=== PATIENT | male | born 1935 | race Caucasian/White ===

== ENCOUNTER 2020-03-05 11:52 | Inpatient (IN) | payer MEDICARE ==
[2020-03-05] MEDS ORDERED: IPRATROPIUM 0.5 MG/2.5 ML NEBU INHALATION STA (12:24)
[2020-03-05] MEDS ORDERED: ALBUTEROL NEBULIZED 2.5 MG/3 ML INHALATION STA (12:24)
[2020-03-05 12:34] LABS: Anisocytosis Slight; Basophils % (A) 0 %; Eosinophils # (A) 0.1 k/uL (0-0.7); Eosinophils % (A) 1 %; HCT 42.7 % (39.0-53.0); HGB 12.8 gm/dL (13.0-17.5); Hypochromasia Marked; Lymphocytes # (A) 0.7 k/uL (1.0-4.8); Lymphocytes % (A) 7 %; MCH 27.3 pg (25.0-35.0); MCV 91.1 fL (80.0-100.0); Mean Platelet Volume 7.3; Monocytes # (A) 0.5 k/uL (0-1.0); Monocytes % (A) 5 %; Neutrophils # (A) 8.3 k/uL (1.3-7.7); Neutrophils % (A) 85 %; Platelet Count 288 k/uL (150-450); RBC 4.68 m/uL (4.30-5.90); RDW 16.3 % (11.5-15.5); WBC 9.8 k/uL (3.8-10.6)
--- NOTE | 2020-03-05 12:37 | ED ---
General Adult HPI - General Chief complaint: Shortness of Breath Stated complaint: SOB, weakness Time Seen by Provider: 03/05/20 12:07 Source: patient, family, RN notes reviewed, old records reviewed Mode of arrival: wheelchair Limitations: no limitations - History of Present Illness Initial comments: 84-year-old male with history of COPD and congestive heart failure presenting with worsening dyspnea. Patient reports a mild cough. No fever. No URI symptoms. He is currently on 2 L of home oxygen and on CPAP machine at night. He typically sleeps in a chair. He's had worsening dyspnea over the past 1 week however over the past 24 hours this has significantly worsened. He denies central chest pain. He does report some lower extremity edema. He has been taking diuretics as prescribed. - Related Data Home Medications Medication Instructions Recorded Confirmed Atorvastatin [Lipitor] 80 mg PO HS 07/13/16 07/13/16 Budesonide [Pulmicort Flexhaler] 1 puff INHALATION RT-BID 07/13/16 07/13/16 Carvedilol [Coreg] 3.125 mg PO BID 07/13/16 07/13/16 Cholecalciferol [Vitamin D3 (25 1,000 unit PO QAM 07/13/16 07/13/16 Mcg = 1000 Iu)] Famotidine [Pepcid] 20 mg PO BID 07/13/16 07/13/16 Fish Oil/Dha/Epa [Fish Oil 1,200 2 cap PO QAM 07/13/16 07/13/16 mg Fish Oil] Gabapentin 600 mg PO HS 07/13/16 07/13/16 INSULIN ASPART (NovoLOG) [NovoLOG See Protocol SQ AC-TID 07/13/16 07/13/16 (formulary)] Levothyroxine Sodium [Synthroid] 50 mcg PO QAM 07/13/16 07/13/16 Montelukast [Singulair] 10 mg PO HS 07/13/16 07/13/16 Multivitamins, Thera [Multivitamin 1 tab PO QAM 07/13/16 07/13/16 (formulary)] Vit C/E/Zn/Coppr/Lutein/Zeaxan 1 cap PO BID 07/13/16 07/13/16 [Preservision Areds 2 Softgel] Previous Rx's Medication Instructions Recorded Albuterol Inhaler (Mhu) [Ventolin 2 puff INHALATION Q6HR #1 inhaler 07/18/16 Hfa Inhaler (Mhu)] Ciprofloxacin HCl [Cipro] 500 mg PO BID #42 tab 07/18/16 Insulin Glargine,Hum.rec.anlog 15 unit SQ HS #30 ml 07/18/16 [Lantus Solostar] SILVER sulfADIAZINE CREAM 1 applic TOPICAL DAILY applic 07/18/16 [Silvadene Cream] predniSONE 10 mg PO DIRECTED #30 tab 07/18/16 Allergies Allergy/AdvReac Type Severity Reaction Status Date / Time No Known Allergies Allergy Verified 07/13/16 16:17 Review of Systems ROS Statement: Those systems with pertinent positive or pertinent negative responses have been documented in the HPI. ROS Other: All systems not noted in ROS Statement are negative. Past Medical History Past Medical History: Coronary Artery Disease (CAD), Diabetes Mellitus, Hyperlipidemia, Hypertension, Sleep Apnea/CPAP/BIPAP Additional Past Medical History / Comment(s): O2 HS for SA History of Any Multi-Drug Resistant Organisms: None Reported Past Surgical History: Cholecystectomy, Coronary Bypass/CABG Additional Past Surgical History / Comment(s): Rectal cancer status post colostomy, bilateral cataract extraction and intraocular lens implants, bilateral eyelid surgery Past Anesthesia/Blood Transfusion Reactions: No Reported Reaction Past Psychological History: No Psychological Hx Reported Smoking Status: Former smoker Past Alcohol Use History: Occasional Past Drug Use History: None Reported - Past Family History Brother(s) Family Medical History: Cancer Son(s) Family Medical History: No Reported History General Exam Limitations: no limitations General appearance: alert, in no apparent distress Head exam: Present: atraumatic, normocephalic Eye exam: Present: normal appearance, PERRL ENT exam: Present: normal exam Neck exam: Present: normal inspection. Absent: tenderness, meningismus Respiratory exam: Present: respiratory distress, wheezes, rales, decreased breath sounds Cardiovascular Exam: Present: regular rate, irregular rhythm GI/Abdominal exam: Present: soft, distended. Absent: tenderness, guarding, rebound Extremities exam: Present: pedal edema Neurological exam: Present: alert, oriented X3, CN II-XII intact. Absent: motor sensory deficit Psychiatric exam: Present: normal affect, normal mood Skin exam: Present: warm, dry, intact, cyanosis, diaphoretic Course Vital Signs 03/05/20 03/05/20 03/05/20 12:03 12:07 12:09 Temperature 99.0 F Pulse Rate 92 89 Respiratory 22 22 16 Rate Blood Pressure 136/72 136/72 O2 Sat by Pulse 92 L 96 Oximetry 03/05/20 03/05/20 03/05/20 12:30 12:45 12:59 Temperature Pulse Rate 80 81 79 Respiratory 17 Rate Blood Pressure O2 Sat by Pulse 97 Oximetry 03/05/20 13:00 Temperature Pulse Rate 79 Respiratory 41 H Rate Blood Pressure 136/72 O2 Sat by Pulse 99 Oximetry EKG Findings - EKG Comments: EKG Findings:: EKG: Atrial flutter with a variable AV block low voltage, ventricular rate of 87, QRS duration 86, QTC 442, no ST segment elevation. Medical Decision Making - Medical Decision Making 84-year-old male presenting with worsening dyspnea. Patient does have a cough. No fever. Chest x-ray showing infiltrate worse on the right. COPD. Patient has left shift, stable hemoglobin. His kidney function is at baseline. He has a BNP of 2000 which is improved from prior. He remains dyspneic which is likely secondary to COPD, pneumonia, and a degree of congestive heart failure. He will be admitted with pulmonology on consult. Case is discussed with Dr. Ramirez who will admit. - Lab Data Result diagrams: 03/05/20 12:10 03/05/20 12:10 Lab Results 03/05/20 03/05/20 03/05/20 Range/Units 12:10 12:10 12:10 WBC 9.8 (3.8-10.6) k/uL RBC 4.68 (4.30-5.90) m/uL Hgb 12.8 L (13.0-17.5) gm/dL Hct 42.7 (39.0-53.0) % MCV 91.1 (80.0-100.0) fL MCH 27.3 (25.0-35.0) pg MCHC 30.0 L (31.0-37.0) g/dL RDW 16.3 H (11.5-15.5) % Plt Count 288 (150-450) k/uL Neutrophils % 85 % Lymphocytes % 7 % Monocytes % 5 % Eosinophils % 1 % Basophils % 0 % Neutrophils # 8.3 H (1.3-7.7) k/uL Lymphocytes # 0.7 L (1.0-4.8) k/uL Monocytes # 0.5 (0-1.0) k/uL Eosinophils # 0.1 (0-0.7) k/uL Basophils # 0.0 (0-0.2) k/uL Hypochromasia Marked Anisocytosis Slight PT 10.1 (9.0-12.0) sec INR 1.0 (<1.2) APTT 24.3 (22.0-30.0) sec Sodium 139 (137-145) mmol/L Potassium 5.0 (3.5-5.1) mmol/L Chloride 98 (98-107) mmol/L Carbon Dioxide 34 H (22-30) mmol/L Anion Gap 7 mmol/L BUN 29 H (9-20) mg/dL Creatinine 1.51 H (0.66-1.25) mg/dL Est GFR (CKD-EPI)AfAm 48 (>60 ml/min/1.73 sqM) Est GFR (CKD-EPI)NonAf 42 (>60 ml/min/1.73 sqM) Glucose 117 H (74-99) mg/dL Plasma Lactic Acid Alberto (0.7-2.0) mmol/L Calcium 9.0 (8.4-10.2) mg/dL Magnesium 2.1 (1.6-2.3) mg/dL Total Bilirubin 0.8 (0.2-1.3) mg/dL AST 27 (17-59) U/L ALT 23 (4-49) U/L Alkaline Phosphatase 161 H (38-126) U/L Troponin I (0.000-0.034) ng/mL NT-Pro-B Natriuret Pep pg/mL Total Protein 7.2 (6.3-8.2) g/dL Albumin 3.7 (3.5-5.0) g/dL 03/05/20 03/05/20 03/05/20 Range/Units 12:10 12:10 12:10 WBC (3.8-10.6) k/uL RBC (4.30-5.90) m/uL Hgb (13.0-17.5) gm/dL Hct (39.0-53.0) % MCV (80.0-100.0) fL MCH (25.0-35.0) pg MCHC (31.0-37.0) g/dL RDW (11.5-15.5) % Plt Count (150-450) k/uL Neutrophils % % Lymphocytes % % Monocytes % % Eosinophils % % Basophils % % Neutrophils # (1.3-7.7) k/uL Lymphocytes # (1.0-4.8) k/uL Monocytes # (0-1.0) k/uL Eosinophils # (0-0.7) k/uL Basophils # (0-0.2) k/uL Hypochromasia Anisocytosis PT (9.0-12.0) sec INR (<1.2) APTT (22.0-30.0) sec Sodium (137-145) mmol/L Potassium (3.5-5.1) mmol/L Chloride (98-107) mmol/L Carbon Dioxide (22-30) mmol/L Anion Gap mmol/L BUN (9-20) mg/dL Creatinine (0.66-1.25) mg/dL Est GFR (CKD-EPI)AfAm (>60 ml/min/1.73 sqM) Est GFR (CKD-EPI)NonAf (>60 ml/min/1.73 sqM) Glucose (74-99) mg/dL Plasma Lactic Acid Alberto 0.9 (0.7-2.0) mmol/L Calcium (8.4-10.2) mg/dL Magnesium (1.6-2.3) mg/dL Total Bilirubin (0.2-1.3) mg/dL AST (17-59) U/L ALT (4-49) U/L Alkaline Phosphatase (38-126) U/L Troponin I 0.031 (0.000-0.034) ng/mL NT-Pro-B Natriuret Pep 2040 pg/mL Total Protein (6.3-8.2) g/dL Albumin (3.5-5.0) g/dL Disposition Clinical Impression: Community acquired pneumonia, Acute exacerbation of chronic obstructive pulmonary disease Disposition: ADMITTED IP TO THIS HOSP Condition: Stable Is patient prescribed a controlled substance at d/c from ED?: No Referrals: Graeme Alonso DO [Primary Care Provider] - 1-2 days Decision to Admit Reason: Admit from EC Decision Date: 03/05/20 Decision Time: 14:02
[2020-03-05 12:42] LABS: Partial Thromboplastin Time 24.3 sec (22.0-30.0); Prothrombin Time 10.1 sec (9.0-12.0)
--- NOTE | 2020-03-05 12:42 | XR ---
EXAMINATION TYPE: XR chest 2V DATE OF EXAM: 03/05/2020 COMPARISON: 08/24/2016 INDICATION: Difficulty breathing, fever TECHNIQUE: Frontal and lateral views of the chest are obtained. FINDINGS: The heart size is normal. The pulmonary vasculature is normal. Mild bibasilar infiltrates are present, greater at the left base. There is blunting left costophrenic angle. Posterior infiltrates are present on the lateral projection. Hyperinflation flattening the di aphragms is present. IMPRESSION: 1. Right basilar infiltrates with left greater than right. Correlate for atelectasis and pneumonia. C onsider atypical pneumonia within the joint. 2. COPD.
[2020-03-05 12:47] LABS: Albumin 3.7 g/dL (3.5-5.0); Magnesium 2.1 mg/dL (1.6-2.3); Total Bilirubin 0.8 mg/dL (0.2-1.3); Total Protein 7.2 g/dL (6.3-8.2)
[2020-03-05] MEDS ORDERED: ASPIRIN 325 MG TAB PO STA (13:58)
[2020-03-05] MEDS ORDERED: IPRATROPIUM-ALBUTEROL 3 ML NEB INHALATION PRN (13:58)
[2020-03-05] MEDS ORDERED: cefTRIAXone IN SWFI 1,000 MG/10 ML SYRINGE IVP STA (13:58)
[2020-03-05] MEDS ORDERED: FUROSEMIDE 10 MG/ML 4 ML VIAL IV STA (13:58)
[2020-03-05] MEDS ORDERED: AZITHROMYCIN 500 MG in SODIUM CHLORIDE 0.9% 250 ML IVPB STA (13:58)
[2020-03-05] MEDS ORDERED: methylPREDNISolone SOD SUCCI 125 MG/2 ML VIAL IV STA (13:58)
[2020-03-05] MEDS: IPRATROPIUM-ALBUTEROL 3 ML NEB INHALATION SCH ×2 (15:39→19:30)
--- NOTE | 2020-03-05 16:37 | P.HPIM ---
History of Present Illness 84-year-old pleasant male with known history of COPD came in with comments of shortness of breath has been going on for last few days unable to see because of shortness of breath for last 3 days patient is supposed to stress of onset at home does have history of sleep apnea, complaining of cough unable to bring up anything, denied any orthopnea or paroxysmal nocturnal dyspnea. Patient denied any fever chills. Patient doesn't have any leukocytosis chest x-ray showed bilateral lower lobe infiltrates possibility of atelectasis patient has significant rhonchi bilaterally very minimal wheeze on exam. Doesn't have any JVD. Patient had normal ejection fraction the past BNP is 2000 clinically doesn't appear to be in CHF exacerbation and patient does use CPAP machine at home morbidly obese. Review of Systems Patient is drowsy unable to get much of the review of systems. 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 History of Any Multi-Drug Resistant Organisms: None Reported Past Surgical History: Bowel Resection, Cholecystectomy, Coronary Bypass/CABG, Heart Catheterization Additional Past Surgical History / Comment(s): Colon resection/colostomy, colonoscopy with benign polyps, 2008 aortic valve replacement and one vessel CABG, bilateral cataract removals/lens implants, bilateral blepharoplasty. Past Anesthesia/Blood Transfusion Reactions: Postoperative Nausea & Vomiting (PONV) Additional Past Anesthesia/Blood Transfusion Reaction / Comment(s): Pt has received blood in past without reaction. Smoking Status: Former smoker - Past Family History Brother(s) Family Medical History: Cancer Additional Family Medical History / Comment(s): Some type of GI cancer Son(s) Family Medical History: No Reported History Father Family Medical History: Cancer Additional Family Medical History / Comment(s): Some type of GI cancer Mother Family Medical History: No Reported History Medications and Allergies Home Medications Medication Instructions Recorded Confirmed Type Atorvastatin [Lipitor] 80 mg PO HS 07/13/16 03/05/20 History Budesonide [Pulmicort Flexhaler] 1 puff INHALATION RT-BID 07/13/16 03/05/20 History Carvedilol [Coreg] 3.125 mg PO BID 07/13/16 03/05/20 History Cholecalciferol [Vitamin D3 (25 1,000 unit PO QAM 07/13/16 03/05/20 History Mcg = 1000 Iu)] Famotidine [Pepcid] 20 mg PO BID 07/13/16 03/05/20 History INSULIN ASPART (NovoLOG) [NovoLOG See Protocol SQ AC-TID 07/13/16 03/05/20 History (formulary)] Levothyroxine Sodium [Synthroid] 50 mcg PO QAM 07/13/16 03/05/20 History Montelukast [Singulair] 10 mg PO HS 07/13/16 03/05/20 History Albuterol Inhaler (Mhu) [Ventolin 2 puff INHALATION RT-Q4H PRN 03/05/20 03/05/20 History Hfa Inhaler (Mhu)] Gabapentin [Neurontin] 900 mg PO HS 03/05/20 03/05/20 History Insulin Glargine,Hum.rec.anlog 52 unit SQ HS 03/05/20 03/05/20 History [Lantus Solostar] Allergies Allergy/AdvReac Type Severity Reaction Status Date / Time lisinopril Allergy Unknown Verified 03/05/20 14:10 Physical Exam Vitals: Vital Signs Temp Pulse Resp BP Pulse Ox 03/05/20 15:51 68 18 03/05/20 15:39 73 18 03/05/20 15:30 69 20 106/50 99 03/05/20 14:38 79 20 116/61 98 03/05/20 14:30 78 20 108/57 98 03/05/20 14:18 77 16 108/57 99 03/05/20 13:30 76 20 114/54 98 03/05/20 13:00 79 41 H 136/72 99 03/05/20 12:59 79 03/05/20 12:45 81 03/05/20 12:30 80 17 97 03/05/20 12:09 89 16 136/72 96 03/05/20 12:07 22 03/05/20 12:03 99.0 F 92 22 136/72 92 L Intake and Output 03/05/20 03/05/20 03/05/20 06:59 14:59 22:59 Other: Weight 127.006 kg 127.006 kg PHYSICAL EXAMINATION: GENERAL: The patient is drowsy sleepy and oriented x3, not in any acute distress. Well developed, well nourished. Obese HEENT: Pupils are round and equally reacting to light. EOMI. No scleral icterus. No conjunctival pallor. Normocephalic, atraumatic. No pharyngeal erythema. No thyromegaly. CARDIOVASCULAR: S1 and S2 present. No murmurs, rubs, or gallops. PULMONARY: Decreased air entry and bilateral rhonchi with minimal expiratory w heezing ABDOMEN: Soft, nontender, nondistended, normoactive bowel sounds. No palpable organomegaly. MUSCULOSKELETAL: No joint swelling or deformity. EXTREMITIES: No cyanosis, clubbing, or pedal edema. NEUROLOGICAL: Gross neurological examination did not reveal any focal deficits. SKIN: No rashes. Results CBC & Chem 7: 03/05/20 12:10 03/05/20 12:10 Labs: Abnormal Lab Results - Last 24 Hours (Table) 03/05/20 03/05/20 Range/Units 12:10 12:10 Hgb 12.8 L (13.0-17.5) gm/dL MCHC 30.0 L (31.0-37.0) g/dL RDW 16.3 H (11.5-15.5) % Neutrophils # 8.3 H (1.3-7.7) k/uL Lymphocytes # 0.7 L (1.0-4.8) k/uL Carbon Dioxide 34 H (22-30) mmol/L BUN 29 H (9-20) mg/dL Creatinine 1.51 H (0.66-1.25) mg/dL Glucose 117 H (74-99) mg/dL Alkaline Phosphatase 161 H (38-126) U/L Thrombosis Risk Factor Assmnt - Choose All That Apply Any of the Below Risk Factors Present?: Yes Each Factor Represents 1 point: Abnormal pulmonary function (COPD), Obesity (BMI >25), Serious lung disease incl. pneumonia (< 1month), Swollen legs (current) Other Risk Factors: Yes Each Risk Factor Represents 2 Points: Malignancy Each Risk Factor Represents 3 Points: Age 75 years or older Other congenital or acquired thrombophilia - If yes, enter type in comment: No Thrombosis Risk Factor Assessment Total Risk Factor Score: 9 Thrombosis Risk Factor Assessment Level: High Risk Assessment and Plan Plan: -Shortest breath: Probably secondary to either tracheal bronchitis and pneumonia which I cannot completely rule out along with the sleep apnea and restrictive lung disease there may be a competent of COPD patient will be started on low- dose of steroids and he with inhalational treatments. Pulmonology was consulted. -Obesity, sleep apnea: Patient will resume his BiPAP machine at nighttime. -COPD with possible mild acute exacerbation -Coronary artery disease -Type 2 diabetes mellitus patient resumed on his home regimen and sliding scale for systemic steroids, patient blood sugars are expected to go because of systemic steroids -Hypothyroidism Hypertension -Chronic kidney disease stage III from possible diabetic nephropathy -DVT prophylaxis with subcutaneous of pharyngeal prophylaxis with Pepcid
[2020-03-05] MEDS: INSULIN ASPART (NovoLOG) 100 UNIT/ML VIAL SQ SCH (17:17)
[2020-03-05] MEDS: CARVEDILOL 3.125 MG TAB PO SCH (17:17)
[2020-03-05 17:24] LABS: Glucose,Whole Blood 169 mg/dL (75-99)
[2020-03-05] MEDS ORDERED: methylPREDNISolone SOD SUCCI 125 MG/2 ML VIAL IV SCH (18:00)
[2020-03-05] MEDS: FLUTICASONE 110 MCG INHALER INHALATION SCH (19:29)
[2020-03-05] MEDS: ATORVASTATIN 80 MG TAB PO SCH (20:35)
[2020-03-05] MEDS: FAMOTIDINE 20 MG TAB PO SCH (20:35)
[2020-03-05] MEDS: GABAPENTIN 300 MG CAP PO SCH (20:35)
[2020-03-05] MEDS: methylPREDNISolone SOD SUCCI 40 MG/ML 1 ML VIAL IV SCH (20:35)
[2020-03-05 21:23] LABS: Glucose,Whole Blood 263 mg/dL (75-99)
[2020-03-05] MEDS: INSULIN DETEMIR (LEVEMIR) 100 UNIT/ML SYR SQ SCH (21:23)
[2020-03-05] MEDS: HEPARIN SODIUM,PORCINE 5,000 UNIT/ML 1 ML VIAL SQ SCH (23:54)
[2020-03-06 06:45] LABS: Glucose,Whole Blood 254 mg/dL (75-99)
[2020-03-06] MEDS: INSULIN ASPART (NovoLOG) 100 UNIT/ML VIAL SQ SCH ×6 (06:51→19:46)
[2020-03-06] MEDS: LEVOTHYROXINE 50 MCG TAB PO SCH (06:51)
[2020-03-06] MEDS: CARVEDILOL 3.125 MG TAB PO SCH ×2 (06:51→17:09)
[2020-03-06 07:02] LABS: Anisocytosis Slight; HCT 37.9 % (39.0-53.0); HGB 11.6 gm/dL (13.0-17.5); Hypochromasia Marked; MCH 28.2 pg (25.0-35.0); MCHC 30.7 g/dL (31.0-37.0); MCV 91.8 fL (80.0-100.0); Mean Platelet Volume 7.4; Platelet Count 219 k/uL (150-450); RBC 4.13 m/uL (4.30-5.90); RDW 16.2 % (11.5-15.5); WBC 7.4 k/uL (3.8-10.6)
[2020-03-06 07:20] LABS: Calcium 8.8 mg/dL (8.4-10.2)
[2020-03-06] MEDS: HEPARIN SODIUM,PORCINE 5,000 UNIT/ML 1 ML VIAL SQ SCH (09:17)
[2020-03-06] MEDS: FAMOTIDINE 20 MG TAB PO SCH (09:17)
[2020-03-06] MEDS: AZITHROMYCIN 500 MG TAB PO SCH (09:17)
[2020-03-06] MEDS: methylPREDNISolone SOD SUCCI 40 MG/ML 1 ML VIAL IV SCH ×2 (09:18→19:37)
[2020-03-06] MEDS: IPRATROPIUM-ALBUTEROL 3 ML NEB INHALATION SCH ×4 (09:36→20:26)
[2020-03-06] MEDS: FLUTICASONE 110 MCG INHALER INHALATION SCH ×2 (09:36→20:26)
--- NOTE | 2020-03-06 11:27 | CT ---
EXAMINATION TYPE: CT chest wo con DATE OF EXAM: 03/06/2020 COMPARISON: Hypoxia HISTORY: Hypoxemia CT DLP: 1130 mGycm. Automated Exposure Control for Dose Reduction was Utilized. TECHNIQUE: CT scan of the thorax is performed without IV contrast. FINDINGS: Exam limited by motion artifact. LUNGS: There is peribronchial thickening with basilar consolidation and small effusions. Motion artif act limits the exam. No sizable pneumothorax. Findings suspicious for bronchiectasis involving the le ft upper lobe. No diagnostic evidence of interlobular septal thickening.. MEDIASTINUM: Lack of IV contrast is noted to limit evaluation for mediastinal and especially hilar ad enopathy. There are no definitive greater than 1 cm hilar or mediastinal lymph nodes. Heart is enlarg ed. Sternotomy wires are noted and there is calcification of the aortic valve and coronary arteries. Assessment for adenopathy limited.. OTHER: Hypertrophic and degenerative changes of the spine. Sternotomy wires noted. Indeterminate left adrenal nodule stable from prior exam of 2010 therefore likely related to a benign adrenal adenoma. Measures 1.4 cm. IMPRESSION: 1. Interstitial prominence with bilateral small effusions and basilar consolidation. Exam limited by motion artifact correlate for venous congestion or interstitial pneumonitis. No diagnostic evidence o f pulmonary fibrosis.
[2020-03-06 12:11] LABS: Glucose,Whole Blood 293 mg/dL (75-99)
--- NOTE | 2020-03-06 12:39 | P.CNPUL ---
History of Present Illness Consult date: 03/06/20 Requesting physician: Zaheer Ashton Reason for consult: dyspnea, COPD Chief complaint: Shortness of breath History of present illness: This is a very pleasant 84-year-old gentleman who follows with Dr. Alonso as his primary care provider. He has a history of hypertension, hyperlipidemia, coronary artery disease with previous coronary artery bypass grafting, cardiomyopathy and LV dysfunction, endocarditis, rectal cancer status post colostomy, former smoker. He does have chronic obstructive pulmonary disease and obstructive sleep apnea utilizing CPAP in the outpatient setting he is also on home oxygen at 2 L/m per nasal cannula and follows with Dr. Morales in our office for the same. His FEV1 value is 42% of predicted. He was last seen on 02/28/2024 profound exertional dyspnea secondary to both the COPD and cardiomyopathy. He was given Aldactone 25 mg daily continued on his oral Lasix. He presented here to the emergency room yesterday with worsening shortness of breath, cough and congestion. Chest x-ray shows basilar infiltrates with left greater than right. Possible atypical pneumonia. Evidence of COPD. EKG shows evidence of atrial flutter with a controlled ventricular rate. White count 7.4. Hemoglobin 11.6. Sodium 137. Potassium 5.0. Bicarb 31. Creatinine 1.79. Herrera virus not detected. He is seen today in consultation on the selective care unit. He is currently resting in bed. Awake and alert in no acute distress. Currently maintaining O2 saturations in the 90s on 3 L/m per nasal cannula. She's afebrile. Home CPAP at the bedside. He's been initiated on DuoNeb inhalations, Flovent, IV Solu-Medrol and antibiotics in the form of ceftriaxone and azithromycin. He was given a dose of IV diuretics yesterday. On heparin subcu for DVT prophylaxis. Review of Systems REVIEW OF SYSTEMS: CONSTITUTIONAL: Denies any recent significant weight loss or weight gain. EYES: Denies change in vision. EARS, NOSE, MOUTH, THROAT: Denies headaches, denies sore throat. CARDIOVASCULAR: Denies chest pain, palpitations or syncopal episodes. RESPIRATORY: Positive for shortness of breath, cough, congestion no hemoptysis. GASTROINTESTINAL: Denies change in appetite, denies abdominal pain GENITOURINARY: Denies hematuria, denies infections. MUSKULOSKELETAL: Denies pain, denies swelling. INTEGUMENTARY: Denies rash, denies eczema. NEUROLOGICAL: Denies recent memory loss, no recent seizure activity. PSYCHIATRIC: Denies anxiety, denies depression. HEMATOLOGIC/LYMPHATIC: Denies anemia, denies enlarged lymph nodes. 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 History of Any Multi-Drug Resistant Organisms: None Reported Past Surgical History: Bowel Resection, Cholecystectomy, Coronary Bypass/CABG, Heart Catheterization Additional Past Surgical History / Comment(s): Colon resection/colostomy, colonoscopy with benign polyps, 2007 aortic valve replacement and one vessel CABG, bilateral cataract removals/lens implants, bilateral blepharoplasty. Past Anesthesia/Blood Transfusion Reactions: Postoperative Nausea & Vomiting (PONV) Additional Past Anesthesia/Blood Transfusion Reaction / Comment(s): Pt has rec eived blood in past without reaction. Smoking Status: Former smoker - Past Family History Brother(s) Family Medical History: Cancer Additional Family Medical History / Comment(s): Some type of GI cancer Son(s) Family Medical History: No Reported History Father Family Medical History: Cancer Additional Family Medical History / Comment(s): Some type of GI cancer Mother Family Medical History: No Reported History Medications and Allergies Home Medications Medication Instructions Recorded Confirmed Type Atorvastatin [Lipitor] 80 mg PO HS 07/13/16 03/05/20 History Budesonide [Pulmicort Flexhaler] 1 puff INHALATION RT-BID 07/13/16 03/05/20 History Carvedilol [Coreg] 3.125 mg PO BID 07/13/16 03/05/20 History Cholecalciferol [Vitamin D3 (25 1,000 unit PO QAM 07/13/16 03/05/20 History Mcg = 1000 Iu)] Famotidine [Pepcid] 20 mg PO BID 07/13/16 03/05/20 History INSULIN ASPART (NovoLOG) [NovoLOG See Protocol SQ AC-TID 07/13/16 03/05/20 History (formulary)] Levothyroxine Sodium [Synthroid] 50 mcg PO QAM 07/13/16 03/05/20 History Montelukast [Singulair] 10 mg PO HS 07/13/16 03/05/20 History Albuterol Inhaler (Mhu) [Ventolin 2 puff INHALATION RT-Q4H PRN 03/05/20 03/05/20 History Hfa Inhaler (Mhu)] Gabapentin [Neurontin] 900 mg PO HS 03/05/20 03/05/20 History Insulin Glargine,Hum.rec.anlog 52 unit SQ HS 03/05/20 03/05/20 History [Lantus Solostar] Allergies Allergy/AdvReac Type Severity Reaction Status Date / Time lisinopril Allergy Unknown Verified 03/05/20 14:10 Physical Exam Vitals: Vital Signs Temp Pulse Pulse Resp BP BP Pulse Ox 03/06/20 11:39 98.2 F 72 20 116/61 96 03/06/20 09:51 61 03/06/20 09:37 56 L 93 L 03/06/20 08:00 98.1 F 70 28 H 125/60 92 L 03/06/20 04:00 97.8 F 67 18 118/57 90 L 03/06/20 00:00 97.6 F 64 20 114/58 90 L 03/05/20 20:00 98.6 F 74 22 121/70 92 L 03/05/20 19:44 72 03/05/20 19:30 76 93 L 03/05/20 17:00 24 03/05/20 16:50 98.5 F 74 24 109/62 97 03/05/20 15:51 68 18 03/05/20 15:39 73 18 03/05/20 15:30 69 20 106/50 99 03/05/20 14:38 79 20 116/61 98 03/05/20 14:30 78 20 108/57 98 03/05/20 14:18 77 16 108/57 99 03/05/20 13:30 76 20 114/54 98 03/05/20 13:00 79 41 H 136/72 99 03/05/20 12:59 79 03/05/20 12:45 81 03/05/20 12:30 80 17 97 Intake and Output 03/05/20 03/06/20 03/06/20 22:59 06:59 14:59 Intake Total 240 450 240 Output Total 275 600 300 Balance -35 -150 -60 Intake: Oral 240 450 240 Output: Urine 275 600 300 Other: Voiding Method Urinal Urinal Urinal Weight 127.006 kg 126.5 kg GENERAL EXAM: Alert, pleasant 84-year-old gentleman, on 2 L nasal cannula, com fortable in no apparent distress. HEAD: Normocephalic. EYES: Normal reaction of pupils, equal size. NOSE: Clear with pink turbinates. THROAT: No erythema or exudates. NECK: No masses, no JVD. CHEST: No chest wall deformity. LUNGS: Equal air entry with crackles in the bilateral posterior bases, dimin ished. CVS: S1 and S2 normal with no audible murmur, regular rhythm. ABDOMEN: No hepatosplenomegaly, normal bowel sounds, no guarding or rigidity. SPINE: No scoliosis or deformity SKIN: No rashes CENTRAL NERVOUS SYSTEM: No focal deficits, tone is normal in all 4 extremities. EXTREMITIES: There is no peripheral edema. No clubbing, no cyanosis. Peripheral pulses are intact. Results - Laboratory Findings CBC and BMP: 03/06/20 05:44 03/06/20 05:44 PT/INR, D-dimer PT 10.1 sec (9.0-12.0) 03/05/20 12:10 INR 1.0 (<1.2) 03/05/20 12:10 Abnormal lab findings: Abnormal Labs 03/05/20 03/05/20 03/05/20 12:10 12:10 17:04 RBC Hgb 12.8 L Hct MCHC 30.0 L RDW 16.3 H Neutrophils # 8.3 H Lymphocytes # 0.7 L Chloride Carbon Dioxide 34 H BUN 29 H Creatinine 1.51 H Glucose 117 H POC Glucose (mg/dL) 169 H Alkaline Phosphatase 161 H 03/05/20 03/06/20 03/06/20 21:20 05:44 05:44 RBC 4.13 L Hgb 11.6 L Hct 37.9 L MCHC 30.7 L RDW 16.2 H Neutrophils # Lymphocytes # Chloride 97 L Carbon Dioxide 31 H BUN 46 H Creatinine 1.79 H Glucose 269 H POC Glucose (mg/dL) 263 H Alkaline Phosphatase 03/06/20 03/06/20 06:43 11:44 RBC Hgb Hct MCHC RDW Neutrophils # Lymphocytes # Chloride Carbon Dioxide BUN Creatinine Glucose POC Glucose (mg/dL) 254 H 293 H Alkaline Phosphatase - Diagnostic Findings Chest x-ray: image reviewed Assessment and Plan Assessment: 1 Acute on chronic hypoxic respiratory failure secondary to an acute exacerbation of chronic obstructive pulmonary disease, FEV1 value of 42% of predicted. 2 Acute on chronic exacerbation of congestive heart failure, diastolic versus systolic. 3 Atrial flutter, possible new onset 4 Obesity 5 Obstructive sleep apnea utilizing home CPAP 6 Coronary artery disease with previous coronary artery bypass grafting 7 History of endocarditis 8 History of rectal cancer with previous colostomy 9 Diabetes mellitus 10 Hypertension 11 Hyperlipidemia Plan: The patient was seen and evaluated by Dr. Morales Chest x-ray and labs reviewed We'll obtain a high-resolution computed tomography scan to rule out any inters titial lung disease Continue bronchodilators, IV Solu-Medrol Continue antibiotics Consult cardiology We will continue to follow and make further recommendations based on his clinical status I, the cosigning physician, performed a history & physical examination of the patient. Lungs sounds with crackles in the bilateral posterior bases. Maintaining good O2 saturations in the 90s on 3 L/m per nasal cannula. I discussed the assessment and plan of care with my nurse practitioner, Marjan Martin. I attest to the above consultation as dictated by her. Time with Patient: Greater than 30
--- NOTE | 2020-03-06 13:40 | P.CRDCN ---
History of Present Illness Consult date: 03/06/20 Requesting physician: Toby Morales Reason for Consult (text): CHF, atrial flutter Chief complaint: progressively worsening shortness of breath History of present illness: This is a pleasant 84-year-old gentleman who previously followed in the office with Dr. VC Kelley. He has a history of hypertension, hyperlipidemia, CAD with previous CABG the patient believes was only 1 vessel with aortic valve replacement with porcine AV prosthesis, cardiomyopathy and LV dysfunction with most recent echocardiogram in January 2018 showing normal LV systolic function, endocarditis, COPD, rectal cancer status post colostomy and former smoker quit 30 years ago. Presented to the emergency department with complaints of progressively worsening shortness of breath. He was seen on 02/28/2020 by his printing pressman for profound exertional dyspnea secondary to COPD and cardiomyopathy at which time he was initiated on Aldactone. Shortness of breath continued to worsen he also had complaints of cough and congestion. Chest x-ray shows basilar infiltrates with left greater than right, possible atypical pneumo silvino and evidence of COPD. We are asked to see the patient in consultation as EKG shows evidence of atrial flutter with controlled ventricular response with no documented history of atrial flutter. EKG reviewed shows coarse atrial fibrillation of unknown duration. He did undergo a computed tomography scan of the chest which showed interstitial prominence with bilateral small effusions and basilar consolidation, exam limited by motion artifact correlate for venous congestion or in her social pneumonitis, no diagnostic evidence of pulmonary fibrosis. He does have a known FEV1 value of 42% of predicted. Laboratory values on admission showed a BNP of 2040 which has been as high as 5290 in 2016. Other labs show BUN of 29, creatinine 1.51 with a repeat this morning a 46 and 1.79. He is currently on carvedilol 3.125 mg by mouth twice a day, Zithromax, Lipitor 80 mg by mouth daily at bedtime, DuoNeb, ceftriaxone IV, Pepcid, Flovent, Neurontin, heparin 5000 units subcu every 8 hours, NovoLog, Levemir, Synthroid 50 g daily and methylprednisolone 40 mg IV twice a day. Overall he is feeling somewhat better since admission. He continues to be wheezy with shortness of breath and mild cough. Vital signs are stable, heart rate is well controlled. 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 History of Any Multi-Drug Resistant Organisms: None Reported Past Surgical History: Bowel Resection, Cholecystectomy, Coronary Bypass/CABG, Heart Catheterization Additional Past Surgical History / Comment(s): Colon resection/colostomy, colonoscopy with benign polyps, 2008 aortic valve replacement and one vessel CABG, bilateral cataract removals/lens implants, bilateral blepharoplasty. Past Anesthesia/Blood Transfusion Reactions: Postoperative Nausea & Vomiting (PONV) Additional Past Anesthesia/Blood Transfusion Reaction / Comment(s): Pt has received blood in past without reaction. Smoking Status: Former smoker - Past Family History Brother(s) Family Medical History: Cancer Additional Family Medical History / Comment(s): Some type of GI cancer Son(s) Family Medical History: No Reported History Father Family Medical History: Cancer Additional Family Medical History / Comment(s): Some type of GI cancer Mother Family Medical History: No Reported History Medications and Allergies Home Medications Medication Instructions Recorded Confirmed Type Atorvastatin [Lipitor] 80 mg PO HS 07/13/16 03/05/20 History Budesonide [Pulmicort Flexhaler] 1 puff INHALATION RT-BID 07/13/16 03/05/20 H istory Carvedilol [Coreg] 3.125 mg PO BID 07/13/16 03/05/20 History Cholecalciferol [Vitamin D3 (25 1,000 unit PO QAM 07/13/16 03/05/20 History Mcg = 1000 Iu)] Famotidine [Pepcid] 20 mg PO BID 07/13/16 03/05/20 History INSULIN ASPART (NovoLOG) [NovoLOG See Protocol SQ AC-TID 07/13/16 03/05/20 History (formulary)] Levothyroxine Sodium [Synthroid] 50 mcg PO QAM 07/13/16 03/05/20 History Montelukast [Singulair] 10 mg PO HS 07/13/16 03/05/20 History Albuterol Inhaler (Mhu) [Ventolin 2 puff INHALATION RT-Q4H PRN 03/05/20 03/05/20 History Hfa Inhaler (Mhu)] Gabapentin [Neurontin] 900 mg PO HS 03/05/20 03/05/20 History Insulin Glargine,Hum.rec.anlog 52 unit SQ HS 03/05/20 03/05/20 History [Lantus Solostar] Allergies Allergy/AdvReac Type Severity Reaction Status Date / Time lisinopril Allergy Unknown Verified 03/05/20 14:10 Physical Exam Vitals: Vital Signs Temp Pulse Pulse Resp BP BP Pulse Ox 03/06/20 12:56 64 03/06/20 12:48 64 03/06/20 11:39 98.2 F 72 20 116/61 96 03/06/20 09:51 61 03/06/20 09:37 56 L 93 L 03/06/20 08:00 98.1 F 70 28 H 125/60 92 L 03/06/20 04:00 97.8 F 67 18 118/57 90 L 03/06/20 00:00 97.6 F 64 20 114/58 90 L 03/05/20 20:00 98.6 F 74 22 121/70 92 L 03/05/20 19:44 72 03/05/20 19:30 76 93 L 03/05/20 17:00 24 03/05/20 16:50 98.5 F 74 24 109/62 97 03/05/20 15:51 68 18 03/05/20 15:39 73 18 03/05/20 15:30 69 20 106/50 99 03/05/20 14:38 79 20 116/61 98 03/05/20 14:30 78 20 108/57 98 03/05/20 14:18 77 16 108/57 99 03/05/20 13:30 76 20 114/54 98 Intake and Output 03/05/20 03/06/20 03/06/20 22:59 06:59 14:59 Intake Total 240 450 240 Output Total 275 600 300 Balance -35 -150 -60 Intake: Oral 240 450 240 Output: Urine 275 600 300 Other: Voiding Method Urinal Urinal Urinal Weight 127.006 kg 126.5 kg PHYSICAL EXAMINATION: HEENT: Head is atraumatic, normocephalic. Pupils equal, round. Neck is supple. There is no elevated jugular venous pressure. HEART EXAMINATION: Heart sounds irregular irregular, S1 and S2 with a systolic murmur. CHEST EXAMINATION: Lungs reveal diminished air entry with expiratory wheezing throughout. No chest wall tenderness is noted on palpation or with deep breathing. ABDOMEN: Soft, obese, nontender. Bowel sounds are heard. No organomegaly noted. EXTREMITIES: 2+ peripheral pulses with evidence of trace peripheral edema and no calf tenderness noted. NEUROLOGIC patient is awake, alert and oriented x3. . Results 03/06/20 05:44 03/06/20 05:44 CBC 03/06/20 Range/Units 05:44 WBC 7.4 (3.8-10.6) k/uL RBC 4.13 L (4.30-5.90) m/uL Hgb 11.6 L (13.0-17.5) gm/dL Hct 37.9 L (39.0-53.0) % Plt Count 219 (150-450) k/uL Comprehensive Metabolic Panel 03/06/20 Range/Units 05:44 Sodium 137 (137-145) mmol/L Potassium 5.0 (3.5-5.1) mmol/L Chloride 97 L (98-107) mmol/L Carbon Dioxide 31 H (22-30) mmol/L BUN 46 H (9-20) mg/dL Creatinine 1.79 H (0.66-1.25) mg/dL Glucose 269 H (74-99) mg/dL Calcium 8.8 (8.4-10.2) mg/dL Current Medications Generic Name Dose Route Start Last Admin Trade Name Freq PRN Reason Stop Dose Admin Albuterol/Ipratropium 3 ml 03/05/20 13:58 Duoneb 0.5 Mg-3 Mg/3 Ml Soln INHALATION RT-Q4H PRN Shortness Of Breath Or Wheezing Albuterol/Ipratropium 3 ml 03/05/20 16:00 03/06/20 12:47 Duoneb 0.5 Mg-3 Mg/3 Ml Soln INHALATION 3 ml RT-QID RAMESH Administration Atorvastatin Calcium 80 mg 03/05/20 21:00 03/05/20 20:35 Lipitor PO 80 mg HS RAMESH Administration Azithromycin 500 mg 03/06/20 09:00 03/06/20 09:17 Zithromax PO 500 mg DAILY RAMESH Administration Carvedilol 3.125 mg 03/05/20 17:30 03/06/20 06:51 Coreg PO 3.125 mg AC-BID RAMESH Administration Famotidine 20 mg 03/07/20 09:00 Pepcid PO DAILY RAMESH Fluticasone Propionate 1 puff 03/05/20 20:00 03/06/20 09:36 Flovent 110 Mcg Inhaler INHALATION 1 puff RT-BID RAMESH Administration Gabapentin 900 mg 03/05/20 21:00 03/05/20 20:35 Neurontin PO 900 mg HS RAMESH Administration Heparin Sodium (Porcine) 5,000 unit 03/06/20 00:00 03/06/20 09:17 Heparin SQ 5,000 unit Q8HR RAMESH Administration Ceftriaxone Sodium 2 gm/ 50 mls @ 100 mls/hr 03/06/20 14:00 Sodium Chloride IVPB Q24H [facility] Insulin Aspart 0 unit 03/05/20 17:30 03/06/20 12:28 Novolog SQ 8 unit AC-TID RAMESH Administration Protocol Insulin Aspart 4 unit 03/06/20 12:30 03/06/20 12:28 Novolog SQ 4 unit AC-TID RAMESH Administration Insulin Detemir 60 unit 03/05/20 21:00 03/05/20 21:23 Levemir SQ 60 unit HS RAMESH Administration Levothyroxine Sodium 50 mcg 03/06/20 06:30 03/06/20 06:51 Synthroid PO 50 mcg DAILY@0630 RAMESH Administration Methylprednisolone Sodium Succinate 40 mg 03/05/20 21:00 03/06/20 09:18 Solu-Medrol IV 40 mg BID RAMESH Administration Intake and Output 03/05/20 03/06/20 03/06/20 22:59 06:59 14:59 Intake Total 240 450 240 Output Total 275 600 300 Balance -35 -150 -60 Intake: Oral 240 450 240 Output: Urine 275 600 300 Other: Voiding Method Urinal Urinal Urinal Weight 127.006 kg 126.5 kg 03/06/20 05:44 03/06/20 05:44 EKG Interpretations (text) Course atrial fibrillation with controlled ventricular response Assessment and Plan Assessment: #1 acute on chronic hypoxic respiratory failure secondary to acute exacerbation of COPD #2 evidence of mild acute on chronic CHF, likely diastolic is some most recent echocardiogram showed an ejection fraction of 70% with grade 2 diastolic dysfunction however could be exacerbated by AF #3 atrial fibrillation, of unknown duration #4 obstructive sleep apnea using CPAP #5 status post aortic valve replacement #6 CAD with prior CABG #7 history of endocarditis #8 history of rectal cancer with previous colostomy #9 diabetes #10 hypertension #11 hyperlipidemia Plan: From cardiology perspective we will obtain a 2-D echo with Doppler. Symptoms of progressively worsening shortness of breath likely secondary mostly to acute exacerbation of COPD with possibility of mild acute on chronic CHF. We will start the patient on anticoagulation with Eliquis 2.5 mg by mouth twice a day. We will continue to follow the patient provide further recommendations accordingly. ANGIOGRAPHER note has been reviewed, I agree with a documented findings and plan of care. Patient was seen and examined.
[2020-03-06] MEDS: APIXABAN 2.5 MG TABLET PO SCH ×2 (15:39→19:38)
[2020-03-06 16:29] LABS: Glucose,Whole Blood 252 mg/dL (75-99)
[2020-03-06] MEDS: INSULIN DETEMIR (LEVEMIR) 100 UNIT/ML SYR SQ SCH (19:37)
[2020-03-06] MEDS: ATORVASTATIN 80 MG TAB PO SCH (19:37)
[2020-03-06] MEDS: GABAPENTIN 300 MG CAP PO SCH (19:37)
[2020-03-06 19:47] LABS: Glucose,Whole Blood 303 mg/dL (75-99)
[2020-03-07] MEDS: INSULIN ASPART (NovoLOG) 100 UNIT/ML VIAL SQ SCH ×7 (06:27→19:41)
[2020-03-07] MEDS: LEVOTHYROXINE 50 MCG TAB PO SCH (06:28)
[2020-03-07] MEDS: CARVEDILOL 3.125 MG TAB PO SCH ×2 (06:28→16:58)
[2020-03-07 06:29] LABS: Glucose,Whole Blood 238 mg/dL (75-99)
[2020-03-07] MEDS: FAMOTIDINE 20 MG TAB PO SCH (08:07)
[2020-03-07] MEDS: methylPREDNISolone SOD SUCCI 40 MG/ML 1 ML VIAL IV SCH ×2 (08:07→19:41)
[2020-03-07] MEDS: AZITHROMYCIN 500 MG TAB PO SCH (08:08)
[2020-03-07] MEDS: APIXABAN 2.5 MG TABLET PO SCH ×2 (08:08→19:42)
[2020-03-07] MEDS: IPRATROPIUM-ALBUTEROL 3 ML NEB INHALATION SCH ×4 (08:18→21:08)
[2020-03-07] MEDS: FLUTICASONE 110 MCG INHALER INHALATION SCH ×2 (08:19→21:08)
[2020-03-07 11:23] LABS: Glucose,Whole Blood 214 mg/dL (75-99)
--- NOTE | 2020-03-07 11:29 | P.PN ---
Subjective Progress Note Date: 03/07/20 Principal diagnosis: Acute on chronic hypoxic respiratory failure secondary to acute COPD exacerbation This is a very pleasant 84-year-old gentleman who follows with Dr. Alonso as his primary care provider. He has a history of hypertension, hyperlipidemia, coronary artery disease with previous coronary artery bypass grafting, cardiomyopathy and LV dysfunction, endocarditis, rectal cancer status post colostomy, former smoker. He does have chronic obstructive pulmonary disease and obstructive sleep apnea utilizing CPAP in the outpatient setting he is also on home oxygen at 2 L/m per nasal cannula and follows with Dr. Morales in our office for the same. His FEV1 value is 42% of predicted. He was last seen on 02/28/2024 profound exertional dyspnea secondary to both the COPD and cardiomyopathy. He was given Aldactone 25 mg daily continued on his oral Lasix. He presented here to the emergency room yesterday with worsening shortness of breath, cough and congestion. Chest x-ray shows basilar infiltrates with left greater than right. Possible atypical pneumonia. Evidence of COPD. EKG shows evidence of atrial flutter with a controlled ventricular rate. White count 7.4. Hemoglobin 11.6. Sodium 137. Potassium 5.0. Bicarb 31. Creatinine 1.79. Herrera virus not detected. He is seen today in consultation on the selective care unit. He is currently resting in bed. Awake and alert in no acute distress. Currently maintaining O2 saturations in the 90s on 3 L/m per nasal cannula. She's afebrile. Home CPAP at the bedside. He's been initiated on DuoNeb inhalations, Flovent, IV Solu-Medrol and antibiotics in the form of ceftriaxone and azithromycin. He was given a dose of IV diuretics yesterday. On heparin subcu for DVT prophylaxis. Patient was reevaluated today on 03/07/20, continues to have shortness of breath with any activity. Intermittent cough, no wheezing. No fever no chills no hemoptysis. Remains on 4 L nasal cannula, and at night he is on BiPAP. D-dimer is low hence no need to consider CT angiogram of the chest and no need to consider any workup for thromboembolic disease. His basic metabolic profile is basically unremarkable, his creatinine is up to 1.79. And that is about his baseline. Objective - Vital Signs Vital signs: Vital Signs Temp 98.1 F 03/07/20 08:00 Pulse 96 03/07/20 08:30 Resp 22 03/07/20 08:00 BP 145/65 03/07/20 08:00 Pulse Ox 95 03/07/20 08:00 Intake & Output 03/06/20 03/07/20 03/07/20 18:59 06:59 18:59 Intake Total 480 120 Output Total 400 Balance 80 120 Weight 100 kg Intake: Oral 480 120 Output: Urine 400 Other: Voiding Method Urinal Urinal Urinal # Voids 1 - Exam Physical exam revealed 84-year-old white male on 4 L nasal cannula, in no distress. Head: Atraumatic, normocephalic. EENT: PERRLA, EOMI, no icterus, neck masses, no JVD, no stridor. CHEST: No chest wall deformity. LUNGS: Equal air entry with crackles in the bilateral posterior bases, diminished. CVS: S1 and S2 normal with no audible murmur, regular rhythm. ABDOMEN: No hepatosplenomegaly, normal bowel sounds, no guarding or rigidity. SPINE: No scoliosis or deformity SKIN: No rashes CENTRAL NERVOUS SYSTEM: No focal deficits, tone is normal in all 4 extremities. EXTREMITIES: There is no peripheral edema. No clubbing, no cyanosis. Peripheral pulses are intact. - Labs CBC & Chem 7: 03/06/20 05:44 03/06/20 05:44 Labs: Abnormal Lab Results - Last 24 Hours (Table) 03/06/20 03/06/20 03/06/20 Range/Units 11:44 16:20 19:36 POC Glucose (mg/dL) 293 H 252 H 303 H (75-99) mg/dL 03/07/20 Range/Units 06:27 POC Glucose (mg/dL) 238 H (75-99) mg/dL Microbiology - Last 24 Hours (Table) 03/05/20 14:10 Blood Culture - Preliminary Blood No Growth after 24 hours Assessment and Plan Assessment: Impression: Acute on chronic hypoxic respiratory failure secondary to acute exacerbation of COPD, baseline FEV1 is 42%. Suspect some component of diastolic congestive heart failure. 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 Chronic atrial fibrillation, patient had atrial flutter on presentation. And this is a new onset. Negative d-dimer hence no need for thromboembolic disease workup. And the patient is on Eliquis. Obesity. Obstructive sleep apnea syndrome on CPAP at home. History of coronary artery disease and previous CABG. History of endocarditis. History of rectal cancer and previous colostomy. Benign essential hypertension. Diabetes type 2. Dyslipidemia. Recommendation: Continue present treatment plan including bronchodilators. Continue diuretics. Continue steroids. Continue oxygen and titrate accordingly. Continue CPAP at night and as needed. High-resolution CT of the chest was reviewed, the findings are very nonspecific. We'll continue to follow. Possible discharge planning early next week. Time with Patient: Less than 30
--- NOTE | 2020-03-07 11:46 | PN ---
PROGRESS NOTE Mr. Hammonds is an 84-year-old male with known history of chronic obstructive lung disease, history of aortic valve replacement, coronary artery bypass grafting who presented with symptoms of progressive dyspnea. He was noted to be in atrial fibrillation. He is doing well this morning. He continues to be dyspneic and wheezy but he has no chest pain. He denies any dizziness or palpitation. He denies any nausea. He was started on anticoagulation yesterday and continues to be on Eliquis 2.5 mg twice a day, Lipitor 80 mg daily, Coreg 3.125 mg twice a day and was started on methyl prednisolone. PHYSICAL EXAMINATION: Blood pressure running in the 110s to 130s with a heart rate in 90s. LUNGS: With scattered wheezes. No rales. HEART: Irregular, regular, S1, S2. No S3. No rub with a systolic murmur. No diastolic murmur. ABDOMEN: Soft, obese, nontender. EXTREMITIES: No significant edema. LAB DATA: BUN creatinine 47 and 1.79, potassium 5.0 dealt with yesterday. His D-dimer is 0.52. IMPRESSION: 1. Symptoms of worsening dyspnea with exacerbation of chronic obstructive pulmonary disease. 2. Atrial fibrillation, new, anticoagulated, rate controlled. 3. Status post aortic valve replacement. 4. History of coronary artery bypass grafting. 5. Obstructive sleep apnea. 6. History of diabetes. 7. Hypertension. 8. Hyperlipidemia. RECOMMENDATION: From the cardiac standpoint, will continue present therapy. I will review the results of his echocardiogram. I will follow his renal function, increase his activity and depending on his progress, further recommendations will be made. MMODL / IJN: [id number] /
[2020-03-07 16:53] LABS: Glucose,Whole Blood 328 mg/dL (75-99)
--- NOTE | 2020-03-07 18:19 | ECHOF ---
Referral Reason:CHF, AF MEASUREMENTS -------- HEIGHT: 175.3 cm WEIGHT: 99.8 kg BP: 102/55 RVIDd: 5.1 cm (< 3.3) IVSd: 1.6 cm (0.6 - 1.1) LVIDd: 3.5 cm (3.9 - 5.3) LVPWd: 2.1 cm (0.6 - 1.1) IVSs: 1.9 cm LVIDs: 2.7 cm LVPWs: 1.5 cm LAESV Index (A-L): 30.29 ml/m Ao Diam: 3.1 cm (2.0 - 3.7) MV EXCURSION: 20.824 mm (> 18.000) MV EF SLOPE: 110 mm/s (70 - 150) EPSS: 0.8 cm RAP: 5.00 mmHg RVSP: 41.55 mmHg FINDINGS -------- This was a technically difficult study with suboptimal views. Pt. Very Sob Morbid Obesity The left ventricular size is normal. There is severe concentric left ventricular hypertrophy. Ove rall left ventricular systolic function is mildly impaired with, an EF between 45 - 50 %. Mitral Do ppler inflow pattern suggests diastolic filling abnormality {E/E'}. Septal wall motion is delayed a nd consistent with prior cardiac surgery. The right ventricle is moderately enlarged. LA is midly dilated 29-33ml/m2. The right atrium is mildly enlarged. 5.0mg of Lumason was utilized for enhancement of images Normally functioning bioprosthetic valve. Mild mitral annular calcification present. Mild mitral regurgitation is present. Etiu-by-fjrafyht tricuspid regurgitation present. There is mild to moderate pulmonary hypertension. The right ventricular systolic pressure, as measured by Doppler, is 41.55mmHg. The pulmonic valve was not well visualized. There is no pulmonic regurgitation present. The aortic root size is normal. IVC Not well visulized. There is no pericardial effusion. CONCLUSIONS -------- 1. This was a technically difficult study with suboptimal views. 2. There is severe concentric left ventricular hypertrophy. 3. Overall left ventricular systolic function is mildly impaired with, an EF between 45 - 50 %. 4. Mitral Doppler inflow pattern suggest diastolic filling abnormality {E/E'}. 5. Septal wall motion is delayed and consistent with prior cardiac surgery. 6. The right ventricle is moderately enlarged. 7. LA is midly dilated 29-33ml/m2. 8. The right atrium is mildly enlarged. 9. 5.0mg of Lumason was utilized for enhancement of images 10. Normally functioning bioprosthetic valve. 11. Mild mitral regurgitation is present. 12. [id number] tricuspid regurgitation present. 13. There is mild to moderate pulmonary hypertension. 14. There is no pericardial effusion. KITCHEN MANAGER: Adeola Erickson RDCS
[2020-03-07] MEDS ORDERED: INSULIN REGULAR BOLUS (FROM DRIP BAG) IV ONE (18:57)
[2020-03-07] MEDS ORDERED: INSULIN REGULAR 100 UNIT in SODIUM CHLORIDE 0.9% 100 ML IV SCH (19:00)
[2020-03-07 19:21] LABS: Glucose,Whole Blood 340 mg/dL (75-99)
[2020-03-07] MEDS: GABAPENTIN 300 MG CAP PO SCH (19:41)
[2020-03-07] MEDS: ATORVASTATIN 80 MG TAB PO SCH (19:42)
[2020-03-07] MEDS: INSULIN DETEMIR (LEVEMIR) 100 UNIT/ML SYR SQ SCH (20:02)
[2020-03-07 23:38] LABS: Glucose,Whole Blood 288 mg/dL (75-99)
[2020-03-08 05:59] LABS: Glucose,Whole Blood 217 mg/dL (75-99)
[2020-03-08] MEDS: LEVOTHYROXINE 50 MCG TAB PO SCH (06:02)
[2020-03-08] MEDS: CARVEDILOL 3.125 MG TAB PO SCH ×2 (06:03→17:11)
[2020-03-08] MEDS: INSULIN ASPART (NovoLOG) 100 UNIT/ML VIAL SQ SCH ×7 (06:03→19:56)
[2020-03-08 07:28] LABS: Potassium 5.2 mmol/L (3.5-5.1)
[2020-03-08] MEDS ORDERED: INSULIN ASPART (NovoLOG) 100 UNIT/ML VIAL SQ SCH (07:30)
[2020-03-08] MEDS: FAMOTIDINE 20 MG TAB PO SCH (08:18)
[2020-03-08] MEDS: AZITHROMYCIN 500 MG TAB PO SCH (08:18)
[2020-03-08] MEDS: methylPREDNISolone SOD SUCCI 40 MG/ML 1 ML VIAL IV SCH ×2 (08:18→19:55)
[2020-03-08] MEDS: APIXABAN 2.5 MG TABLET PO SCH ×2 (08:18→19:56)
[2020-03-08] MEDS: IPRATROPIUM-ALBUTEROL 3 ML NEB INHALATION SCH ×4 (09:26→20:30)
[2020-03-08] MEDS: FLUTICASONE 110 MCG INHALER INHALATION SCH ×2 (09:27→20:30)
--- NOTE | 2020-03-08 10:36 | P.PN ---
Subjective Progress Note Date: 03/06/20 84-year-old pleasant male with known history of COPD came in with comments of s hortness of breath has been going on for last few days unable to see because of shortness of breath for last 3 days patient is supposed to stress of onset at home does have history of sleep apnea, complaining of cough unable to bring up anything, denied any orthopnea or paroxysmal nocturnal dyspnea. Patient denied any fever chills. Patient doesn't have any leukocytosis chest x-ray showed bilateral lower lobe infiltrates possibility of atelectasis patient has significant rhonchi bilaterally very minimal wheeze on exam. Doesn't have any JVD. Patient had normal ejection fraction the past BNP is 2000 clinically doesn't appear to be in CHF exacerbation and patient does use CPAP machine at home morbidly obese. 03/06/2020 patient is currently living in the bed. Still having shortness of breath and coarse breath sounds on examination.icurrently being continued on antibiotics in the form of ceftriaxone and azithromycin.continue on breathing treatments and IV steroids. Pulmonary and cardiology is on board. CT of the chest was ordered which showedinterstitial prominence with bilateral small effusions and bibasilar consolidation. Correlate for venous congestion or interstitial pneumonia. No diagnostic evidence of pulmonary fibrosis. Denied any complaints of chest pain. No nausea vomiting or abdominal pain. Current medications reviewed Objective - Vital Signs Vital signs: Vital Signs Temp 96.7 F L 03/06/20 20:00 Pulse 81 03/06/20 23:24 Resp 24 03/06/20 23:24 BP 99/52 03/06/20 23:24 Pulse Ox 88 L 03/06/20 23:24 Intake & Output 03/06/20 03/06/20 03/07/20 06:59 18:59 06:59 Intake Total 450 480 Output Total 875 400 Balance -425 80 Weight 126.5 kg Intake: Oral 450 480 Output: Urine 875 400 Other: Voiding Method Urinal Urinal Urinal - Exam GENERAL: The patient is drowsy sleepy and oriented x3, not in any acute distress. Well developed, well nourished. Obese HEENT: Pupils are round and equally reacting to light. EOMI. No scleral icterus. No conjunctival pallor. Normocephalic, atraumatic. No pharyngeal erythema. No thyromegaly. CARDIOVASCULAR: S1 and S2 present. No murmurs, rubs, or gallops. PULMONARY: Decreased air entry and bilateral rhonchi with minimal expiratory wheezing ABDOMEN: Soft, nontender, nondistended, normoactive bowel sounds. No palpable organomegaly. MUSCULOSKELETAL: No joint swelling or deformity. EXTREMITIES: No cyanosis, clubbing, or pedal edema. NEUROLOGICAL: Gross neurological examination did not reveal any focal deficits. SKIN: No rashes. - Labs CBC & Chem 7: 03/06/20 05:44 03/08/20 05:47 Labs: Abnormal Lab Results - Last 24 Hours (Table) 03/06/20 03/06/20 03/06/20 Range/Units 05:44 05:44 06:43 RBC 4.13 L (4.30-5.90) m/uL Hgb 11.6 L (13.0-17.5) gm/dL Hct 37.9 L (39.0-53.0) % MCHC 30.7 L (31.0-37.0) g/dL RDW 16.2 H (11.5-15.5) % Chloride 97 L (98-107) mmol/L Carbon Dioxide 31 H (22-30) mmol/L BUN 46 H (9-20) mg/dL Creatinine 1.79 H (0.66-1.25) mg/dL Glucose 269 H (74-99) mg/dL POC Glucose (mg/dL) 254 H (75-99) mg/dL 03/06/20 03/06/20 03/06/20 Range/Units 11:44 16:20 19:36 RBC (4.30-5.90) m/uL Hgb (13.0-17.5) gm/dL Hct (39.0-53.0) % MCHC (31.0-37.0) g/dL RDW (11.5-15.5) % Chloride (98-107) mmol/L Carbon Dioxide (22-30) mmol/L BUN (9-20) mg/dL Creatinine (0.66-1.25) mg/dL Glucose (74-99) mg/dL POC Glucose (mg/dL) 293 H 252 H 303 H (75-99) mg/dL Microbiology - Last 24 Hours (Table) 03/05/20 14:10 Blood Culture - Preliminary Blood No Growth after 24 hours Assessment and Plan Assessment: -Shortest breath: Probably secondary to tracheal bronchitis and pneumonia -mild acute on chronic CHF with diastolic dysfunction. Ejection fraction 70% in the previous echocardiogram. -Obesity, sleep apnea: Patient will resume his BiPAP machine at nighttime. -COPD with possible mild acute exacerbation -Coronary artery disease -Type 2 diabetes mellitus patient resumed on his home regimen and sliding scale for systemic steroids, patient blood sugars are expected to go because of systemic steroids -Hypothyroidism -Hypertension -Chronic kidney disease stage III from possible diabetic nephropathy- - Morbid obesity BMI 41.3 -DVT prophylaxis with subcutaneous of pharyngeal prophylaxis with Pepcid plan: Patient will be continued on antibiotics the form of ceftriaxone and azithromycin. Continue with breathing treatments and IV steroids 40 mg every 12. Continue with Lasix. Monitor renal function and follow closely. Pulmonary and cardiology is on board. Follow-up 2-D echocardiogram report. Further recommendations based on the clinical course. Time with Patient: Greater than 30
--- NOTE | 2020-03-08 10:43 | P.PN ---
Subjective Progress Note Date: 03/07/20 Principal diagnosis: acute on chronic hypoxic respiratory failure secondary to COPD exacerbation 84-year-old pleasant male with known history of COPD came in with comments of shortness of breath has been going on for last few days unable to see because of shortness of breath for last 3 days patient is supposed to stress of onset at home does have history of sleep apnea, complaining of cough unable to bring up anything, denied any orthopnea or paroxysmal nocturnal dyspnea. Patient denied any fever chills. Patient doesn't have any leukocytosis chest x-ray showed bilateral lower lobe infiltrates possibility of atelectasis patient has significant rhonchi bilaterally very minimal wheeze on exam. Doesn't have any JVD. Patient had normal ejection fraction the past BNP is 2000 clinically doesn't appear to be in CHF exacerbation and patient does use CPAP machine at home morbidly obese. 03/06/2020 patient is currently living in the bed. Still having shortness of breath and coarse breath sounds on examination.icurrently being continued on antibiotics in the form of ceftriaxone and azithromycin.continue on breathing treatments and IV steroids. Pulmonary and cardiology is on board. CT of the chest was ordered which showedinterstitial prominence with bilateral small effusions and bibasilar consolidation. Correlate for venous congestion or interstitial pneumonia. No diagnostic evidence of pulmonary fibrosis. Denied any complaints of chest pain. No nausea vomiting or abdominal pain. 03/07/2020 Patient is able to sit in the chair today. Breathing status is current as compared to yesterday. Shortness of breath with minimal activity otherwise. Patient has been afebrile. Intermittent cough with out sputum production. Currently on oxygen at 4 L via nasal cannula.laboratory data showed creatinine 1.7 and BUN 46. patient is being continued on antibiotics in the form of ceftriaxone and azithromycin. 2-D echocardiogram showed a 6 infection 45-50%.severe concentric left ventricular hypertrophy. Mild to moderate tricuspid regurgitation. Mild to moderate pulmonary hypertension. No pericardial effusion. Cardiology and pulmonary is on board. Current medications reviewed Objective - Vital Signs Vital signs: Vital Signs Temp 98 F 03/07/20 19:43 Pulse 98 03/07/20 21:31 Resp 26 H 03/07/20 19:43 BP 118/56 03/07/20 19:43 Pulse Ox 94 L 03/07/20 19:43 Intake & Output 03/07/20 03/07/20 03/08/20 06:59 18:59 06:59 Intake Total 356 Output Total 550 Balance -194 Weight 100 kg Intake: Oral 356 Output: Urine 550 Other: Voiding Method Urinal Urinal # Voids 1 1 - Exam GENERAL: The patient is drowsy but awake alert oriented x3, not in any acute distress. Well developed, well nourished. Obese HEENT: Pupils are round and equally reacting to light. EOMI. No scleral icterus. No conjunctival pallor. Normocephalic, atraumatic. No pharyngeal erythema. No thyromegaly. CARDIOVASCULAR: S1 and S2 present. No murmurs, rubs, or gallops. PULMONARY: Decreased air entry and bilateral rhonchi with no expiratory wheezing ABDOMEN: Soft, nontender, nondistended, normoactive bowel sounds. No palpable organomegaly. MUSCULOSKELETAL: No joint swelling or deformity. EXTREMITIES: No cyanosis, clubbing, or pedal edema. NEUROLOGICAL: Gross neurological examination did not reveal any focal deficits. SKIN: No rashes. - Labs CBC & Chem 7: 03/06/20 05:44 03/08/20 05:47 Labs: Abnormal Lab Results - Last 24 Hours (Table) 03/07/20 03/07/20 03/07/20 Range/Units 06:27 11:21 16:52 POC Glucose (mg/dL) 238 H 214 H 328 H (75-99) mg/dL 03/07/20 Range/Units 19:20 POC Glucose (mg/dL) 340 H (75-99) mg/dL Microbiology - Last 24 Hours (Table) 03/05/20 14:10 Blood Culture - Preliminary Blood No Growth after 48 hours Assessment and Plan Assessment: -Shortest breath: secondary to tracheal bronchitis and possible pneumonia along with COPD. - acute on chronic hypoxic respiratory failure secondary to COPD exacerbation -mild acute on chronic CHF with diastolic dysfunction. Ejection fraction 70% in the previous echocardiogram. -Obesity, sleep apnea: Patient will resume his BiPAP machine at nighttime. - atrial fibrillation. Duration unknown. Patient was started on Eliquis. -COPD with possible mild acute exacerbation -Coronary artery disease -Type 2 diabetes mellitus patient resumed on his home regimen and sliding scale for systemic steroids, patient blood sugars are expected to go because of systemic steroids -Hypothyroidism -Hypertension -Chronic kidney disease stage III from possible diabetic nephropathy- - Morbid obesity BMI 41.3 - coronary artery disease with history of CABG -DVT prophylaxis with subcutaneous of pharyngeal prophylaxis with Pepcid plan: Patient will be continued on antibiotics the form of ceftriaxone and azithromycin. Continue with breathing treatments and IV steroids 40 mg every 12. Continue with Lasix. Monitor renal function and follow closely. Pulmonary and cardiology is on board. Follow-up 2-D echocardiogram report.continue with Eliquis. Further recommendations based on the clinical course. Time with Patient: Greater than 30
[2020-03-08 11:43] LABS: Glucose,Whole Blood 229 mg/dL (75-99)
--- NOTE | 2020-03-08 11:59 | P.PN ---
Subjective Progress Note Date: 03/08/20 This is a pleasant 84-year-old gentleman who previously followed in the office with Dr. VC Kelley. He has a history of hypertension, hyperlipidemia, CAD with previous CABG the patient believes was only 1 vessel with aortic valve replacement with porcine AV prosthesis, cardiomyopathy and LV dysfunction with most recent echocardiogram in January 2018 showing normal LV systolic function, endocarditis, COPD, rectal cancer status post colostomy and former smoker quit 30 years ago. Presented to the emergency department with complaints of progressively worsening shortness of breath. He was seen on 02/28/2020 by his manager social work for profound exertional dyspnea secondary to COPD and cardiomyopathy at which time he was initiated on Aldactone. Shortness of breath continued to worsen he also had complaints of cough and congestion. Chest x-ray shows basilar infiltrates with left greater than right, possible atypical pneumonia and evidence of COPD. We are asked to see the patient in consultation as EKG shows evidence of atrial flutter with controlled ventricular response with no documented history of atrial flutter. EKG reviewed shows coarse atrial fibrillation of unknown duration. He did undergo a computed tomography scan of the chest which showed interstitial prominence with bilateral small effusions and basilar consolidation, exam limited by motion artifact correlate for venous congestion or in her social pneumonitis, no diagnostic evidence of pulmonary fibrosis. He does have a known FEV1 value of 42% of predicted. Laboratory values on admission showed a BNP of 2040 which has been as high as 5290 in 2016. Other labs show BUN of 29, creatinine 1.51 with a repeat this morning a 46 and 1.79. He is currently on carvedilol 3.125 mg by mouth twice a day, Zithromax, Lipitor 80 mg by mouth daily at bedtime, DuoNeb, ceftriaxone IV, Pepcid, Flovent, Neurontin, heparin 5000 units subcu every 8 hours, NovoLog, Levemir, Synthroid 50 g daily and methylprednisolone 40 mg IV twice a day. Overall he is feeling somewhat better since admission. He continues to be wheezy with shortness of breath and mild cough. Vital signs are stable, heart rate is well controlled. 03/08/2020 The patient was seen and examined this morning sitting up in bed. Continues to be short of breath with complaints of orthopnea. He's been anticoagulated. Patient was apparently on Lasix at home which was not restarted and has been resumed this morning. Echocardiogram with Doppler studies showed severe LVH, mildly impaired LV systolic function with ejection fraction between 45-50%, diastolic dysfunction, moderately enlarged RV, normal functioning bioprosthetic valve, mild MR, mild to moderate TR and mild to moderate pulmonary hypertension. Objective - Vital Signs Vital signs: Vital Signs Temp 98 F 03/08/20 11:42 Pulse 84 03/08/20 11:42 Resp 28 H 03/08/20 11:42 BP 136/66 03/08/20 11:42 Pulse Ox 93 L 03/08/20 11:42 Intake & Output 03/07/20 03/08/20 03/08/20 18:59 06:59 18:59 Intake Total 356 Output Total 550 400 350 Balance -194 -400 -350 Weight 127.006 kg Intake: Oral 356 Output: Urine 550 400 350 Other: Voiding Method Urinal Urinal # Voids 1 # Bowel Movements 1 - Exam PHYSICAL EXAMINATION: HEENT: Head is atraumatic, normocephalic. Pupils equal, round. Neck is supple. There is no elevated jugular venous pressure. HEART EXAMINATION: Heart sounds irregular irregular, S1 and S2 with a systolic murmur. CHEST EXAMINATION: Lungs reveal diminished air entry with expiratory wheezing throughout. No chest wall tenderness is noted on palpation or with deep breathing. Tachypnea noted. ABDOMEN: Soft, obese, nontender. Bowel sounds are heard. No organomegaly noted. EXTREMITIES: 2+ peripheral pulses with evidence of trace peripheral edema and no calf tenderness noted. NEUROLOGIC patient is awake, alert and oriented x3. - Labs CBC & Chem 7: 03/06/20 05:44 03/08/20 05:47 Labs: Abnormal Lab Results - Last 24 Hours (Table) 03/07/20 03/07/20 03/07/20 Range/Units 16:52 19:20 23:36 Potassium (3.5-5.1) mmol/L Carbon Dioxide (22-30) mmol/L BUN (9-20) mg/dL Creatinine (0.66-1.25) mg/dL Glucose (74-99) mg/dL POC Glucose (mg/dL) 328 H 340 H 288 H (75-99) mg/dL 03/08/20 03/08/20 03/08/20 Range/Units 05:47 05:57 11:40 Potassium 5.2 H (3.5-5.1) mmol/L Carbon Dioxide 34 H (22-30) mmol/L BUN 70 H (9-20) mg/dL Creatinine 1.63 H (0.66-1.25) mg/dL Glucose 194 H (74-99) mg/dL POC Glucose (mg/dL) 217 H 229 H (75-99) mg/dL Microbiology - Last 24 Hours (Table) 03/05/20 14:10 Blood Culture - Preliminary Blood No Growth after 48 hours Assessment and Plan Assessment: #1 acute on chronic hypoxic respiratory failure secondary to acute exacerbation of COPD #2 evidence of mild acute on chronic CHF, combined diastolic dysfunction with mild impairment of systolic function and evidence of right ventricular enlargement and pulmonary hypertension #3 atrial fibrillation, of unknown duration, anticoagulated #4 obstructive sleep apnea using CPAP #5 status post aortic valve replacement #6 CAD with prior CABG #7 history of endocarditis #8 history of rectal cancer with previous colostomy #9 diabetes #10 hypertension #11 hyperlipidemia Plan: From cardiology perspective we agree with resuming home lasix dose. Continue to monitor renal function, electrolytes, daily weights and I&Os. We will continue to follow the patient provide further recommendations accordingly. 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 Patient was seen and examined.
--- NOTE | 2020-03-08 13:00 | P.PN ---
Subjective Progress Note Date: 03/08/20 Principal diagnosis: Acute on chronic hypoxic respiratory failure secondary to an acute exacerbation of chronic obstructive pulmonary disease This is a very pleasant 84-year-old gentleman who follows with Dr. Alonso as his primary care provider. He has a history of hypertension, hyperlipidemia, coronary artery disease with previous coronary artery bypass grafting, cardiomy opathy and LV dysfunction, endocarditis, rectal cancer status post colostomy, former smoker. He does have chronic obstructive pulmonary disease and obstructive sleep apnea utilizing CPAP in the outpatient setting he is also on home oxygen at 2 L/m per nasal cannula and follows with Dr. Morales in our office for the same. His FEV1 value is 42% of predicted. He was last seen on 02/28/2024 profound exertional dyspnea secondary to both the COPD and cardiomyopathy. He was given Aldactone 25 mg daily continued on his oral Lasix. He presented here to the emergency room yesterday with worsening shortness of breath, cough and congestion. Chest x-ray shows basilar infiltrates with left greater than right. Possible atypical pneumonia. Evidence of COPD. EKG shows evidence of atrial flutter with a controlled ventricular rate. White count 7.4. Hemoglobin 11.6. Sodium 137. Potassium 5.0. Bicarb 31. Creatinine 1.79. Herrera virus not detected. He is seen today in consultation on the selective care unit. He is currently resting in bed. Awake and alert in no acute distress. Currently maintaining O2 saturations in the 90s on 3 L/m per nasal cannula. She's afebrile. Home CPAP at the bedside. He's been initiated on DuoNeb inhalations, Flovent, IV Solu-Medrol and antibiotics in the form of ceftriaxone and azithromycin. He was given a dose of IV diuretics yesterday. On heparin subcu for DVT prophylaxis. Patient was reevaluated today on 03/07/20, continues to have shortness of breath with any activity. Intermittent cough, no wheezing. No fever no chills no hemoptysis. Remains on 4 L nasal cannula, and at night he is on BiPAP. D-dimer is low hence no need to consider CT angiogram of the chest and no need to consider any workup for thromboembolic disease. His basic metabolic profile is basically unremarkable, his creatinine is up to 1.79. And that is about his bas callie. The patient is seen today 03/08/2020 in follow-up on the selective care unit. He is awake and alert in no acute distress. Currently resting fairly comfortably in bed. He is still quite dyspneic with minimal exertion. He is maintaining O2 saturation in low 90s on 3 L/m per nasal cannula. He's been afebrile. Blood culture reveals no growth to date. Sodium 139. Potassium 5.2. Chloride 101. Bicarb 34. Creatinine 1.63. He remains on DuoNeb inhalations, Flovent, IV Solu-Medrol. Antibiotics in the form of ceftriaxone and azithromycin. Oral diuretics. Eliquis for anticoagulation. Echocardiogram reveals mildly impaired left ventricular systolic function with ejection fraction 45-50%. Mild to moderate pulmonary hypertension. Objective - Vital Signs Vital signs: Vital Signs Temp 98 F 03/08/20 11:42 Pulse 96 03/08/20 12:08 Resp 28 H 03/08/20 11:42 BP 136/66 03/08/20 11:42 Pulse Ox 93 L 03/08/20 11:42 Intake & Output 03/07/20 03/08/20 03/08/20 18:59 06:59 18:59 Intake Total 356 Output Total 550 400 350 Balance -194 -400 -350 Weight 127.006 kg Intake: Oral 356 Output: Urine 550 400 350 Other: Voiding Method Urinal Urinal # Voids 1 # Bowel Movements 1 - Exam Physical exam revealed a morbidly obese 84-year-old male patient on 3 L nasal cannula, in no distress. Head: Atraumatic, normocephalic. EENT: PERRLA, EOMI, no icterus, neck masses, no JVD, no stridor. CHEST: No chest wall deformity. LUNGS: Equal air entry with crackles in the bilateral posterior bases, diminished. CVS: S1 and S2 normal with no audible murmur, regular rhythm. ABDOMEN: No hepatosplenomegaly, normal bowel sounds, no guarding or rigidity. SPINE: No scoliosis or deformity SKIN: No rashes CENTRAL NERVOUS SYSTEM: No focal deficits, tone is normal in all 4 extremities. EXTREMITIES: There is 1+ peripheral edema. No clubbing, no cyanosis. Peripheral pulses are intact. - Labs CBC & Chem 7: 03/06/20 05:44 03/08/20 05:47 Labs: Abnormal Lab Results - Last 24 Hours (Table) 03/07/20 03/07/20 03/07/20 Range/Units 16:52 19:20 23:36 Potassium (3.5-5.1) mmol/L Carbon Dioxide (22-30) mmol/L BUN (9-20) mg/dL Creatinine (0.66-1.25) mg/dL Glucose (74-99) mg/dL POC Glucose (mg/dL) 328 H 340 H 288 H (75-99) mg/dL 03/08/20 03/08/20 03/08/20 Range/Units 05:47 05:57 11:40 Potassium 5.2 H (3.5-5.1) mmol/L Carbon Dioxide 34 H (22-30) mmol/L BUN 70 H (9-20) mg/dL Creatinine 1.63 H (0.66-1.25) mg/dL Glucose 194 H (74-99) mg/dL POC Glucose (mg/dL) 217 H 229 H (75-99) mg/dL Microbiology - Last 24 Hours (Table) 03/05/20 14:10 Blood Culture - Preliminary Blood No Growth after 48 hours Assessment and Plan Assessment: 1 Acute on chronic hypoxic respiratory failure secondary to an acute exacerbation of chronic obstructive pulmonary disease, FEV1 value of 42% of predicted. 2 Acute on chronic exacerbation of congestive heart failure, systolic with mildly impaired left ventricular systolic function ejection fraction 45-50% along with mild to moderate pulmonary hypertension. 3 Atrial flutter, possible new onset 4 Obesity 5 Obstructive sleep apnea utilizing home CPAP 6 Coronary artery disease with previous coronary artery bypass grafting 7 History of endocarditis 8 History of rectal cancer with previous colostomy 9 Diabetes mellitus 10 Hypertension 11 Hyperlipidemia Plan: The patient was seen and evaluated by Dr. Morales Continue bronchodilators, IV Solu-Medrol Continue antibiotics Repeat chest x-ray in a.m. We will continue to follow and make further recommendations based on his clinical status I, the cosigning physician, performed a history & physical examination of the patient. Lungs sounds with crackles in the bilateral posterior bases. Maintaining good O2 saturations in the 90s on 3 L/m per nasal cannula. I discussed the assessment and plan of care with my nurse practitioner, Marjan Martin. I attest to the above consultation as dictated by her.
[2020-03-08 16:12] LABS: Glucose,Whole Blood 259 mg/dL (75-99)
[2020-03-08] MEDS: FUROSEMIDE 40 MG TAB PO SCH (17:10)
[2020-03-08 19:51] LABS: Glucose,Whole Blood 270 mg/dL (75-99)
[2020-03-08] MEDS: GABAPENTIN 300 MG CAP PO SCH (19:55)
[2020-03-08] MEDS: ATORVASTATIN 80 MG TAB PO SCH (19:56)
[2020-03-08] MEDS: INSULIN DETEMIR (LEVEMIR) 100 UNIT/ML SYR SQ SCH (20:28)
[2020-03-08 22:23] LABS: Glucose,Whole Blood 228 mg/dL (75-99)
--- NOTE | 2020-03-08 23:59 | P.PN ---
Subjective Progress Note Date: 03/08/20 Principal diagnosis: acute on chronic hypoxic respiratory failure secondary to COPD exacerbation 84-year-old pleasant male with known history of COPD came in with comments of shortness of breath has been going on for last few days unable to see because of shortness of breath for last 3 days patient is supposed to stress of onset at home does have history of sleep apnea, complaining of cough unable to bring up anything, denied any orthopnea or paroxysmal nocturnal dyspnea. Patient denied any fever chills. Patient doesn't have any leukocytosis chest x-ray showed bilateral lower lobe infiltrates possibility of atelectasis patient has significant rhonchi bilaterally very minimal wheeze on exam. Doesn't have any JVD. Patient had normal ejection fraction the past BNP is 2000 clinically doesn't appear to be in CHF exacerbation and patient does use CPAP machine at home morbidly obese. 03/06/2020 patient is currently living in the bed. Still having shortness of breath and coarse breath sounds on examination.icurrently being continued on antibiotics in the form of ceftriaxone and azithromycin.continue on breathing treatments and IV steroids. Pulmonary and cardiology is on board. CT of the chest was ordered which showedinterstitial prominence with bilateral small effusions and bibasilar consolidation. Correlate for venous congestion or interstitial pneumonia. No diagnostic evidence of pulmonary fibrosis. Denied any complaints of chest pain. No nausea vomiting or abdominal pain. 03/07/2020 Patient is able to sit in the chair today. Breathing status is current as compared to yesterday. Shortness of breath with minimal activity otherwise. Patient has been afebrile. Intermittent cough with out sputum production. Currently on oxygen at 4 L via nasal cannula.laboratory data showed creatinine 1.7 and BUN 46. patient is being continued on antibiotics in the form of ceftriaxone and azithromycin. 2-D echocardiogram showed EF 45-50%.severe concentric left ventricular hypertrophy. Mild to moderate tricuspid regurgitation. Mild to moderate pulmonary hypertension. No pericardial effusion. Cardiology and pulmonary is on board. 03/08/2020 Patient is currently lying in the bed comfortably. Patient is still having exertional dyspnea with minimal exercise. Currently on oxygen via nasal cannula. Patient was started back on Lasix 40 mg twice daily. Cardiology and pulmonary is on board. Patient is being continued on antibiotics in the form of ceftriaxone and azithromycin. Was also started on anticoagulation with Eliquis. Patient has been afebrile.. Current medications reviewed Objective - Vital Signs Vital signs: Vital Signs Temp 97.8 F 03/08/20 19:37 Pulse 64 03/08/20 20:36 Resp 38 H 03/08/20 19:37 BP 160/63 03/08/20 19:37 Pulse Ox 91 L 03/08/20 19:37 Intake & Output 03/08/20 03/08/20 03/09/20 06:59 18:59 06:59 Intake Total 236 Output Total 400 1025 300 Balance -400 -789 -300 Weight 127.006 kg Intake: Oral 236 Output: Urine 400 1025 300 Other: Voiding Method Urinal # Bowel Movements 1 - Exam GENERAL: The patient is drowsy but awake alert oriented x3, not in any acute distress. Well developed, well nourished. Obese HEENT: Pupils are round and equally reacting to light. EOMI. No scleral icterus. No conjunctival pallor. Normocephalic, atraumatic. No pharyngeal erythema. No thyromegaly. CARDIOVASCULAR: S1 and S2 present. No murmurs, rubs, or gallops. PULMONARY: Decreased air entry and bilateral rhonchi with no expiratory wheezing ABDOMEN: Soft, nontender, nondistended, normoactive bowel sounds. No palpable organomegaly. MUSCULOSKELETAL: No joint swelling or deformity. EXTREMITIES: No cyanosis, clubbing, or pedal edema. NEUROLOGICAL: Gross neurological examination did not reveal any focal deficits. SKIN: No rashes. - Labs CBC & Chem 7: 03/06/20 05:44 03/08/20 05:47 Labs: Abnormal Lab Results - Last 24 Hours (Table) 03/07/20 03/08/20 03/08/20 Range/Units 23:36 05:47 05:57 Potassium 5.2 H (3.5-5.1) mmol/L Carbon Dioxide 34 H (22-30) mmol/L BUN 70 H (9-20) mg/dL Creatinine 1.63 H (0.66-1.25) mg/dL Glucose 194 H (74-99) mg/dL POC Glucose (mg/dL) 288 H 217 H (75-99) mg/dL 03/08/20 03/08/20 03/08/20 Range/Units 11:40 16:10 19:50 Potassium (3.5-5.1) mmol/L Carbon Dioxide (22-30) mmol/L BUN (9-20) mg/dL Creatinine (0.66-1.25) mg/dL Glucose (74-99) mg/dL POC Glucose (mg/dL) 229 H 259 H 270 H (75-99) mg/dL Microbiology - Last 24 Hours (Table) 03/05/20 14:10 Blood Culture - Preliminary Blood No Growth after 72 hours Assessment and Plan Assessment: -Shortest breath: secondary to tracheal bronchitis and possible pneumonia along with COPD. - acute on chronic hypoxic respiratory failure secondary to COPD exacerbation -mild acute on chronic CHF with diastolic dysfunction. Ejection fraction. 45 to 50%. - Moderate pulmonary hypertension -Obesity, sleep apnea: Patient will resume his BiPAP machine at nighttime. - atrial fibrillation. Duration unknown. Patient was started on Eliquis. -COPD with possible mild acute exacerbation -Coronary artery disease -Type 2 diabetes mellitus patient resumed on his home regimen and sliding scale for systemic steroids, patient blood sugars are expected to go because of systemic steroids -Hypothyroidism -Hypertension -Chronic kidney disease stage III from possible diabetic nephropathy- - Morbid obesity BMI 41.3 - coronary artery disease with history of CABG -DVT prophylaxis with subcutaneous of pharyngeal prophylaxis with Pepcid plan: Patient will be continued on antibiotics the form of ceftriaxone and azithromycin. restrated lasix 40mg bid as per home dose. Continue with breathing treatments and IV steroids 40 mg every 12. Continue with Lasix. Monitor renal function and follow closely. Pulmonary and cardiology is on board. Follow-up 2-D echocardiogram report.continue with Eliquis. Further recommendations based on the clinical course. Time with Patient: Greater than 30
[2020-03-09 05:48] LABS: Glucose,Whole Blood 206 mg/dL (75-99)
[2020-03-09] MEDS: INSULIN ASPART (NovoLOG) 100 UNIT/ML VIAL SQ SCH ×8 (05:51→22:24)
[2020-03-09] MEDS: LEVOTHYROXINE 50 MCG TAB PO SCH (05:53)
[2020-03-09] MEDS: CARVEDILOL 3.125 MG TAB PO SCH ×2 (05:53→16:10)
[2020-03-09 06:36] LABS: Anisocytosis Slight; Basophils % (A) 0 %; Eosinophils % (A) 0 %; HCT 38.8 % (39.0-53.0); Hypochromasia Marked; Lymphocytes # (A) 0.3 k/uL (1.0-4.8); Lymphocytes % (A) 3 %; MCH 28.7 pg (25.0-35.0); MCHC 30.9 g/dL (31.0-37.0); MCV 92.8 fL (80.0-100.0); Mean Platelet Volume 7.4; Monocytes # (A) 0.5 k/uL (0-1.0); Monocytes % (A) 4 %; Neutrophils # (A) 9.6 k/uL (1.3-7.7); Neutrophils % (A) 91 %; Platelet Count 241 k/uL (150-450); RBC 4.18 m/uL (4.30-5.90); RDW 16.1 % (11.5-15.5); WBC 10.6 k/uL (3.8-10.6)
[2020-03-09 06:47] LABS: Calcium 9.1 mg/dL (8.4-10.2)
[2020-03-09] MEDS: IPRATROPIUM-ALBUTEROL 3 ML NEB INHALATION SCH ×4 (07:31→20:29)
[2020-03-09] MEDS: FLUTICASONE 110 MCG INHALER INHALATION SCH ×2 (07:31→20:29)
--- NOTE | 2020-03-09 08:12 | XR ---
EXAMINATION TYPE: XR chest 1V portable DATE OF EXAM: 03/09/2020 Comparison: 03/05/2020 Clinical History: 84-year-old male CHF/pneumonia Findings: Median sternotomy wires are present. Heart mildly enlarged. Diffuse interstitial density is similar. No sizable effusion on the frontal view. Patchy left basilar opacity improved in the interval. Impression: Mild cardiomegaly and interstitial density. Correlate for continued CHF with pulmonary vascular conge stion. Aeration at the left base has improved.
--- NOTE | 2020-03-09 09:08 | P.PN ---
Subjective Progress Note Date: 03/09/20 This is a pleasant 84-year-old gentleman who previously followed in the office with Dr. VC Kelley. He has a history of hypertension, hyperlipidemia, CAD with previous CABG the patient believes was only 1 vessel with aortic valve replacement with porcine AV prosthesis, cardiomyopathy and LV dysfunction with most recent echocardiogram in January 2018 showing normal LV systolic function, endocarditis, COPD, rectal cancer status post colostomy and former smoker quit 30 years ago. Presented to the emergency department with complaints of progressively worsening shortness of breath. He was seen on 02/28/2020 by his senior clinical consultant for profound exertional dyspnea secondary to COPD and cardiomyopathy at which time he was initiated on Aldactone. Shortness of breath continued to worsen he also had complaints of cough and congestion. Chest x-ray shows basilar infiltrates with left greater than right, possible atypical pneumonia and evidence of COPD. We are asked to see the patient in consultation as EKG shows evidence of atrial flutter with controlled ventricular response with no documented history of atrial flutter. EKG reviewed shows coarse atrial fibrillation of unknown duration. He did undergo a computed tomography scan of the chest which showed interstitial prominence with bilateral small effusions and basilar consolidation, exam limited by motion artifact correlate for venous congestion or in her social pneumonitis, no diagnostic evidence of pulmonary fibrosis. He does have a known FEV1 value of 42% of predicted. Laboratory values on admission showed a BNP of 2040 which has been as high as 5290 in 2016. Other labs show BUN of 29, creatinine 1.51 with a repeat this morning a 46 and 1.79. He is currently on carvedilol 3.125 mg by mouth twice a day, Zithromax, Lipitor 80 mg by mouth daily at bedtime, DuoNeb, ceftriaxone IV, Pepcid, Flovent, Neurontin, heparin 5000 units subcu every 8 hours, NovoLog, Levemir, Synthroid 50 g daily and methylprednisolone 40 mg IV twice a day. Overall he is feeling somewhat better since admission. He continues to be wheezy with shortness of breath and mild cough. Vital signs are stable, heart rate is well controlled. 03/08/2020 The patient was seen and examined this morning sitting up in bed. Continues to be short of breath with complaints of orthopnea. He's been anticoagulated. Patient was apparently on Lasix at home which was not restarted and has been resumed this morning. Echocardiogram with Doppler studies showed severe LVH, mildly impaired LV systolic function with ejection fraction between 45-50%, diastolic dysfunction, moderately enlarged RV, normal functioning bioprosthetic valve, mild MR, mild to moderate TR and mild to moderate pulmonary hypertension. 03/09/2020 The patient was seen and examined this morning sitting up at the edge of the bed. Overall he feels his breathing is better at times. Continues to be dyspneic on exertion. Maintaining atrial fibrillation with a controlled ventricular response, anticoagulated. Vital signs are stable. Using BiPAP at night. Laboratory values showed a hemoglobin 12.0, potassium 6.0, BUN 17 creatinine 1.48. His weight has been stable. Objective - Vital Signs Vital signs: Vital Signs Temp 97.6 F 03/09/20 08:00 Pulse 66 03/09/20 08:00 Resp 32 H 03/09/20 08:00 BP 128/65 03/09/20 08:00 Pulse Ox 97 03/09/20 08:00 Intake & Output 03/08/20 03/09/20 03/09/20 18:59 06:59 18:59 Intake Total 236 120 Output Total 1025 1610 Balance -789 -1610 120 Weight 126.7 kg Intake: Oral 236 120 Output: Urine 1025 1610 Other: Voiding Method Urinal # Voids 1 - Exam PHYSICAL EXAMINATION: HEENT: Head is atraumatic, normocephalic. Pupils equal, round. Neck is supple. There is no elevated jugular venous pressure. HEART EXAMINATION: Heart sounds irregular irregular, S1 and S2 with a systolic murmur. CHEST EXAMINATION: Lungs reveal diminished air entry. No chest wall tenderness is noted on palpation or with deep breathing. Tachypnea noted. ABDOMEN: Soft, obese, nontender. Bowel sounds are heard. No organomegaly noted. EXTREMITIES: 2+ peripheral pulses with evidence of trace peripheral edema and no calf tenderness noted. NEUROLOGIC patient is awake, alert and oriented x3. - Labs CBC & Chem 7: 03/09/20 05:42 03/09/20 05:42 Labs: Abnormal Lab Results - Last 24 Hours (Table) 03/08/20 03/08/20 03/08/20 Range/Units 11:40 16:10 19:50 RBC (4.30-5.90) m/uL Hgb (13.0-17.5) gm/dL Hct (39.0-53.0) % MCHC (31.0-37.0) g/dL RDW (11.5-15.5) % Neutrophils # (1.3-7.7) k/uL Lymphocytes # (1.0-4.8) k/uL Potassium (3.5-5.1) mmol/L Carbon Dioxide (22-30) mmol/L BUN (9-20) mg/dL Creatinine (0.66-1.25) mg/dL Glucose (74-99) mg/dL POC Glucose (mg/dL) 229 H 259 H 270 H (75-99) mg/dL 03/08/20 03/09/20 03/09/20 Range/Units 22:20 05:42 05:42 RBC 4.18 L (4.30-5.90) m/uL Hgb 12.0 L (13.0-17.5) gm/dL Hct 38.8 L (39.0-53.0) % MCHC 30.9 L (31.0-37.0) g/dL RDW 16.1 H (11.5-15.5) % Neutrophils # 9.6 H (1.3-7.7) k/uL Lymphocytes # 0.3 L (1.0-4.8) k/uL Potassium 6.0 H (3.5-5.1) mmol/L Carbon Dioxide 34 H (22-30) mmol/L BUN 70 H (9-20) mg/dL Creatinine 1.48 H (0.66-1.25) mg/dL Glucose 223 H (74-99) mg/dL POC Glucose (mg/dL) 228 H (75-99) mg/dL 03/09/20 Range/Units 05:46 RBC (4.30-5.90) m/uL Hgb (13.0-17.5) gm/dL Hct (39.0-53.0) % MCHC (31.0-37.0) g/dL RDW (11.5-15.5) % Neutrophils # (1.3-7.7) k/uL Lymphocytes # (1.0-4.8) k/uL Potassium (3.5-5.1) mmol/L Carbon Dioxide (22-30) mmol/L BUN (9-20) mg/dL Creatinine (0.66-1.25) mg/dL Glucose (74-99) mg/dL POC Glucose (mg/dL) 206 H (75-99) mg/dL Microbiology - Last 24 Hours (Table) 03/05/20 14:10 Blood Culture - Preliminary Blood No Growth after 72 hours Assessment and Plan Assessment: #1 acute on chronic hypoxic respiratory failure predominantly due to acute exacerbation of COPD with evidence of mild underlying CHF, combined diastolic dysfunction with mild impairment of systolic function and evidence of right ventricular enlargement and pulmonary hypertension #2 atrial fibrillation, of unknown duration, anticoagulated #3 obstructive sleep apnea, currently using BiPAP at night #4 status post aortic valve replacement #5 CAD with prior CABG #6 history of endocarditis #7 history of rectal cancer with previous colostomy #8 diabetes #9 hypertension #10 hyperlipidemia Plan: From cardiology perspective patient's symptoms appear to be predominantly related to underlying lung disease. Follow closely with pulmonary. Continue to monitor renal function, electrolytes, daily weights and I&Os. We will continue to follow the patient provide further recommendations accordingly. [employer] note has been reviewed, I agree with a documented findings and plan of care. Patient was seen and examined.
[2020-03-09] MEDS: methylPREDNISolone SOD SUCCI 40 MG/ML 1 ML VIAL IV SCH ×2 (09:21→22:24)
[2020-03-09] MEDS: APIXABAN 2.5 MG TABLET PO SCH ×2 (09:21→22:24)
[2020-03-09] MEDS: AZITHROMYCIN 500 MG TAB PO SCH (09:21)
[2020-03-09] MEDS: FUROSEMIDE 40 MG TAB PO SCH ×2 (09:21→16:10)
[2020-03-09] MEDS: FAMOTIDINE 20 MG TAB PO SCH (09:21)
[2020-03-09] MEDS ORDERED: INSULIN REGULAR 100 UNIT/ML VIAL IV ONE (10:28)
[2020-03-09] MEDS ORDERED: DEXTROSE 50% SYRINGE 50 ML IVP STA (10:28)
[2020-03-09] MEDS ORDERED: SODIUM POLYSTYRENE SULFONATE 15 GM/60 ML BOTTLE PO STA (10:29)
--- NOTE | 2020-03-09 10:36 | P.PN ---
Subjective Progress Note Date: 03/09/20 Principal diagnosis: Acute on chronic hypoxic respiratory failure related to acute exacerbation of COPD This is a very pleasant 84-year-old gentleman who follows with Dr. Alonso as his primary care provider. He has a history of hypertension, hyperlipidemia, coronary artery disease with previous coronary artery bypass grafting, cardiomyopathy and LV dysfunction, endocarditis, rectal cancer status post colostomy, former smoker. He does have chronic obstructive pulmonary disease and obstructive sleep apnea utilizing CPAP in the outpatient setting he is also on home oxygen at 2 L/m per nasal cannula and follows with Dr. Morales in our office for the same. His FEV1 value is 42% of predicted. He was last seen on 02/28/2024 profound exertional dyspnea secondary to both the COPD and cardiomyopathy. He was given Aldactone 25 mg daily continued on his oral Lasix. He presented here to the emergency room yesterday with worsening shortness of breath, cough and congestion. Chest x-ray shows basilar infiltrates with left greater than right. Possible atypical pneumonia. Evidence of COPD. EKG shows evidence of atrial flutter with a controlled ventricular rate. White count 7.4. Hemoglobin 11.6. Sodium 137. Potassium 5.0. Bicarb 31. Creatinine 1.79. Herrera virus not detected. He is seen today in consultation on the selective care unit. He is currently resting in bed. Awake and alert in no acute distress. Currently maintaining O2 saturations in the 90s on 3 L/m per nasal cannula. She's afebrile. Home CPAP at the bedside. He's been initiated on Duo Neb inhalations, Flovent, IV Solu-Medrol and antibiotics in the form of ceftriaxone and azithromycin. He was given a dose of IV diuretics yesterday. On heparin subcu for DVT prophylaxis. Patient was reevaluated today on 03/07/20, continues to have shortness of breath with any activity. Intermittent cough, no wheezing. No fever no chills no hemoptysis. Remains on 4 L nasal cannula, and at night he is on BiPAP. D-dimer is low hence no need to consider CT angiogram of the chest and no need to consider any workup for thromboembolic disease. His basic metabolic profile is basically unremarkable, his creatinine is up to 1.79. And that is about his baseline. The patient is seen today 03/08/2020 in follow-up on the selective care unit. He is awake and alert in no acute distress. Currently resting fairly comfortably in bed. He is still quite dyspneic with minimal exertion. He is maintaining O2 saturation in low 90s on 3 L/m per nasal cannula. He's been afebrile. Blood culture reveals no growth to date. Sodium 139. Potassium 5.2. Chloride 101. Bicarb 34. Creatinine 1.63. He remains on DuoNeb inhalations, Flovent, IV Solu-Medrol. Antibiotics in the form of ceftriaxone and azithromycin. Oral diuretics. Eliquis for anticoagulation. Echocardiogram reveals mildly impaired left ventricular systolic function with ejection fraction 45-50%. Mild to moderate pulmonary hypertension. On 03/09/2020 patient seen in follow-up on selective care unit. He is awake and alert, resting comfortably in bed, currently on 3 L of oxygen with a pulse ox of 97%, patient did use BiPAP support last night, with pressures of 15/5, and FiO2 of 40%, remains in A. fib, with a controlled rate. Lung sounds reveal some scattered rhonchi on the right, clear on the left. Today's chest x-ray shows mild cardiomegaly and interstitial density, continue CHF with pulmonary vascular congestion. There is some improvement in aeration at the left base. Patient is on oral Lasix 40 mg twice daily, he is on Eliquis for anticoagulation and Zithromax and Rocephin and IV steroids. Patient is in -2.3 L over the last 24 hours, it is labs have been reviewed, showing white blood cell count of 10.6, hemoglobin of 12.0, sodium is 138, potassium is 6.0, which will be treated Objective - Vital Signs Vital signs: Vital Signs Temp 97.6 F 03/09/20 08:00 Pulse 66 03/09/20 08:00 Resp 32 H 03/09/20 08:00 BP 128/65 03/09/20 08:00 Pulse Ox 97 03/09/20 08:00 Intake & Output 03/08/20 03/09/20 03/09/20 18:59 06:59 18:59 Intake Total 236 120 Output Total 1025 1610 Balance -789 -1610 120 Weight 126.7 kg Intake: Oral 236 120 Output: Urine 1025 1610 Other: Voiding Method Urinal # Voids 1 - Exam GENERAL EXAM: Alert, very pleasant, 84-year-old on 3 L of oxygen, with a pulse ox of 97% comfortable in no apparent distress. HEAD: Normocephalic/atraumatic. EYES: Normal reaction of pupils, equal size. Conjunctiva pink, sclera white. NOSE: Clear with pink turbinates. THROAT: No erythema or exudates. NECK: No masses, no JVD, no thyroid enlargement, no adenopathy. CHEST: No chest wall deformity. Symmetrical expansion. LUNGS: Equal air entry with scattered rhonchi on the right side CVS: Irregular rate and rhythm, normal S1 and S2, no gallops, no murmurs, no rubs ABDOMEN: Soft, nontender. No hepatosplenomegaly, normal bowel sounds, no guarding or rigidity. EXTREMITIES: No clubbing, no edema, no cyanosis, 2+ pulses and upper and lower extremities. MUSCULOSKELETAL: Muscle strength and tone normal. SPINE: No scoliosis or deformity SKIN: No rashes CENTRAL NERVOUS SYSTEM: Alert and oriented -3. No focal deficits, tone is normal in all 4 extremities. PSYCHIATRIC: Alert and oriented -3. Appropriate affect. Intact judgment and insight. - Labs CBC & Chem 7: 03/09/20 05:42 03/09/20 05:42 Labs: Abnormal Lab Results - Last 24 Hours (Table) 03/08/20 03/08/20 03/08/20 Range/Units 11:40 16:10 19:50 RBC (4.30-5.90) m/uL Hgb (13.0-17.5) gm/dL Hct (39.0-53.0) % MCHC (31.0-37.0) g/dL RDW (11.5-15.5) % Neutrophils # (1.3-7.7) k/uL Lymphocytes # (1.0-4.8) k/uL Potassium (3.5-5.1) mmol/L Carbon Dioxide (22-30) mmol/L BUN (9-20) mg/dL Creatinine (0.66-1.25) mg/dL Glucose (74-99) mg/dL POC Glucose (mg/dL) 229 H 259 H 270 H (75-99) mg/dL 03/08/20 03/09/20 03/09/20 Range/Units 22:20 05:42 05:42 RBC 4.18 L (4.30-5.90) m/uL Hgb 12.0 L (13.0-17.5) gm/dL Hct 38.8 L (39.0-53.0) % MCHC 30.9 L (31.0-37.0) g/dL RDW 16.1 H (11.5-15.5) % Neutrophils # 9.6 H (1.3-7.7) k/uL Lymphocytes # 0.3 L (1.0-4.8) k/uL Potassium 6.0 H (3.5-5.1) mmol/L Carbon Dioxide 34 H (22-30) mmol/L BUN 70 H (9-20) mg/dL Creatinine 1.48 H (0.66-1.25) mg/dL Glucose 223 H (74-99) mg/dL POC Glucose (mg/dL) 228 H (75-99) mg/dL 03/09/20 Range/Units 05:46 RBC (4.30-5.90) m/uL Hgb (13.0-17.5) gm/dL Hct (39.0-53.0) % MCHC (31.0-37.0) g/dL RDW (11.5-15.5) % Neutrophils # (1.3-7.7) k/uL Lymphocytes # (1.0-4.8) k/uL Potassium (3.5-5.1) mmol/L Carbon Dioxide (22-30) mmol/L BUN (9-20) mg/dL Creatinine (0.66-1.25) mg/dL Glucose (74-99) mg/dL POC Glucose (mg/dL) 206 H (75-99) mg/dL Microbiology - Last 24 Hours (Table) 03/05/20 14:10 Blood Culture - Preliminary Blood No Growth after 72 hours Assessment and Plan Plan: Assessment: 1 Acute on chronic hypoxic respiratory failure secondary to an acute exacerbation of chronic obstructive pulmonary disease, FEV1 value of 42% of predicted. 2 Acute on chronic exacerbation of congestive heart failure, systolic with mildly impaired left ventricular systolic function ejection fraction 45-50% along with mild to moderate pulmonary hypertension. 3 Atrial flutter, possible new onset 4 Obesity 5 Obstructive sleep apnea utilizing home CPAP 6 Coronary artery disease with previous coronary artery bypass grafting 7 History of endocarditis 8 History of rectal cancer with previous colostomy 9 Diabetes mellitus 10 Hypertension 11 Hyperlipidemia 12 hyperkalemia Plan: Continue IV steroids, continue bronchodilators, and antibiotics, chest x-ray today shows cardiomegaly and interstitial density. Continue oral diuretics, patient is maintaining negative fluid balance. Continue BiPAP support at bedtime and as needed during the day. Will treat patient's potassium 6.0, with D50 regular insulin, and dose of Kayexalate repeat BMP at 1300, we'll continue to follow I performed a history & physical examination of the patient and discussed their management with my nurse practitioner, Odalis Reyes. I reviewed the nurse practitioner's note and agree with the documented findings and plan of care. Lung sounds are positive for diffuse rhonchi on the right. The findings and the impression was discussed with the patient. I attest to the documentation by the nurse practitioner. Time with Patient: Less than 30
[2020-03-09 11:48] LABS: Glucose,Whole Blood 375 mg/dL (75-99)
[2020-03-09 13:24] LABS: Calcium 9.3 mg/dL (8.4-10.2); Potassium 5.2 mmol/L (3.5-5.1)
[2020-03-09 14:24] LABS: Glucose,Whole Blood 335 mg/dL (75-99)
[2020-03-09 16:58] LABS: Glucose,Whole Blood 330 mg/dL (75-99)
[2020-03-09 20:48] LABS: Glucose,Whole Blood 359 mg/dL (75-99)
[2020-03-09] MEDS ORDERED: INSULIN DETEMIR (LEVEMIR) 100 UNIT/ML SYR SQ STA (21:47)
[2020-03-09] MEDS: ATORVASTATIN 80 MG TAB PO SCH (22:24)
[2020-03-09] MEDS: GABAPENTIN 300 MG CAP PO SCH (22:24)
[2020-03-09] MEDS: INSULIN DETEMIR (LEVEMIR) 100 UNIT/ML SYR SQ SCH ×2 (23:18→23:19)
--- NOTE | 2020-03-10 00:46 | P.PN ---
Subjective Progress Note Date: 03/09/20 Principal diagnosis: acute on chronic hypoxic respiratory failure secondary to COPD exacerbation 84-year-old pleasant male with known history of COPD came in with comments of shortness of breath has been going on for last few days unable to see because of shortness of breath for last 3 days patient is supposed to stress of onset at home does have history of sleep apnea, complaining of cough unable to bring up anything, denied any orthopnea or paroxysmal nocturnal dyspnea. Patient denied any fever chills. Patient doesn't have any leukocytosis chest x-ray showed bilateral lower lobe infiltrates possibility of atelectasis patient has significant rhonchi bilaterally very minimal wheeze on exam. Doesn't have any JVD. Patient had normal ejection fraction the past BNP is 2000 clinically doesn't appear to be in CHF exacerbation and patient does use CPAP machine at home morbidly obese. 03/06/2020 patient is currently living in the bed. Still having shortness of breath and coarse breath sounds on examination.icurrently being continued on antibiotics in the form of ceftriaxone and azithromycin.continue on breathing treatments and IV steroids. Pulmonary and cardiology is on board. CT of the chest was ordered which showedinterstitial prominence with bilateral small effusions and bibasilar consolidation. Correlate for venous congestion or interstitial pneumonia. No diagnostic evidence of pulmonary fibrosis. Denied any complaints of chest pain. No nausea vomiting or abdominal pain. 03/07/2020 Patient is able to sit in the chair today. Breathing status is current as compared to yesterday. Shortness of breath with minimal activity otherwise. Patient has been afebrile. Intermittent cough with out sputum production. Currently on oxygen at 4 L via nasal cannula.laboratory data showed creatinine 1.7 and BUN 46. patient is being continued on antibiotics in the form of ceftriaxone and azithromycin. 2-D echocardiogram showed EF 45-50%.severe concentric left ventricular hypertrophy. Mild to moderate tricuspid regurgitation. Mild to moderate pulmonary hypertension. No pericardial effusion. Cardiology and pulmonary is on board. 03/08/2020 Patient is currently lying in the bed comfortably. Patient is still having exertional dyspnea with minimal exercise. Currently on oxygen via nasal cannula. Patient was started back on Lasix 40 mg twice daily. Cardiology and pulmonary is on board. Patient is being continued on antibiotics in the form of ceftriaxone and azithromycin. Was also started on anticoagulation with Eliquis. Patient has been afebrile.. 03/09/2020 Patient is currently sitting in the chair. Breathing status is improving compared to yesterday. Still having exertional dyspnea. Currently on oxygen at 3 L via nasal cannula. Patient did use BiPAP last night which he uses at home also. Chest x-ray showed mild cardiomegaly and interstitial density. Correlate for continued CHF with pulmonary vascular congestion. Aeration at the left base has improved. Patient is being continued Lasix 40 mg twice daily. Otherwise patient remained in atrial fibrillation. Rate is controlled. Continue on anticoagulation with Eliquis as well. Otherwise patient is IV steroids, antibiotics. Pulmonary and cardiology is on board. Potassium level is 6.0 today. Insulin and dextrose 50 was ordered. Patient is also hyperglycemic. Follow-up repeat labs tomorrow. Current medications reviewed Objective - Vital Signs Vital signs: Vital Signs Temp 98.3 F 03/09/20 16:00 Pulse 88 03/09/20 20:42 Resp 24 03/09/20 16:00 BP 112/54 03/09/20 16:00 Pulse Ox 93 L 03/09/20 16:00 Intake & Output 03/09/20 03/09/20 03/10/20 06:59 18:59 06:59 Intake Total 642 Output Total 1610 1450 Balance -1610 -808 Weight 126.7 kg Intake: IV 50 cefTRIAXone 2 gm In 50 Sodium Chloride 0.9% 50 ml @ 100 mls/hr IVPB Q24H [facility] Rx#:[id number] Oral 592 Output: Urine 1610 1450 Other: Voiding Method Urinal # Voids 1 1 # Bowel Movements 1 - Exam GENERAL: The patient is drowsy but awake alert oriented x3, not in any acute distress. Well developed, well nourished. Obese HEENT: Pupils are round and equally reacting to light. EOMI. No scleral icterus. No conjunctival pallor. Normocephalic, atraumatic. No pharyngeal erythema. No thyromegaly. CARDIOVASCULAR: S1 and S2 present. No murmurs, rubs, or gallops. PULMONARY: Decreased air entry and bilateral rhonchi with no expiratory wheezing ABDOMEN: Soft, nontender, nondistended, normoactive bowel sounds. No palpable organomegaly. MUSCULOSKELETAL: No joint swelling or deformity. EXTREMITIES: No cyanosis, clubbing, or pedal edema. NEUROLOGICAL: Gross neurological examination did not reveal any focal deficits. SKIN: No rashes. - Labs CBC & Chem 7: 03/09/20 05:42 03/09/20 12:58 Labs: Abnormal Lab Results - Last 24 Hours (Table) 03/08/20 03/09/20 03/09/20 Range/Units 22:20 05:42 05:42 RBC 4.18 L (4.30-5.90) m/uL Hgb 12.0 L (13.0-17.5) gm/dL Hct 38.8 L (39.0-53.0) % MCHC 30.9 L (31.0-37.0) g/dL RDW 16.1 H (11.5-15.5) % Neutrophils # 9.6 H (1.3-7.7) k/uL Lymphocytes # 0.3 L (1.0-4.8) k/uL Potassium 6.0 H (3.5-5.1) mmol/L Carbon Dioxide 34 H (22-30) mmol/L BUN 70 H (9-20) mg/dL Creatinine 1.48 H (0.66-1.25) mg/dL Glucose 223 H (74-99) mg/dL POC Glucose (mg/dL) 228 H (75-99) mg/dL 03/09/20 03/09/20 03/09/20 Range/Units 05:46 11:46 12:58 RBC (4.30-5.90) m/uL Hgb (13.0-17.5) gm/dL Hct (39.0-53.0) % MCHC (31.0-37.0) g/dL RDW (11.5-15.5) % Neutrophils # (1.3-7.7) k/uL Lymphocytes # (1.0-4.8) k/uL Potassium 5.2 H (3.5-5.1) mmol/L Carbon Dioxide 37 H (22-30) mmol/L BUN 64 H (9-20) mg/dL Creatinine 1.52 H (0.66-1.25) mg/dL Glucose 288 H (74-99) mg/dL POC Glucose (mg/dL) 206 H 375 H (75-99) mg/dL 03/09/20 03/09/20 03/09/20 Range/Units 14:22 16:56 20:47 RBC (4.30-5.90) m/uL Hgb (13.0-17.5) gm/dL Hct (39.0-53.0) % MCHC (31.0-37.0) g/dL RDW (11.5-15.5) % Neutrophils # (1.3-7.7) k/uL Lymphocytes # (1.0-4.8) k/uL Potassium (3.5-5.1) mmol/L Carbon Dioxide (22-30) mmol/L BUN (9-20) mg/dL Creatinine (0.66-1.25) mg/dL Glucose (74-99) mg/dL POC Glucose (mg/dL) 335 H 330 H 359 H (75-99) mg/dL Microbiology - Last 24 Hours (Table) 03/05/20 14:10 Blood Culture - Preliminary Blood No Growth after 96 hours Assessment and Plan Assessment: -Shortest breath: secondary to tracheal bronchitis and possible pneumonia along with COPD. - acute on chronic hypoxic respiratory failure secondary to COPD exacerbation -acute on chronic CHF with diastolic dysfunction. Ejection fraction. 45 to 50%. - Moderate pulmonary hypertension -Obesity, sleep apnea: Patient will resume his BiPAP machine at nighttime. - atrial fibrillation. Duration unknown. Patient was started on Eliquis. -COPD with possible mild acute exacerbation -Coronary artery disease -Type 2 diabetes mellitus patient resumed on his home regimen and sliding scale for systemic steroids, patient blood sugars are expected to go because of systemic steroids -Hypothyroidism -Hypertension -Chronic kidney disease stage III from possible diabetic nephropathy- - Morbid obesity BMI 41.3 - coronary artery disease with history of CABG -DVT prophylaxis with subcutaneous of pharyngeal prophylaxis with Pepcid plan: Patient will be continued on antibiotics the form of ceftriaxone and a zithromycin. restrated lasix 40mg bid as per home dose. Continue with breathing treatments and IV steroids 40 mg every 12. Continue with Lasix. Monitor renal function and follow closely. Pulmonary and cardiology is on board. 2-D echocardiogramwas done. continue with Eliquis. Further recommend ations based on the clinical course. Time with Patient: Greater than 30
[2020-03-10 06:04] LABS: Glucose,Whole Blood 227 mg/dL (75-99)
[2020-03-10] MEDS: LEVOTHYROXINE 50 MCG TAB PO SCH (06:33)
[2020-03-10] MEDS: CARVEDILOL 3.125 MG TAB PO SCH ×2 (06:33→17:23)
[2020-03-10] MEDS: INSULIN ASPART (NovoLOG) 100 UNIT/ML VIAL SQ SCH ×7 (06:37→21:10)
[2020-03-10 06:50] LABS: Anisocytosis Slight; Basophils % (A) 0 %; Eosinophils % (A) 0 %; HCT 43.6 % (39.0-53.0); HGB 13.2 gm/dL (13.0-17.5); Hypochromasia Marked; Lymphocytes # (A) 0.4 k/uL (1.0-4.8); Lymphocytes % (A) 4 %; MCH 27.7 pg (25.0-35.0); MCHC 30.2 g/dL (31.0-37.0); MCV 91.7 fL (80.0-100.0); Mean Platelet Volume 7.7; Monocytes # (A) 0.5 k/uL (0-1.0); Monocytes % (A) 4 %; Neutrophils # (A) 10.3 k/uL (1.3-7.7); Neutrophils % (A) 91 %; Platelet Count 277 k/uL (150-450); RBC 4.76 m/uL (4.30-5.90); RDW 16.5 % (11.5-15.5); WBC 11.3 k/uL (3.8-10.6)
[2020-03-10 07:05] LABS: Calcium 9.5 mg/dL (8.4-10.2); Potassium 5.4 mmol/L (3.5-5.1)
[2020-03-10] MEDS: FLUTICASONE 110 MCG INHALER INHALATION SCH ×2 (07:28→19:50)
[2020-03-10] MEDS: IPRATROPIUM-ALBUTEROL 3 ML NEB INHALATION SCH ×4 (07:28→19:50)
[2020-03-10] MEDS: FAMOTIDINE 20 MG TAB PO SCH (08:49)
[2020-03-10] MEDS: AZITHROMYCIN 500 MG TAB PO SCH (08:49)
[2020-03-10] MEDS: APIXABAN 2.5 MG TABLET PO SCH ×2 (08:49→21:10)
[2020-03-10] MEDS: FUROSEMIDE 40 MG TAB PO SCH ×2 (08:49→16:04)
[2020-03-10] MEDS: methylPREDNISolone SOD SUCCI 40 MG/ML 1 ML VIAL IV SCH ×2 (08:49→21:10)
--- NOTE | 2020-03-10 11:27 | P.PN ---
Subjective Progress Note Date: 03/10/20 Principal diagnosis: Acute on chronic hypoxic respiratory failure related to acute exacerbation of COPD This is a very pleasant 84-year-old gentleman who follows with Dr. Alonso as his primary care provider. He has a history of hypertension, hyperlipidemia, coronary artery disease with previous coronary artery bypass grafting, cardiomyopathy and LV dysfunction, endocarditis, rectal cancer status post colostomy, former smoker. He does have chronic obstructive pulmonary disease and obstructive sleep apnea utilizing CPAP in the outpatient setting he is also on home oxygen at 2 L/m per nasal cannula and follows with Dr. Morales in our office for the same. His FEV1 value is 42% of predicted. He was last seen on 02/28/2024 profound exertional dyspnea secondary to both the COPD and cardiomyopathy. He was given Aldactone 25 mg daily continued on his oral Lasix. He presented here to the emergency room yesterday with worsening shortness of breath, cough and congestion. Chest x-ray shows basilar infiltrates with left greater than right. Possible atypical pneumonia. Evidence of COPD. EKG shows evidence of atrial flutter with a controlled ventricular rate. White count 7.4. Hemoglobin 11.6. Sodium 137. Potassium 5.0. Bicarb 31. Creatinine 1.79. Herrera virus not detected. He is seen today in consultation on the selective care unit. He is currently resting in bed. Awake and alert in no acute distress. Currently maintaining O2 saturations in the 90s on 3 L/m per nasal cannula. She's afebrile. Home CPAP at the bedside. He's been initiated on Duo Neb inhalations, Flovent, IV Solu-Medrol and antibiotics in the form of ceftriaxone and azithromycin. He was given a dose of IV diuretics yesterday. On heparin subcu for DVT prophylaxis. Patient was reevaluated today on 03/07/20, continues to have shortness of breath with any activity. Intermittent cough, no wheezing. No fever no chills no hemoptysis. Remains on 4 L nasal cannula, and at night he is on BiPAP. D-dimer is low hence no need to consider CT angiogram of the chest and no need to consider any workup for thromboembolic disease. His basic metabolic profile is basically unremarkable, his creatinine is up to 1.79. And that is about his baseline. The patient is seen today 03/08/2020 in follow-up on the selective care unit. He is awake and alert in no acute distress. Currently resting fairly comfortably in bed. He is still quite dyspneic with minimal exertion. He is maintaining O2 saturation in low 90s on 3 L/m per nasal cannula. He's been afebrile. Blood culture reveals no growth to date. Sodium 139. Potassium 5.2. Chloride 101. Bicarb 34. Creatinine 1.63. He remains on DuoNeb inhalations, Flovent, IV Solu-Medrol. Antibiotics in the form of ceftriaxone and azithromycin. Oral diuretics. Eliquis for anticoagulation. Echocardiogram reveals mildly impaired left ventricular systolic function with ejection fraction 45-50%. Mild to moderate pulmonary hypertension. On 03/09/2020 patient seen in follow-up on selective care unit. He is awake and alert, resting comfortably in bed, currently on 3 L of oxygen with a pulse ox of 97%, patient did use BiPAP support last night, with pressures of 15/5, and FiO2 of 40%, remains in A. fib, with a controlled rate. Lung sounds reveal some scattered rhonchi on the right, clear on the left. Today's chest x-ray shows mild cardiomegaly and interstitial density, continue CHF with pulmonary vascular congestion. There is some improvement in aeration at the left base. Patient is on oral Lasix 40 mg twice daily, he is on Eliquis for anticoagulation and Zithromax and Rocephin and IV steroids. Patient is in -2.3 L over the last 24 hours, it is labs have been reviewed, showing white blood cell count of 10.6, hemoglobin of 12.0, sodium is 138, potassium is 6.0, which will be treated On 03/10/2020 patient is seen in follow-up on selective care unit, he is awake and alert, currently on 3 L of oxygen the pulse ox of 96%, patient still continues to have significant dyspnea with any exertion, but was able to ambulate to the bathroom with assistance, she did wear BiPAP support last night. Remains on oral diuretics at 40 mg twice daily and he is in -1.7 liters over the last 24 hours, weight is down by 5.2 kg. Today's labs have been reviewed showing white blood cell count of 11.3, hemoglobin of 13.2, sodium is 140, potassium is 5.4, chloride is 95, CO2 is 39, B UN is 64 creatinine is 1.52. Patient remains on empiric antibiotics, he has been afebrile, blood cultures have been negative, patient is on breathing treatments, and IV steroids Objective - Vital Signs Vital signs: Vital Signs Temp 98.6 F 03/10/20 08:00 Pulse 84 03/10/20 11:14 Resp 32 H 03/10/20 08:00 BP 125/59 03/10/20 08:00 Pulse Ox 96 03/10/20 08:00 Intake & Output 03/09/20 03/10/20 03/10/20 18:59 06:59 18:59 Intake Total 642 Output Total 1450 975 Balance -808 -975 Weight 121.5 kg Intake: IV 50 cefTRIAXone 2 gm In 50 Sodium Chloride 0.9% 50 ml @ 100 mls/hr IVPB Q24H [facility] Rx#:[id number] Oral 592 Output: Urine 1450 975 Other: Voiding Method Urinal Urinal Urinal # Voids 1 1 # Bowel Movements 1 - Exam GENERAL EXAM: Alert, very pleasant, 84-year-old on 3 L of oxygen, with a pulse ox of 97% comfortable in no apparent distress. HEAD: Normocephalic/atraumatic. EYES: Normal reaction of pupils, equal size. Conjunctiva pink, sclera white. NOSE: Clear with pink turbinates. THROAT: No erythema or exudates. NECK: No masses, no JVD, no thyroid enlargement, no adenopathy. CHEST: No chest wall deformity. Symmetrical expansion. LUNGS: Equal air entry with scattered rhonchi on the right side CVS: Irregular rate and rhythm, normal S1 and S2, no gallops, no murmurs, no rubs ABDOMEN: Soft, nontender. No hepatosplenomegaly, normal bowel sounds, no guarding or rigidity. EXTREMITIES: No clubbing, no edema, no cyanosis, 2+ pulses and upper and lower extremities. MUSCULOSKELETAL: Muscle strength and tone normal. SPINE: No scoliosis or deformity SKIN: No rashes CENTRAL NERVOUS SYSTEM: Alert and oriented -3. No focal deficits, tone is normal in all 4 extremities. PSYCHIATRIC: Alert and oriented -3. Appropriate affect. Intact judgment and insight. - Labs CBC & Chem 7: 03/10/20 05:38 03/10/20 05:38 Labs: Abnormal Lab Results - Last 24 Hours (Table) 03/09/20 03/09/20 03/09/20 Range/Units 11:46 12:58 14:22 WBC (3.8-10.6) k/uL MCHC (31.0-37.0) g/dL RDW (11.5-15.5) % Neutrophils # (1.3-7.7) k/uL Lymphocytes # (1.0-4.8) k/uL Potassium 5.2 H (3.5-5.1) mmol/L Chloride (98-107) mmol/L Carbon Dioxide 37 H (22-30) mmol/L BUN 64 H (9-20) mg/dL Creatinine 1.52 H (0.66-1.25) mg/dL Glucose 288 H (74-99) mg/dL POC Glucose (mg/dL) 375 H 335 H (75-99) mg/dL 03/09/20 03/09/20 03/10/20 Range/Units 16:56 20:47 05:38 WBC 11.3 H (3.8-10.6) k/uL MCHC 30.2 L (31.0-37.0) g/dL RDW 16.5 H (11.5-15.5) % Neutrophils # 10.3 H (1.3-7.7) k/uL Lymphocytes # 0.4 L (1.0-4.8) k/uL Potassium (3.5-5.1) mmol/L Chloride (98-107) mmol/L Carbon Dioxide (22-30) mmol/L BUN (9-20) mg/dL Creatinine (0.66-1.25) mg/dL Glucose (74-99) mg/dL POC Glucose (mg/dL) 330 H 359 H (75-99) mg/dL 03/10/20 03/10/20 Range/Units 05:38 06:03 WBC (3.8-10.6) k/uL MCHC (31.0-37.0) g/dL RDW (11.5-15.5) % Neutrophils # (1.3-7.7) k/uL Lymphocytes # (1.0-4.8) k/uL Potassium 5.4 H (3.5-5.1) mmol/L Chloride 95 L (98-107) mmol/L Carbon Dioxide 39 H (22-30) mmol/L BUN 64 H (9-20) mg/dL Creatinine 1.52 H (0.66-1.25) mg/dL Glucose 249 H (74-99) mg/dL POC Glucose (mg/dL) 227 H (75-99) mg/dL Microbiology - Last 24 Hours (Table) 03/05/20 14:10 Blood Culture - Preliminary Blood No Growth after 96 hours Assessment and Plan Plan: Assessment: 1 Acute on chronic hypoxic respiratory failure secondary to an acute exacerbation of chronic obstructive pulmonary disease, FEV1 value of 42% of predicted. 2 Acute on chronic exacerbation of congestive heart failure, systolic with mildly impaired left ventricular systolic function ejection fraction 45-50% along with mild to moderate pulmonary hypertension. 3 Atrial flutter, possible new onset 4 Obesity 5 Obstructive sleep apnea utilizing home CPAP 6 Coronary artery disease with previous coronary artery bypass grafting 7 History of endocarditis 8 History of rectal cancer with previous colostomy 9 Diabetes mellitus 10 Hypertension 11 Hyperlipidemia 12 hyperkalemia Plan: Continue current medical treatment, continue oral diuretics, patient is maintaining negative fluid balance, BiPAP support at bedtime and as needed during the day. Continue IV steroids and breathing treatments. Increase activity as tolerated, will continue to follow I performed a history & physical examination of the patient and discussed their management with my nurse practitioner, Odalis Reyes. I reviewed the nurse practitioner's note and agree with the documented findings and plan of care. Lung sounds are positive for diffuse rhonchi on the right. The findings and the impression was discussed with the patient. I attest to the documentation by the nurse practitioner. Time with Patient: Less than 30
[2020-03-10 11:53] LABS: Glucose,Whole Blood 267 mg/dL (75-99)
--- NOTE | 2020-03-10 12:03 | PN ---
PROGRESS NOTE Mr. Hammonds is an 84-year-old male with known history of severe chronic obstructive lung disease, history of coronary bypass grafting and aortic valve replacement who presented with symptoms of progressive dyspnea. He continues to be dyspneic although slightly better. He has cough. He has some wheezing. He has no dizziness, palpitation. He has no chest discomfort. He has been evaluated by Dr. Gomez and patient has an exacerbation of his COPD. He is on oral anticoagulation and has been anticoagulated. He continues to be at this time on Eliquis 2.5 mg twice a day, Lipitor 80 mg daily, Coreg 3.125 mg twice a day, Lasix 40 mg orally twice a day, insulin, , levothyroxine, methyl prednisolone. PHYSICAL EXAMINATION: Blood pressure 125/60 with a heart in the 60s. LUNGS: Decreased air exchange bilaterally with few scattered wheezes. HEART: Irregular, regular, S1, S2. No S3 with systolic murmur at the base, no diastolic murmur. ABDOMEN: Soft, nontender. EXTREMITIES: No significant edema. IMPRESSION: 1. Exacerbation of chronic obstructive lung disease with symptoms of dyspnea. 2. Symptoms of congestive heart failure with overall preserved systolic function. 3. Atrial fibrillation-flutter, anticoagulated. 4. Status post coronary artery bypass grafting. 5. Status post aortic valve replacement. RECOMMENDATION: Will continue present therapy on the present dose of diuretic, increase his activity and depending on his progress, further recommendation will be made. MMODL / IJN: [id number] /
[2020-03-10 17:09] LABS: Glucose,Whole Blood 347 mg/dL (75-99)
[2020-03-10 20:53] LABS: Glucose,Whole Blood 309 mg/dL (75-99)
[2020-03-10] MEDS ORDERED: INSULIN DETEMIR (LEVEMIR) 100 UNIT/ML SYR SQ SCH ×2 (21:00)
[2020-03-10] MEDS: GABAPENTIN 300 MG CAP PO SCH (21:10)
[2020-03-10] MEDS: ATORVASTATIN 80 MG TAB PO SCH (21:10)
[2020-03-10] MEDS: INSULIN DETEMIR (LEVEMIR) 100 UNIT/ML SYR SQ SCH (21:11)
[2020-03-11 06:14] LABS: Glucose,Whole Blood 235 mg/dL (75-99)
[2020-03-11] MEDS: CARVEDILOL 3.125 MG TAB PO SCH ×2 (07:06→17:24)
[2020-03-11] MEDS: LEVOTHYROXINE 50 MCG TAB PO SCH (07:06)
[2020-03-11] MEDS: INSULIN ASPART (NovoLOG) 100 UNIT/ML VIAL SQ SCH ×7 (07:07→20:51)
[2020-03-11] MEDS: FLUTICASONE 110 MCG INHALER INHALATION SCH ×2 (07:58→19:37)
[2020-03-11] MEDS: IPRATROPIUM-ALBUTEROL 3 ML NEB INHALATION SCH ×4 (07:58→19:37)
[2020-03-11] MEDS: AZITHROMYCIN 500 MG TAB PO SCH (08:57)
[2020-03-11] MEDS: FAMOTIDINE 20 MG TAB PO SCH (08:57)
[2020-03-11] MEDS: methylPREDNISolone SOD SUCCI 40 MG/ML 1 ML VIAL IV SCH (08:57)
[2020-03-11] MEDS: APIXABAN 2.5 MG TABLET PO SCH ×2 (08:57→20:51)
[2020-03-11] MEDS: FUROSEMIDE 40 MG TAB PO SCH ×2 (08:57→17:24)
--- NOTE | 2020-03-11 10:13 | P.PN ---
Subjective Progress Note Date: 03/11/20 Principal diagnosis: Acute on chronic hypoxic respiratory failure secondary to an acute exacerbation of chronic obstructive pulmonary disease This is a very pleasant 84-year-old gentleman who follows with Dr. Alonso as his primary care provider. He has a history of hypertension, hyperlipidemia, coronary artery disease with previous coronary artery bypass grafting, cardiomy opathy and LV dysfunction, endocarditis, rectal cancer status post colostomy, former smoker. He does have chronic obstructive pulmonary disease and obstructive sleep apnea utilizing CPAP in the outpatient setting he is also on home oxygen at 2 L/m per nasal cannula and follows with Dr. Morales in our office for the same. His FEV1 value is 42% of predicted. He was last seen on 02/28/2024 profound exertional dyspnea secondary to both the COPD and cardiomyopathy. He was given Aldactone 25 mg daily continued on his oral Lasix. He presented here to the emergency room yesterday with worsening shortness of breath, cough and congestion. Chest x-ray shows basilar infiltrates with left greater than right. Possible atypical pneumonia. Evidence of COPD. EKG shows evidence of atrial flutter with a controlled ventricular rate. White count 7.4. Hemoglobin 11.6. Sodium 137. Potassium 5.0. Bicarb 31. Creatinine 1.79. Herrera virus not detected. He is seen today in consultation on the selective care unit. He is currently resting in bed. Awake and alert in no acute distress. Currently maintaining O2 saturations in the 90s on 3 L/m per nasal cannula. She's afebrile. Home CPAP at the bedside. He's been initiated on DuoNeb inhalations, Flovent, IV Solu-Medrol and antibiotics in the form of ceftriaxone and azithromycin. He was given a dose of IV diuretics yesterday. On heparin subcu for DVT prophylaxis. Patient was reevaluated today on 03/07/20, continues to have shortness of breath with any activity. Intermittent cough, no wheezing. No fever no chills no hemoptysis. Remains on 4 L nasal cannula, and at night he is on BiPAP. D-dimer is low hence no need to consider CT angiogram of the chest and no need to consider any workup for thromboembolic disease. His basic metabolic profile is basically unremarkable, his creatinine is up to 1.79. And that is about his bas callie. The patient is seen today 03/08/2020 in follow-up on the selective care unit. He is awake and alert in no acute distress. Currently resting fairly comfortably in bed. He is still quite dyspneic with minimal exertion. He is maintaining O2 saturation in low 90s on 3 L/m per nasal cannula. He's been afebrile. Blood culture reveals no growth to date. Sodium 139. Potassium 5.2. Chloride 101. Bicarb 34. Creatinine 1.63. He remains on DuoNeb inhalations, Flovent, IV Solu-Medrol. Antibiotics in the form of ceftriaxone and azithromycin. Oral diuretics. Eliquis for anticoagulation. Echocardiogram reveals mildly impaired left ventricular systolic function with ejection fraction 45-50%. Mild to moderate pulmonary hypertension. The patient is seen today 03/11/2020 in follow-up on the selective care unit. He is awake and alert in no acute distress. He is breathing easier and nearly back to his baseline. He is laying flat in bed. He is utilizing his CPAP at night and currently on 3 L nasal cannula. He is afebrile. Blood culture revealed no growth. Blood sugar 235. He remains on bronchodilators, IV Solu- Medrol, antibiotics in the form of ceftriaxone and azithromycin, oral Lasix. He is anticoagulated with Eliquis Objective - Vital Signs Vital signs: Vital Signs Temp 98.2 F 03/11/20 04:00 Pulse 72 03/11/20 08:11 Resp 26 H 03/11/20 04:00 BP 145/96 03/11/20 04:00 Pulse Ox 97 03/11/20 04:00 Intake & Output 03/10/20 03/11/20 03/11/20 18:59 06:59 18:59 Intake Total 770 240 Output Total 1300 1100 300 Balance -530 -1100 -60 Weight 125 kg Intake: IV 50 cefTRIAXone 2 gm In 50 Sodium Chloride 0.9% 50 ml @ 100 mls/hr IVPB Q24H [facility] Rx#:[id number] Oral 720 240 Output: Urine 1300 1100 300 Other: Voiding Method Urinal Urinal # Voids 0 1 # Bowel Movements 0 - Exam Physical exam revealed a morbidly obese 84-year-old male patient on 3 L nasal cannula, in no distress. Head: Atraumatic, normocephalic. EENT: PERRLA, EOMI, no icterus, neck masses, no JVD, no stridor. CHEST: No chest wall deformity. LUNGS: Equal air entry with faint crackles in the bilateral posterior bases, diminished. CVS: S1 and S2 normal with no audible murmur, regular rhythm. ABDOMEN: No hepatosplenomegaly, normal bowel sounds, no guarding or rigidity. SPINE: No scoliosis or deformity SKIN: No rashes CENTRAL NERVOUS SYSTEM: No focal deficits, tone is normal in all 4 extremities. EXTREMITIES: There is 1+ peripheral edema. No clubbing, no cyanosis. Peripheral pulses are intact. - Labs CBC & Chem 7: 03/10/20 05:38 03/10/20 05:38 Labs: Abnormal Lab Results - Last 24 Hours (Table) 03/10/20 03/10/20 03/10/20 Range/Units 11:47 17:08 20:51 POC Glucose (mg/dL) 267 H 347 H 309 H (75-99) mg/dL 03/11/20 Range/Units 06:13 POC Glucose (mg/dL) 235 H (75-99) mg/dL Microbiology - Last 24 Hours (Table) 03/05/20 14:10 Blood Culture - Preliminary Blood No Growth after 120 hours Assessment and Plan Assessment: 1 Acute on chronic hypoxic respiratory failure secondary to an acute exacerbation of chronic obstructive pulmonary disease, FEV1 value of 42% of predicted. 2 Acute on chronic exacerbation of congestive heart failure, systolic with mildly impaired left ventricular systolic function ejection fraction 45-50% along with mild to moderate pulmonary hypertension. 3 Atrial flutter, possible new onset 4 Obesity 5 Obstructive sleep apnea utilizing home CPAP 6 Coronary artery disease with previous coronary artery bypass grafting 7 History of endocarditis 8 History of rectal cancer with previous colostomy 9 Diabetes mellitus 10 Hypertension 11 Hyperlipidemia Plan: The patient was seen and evaluated by Dr. Jason Trejo from the pulmonary standpoint Continue bronchodilators, convert to oral prednisone Continue antibiotics Continue diuretics I, the cosigning physician, performed a history & physical examination of the patient. Lungs sounds with crackles in the bilateral posterior bases. Maintaining good O2 saturations in the 90s on 3 L/m per nasal cannula. I discussed the assessment and plan of care with my nurse practitioner, Marjan Martin. I attest to the above consultation as dictated by her.
[2020-03-11 11:52] LABS: Glucose,Whole Blood 239 mg/dL (75-99)
--- NOTE | 2020-03-11 13:19 | P.PN ---
Subjective Progress Note Date: 03/11/20 This is an 84-year-old gentleman with history of hypertension, hyperlipidemia, coronary artery disease with prior bypass surgery, endocarditis, rectal cancer status post colostomy, former smoker, COPD, sleep apnea, who presented to the hospital with symptoms of shortness of breath with associated cough and congestion. His initial chest x-ray showed basilar infiltrates. COPD exacerbation. Patient was seen and examined this morning, still quite short of breath walking up to the bathroom, he does state that his breathing is significantly better than on arrival here. Blood pressure 140/60 with a heart rate in the 70s, respirations 26, 96% on 3 L of oxygen. Objective - Vital Signs Vital signs: Vital Signs Temp 97.7 F 03/11/20 08:00 Pulse 72 03/11/20 11:49 Resp 26 H 03/11/20 08:00 BP 140/63 03/11/20 08:00 Pulse Ox 96 03/11/20 08:00 Intake & Output 03/10/20 03/11/20 03/11/20 18:59 06:59 18:59 Intake Total 770 240 Output Total 1300 1100 300 Balance -530 -1100 -60 Weight 125 kg Intake: IV 50 cefTRIAXone 2 gm In 50 Sodium Chloride 0.9% 50 ml @ 100 mls/hr IVPB Q24H [facility] Rx#:[id number] Oral 720 240 Output: Urine 1300 1100 300 Other: Voiding Method Urinal Urinal Urinal # Voids 0 1 # Bowel Movements 0 - Exam Physical exam revealed a morbidly obese 84-year-old male patient on 3 L nasal cannula, in no distress. Head: Atraumatic, normocephalic. EENT: PERRLA, EOMI, no icterus, neck masses, no JVD, no stridor. CHEST: No chest wall deformity. LUNGS: Equal air entry with faint crackles in the bilateral posterior bases, diminished. CVS: S1 and S2 normal with no audible murmur, regular rhythm. ABDOMEN: No hepatosplenomegaly, normal bowel sounds, no guarding or rigidity. SPINE: No scoliosis or deformity SKIN: No rashes CENTRAL NERVOUS SYSTEM: No focal deficits, tone is normal in all 4 extremities. EXTREMITIES: There is 1+ peripheral edema. No clubbing, no cyanosis. Peripheral pulses are intact. - Labs CBC & Chem 7: 03/10/20 05:38 03/10/20 05:38 Labs: Abnormal Lab Results - Last 24 Hours (Table) 03/10/20 03/10/20 03/11/20 Range/Units 17:08 20:51 06:13 POC Glucose (mg/dL) 347 H 309 H 235 H (75-99) mg/dL 03/11/20 Range/Units 11:50 POC Glucose (mg/dL) 239 H (75-99) mg/dL Microbiology - Last 24 Hours (Table) 03/05/20 14:10 Blood Culture - Preliminary Blood No Growth after 120 hours Assessment and Plan Plan: Assessment and plan: 1 Acute on chronic hypoxic respiratory failure secondary to an acute exacerbation of chronic obstructive pulmonary disease 2 Acute on chronic exacerbation of congestive heart failure, systolic with mildly impaired left ventricular systolic function ejection fraction 45-50% along with mild to moderate pulmonary hypertension. 3 Atrial flutter, rate under good control 4 Obesity 5 Obstructive sleep apnea utilizing home CPAP 6 Coronary artery disease with previous coronary artery bypass grafting 7 History of endocarditis 8 History of rectal cancer with previous colostomy 9 Diabetes mellitus 10 Hypertension 11 Hyperlipidemia Plan From cardiology's perspective, we'll continue current medications, we will f ollow this patient along with you now on an as-needed basis only, please don't hesitate to call with any questions. DNP note has been reviewed, I agree with a documented findings and plan of care. Patient was seen and examined.
[2020-03-11 14:35] VITALS: BMI 40.6
[2020-03-11 17:02] LABS: Glucose,Whole Blood 250 mg/dL (75-99)
[2020-03-11 20:11] LABS: Glucose,Whole Blood 337 mg/dL (75-99)
[2020-03-11] MEDS: GABAPENTIN 300 MG CAP PO SCH (20:50)
[2020-03-11] MEDS: INSULIN DETEMIR (LEVEMIR) 100 UNIT/ML SYR SQ SCH (20:51)
[2020-03-11] MEDS: ATORVASTATIN 80 MG TAB PO SCH (20:51)
--- NOTE | 2020-03-12 01:34 | P.PN ---
Subjective Progress Note Date: 03/10/20 Principal diagnosis: acute on chronic hypoxic respiratory failure secondary to COPD exacerbation 84-year-old pleasant male with known history of COPD came in with comments of shortness of breath has been going on for last few days unable to see because of shortness of breath for last 3 days patient is supposed to stress of onset at home does have history of sleep apnea, complaining of cough unable to bring up anything, denied any orthopnea or paroxysmal nocturnal dyspnea. Patient denied any fever chills. Patient doesn't have any leukocytosis chest x-ray showed bilateral lower lobe infiltrates possibility of atelectasis patient has significant rhonchi bilaterally very minimal wheeze on exam. Doesn't have any JVD. Patient had normal ejection fraction the past BNP is 2000 clinically doesn't appear to be in CHF exacerbation and patient does use CPAP machine at home morbidly obese. 03/06/2020 patient is currently living in the bed. Still having shortness of breath and coarse breath sounds on examination.icurrently being continued on antibiotics in the form of ceftriaxone and azithromycin.continue on breathing treatments and IV steroids. Pulmonary and cardiology is on board. CT of the chest was ordered which showedinterstitial prominence with bilateral small effusions and bibasilar consolidation. Correlate for venous congestion or interstitial pneumonia. No diagnostic evidence of pulmonary fibrosis. Denied any complaints of chest pain. No nausea vomiting or abdominal pain. 03/07/2020 Patient is able to sit in the chair today. Breathing status is current as compared to yesterday. Shortness of breath with minimal activity otherwise. Patient has been afebrile. Intermittent cough with out sputum production. Currently on oxygen at 4 L via nasal cannula.laboratory data showed creatinine 1.7 and BUN 46. patient is being continued on antibiotics in the form of ceftriaxone and azithromycin. 2-D echocardiogram showed EF 45-50%.severe concentric left ventricular hypertrophy. Mild to moderate tricuspid regurgitation. Mild to moderate pulmonary hypertension. No pericardial effusion. Cardiology and pulmonary is on board. 03/08/2020 Patient is currently lying in the bed comfortably. Patient is still having exertional dyspnea with minimal exercise. Currently on oxygen via nasal cannula. Patient was started back on Lasix 40 mg twice daily. Cardiology and pulmonary is on board. Patient is being continued on antibiotics in the form of ceftriaxone and azithromycin. Was also started on anticoagulation with Eliquis. Patient has been afebrile.. 03/09/2020 Patient is currently sitting in the chair. Breathing status is improving compared to yesterday. Still having exertional dyspnea. Currently on oxygen at 3 L via nasal cannula. Patient did use BiPAP last night which he uses at home also. Chest x-ray showed mild cardiomegaly and interstitial density. Correlate for continued CHF with pulmonary vascular congestion. Aeration at the left base has improved. Patient is being continued Lasix 40 mg twice daily. Otherwise patient remained in atrial fibrillation. Rate is controlled. Continue on anticoagulation with Eliquis as well. Otherwise patient is IV steroids, antibiotics. Pulmonary and cardiology is on board. Potassium level is 6.0 today. Insulin and dextrose 50 was ordered. Patient is also hyperglycemic. 03/10/2020 Patient is currently sitting in the chair comfortably. Currently 3 L oxygen via nasal cannula. Exertional dyspnea improved compared to yesterday. Patient was using BiPAP machine in the last night. Currently on Lasix 40 mg twice daily. Patient has negative balance. Otherwise no leukocytosis. Laboratory data reviewed. BUN 64 and creatinine 1.52. Currently on empiric antibiotics. Cultures have been negative so far. Continued on IV Steroids as well. pulmonary and cardiology on board. Current medications reviewed Objective - Vital Signs Vital signs: Vital Signs Temp 98.7 F 03/10/20 15:49 Pulse 80 03/10/20 20:01 Resp 28 H 03/10/20 16:00 BP 118/52 03/10/20 15:49 Pulse Ox 93 L 03/10/20 15:49 Intake & Output 03/10/20 03/10/20 03/11/20 06:59 18:59 06:59 Intake Total 770 Output Total 975 1300 Balance -975 -530 Weight 121.5 kg Intake: IV 50 cefTRIAXone 2 gm In 50 Sodium Chloride 0.9% 50 ml @ 100 mls/hr IVPB Q24H [facility] Rx#:[id number] Oral 720 Output: Urine 975 1300 Other: Voiding Method Urinal Urinal # Voids 1 0 # Bowel Movements 0 - Exam GENERAL: The patient is drowsy but awake alert oriented x3, not in any acute distress. Well developed, well nourished. Obese HEENT: Pupils are round and equally reacting to light. EOMI. No scleral icterus. No conjunctival pallor. Normocephalic, atraumatic. No pharyngeal erythema. No thyromegaly. CARDIOVASCULAR: S1 and S2 present. No murmurs, rubs, or gallops. PULMONARY: Decreased air entry and bilateral rhonchi with no expiratory wheezing ABDOMEN: Soft, nontender, nondistended, normoactive bowel sounds. No palpable organomegaly. MUSCULOSKELETAL: No joint swelling or deformity. EXTREMITIES: No cyanosis, clubbing, or pedal edema. NEUROLOGICAL: Gross neurological examination did not reveal any focal deficits. SKIN: No rashes. - Labs CBC & Chem 7: 03/10/20 05:38 03/10/20 05:38 Labs: Abnormal Lab Results - Last 24 Hours (Table) 03/10/20 03/10/20 03/10/20 Range/Units 05:38 05:38 06:03 WBC 11.3 H (3.8-10.6) k/uL MCHC 30.2 L (31.0-37.0) g/dL RDW 16.5 H (11.5-15.5) % Neutrophils # 10.3 H (1.3-7.7) k/uL Lymphocytes # 0.4 L (1.0-4.8) k/uL Potassium 5.4 H (3.5-5.1) mmol/L Chloride 95 L (98-107) mmol/L Carbon Dioxide 39 H (22-30) mmol/L BUN 64 H (9-20) mg/dL Creatinine 1.52 H (0.66-1.25) mg/dL Glucose 249 H (74-99) mg/dL POC Glucose (mg/dL) 227 H (75-99) mg/dL 03/10/20 03/10/20 03/10/20 Range/Units 11:47 17:08 20:51 WBC (3.8-10.6) k/uL MCHC (31.0-37.0) g/dL RDW (11.5-15.5) % Neutrophils # (1.3-7.7) k/uL Lymphocytes # (1.0-4.8) k/uL Potassium (3.5-5.1) mmol/L Chloride (98-107) mmol/L Carbon Dioxide (22-30) mmol/L BUN (9-20) mg/dL Creatinine (0.66-1.25) mg/dL Glucose (74-99) mg/dL POC Glucose (mg/dL) 267 H 347 H 309 H (75-99) mg/dL Microbiology - Last 24 Hours (Table) 03/05/20 14:10 Blood Culture - Preliminary Blood No Growth after 120 hours Assessment and Plan Assessment: -Shortest breath: secondary to tracheal bronchitis and possible pneumonia along with COPD. - acute on chronic hypoxic respiratory failure secondary to COPD exacerbation -acute on chronic CHF with diastolic dysfunction. Ejection fraction. 45 to 50%. - Moderate pulmonary hypertension -Obesity, sleep apnea: Patient will resume his BiPAP machine at nighttime. - atrial fibrillation. Duration unknown. Patient was started on Eliquis. -COPD with possible mild acute exacerbation -Coronary artery disease -Type 2 diabetes mellitus patient resumed on his home regimen and sliding scale for systemic steroids, patient blood sugars are expected to go because of systemic steroids -Hypothyroidism -Hypertension -Chronic kidney disease stage III from possible diabetic nephropathy- - Morbid obesity BMI 41.3 - coronary artery disease with history of CABG -DVT prophylaxis with subcutaneous of pharyngeal prophylaxis with Pepcid plan: Patient will be continued on antibiotics the form of ceftriaxone and azithromycin. restrated lasix 40mg bid as per home dose. Continue with breathing treatments and IV steroids 40 mg every 12. Continue with Lasix. Monitor renal function and follow closely. Pulmonary and cardiology is on board. 2-D echocardiogramwas done. continue with Eliquis. Further recommendations based on the clinical course. Time with Patient: Greater than 30
--- NOTE | 2020-03-12 01:40 | P.PN ---
Subjective Progress Note Date: 03/11/20 Principal diagnosis: acute on chronic hypoxic respiratory failure secondary to COPD exacerbation 84-year-old pleasant male with known history of COPD came in with comments of shortness of breath has been going on for last few days unable to see because of shortness of breath for last 3 days patient is supposed to stress of onset at home does have history of sleep apnea, complaining of cough unable to bring up anything, denied any orthopnea or paroxysmal nocturnal dyspnea. Patient denied any fever chills. Patient doesn't have any leukocytosis chest x-ray showed bilateral lower lobe infiltrates possibility of atelectasis patient has significant rhonchi bilaterally very minimal wheeze on exam. Doesn't have any JVD. Patient had normal ejection fraction the past BNP is 2000 clinically doesn't appear to be in CHF exacerbation and patient does use CPAP machine at home morbidly obese. 03/06/2020 patient is currently living in the bed. Still having shortness of breath and coarse breath sounds on examination.icurrently being continued on antibiotics in the form of ceftriaxone and azithromycin.continue on breathing treatments and IV steroids. Pulmonary and cardiology is on board. CT of the chest was ordered which showedinterstitial prominence with bilateral small effusions and bibasilar consolidation. Correlate for venous congestion or interstitial pneumonia. No diagnostic evidence of pulmonary fibrosis. Denied any complaints of chest pain. No nausea vomiting or abdominal pain. 03/07/2020 Patient is able to sit in the chair today. Breathing status is current as compared to yesterday. Shortness of breath with minimal activity otherwise. Patient has been afebrile. Intermittent cough with out sputum production. Currently on oxygen at 4 L via nasal cannula.laboratory data showed creatinine 1.7 and BUN 46. patient is being continued on antibiotics in the form of ceftriaxone and azithromycin. 2-D echocardiogram showed EF 45-50%.severe concentric left ventricular hypertrophy. Mild to moderate tricuspid regurgitation. Mild to moderate pulmonary hypertension. No pericardial effusion. Cardiology and pulmonary is on board. 03/08/2020 Patient is currently lying in the bed comfortably. Patient is still having exertional dyspnea with minimal exercise. Currently on oxygen via nasal cannula. Patient was started back on Lasix 40 mg twice daily. Cardiology and pulmonary is on board. Patient is being continued on antibiotics in the form of ceftriaxone and azithromycin. Was also started on anticoagulation with Eliquis. Patient has been afebrile.. 03/09/2020 Patient is currently sitting in the chair. Breathing status is improving compared to yesterday. Still having exertional dyspnea. Currently on oxygen at 3 L via nasal cannula. Patient did use BiPAP last night which he uses at home also. Chest x-ray showed mild cardiomegaly and interstitial density. Correlate for continued CHF with pulmonary vascular congestion. Aeration at the left base has improved. Patient is being continued Lasix 40 mg twice daily. Otherwise patient remained in atrial fibrillation. Rate is controlled. Continue on anticoagulation with Eliquis as well. Otherwise patient is IV steroids, antibiotics. Pulmonary and cardiology is on board. Potassium level is 6.0 today. Insulin and dextrose 50 was ordered. Patient is also hyperglycemic. 03/10/2020 Patient is currently sitting in the chair comfortably. Currently 3 L oxygen via nasal cannula. Exertional dyspnea improved compared to yesterday. Patient was using BiPAP machine in the last night. Currently on Lasix 40 mg twice daily. Patient has negative balance. Otherwise no leukocytosis. Laboratory data reviewed. BUN 64 and creatinine 1.52. Currently on empiric antibiotics. Cultures have been negative so far. Continued on IV Steroids as well. pulmonary and cardiology on board. 03/11/2020 Patient is currently sitting in the chair comfortable. Awake alert oriented x3. Breathing is much easier today. Currently on empiric antibiotics in the form of ceftriaxone and azithromycin. Lasix will be changed to by mouth. Pulmonary is following. IV steroids will be changed to By mouth as well. Patient has been afebrile. Anticipate discharge in next 1 to 4 hours. Current medications reviewed Objective - Vital Signs Vital signs: Vital Signs Temp 97.7 F 03/11/20 08:00 Pulse 72 03/11/20 19:49 Resp 18 03/11/20 19:49 BP 151/76 03/11/20 16:00 Pulse Ox 94 L 03/11/20 16:00 Intake & Output 03/11/20 03/11/20 03/12/20 06:59 18:59 06:59 Intake Total 660 Output Total 1100 300 400 Balance -1100 360 -400 Weight 125 kg 125 kg Intake: Oral 660 Output: Urine 1100 300 Stool 400 Other: Voiding Method Urinal Urinal # Voids 1 3 - Exam GENERAL: The patient is drowsy but awake alert oriented x3, not in any acute distress. Well developed, well nourished. Obese HEENT: Pupils are round and equally reacting to light. EOMI. No scleral icterus. No conjunctival pallor. Normocephalic, atraumatic. No pharyngeal erythema. No thyromegaly. CARDIOVASCULAR: S1 and S2 present. No murmurs, rubs, or gallops. PULMONARY: Decreased air entry and bilateral rhonchi with no expiratory wheezing ABDOMEN: Soft, nontender, nondistended, normoactive bowel sounds. No palpable organomegaly. MUSCULOSKELETAL: No joint swelling or deformity. EXTREMITIES: No cyanosis, clubbing, or pedal edema. NEUROLOGICAL: Gross neurological examination did not reveal any focal deficits. SKIN: No rashes. - Labs CBC & Chem 7: 03/10/20 05:38 03/10/20 05:38 Labs: Abnormal Lab Results - Last 24 Hours (Table) 03/11/20 03/11/20 03/11/20 Range/Units 06:13 11:50 17:00 POC Glucose (mg/dL) 235 H 239 H 250 H (75-99) mg/dL 03/11/20 Range/Units 20:09 POC Glucose (mg/dL) 337 H (75-99) mg/dL Microbiology - Last 24 Hours (Table) 03/05/20 14:10 Blood Culture - Final Blood No Growth after 144 hours Assessment and Plan Assessment: -Shortest breath: secondary to tracheal bronchitis and possible pneumonia along with COPD. - acute on chronic hypoxic respiratory failure secondary to COPD exacerbation -acute on chronic CHF with diastolic dysfunction. Ejection fraction. 45 to 50%. - Moderate pulmonary hypertension -Obesity, sleep apnea: Patient will resume his BiPAP machine at nighttime. - atrial fibrillation. Duration unknown. Patient was started on Eliquis. -COPD with possible mild acute exacerbation -Coronary artery disease -Type 2 diabetes mellitus patient resumed on his home regimen and sliding scale for systemic steroids, patient blood sugars are expected to go because of systemic steroids -Hypothyroidism -Hypertension -Chronic kidney disease stage III from possible diabetic nephropathy- - Morbid obesity BMI 41.3 - coronary artery disease with history of CABG -DVT prophylaxis with subcutaneous of pharyngeal prophylaxis with Pepcid plan: Patient will be continued on antibiotics the form of ceftriaxone and azithromycin. restrated lasix 40mg bid as per home dose. Continue with breathing treatments and IV steroids 40 mg every 12--PO. Continue with Lasix. Monitor renal function and follow closely. Pulmonary and cardiology is on board. 2-D echocardiogramwas done. continue with Eliquis. Further recommendations based on the clinical course. Time with Patient: Greater than 30
[2020-03-12 07:06] LABS: Glucose,Whole Blood 100 mg/dL (75-99)
[2020-03-12] MEDS: LEVOTHYROXINE 50 MCG TAB PO SCH (07:12)
[2020-03-12] MEDS: INSULIN ASPART (NovoLOG) 100 UNIT/ML VIAL SQ SCH ×4 (07:12→12:33)
[2020-03-12] MEDS: CARVEDILOL 3.125 MG TAB PO SCH (07:12)
[2020-03-12] MEDS: IPRATROPIUM-ALBUTEROL 3 ML NEB INHALATION SCH ×2 (07:53→11:37)
[2020-03-12] MEDS: FLUTICASONE 110 MCG INHALER INHALATION SCH (07:53)
[2020-03-12 08:29] VITALS: RESP 24; TEMP 98.3
[2020-03-12] MEDS: AZITHROMYCIN 500 MG TAB PO SCH (08:30)
[2020-03-12] MEDS: FUROSEMIDE 40 MG TAB PO SCH (08:30)
[2020-03-12] MEDS: APIXABAN 2.5 MG TABLET PO SCH (08:30)
[2020-03-12] MEDS: FAMOTIDINE 20 MG TAB PO SCH (08:30)
[2020-03-12] MEDS ORDERED: predniSONE 20 MG TAB PO SCH (09:00)
--- NOTE | 2020-03-12 10:48 | P.PN ---
Subjective Progress Note Date: 03/12/20 Principal diagnosis: Acute on chronic hypoxic respiratory failure secondary to an acute exacerbation of chronic obstructive pulmonary disease This is a very pleasant 84-year-old gentleman who follows with Dr. Alonso as his primary care provider. He has a history of hypertension, hyperlipidemia, coronary artery disease with previous coronary artery bypass grafting, cardiomy opathy and LV dysfunction, endocarditis, rectal cancer status post colostomy, former smoker. He does have chronic obstructive pulmonary disease and obstructive sleep apnea utilizing CPAP in the outpatient setting he is also on home oxygen at 2 L/m per nasal cannula and follows with Dr. Morales in our office for the same. His FEV1 value is 42% of predicted. He was last seen on 02/28/2024 profound exertional dyspnea secondary to both the COPD and cardiomyopathy. He was given Aldactone 25 mg daily continued on his oral Lasix. He presented here to the emergency room yesterday with worsening shortness of breath, cough and congestion. Chest x-ray shows basilar infiltrates with left greater than right. Possible atypical pneumonia. Evidence of COPD. EKG shows evidence of atrial flutter with a controlled ventricular rate. White count 7.4. Hemoglobin 11.6. Sodium 137. Potassium 5.0. Bicarb 31. Creatinine 1.79. Herrera virus not detected. He is seen today in consultation on the selective care unit. He is currently resting in bed. Awake and alert in no acute distress. Currently maintaining O2 saturations in the 90s on 3 L/m per nasal cannula. She's afebrile. Home CPAP at the bedside. He's been initiated on DuoNeb inhalations, Flovent, IV Solu-Medrol and antibiotics in the form of ceftriaxone and azithromycin. He was given a dose of IV diuretics yesterday. On heparin subcu for DVT prophylaxis. Patient was reevaluated today on 03/07/20, continues to have shortness of breath with any activity. Intermittent cough, no wheezing. No fever no chills no hemoptysis. Remains on 4 L nasal cannula, and at night he is on BiPAP. D-dimer is low hence no need to consider CT angiogram of the chest and no need to consider any workup for thromboembolic disease. His basic metabolic profile is basically unremarkable, his creatinine is up to 1.79. And that is about his bas callie. The patient is seen today 03/08/2020 in follow-up on the selective care unit. He is awake and alert in no acute distress. Currently resting fairly comfortably in bed. He is still quite dyspneic with minimal exertion. He is maintaining O2 saturation in low 90s on 3 L/m per nasal cannula. He's been afebrile. Blood culture reveals no growth to date. Sodium 139. Potassium 5.2. Chloride 101. Bicarb 34. Creatinine 1.63. He remains on DuoNeb inhalations, Flovent, IV Solu-Medrol. Antibiotics in the form of ceftriaxone and azithromycin. Oral diuretics. Eliquis for anticoagulation. Echocardiogram reveals mildly impaired left ventricular systolic function with ejection fraction 45-50%. Mild to moderate pulmonary hypertension. The patient is seen today 03/11/2020 in follow-up on the selective care unit. He is awake and alert in no acute distress. He is breathing easier and nearly back to his baseline. He is laying flat in bed. He is utilizing his CPAP at night and currently on 3 L nasal cannula. He is afebrile. Blood culture revealed no growth. Blood sugar 235. He remains on bronchodilators, IV Solu- Medrol, antibiotics in the form of ceftriaxone and azithromycin, oral Lasix. He is anticoagulated with Eliquis The patient is seen today 03/12/2020 in follow-up on the selective care unit. He is currently sitting up in a chair at the bedside. Awake and alert in no acute distress. Maintaining good O2 saturations in the 90s on 3 L/m per nasal cannula. Utilizing his CPAP at night. He denies any worsening shortness of breath, cough or congestion. Feeling back to his baseline. He remains in a negative balance. Continued on oral diuretics, bronchodilators, ceftriaxone and azithromycin. Anticoagulated with Eliquis. Objective - Vital Signs Vital signs: Vital Signs Temp 98.3 F 03/12/20 08:00 Pulse 79 03/12/20 08:10 Resp 24 03/12/20 08:00 BP 120/55 03/12/20 08:00 Pulse Ox 98 03/12/20 08:00 Intake & Output 03/11/20 03/12/20 03/12/20 18:59 06:59 18:59 Intake Total 660 240 Output Total 300 1700 Balance 360 -1700 240 Weight 125 kg 127 kg Intake: Oral 660 240 Output: Urine 300 1000 Stool 700 Other: Voiding Method Urinal Urinal # Voids 3 1 1 - Exam Physical exam revealed a morbidly obese 84-year-old male patient on 3 L nasal cannula, in no distress. Head: Atraumatic, normocephalic. EENT: PERRLA, EOMI, no icterus, neck masses, no JVD, no stridor. CHEST: No chest wall deformity. LUNGS: Equal air entry with faint crackles in the bilateral posterior bases, diminished. CVS: S1 and S2 normal with no audible murmur, regular rhythm. ABDOMEN: No hepatosplenomegaly, normal bowel sounds, no guarding or rigidity. SPINE: No scoliosis or deformity SKIN: No rashes CENTRAL NERVOUS SYSTEM: No focal deficits, tone is normal in all 4 extremities. EXTREMITIES: There is 1+ peripheral edema. No clubbing, no cyanosis. Peripheral pulses are intact. - Labs CBC & Chem 7: 03/10/20 05:38 03/10/20 05:38 Labs: Abnormal Lab Results - Last 24 Hours (Table) 03/11/20 03/11/20 03/11/20 Range/Units 11:50 17:00 20:09 POC Glucose (mg/dL) 239 H 250 H 337 H (75-99) mg/dL 03/12/20 Range/Units 07:04 POC Glucose (mg/dL) 100 H (75-99) mg/dL Microbiology - Last 24 Hours (Table) 03/05/20 14:10 Blood Culture - Final Blood No Growth after 144 hours Assessment and Plan Assessment: 1 Acute on chronic hypoxic respiratory failure secondary to an acute exacerbation of chronic obstructive pulmonary disease, FEV1 value of 42% of predicted. 2 Acute on chronic exacerbation of congestive heart failure, systolic with mildly impaired left ventricular systolic function ejection fraction 45-50% along with mild to moderate pulmonary hypertension. 3 Atrial flutter, possible new onset 4 Obesity 5 Obstructive sleep apnea utilizing home CPAP 6 Coronary artery disease with previous coronary artery bypass grafting 7 History of endocarditis 8 History of rectal cancer with previous colostomy 9 Diabetes mellitus 10 Hypertension 11 Hyperlipidemia Plan: The patient was seen and evaluated by Dr. Gomez Cleared for discharge from the pulmonary standpoint Complete a prednisone taper Complete a course of antibiotics Follow-up in the office in 1-2 weeks I, the cosigning physician, performed a history & physical examination of the patient. Lungs sounds with crackles in the bilateral posterior bases. Maintaining good O2 saturations in the 90s on 3 L/m per nasal cannula. I discussed the assessment and plan of care with my nurse practitioner, Marjan Martin. I attest to the above consultation as dictated by her.
[2020-03-12 11:40] VITALS: PULSE 70
[2020-03-12 12:16] LABS: Glucose,Whole Blood 135 mg/dL (75-99)
[2020-03-12 12:37] VITALS: BP 115/66
== END 2020-03-12 15:02 | disposition home health service (06) | DRG 193 ==
LOC: EC 11:52 → 3SCARD 13:58
PROVIDERS: ADMIT Hospitalist; ATTEND Hospitalist
PROC: 5A09357 Assistance with Respiratory Ventilation, Less than 24 Consecutive Hours, Continuous Positive Airway Pressure (ICD-10-PCS; principal; 2020-03-06)
DX: J18.9 Pneumonia, unspecified organism (principal); I50.43 Acute on chronic combined systolic (congestive) and diastolic (congestive) heart failure; J96.21 Acute and chronic respiratory failure with hypoxia; J44.1 Chronic obstructive pulmonary disease with (acute) exacerbation; Z68.41 Body mass index [BMI] 40.0-44.9, adult; I13.0 Hypertensive heart and chronic kidney disease with heart failure and stage 1 through stage 4 chronic kidney disease, or unspecified chronic kidney disease; I42.9 Cardiomyopathy, unspecified; I48.92 Unspecified atrial flutter; J44.0 Chronic obstructive pulmonary disease with (acute) lower respiratory infection; I27.20 Pulmonary hypertension, unspecified; N18.3 Chronic kidney disease, stage 3 (moderate); E11.42 Type 2 diabetes mellitus with diabetic polyneuropathy; E11.22 Type 2 diabetes mellitus with diabetic chronic kidney disease; E03.9 Hypothyroidism, unspecified; E11.65 Type 2 diabetes mellitus with hyperglycemia; E66.01 Morbid (severe) obesity due to excess calories; E78.5 Hyperlipidemia, unspecified; E87.5 Hyperkalemia; G47.33 Obstructive sleep apnea (adult) (pediatric); Z20.828 Contact with and (suspected) exposure to other viral communicable diseases; I48.91 Unspecified atrial fibrillation; I25.10 Atherosclerotic heart disease of native coronary artery without angina pectoris; K21.9 Gastro-esophageal reflux disease without esophagitis; G89.29 Other chronic pain; M54.5 Low back pain; I08.1 Rheumatic disorders of both mitral and tricuspid valves; Z79.4 Long term (current) use of insulin; Z79.890 Hormone replacement therapy; Z79.899 Other long term (current) drug therapy; Z79.52 Long term (current) use of systemic steroids; Z86.79 Personal history of other diseases of the circulatory system; Z87.891 Personal history of nicotine dependence; Z93.3 Colostomy status; Z95.1 Presence of aortocoronary bypass graft; Z95.2 Presence of prosthetic heart valve; Z96.1 Presence of intraocular lens; Z98.41 Cataract extraction status, right eye; Z98.42 Cataract extraction status, left eye; Z85.048 Personal history of other malignant neoplasm of rectum, rectosigmoid junction, and anus; Z90.49 Acquired absence of other specified parts of digestive tract; Z87.01 Personal history of pneumonia (recurrent); Z92.3 Personal history of irradiation; Z87.440 Personal history of urinary (tract) infections; Z92.21 Personal history of antineoplastic chemotherapy; Z80.0 Family history of malignant neoplasm of digestive organs
CPT/HCPCS: 36415; 71045; 71046; 71250; 80048; 80053; 83605; 83735; 83880; 84443; 84484; 85025; 85027; 85379; 85610; 85730; 87040; 93005; 93306; 94640; 94660; 94760; 96365; 96375; 99285

== ENCOUNTER → 2020-03-31 | Outpatient (CLI) | payer MEDICARE ==
--- NOTE | 2020-03-31 16:01 | XR ---
EXAMINATION TYPE: XR chest 2V DATE OF EXAM: 03/31/2020 COMPARISON: 03/09/2020 INDICATION: Cough short of breath TECHNIQUE: Frontal and lateral views of the chest are obtained. FINDINGS: The heart size is normal. The pulmonary vasculature is normal. The lungs are clear. There is hyperinflation flattening the diaphragms compatible COPD. Sternotomy w ires are present. IMPRESSION: 1. No acute pulmonary process. 2. COPD
== END | disposition home or self-care (01) ==
LOC: RADXRYALE 14:50
PROVIDERS: ATTEND Family Medicine
DX: J44.9 Chronic obstructive pulmonary disease, unspecified (principal); R06.02 Shortness of breath; I50.22 Chronic systolic (congestive) heart failure
CPT/HCPCS: 71046

== ENCOUNTER → 2020-05-08 | Outpatient (CLI) | payer MEDICARE ==
--- NOTE | 2020-05-09 06:05 | US ---
EXAMINATION TYPE: US kidneys/renal and bladder DATE OF EXAM: 05/08/2020 COMPARISON: NONE CLINICAL HISTORY: 85-year-old male N18.3 Chronic kidney disease, E11.22 diabetic. TECHNIQUE: Multiple sonographic images of the kidneys and bladder are obtained. FINDINGS: EXAM MEASUREMENTS: Right Kidney: 10.1 x 4.1 x 5.5 cm Left Kidney: 10.7 x 4.4 x 6.0 cm Pack Puller notes:Suboptimal visualization due to patient body habitus Right Kidney: Echogenic and thinned renal cortex. No hydronephrosis. Left Kidney: Cortical thinning. No hydronephrosis. Bladder: limited visualization due to underdistention Bilateral Jets not IMPRESSION: 1. No hydronephrosis. Cortical thinning compatible with chronic medical renal disease. 2. Nondistention of the bladder limits its evaluation.
== END | disposition home or self-care (01) ==
LOC: RADUSWWP 15:08
PROVIDERS: ATTEND Family Medicine
DX: N18.3 Chronic kidney disease, stage 3 (moderate) (principal); E11.22 Type 2 diabetes mellitus with diabetic chronic kidney disease
CPT/HCPCS: 76770

== ENCOUNTER 2020-06-01 10:05 | Inpatient (IN) | payer MEDICARE ==
[2020-06-01] MEDS ORDERED: IPRATROPIUM-ALBUTEROL 3 ML NEB INHALATION STA (10:13)
--- NOTE | 2020-06-01 10:26 | ED ---
General Adult HPI - General Chief complaint: Shortness of Breath Stated complaint: ALEJANDRA Time Seen by Provider: 06/01/20 10:09 Source: patient, EMS, RN notes reviewed Mode of arrival: EMS Limitations: no limitations - History of Present Illness Initial comments: Patient is a pleasant 85-year-old male presenting to the emergency department with difficulty breathing. Onset of symptoms was a couple of days ago. Patient is a poor historian. Patient does have history of similar symptoms previously associated with COPD. Patient does admit that he does have some leg swelling and is unclear if this is chronic or not. Patient reportedly states his CPAP was not working well as water got into it. Patient denies fevers. No chest pain. - Related Data Allergies Allergy/AdvReac Type Severity Reaction Status Date / Time No Known Allergies Allergy Verified 06/01/20 10:08 Review of Systems ROS Statement: Those systems with pertinent positive or pertinent negative responses have been documented in the HPI. ROS Other: All systems not noted in ROS Statement are negative. Constitutional: Denies: fever Eyes: Denies: eye pain ENT: Denies: ear pain Respiratory: Reports: dyspnea. Denies: cough Cardiovascular: Denies: chest pain Endocrine: Reports: fatigue Gastrointestinal: Denies: abdominal pain Genitourinary: Denies: dysuria Musculoskeletal: Denies: back pain Skin: Denies: rash Neurological: Denies: weakness Past Medical History Past Medical History: COPD, Diabetes Mellitus Additional Past Medical History / Comment(s): CHF History of Any Multi-Drug Resistant Organisms: None Reported Past Surgical History: Cholecystectomy, Coronary Bypass/CABG, Heart Catheterization With Stent Past Psychological History: No Psychological Hx Reported Smoking Status: Never smoker Past Alcohol Use History: None Reported Past Drug Use History: None Reported General Exam Limitations: no limitations General appearance: alert Head exam: Present: normocephalic Eye exam: Present: normal appearance ENT exam: Present: normal oropharynx Neck exam: Present: normal inspection Respiratory exam: Present: wheezes, decreased breath sounds Cardiovascular Exam: Present: irregular rhythm GI/Abdominal exam: Present: soft. Absent: tenderness Extremities exam: Present: pedal edema. Absent: calf tenderness Neurological exam: Present: alert Psychiatric exam: Present: normal affect, normal mood Skin exam: Present: normal color Course Vital Signs 06/01/20 06/01/20 06/01/20 10:08 10:22 10:35 Temperature 97.5 F L Pulse Rate 96 87 87 Respiratory 30 H Rate Blood Pressure 111/49 O2 Sat by Pulse 93 L Oximetry 06/01/20 06/01/20 06/01/20 12:18 12:36 12:40 Temperature 98.2 F Pulse Rate 87 78 84 Respiratory 20 Rate Blood Pressure 111/40 O2 Sat by Pulse 94 L Oximetry - Reevaluation(s) Reevaluation #1: 06/01/20 11:37 Unable to view previous charts at this time. Registration is trying to find old chart. 06/01/20 13:11 Case was discussed with Dr. Ashton, who will admit. EKG Findings - EKG Comments: EKG Findings:: A. fib with rate of 90. QRS 94. QT 364. QTC 445. Normal axis. Normal QRS. T wave inversion laterally. Medical Decision Making - Lab Data Result diagrams: 06/01/20 10:43 06/01/20 10:43 Lab Results 06/01/20 06/01/20 06/01/20 Range/Units 10:43 10:43 10:43 WBC 11.5 H (3.8-10.6) k/uL RBC 2.61 L (4.30-5.90) m/uL Hgb 6.3 L* (13.0-17.5) gm/dL Hct 23.9 L (39.0-53.0) % MCV 91.7 (80.0-100.0) fL MCH 24.3 L (25.0-35.0) pg MCHC 26.5 L (31.0-37.0) g/dL RDW 16.1 H (11.5-15.5) % Plt Count 405 (150-450) k/uL Neutrophils % (Manual) 94 % Band Neutrophils % 1 % Lymphocytes % (Manual) 2 % Monocytes % (Manual) 4 % Eosinophils % (Manual) 1 % Neutrophils # (Manual) 10.90 H (1.3-7.7) k/uL Lymphocytes # (Manual) 0.23 L (1.0-4.8) k/uL Monocytes # (Manual) 0.46 (0-1.0) k/uL Eosinophils # (Manual) 0.12 (0-0.7) k/uL Nucleated RBCs 2 H (0-0) /100 WBC Manual Slide Review Performed Polychromasia Present Hypochromasia Marked Poikilocytosis Slight Anisocytosis Slight PT 11.1 (9.0-12.0) sec INR 1.1 (<1.2) APTT 22.0 (22.0-30.0) sec Sodium 136 L (137-145) mmol/L Potassium 6.6 H* (3.5-5.1) mmol/L Chloride 94 L (98-107) mmol/L Carbon Dioxide 35 H (22-30) mmol/L Anion Gap 7 mmol/L BUN 87 H (9-20) mg/dL Creatinine 2.46 H (0.66-1.25) mg/dL Est GFR (CKD-EPI)AfAm 26 (>60 ml/min/1.73 sqM) Est GFR (CKD-EPI)NonAf 23 (>60 ml/min/1.73 sqM) Glucose 288 H (74-99) mg/dL Plasma Lactic Acid Alberto (0.7-2.0) mmol/L Calcium 8.4 (8.4-10.2) mg/dL Total Bilirubin 0.3 (0.2-1.3) mg/dL AST 32 (17-59) U/L ALT 40 (4-49) U/L Alkaline Phosphatase 110 (38-126) U/L Troponin I (0.000-0.034) ng/mL NT-Pro-B Natriuret Pep pg/mL Total Protein 5.4 L (6.3-8.2) g/dL Albumin 3.1 L (3.5-5.0) g/dL Stool Occult Blood (Negative) 06/01/20 06/01/20 06/01/20 Range/Units 10:43 10:43 10:43 WBC (3.8-10.6) k/uL RBC (4.30-5.90) m/uL Hgb (13.0-17.5) gm/dL Hct (39.0-53.0) % MCV (80.0-100.0) fL MCH (25.0-35.0) pg MCHC (31.0-37.0) g/dL RDW (11.5-15.5) % Plt Count (150-450) k/uL Neutrophils % (Manual) % Band Neutrophils % % Lymphocytes % (Manual) % Monocytes % (Manual) % Eosinophils % (Manual) % Neutrophils # (Manual) (1.3-7.7) k/uL Lymphocytes # (Manual) (1.0-4.8) k/uL Monocytes # (Manual) (0-1.0) k/uL Eosinophils # (Manual) (0-0.7) k/uL Nucleated RBCs (0-0) /100 WBC Manual Slide Review Polychromasia Hypochromasia Poikilocytosis Anisocytosis PT (9.0-12.0) sec INR (<1.2) APTT (22.0-30.0) sec Sodium (137-145) mmol/L Potassium (3.5-5.1) mmol/L Chloride (98-107) mmol/L Carbon Dioxide (22-30) mmol/L Anion Gap mmol/L BUN (9-20) mg/dL Creatinine (0.66-1.25) mg/dL Est GFR (CKD-EPI)AfAm (>60 ml/min/1.73 sqM) Est GFR (CKD-EPI)NonAf (>60 ml/min/1.73 sqM) Glucose (74-99) mg/dL Plasma Lactic Acid Alberto 1.7 (0.7-2.0) mmol/L Calcium (8.4-10.2) mg/dL Total Bilirubin (0.2-1.3) mg/dL AST (17-59) U/L ALT (4-49) U/L Alkaline Phosphatase (38-126) U/L Troponin I 0.031 (0.000-0.034) ng/mL NT-Pro-B Natriuret Pep 7780 pg/mL Total Protein (6.3-8.2) g/dL Albumin (3.5-5.0) g/dL Stool Occult Blood (Negative) 06/01/20 Range/Units 11:26 WBC (3.8-10.6) k/uL RBC (4.30-5.90) m/uL Hgb (13.0-17.5) gm/dL Hct (39.0-53.0) % MCV (80.0-100.0) fL MCH (25.0-35.0) pg MCHC (31.0-37.0) g/dL RDW (11.5-15.5) % Plt Count (150-450) k/uL Neutrophils % (Manual) % Band Neutrophils % % Lymphocytes % (Manual) % Monocytes % (Manual) % Eosinophils % (Manual) % Neutrophils # (Manual) (1.3-7.7) k/uL Lymphocytes # (Manual) (1.0-4.8) k/uL Monocytes # (Manual) (0-1.0) k/uL Eosinophils # (Manual) (0-0.7) k/uL Nucleated RBCs (0-0) /100 WBC Manual Slide Review Polychromasia Hypochromasia Poikilocytosis Anisocytosis PT (9.0-12.0) sec INR (<1.2) APTT (22.0-30.0) sec Sodium (137-145) mmol/L Potassium (3.5-5.1) mmol/L Chloride (98-107) mmol/L Carbon Dioxide (22-30) mmol/L Anion Gap mmol/L BUN (9-20) mg/dL Creatinine (0.66-1.25) mg/dL Est GFR (CKD-EPI)AfAm (>60 ml/min/1.73 sqM) Est GFR (CKD-EPI)NonAf (>60 ml/min/1.73 sqM) Glucose (74-99) mg/dL Plasma Lactic Acid Alberto (0.7-2.0) mmol/L Calcium (8.4-10.2) mg/dL Total Bilirubin (0.2-1.3) mg/dL AST (17-59) U/L ALT (4-49) U/L Alkaline Phosphatase (38-126) U/L Troponin I (0.000-0.034) ng/mL NT-Pro-B Natriuret Pep pg/mL Total Protein (6.3-8.2) g/dL Albumin (3.5-5.0) g/dL Stool Occult Blood Positive (Negative) - Radiology Data Radiology results: image reviewed (Two-view chest x-ray shows findings consistent with CHF, postoperative change. Small effusions and pulmonary vascular congestion.) Critical Care Time Critical Care Time: Yes Total Critical Care Time: 33 Disposition Clinical Impression: Hyperkalemia, Congestive heart failure, GI hemorrhage, Acute renal failure (ARF) Disposition: ADMITTED IP TO THIS [facility] Condition: Serious Is patient prescribed a controlled substance at d/c from ED?: No Decision Time: 11:37
[2020-06-01 10:55] LABS: Anisocytosis Slight; HCT 23.9 % (39.0-53.0); Hypochromasia Marked; MCH 24.3 pg (25.0-35.0); MCHC 26.5 g/dL (31.0-37.0); MCV 91.7 fL (80.0-100.0); Platelet Count 405 k/uL (150-450); Poikilocytosis Slight; RBC 2.61 m/uL (4.30-5.90); RDW 16.1 % (11.5-15.5)
--- NOTE | 2020-06-01 10:55 | XR ---
EXAMINATION TYPE: XR chest 2V DATE OF EXAM: 06/01/2020 COMPARISON: 03/31/2020 HISTORY: 85 year-old male shortness of breath, difficulty breathing TECHNIQUE: AP and lateral views FINDINGS: Heart mildly enlarged. Median sternotomy wires are post-CABG clips. Diffuse interstitial and vascular prominence. Small bilateral pleural effusions with bibasilar opacities. IMPRESSION: Correlation for CHF with pulmonary vascular congestion. Small pleural effusions with adjacent atelect asis and/or consolidation.
[2020-06-01 11:01] LABS: Albumin 3.1 g/dL (3.5-5.0); Calcium 8.4 mg/dL (8.4-10.2); HGB 6.3 gm/dL (13.0-17.5); Total Bilirubin 0.3 mg/dL (0.2-1.3); Total Protein 5.4 g/dL (6.3-8.2)
[2020-06-01 11:09] LABS: INR 1.1 (<1.2); Prothrombin Time 11.1 sec (9.0-12.0)
[2020-06-01 11:10] LABS: Potassium 6.6 mmol/L (3.5-5.1)
[2020-06-01] MEDS ORDERED: FUROSEMIDE 10 MG/ML 4 ML VIAL IV STA ×2 (11:20→23:11)
[2020-06-01] MEDS ORDERED: DEXTROSE 50% SYRINGE 50 ML IVP ONE (11:21)
[2020-06-01] MEDS ORDERED: INSULIN REGULAR 100 UNIT/ML VIAL IV ONE (11:21)
[2020-06-01] MEDS ORDERED: SODIUM BICARB 8.4% 50 ML SYR (1 MEQ/ML) IV ONE (11:21)
[2020-06-01] MEDS ORDERED: SODIUM POLYSTYRENE SULFONATE 15 GM/60 ML BOTTLE PO ONE (11:21)
[2020-06-01] MEDS ORDERED: ALBUTEROL NEB (CONC) 2.5 MG/0.5 ML INHALATION ONE (11:21)
[2020-06-01] MEDS ORDERED: CALCIUM GLUCONATE 1 GM in SODIUM CHLORIDE 0.9% 100 ML IVPB ONE (11:30)
[2020-06-01] MEDS ORDERED: NALOXONE 0.4 MG/ML 1 ML VIAL IV PRN (11:40)
[2020-06-01] MEDS: PANTOPRAZOLE 40 MG/10 ML VIAL IV SCH (11:54)
[2020-06-01] MEDS: SODIUM CHLORIDE 0.9% 1,000 ML IV SCH (12:04)
[2020-06-01 12:22] LABS: Band Neutrophils % 1 %; Eosinophils # (M) 0.12 k/uL (0-0.7); Lymphocytes # (M) 0.23 k/uL (1.0-4.8); Neutrophils % (M) 94 %; Nucleated Red Blood Cells 2 /100 WBC (0-0); Total Cells Counted 200
[2020-06-01 12:23] LABS: Monocytes # (M) 0.46 k/uL (0-1.0); WBC 11.5 k/uL (3.8-10.6)
[2020-06-01 12:24] LABS: Polychromasia Present
[2020-06-01] MEDS: FUROSEMIDE 10 MG/ML 4 ML VIAL IV SCH ×2 (13:31→20:17)
[2020-06-01] MEDS ORDERED: IPRATROPIUM-ALBUTEROL 3 ML NEB INHALATION PRN (14:51)
--- NOTE | 2020-06-01 14:53 | US ---
EXAMINATION TYPE: US renals and bladder DATE OF EXAM: 06/01/2020 COMPARISON: NONE CLINICAL HISTORY: 85-year-old male obstruction . TECHNIQUE: Multiple sonographic images of the kidneys and bladder are obtained. FINDINGS: Hydrological Technical Officer notes: Exam limited due to body habitus. Right Kidney: 10.6 x 5.4 x 4.3 cm without hydronephrosis. Left Kidney: Not well visualized due to body habitus and bowel gas. Unable to adequately assess. Bladder: Partial distention limits evaluation. Bilateral Jets seen: No IMPRESSION: 1. No hydronephrosis on the right. 2. Unable to adequately assess the left kidney due to body habitus and overlying bowel gas.
--- NOTE | 2020-06-01 15:02 | P.NPCON ---
History of Present Illness - Reason for Consult Consult date: 06/01/20 acute renal failure, hyperkalemia - Chief Complaint Shortness of breath - History of Present Illness 85-year-old gentleman brought into the hospital because of shortness of breath. Poor historian family at bedside. No previous labs to compare. On admission potassium 6.6 and a creatinine of 2.4 MG per DL. Denies any kidney problems in the past. He has colostomy secondary to rectal cancer. Denies urinary retention. No nausea vomiting diarrhea. No NSAID use or recent contrast studies. Home medications does include losartan. Blood pressures 110s. Review of Systems Constitutional: Reports as per HPI Past Medical History Past Medical History: COPD, Diabetes Mellitus Additional Past Medical History / Comment(s): CHF History of Any Multi-Drug Resistant Organisms: None Reported Past Surgical History: Cholecystectomy, Coronary Bypass/CABG, Heart Catheterization With Stent Additional Past Surgical History / Comment(s): rectal cancer surgery-removed 2004 or 2005. Ostomy. Cataract surgery Date of Last Stent Placement:: 1995? Past Psychological History: No Psychological Hx Reported Smoking Status: Never smoker Past Alcohol Use History: None Reported Past Drug Use History: None Reported - Past Family History Mother Family Medical History: Diabetes Mellitus Additional Family Medical History / Comment(s): in her 90s Father Additional Family Medical History / Comment(s): of stomach cancer in the 1970s Medications and Allergies Home Medications Medication Instructions Recorded Confirmed Type Apixaban [Eliquis] 2.5 mg PO BID 06/01/20 06/01/20 History Atorvastatin Calcium [Lipitor] 80 mg PO HS 06/01/20 06/01/20 History Budesonide [Pulmicort Flexhaler] 1 puff INHALATION RT-BID 06/01/20 06/01/20 His tory Carvedilol [Coreg] 3.125 mg PO BID 06/01/20 06/01/20 History Cholecalciferol [Vitamin D3 (25 1,000 unit PO DAILY 06/01/20 06/01/20 History Mcg = 1000 Iu)] Famotidine 20 mg PO BID 06/01/20 06/01/20 History Furosemide [Lasix] 40 mg PO DAILY 06/01/20 06/01/20 History Gabapentin [Neurontin] 300 mg PO TID 06/01/20 06/01/20 History Insulin Glargine,Hum.rec.anlog 62 - 65 unit SQ HS 06/01/20 06/01/20 History [Lantus Solostar] Insulin Lispro [humaLOG Kwikpen] 5 unit SQ [facility] 06/01/20 06/01/20 History Insulin Lispro [humaLOG Kwikpen] See Protocol SQ [facility] 06/01/20 06/01/20 History Levothyroxine Sodium [Synthroid] 50 mcg PO DAILY 06/01/20 06/01/20 History Losartan [Cozaar] 25 mg PO DAILY 06/01/20 06/01/20 History Montelukast Sodium [Singulair] 10 mg PO HS 06/01/20 06/01/20 History predniSONE See Taper PO DIRECTED 06/01/20 06/01/20 History Allergies Allergy/AdvReac Type Severity Reaction Status Date / Time No Known Allergies Allergy Verified 06/01/20 14:46 Physical Exam Vitals: Vital Signs Temp Pulse Pulse Resp BP BP Pulse Ox 06/01/20 12:40 98.2 F 84 20 111/40 94 L 06/01/20 12:36 78 06/01/20 12:18 87 06/01/20 12:05 97.4 F L 91 18 114/52 92 L 06/01/20 10:35 87 06/01/20 10:22 87 06/01/20 10:08 97.5 F L 96 30 H 111/49 93 L Intake and Output 05/31/20 06/01/20 06/01/20 22:59 06:59 14:59 Other: Weight 122.47 kg No acute distress S1-S2 heard Decreased breath sounds Colostomy Edema Results - Lab Results Most recent lab results Calcium 8.4 mg/dL (8.4-10.2) 06/01/20 10:43 06/01/20 10:43 06/01/20 10:43 Assessment and Plan Assessment: #1 acute kidney injury suspect cardiorenal. Baseline creatinine unknown #2 hyperkalemia secondary to acute kidney injury/losartan/GI bleed #3 urinary retention with 250 ML's on bladder scan #4 lower extremity edema #5 metabolic alkalosis #6 anemia suspect GI bleed. Plan: #1 place Winslow catheter, agree with holding losartan. #2 continue with Lasix 40 mg IV twice a day. #3 medical management for hyperkalemia. #4 repeat BMP around 5 PM #5 avoid nephrotoxic agents and hypotensive episodes. #6 low potassium diet.
[2020-06-01] MEDS ORDERED: FUROSEMIDE 10 MG/ML 10 ML VIAL IV STA (15:06)
[2020-06-01] MEDS: IPRATROPIUM-ALBUTEROL 3 ML NEB INHALATION SCH ×2 (15:31→20:26)
[2020-06-01] MEDS: methylPREDNISolone SOD SUCCI 125 MG/2 ML VIAL IV SCH ×3 (15:54→23:32)
[2020-06-01] MEDS: NITROGLYCERIN OINT 1 INCH/GM PACKET TOPICAL SCH ×3 (15:54→21:01)
--- NOTE | 2020-06-01 16:49 | HP ---
HISTORY AND PHYSICAL DATE OF SERVICE: 06/01/2020 CHIEF COMPLAINT: Weakness, shortness of breath. HISTORY OF PRESENT ILLNESS: This 85-year-old gentleman with a past medical history of multiple medical problems including history of COPD, history of diabetes, history of CHF, CAD, CABG with stent, being followed by Dr. Alonso in the outpatient setting, was not feeling well over the past several days. The patient was getting more and more shortness of breath. The patient had a telehealth visit last week when the oxygen concentration was increased from 2 to 3 L. The patient was given a course of steroids and antibiotics. However, the patient was getting progressively short of breath and the saturation was found to be 54% on room air and the patient was taken to [facility] and was admitted for further evaluation and treatment. Chest x-ray showed some CHF. The patient also had a hemoglobin of 6.3. Acute on chronic GI bleed was suspected even though no kassie bleeding was noted. Stool OB was positive. Potassium 6.6. Kayexalate has been given. Sodium is 130, creatinine is 2.46. The baseline creatinine is not available. There is no history of fevers or rigors. No history of headache or loss consciousness. Patient is mildly confused. PAST MEDICAL HISTORY: History of COPD, diabetes, CHF, history of cholecystectomy, CAD with CABG, stent. HOME MEDICATIONS: List is not available. ALLERGIES: None. FAMILY HISTORY: with diabetes mellitus, in 90s. SOCIAL HISTORY: History of alcohol. REVIEW OF SYSTEMS: ENT: No diminished vision or hearing. CARDIOVASCULAR: As mentioned earlier. GI: No nausea. : As mentioned earlier. NERVOUS SYSTEM: No numbness or weakness. ALLERGY/IMMUNOLOGY: None. MUSCULOSKELETAL: As mentioned. HEMATOLOGY: No history of anemia. ENDOCRINE: No history of diabetes or hypothyroidism. CONSTITUTIONAL: As mentioned earlier. PSYCHIATRY: As mentioned. PHYSICAL EXAMINATION: Alert, oriented x3. Pulse 84, blood pressure 111/48, respiration 20, temperature 98.2, pulse ox 94% on 3 L. HEENT: Conjunctivae normal. Oral mucosa dry. NECK: NO JVD. CARDIOVASCULAR SYSTEM: S1, S2 muffled. RESPIRATORY SYSTEM: Breath sounds diminished at the bases. A few scattered rhonchi and crackles. ABDOMEN: Obese, nontender. No mass palpable. LEGS: Bilateral leg edema. NERVOUS SYSTEM: Higher functions as mentioned earlier. Moves all extremities equally. No focal motor or sensory deficits. SKIN: No rash, ulcer or bleeding. JOINTS: No active deforming arthropathy. LABS: WBC 11.1, hemoglobin 6.3, sodium 130, potassium 6.6, creatinine is 2.46. ASSESSMENT: 1. CHF acute exacerbation with acute hypoxic respiratory failure. 2. Acute renal failure possible acute tubular necrosis. 3. Anemia; rule out acute on chronic GI bleed. 4. Possible chronic obstructive pulmonary disease acute exacerbation. 5. Diabetes mellitus type 2. 6. CAD, CABG stent history. 7. History of rectal cancer history. 8. History of ostomy. 9. History of obesity, body mass of 38.7. 10.Increased WBC. 11.Hyponatremia. 12.Hyperkalemia. 13.Hypoalbuminemia. 14.Full code. RECOMMENDATION: This 85-year-old gentleman who presented with multiple complex medical issues as listed above. At this time I recommend to continue current medications, symptomatic treatment. Otherwise, will cautiously give Lasix to relieve the congestion and bronchodilators. I would also recommend steroids. Cardiology and Pulmonology consultations. Nephrology evaluation for the elevated creatinine. Home medication list is not available. We will obtain the home medication list and make necessary adjustments. Otherwise ensure oxygenation. The overall prognosis extremely guarded because of multiple complex medical problems. Patient had insulin glucose regimen and Kayexalate. I would also repeat the lytes later today and then continue to monitor. The patient will be monitored on telemetry. The prognosis is extremely guarded because of multiple complex medical issues. Discussed with the patient and the patient's family and further recommendations to follow. MMMILANL / PATIENCEN: [id number] / MTDAllison
[2020-06-01 16:50] LABS: Glucose,Whole Blood 323 mg/dL (75-99)
[2020-06-01] MEDS ORDERED: INSULIN REGULAR BOLUS (FROM DRIP BAG) IV ONE (17:32)
[2020-06-01 18:27] LABS: Appearance,Urine Clear (Clear); Bilirubin,Urine Negative (Negative); Blood,Urine Negative (Negative); Color,Urine Yellow; Glucose,Urine (UA) Negative (Negative); Ketones,Urine Negative (Negative); Leukocyte Esterase,Urine Negative (Negative); Nitrite,Urine Negative (Negative); Protein,Urine Trace (Negative); Specific Gravity,Urine 1.012 (1.001-1.035); Urobilinogen,Urine <2.0 mg/dL (<2.0)
[2020-06-01 18:48] LABS: Creatinine,Urine Random 78.1 mg/dL
[2020-06-01 19:42] LABS: Glucose,Whole Blood 321 mg/dL (75-99)
[2020-06-01 20:05] LABS: Glucose,Whole Blood 346 mg/dL (75-99)
[2020-06-01] MEDS: INSULIN REGULAR 100 UNIT in SODIUM CHLORIDE 0.9% 100 ML IV SCH ×2 (20:26→20:34)
[2020-06-01] MEDS: FORMOTEROL FUMARATE 20 MCG/2 ML NEBU INHALATION SCH (20:26)
[2020-06-01] MEDS: BUDESONIDE 1 MG/2 ML NEBU INHALATION SCH (20:26)
[2020-06-01 20:34] LABS: Glucose,Whole Blood 336 mg/dL (75-99)
[2020-06-01] MEDS ORDERED: INSULIN DETEMIR (LEVEMIR) 100 UNIT/ML SYR SQ SCH (21:00)
[2020-06-01] MEDS: ATORVASTATIN 80 MG TAB PO SCH (21:01)
[2020-06-01 21:17] LABS: Glucose,Whole Blood 318 mg/dL (75-99)
[2020-06-01 21:30] LABS: Glucose,Whole Blood 289 mg/dL (75-99)
[2020-06-01 22:06] LABS: Glucose,Whole Blood 264 mg/dL (75-99)
[2020-06-01 22:39] LABS: Glucose,Whole Blood 225 mg/dL (75-99)
[2020-06-01] MEDS ORDERED: QUEtiapine 25 MG TAB PO STA (23:10)
[2020-06-02 00:37] LABS: Glucose,Whole Blood 163 mg/dL (75-99)
[2020-06-02 01:21] LABS: Calcium 8.5 mg/dL (8.4-10.2); Potassium 5.5 mmol/L (3.5-5.1)
[2020-06-02 02:04] LABS: ABG Base Excess 11.1 mmol/L; ABG HCO3 37 mmol/L (21-25); ABG Oxygen Saturation 89.9 % (94-97); ABG PH 7.31 (7.35-7.45); ABG TCO2 40 mmol/L (19-24); Allen Test Performed? Yes
[2020-06-02 02:14] LABS: Glucose,Whole Blood 135 mg/dL (75-99)
--- NOTE | 2020-06-02 02:19 | XR ---
EXAMINATION TYPE: XR chest 1V portable DATE OF EXAM: 06/02/2020 COMPARISON: Yesterday HISTORY: Respiratory distress TECHNIQUE: FINDINGS: There is bilateral lower lobe pulmonary airspace infiltrates and atelectasis. There is blun ting of the costophrenic angles. There is pulmonary vascular congestion. There are sternal wires. The re are chest leads. Heart is enlarged. IMPRESSION: Congestive heart failure with pleural fluid and lower lobe pulmonary infiltrates and atel ectasis. Chest is probably slightly worse than yesterday.
[2020-06-02 02:37] LABS: ABG Base Excess 11.3 mmol/L; ABG HCO3 38 mmol/L (21-25); ABG Oxygen Saturation 87.6 % (94-97); ABG PH 7.31 (7.35-7.45); ABG TCO2 40 mmol/L (19-24); Allen Test Performed? Yes
[2020-06-02 02:47] LABS: Calcium 8.5 mg/dL (8.4-10.2); Potassium 5.6 mmol/L (3.5-5.1)
[2020-06-02 02:55] LABS: Anisocytosis Slight; HCT 25.3 % (39.0-53.0); Hypochromasia Marked; MCHC 27.4 g/dL (31.0-37.0); MCV 91.2 fL (80.0-100.0); Mean Platelet Volume 7.8; Platelet Count 347 k/uL (150-450); Poikilocytosis Moderate; RBC 2.77 m/uL (4.30-5.90)
[2020-06-02 02:57] LABS: HGB 6.9 gm/dL (13.0-17.5)
[2020-06-02] MEDS: propofoL 100 ML IV ONE ×2 (03:00→03:27)
[2020-06-02 03:34] LABS: Band Neutrophils % 4 %; Large Platelets Present; Lymphocytes # (M) 0.24 k/uL (1.0-4.8); Metamyelocytes # (M) 0.12 k/uL (0); Metamyelocytes % 1 %; Monocytes # (M) 0.12 k/uL (0-1.0); Neutrophils % (M) 93 %; Nucleated Red Blood Cells 1 /100 WBC (0-0); Polychromasia Present; Total Cells Counted 200; WBC 11.9 k/uL (3.8-10.6)
--- NOTE | 2020-06-02 03:51 | XR ---
EXAMINATION TYPE: XR chest 1V portable DATE OF EXAM: 06/02/2020 COMPARISON: Today HISTORY: Check tube placement TECHNIQUE: Single view FINDINGS: Endotracheal tube is 2.2 cm from the linda. There is nasogastric tube in the stomach. Ther e is pulmonary edema. There is blunting of the costophrenic angles. There is bilateral infiltrate at the lung bases. Thoracic aorta is atheromatous. Heart is enlarged. IMPRESSION: Tubing in fairly good position. Congestive heart failure unchanged.
[2020-06-02 04:01] LABS: Glucose,Whole Blood 133 mg/dL (75-99)
[2020-06-02 04:03] LABS: ABG HCO3 37 mmol/L (21-25); ABG PCO2 52 mmHg (35-45); ABG PH 7.46 (7.35-7.45); ABG PO2 261 mmHg (83-108); ABG TCO2 38 mmol/L (19-24); Allen Test Performed? Yes
[2020-06-02 05:33] LABS: Glucose,Whole Blood 142 mg/dL (75-99)
[2020-06-02 06:05] LABS: Glucose,Whole Blood 141 mg/dL (75-99)
[2020-06-02] MEDS: LEVOTHYROXINE 50 MCG TAB PO SCH (07:06)
[2020-06-02] MEDS: methylPREDNISolone SOD SUCCI 125 MG/2 ML VIAL IV SCH ×3 (07:06→17:59)
[2020-06-02 07:12] LABS: Appearance,Urine Clear (Clear); Bacteria,Urine Rare /hpf; Bilirubin,Urine Negative (Negative); Blood,Urine Trace (Negative); Color,Urine Light Yellow; Glucose,Urine (UA) Negative (Negative); Ketones,Urine Negative (Negative); Leukocyte Esterase,Urine Small (Negative); Mucus,Urine Rare /hpf; Nitrite,Urine Negative (Negative); PH, Urine 6.5 (5.0-8.0); Protein,Urine Negative (Negative); RBC,Urine 3 /hpf (0-5); Specific Gravity,Urine 1.006 (1.001-1.035); Urobilinogen,Urine <2.0 mg/dL (<2.0); WBC,Urine 2 /hpf (0-5)
[2020-06-02 07:17] LABS: Glucose,Whole Blood 157 mg/dL (75-99)
[2020-06-02] MEDS ORDERED: INSULIN ASPART (NovoLOG) 100 UNIT/ML VIAL SQ SCH ×2 (07:30→16:15)
[2020-06-02 07:39] LABS: Albumin 2.8 g/dL (3.5-5.0); Calcium 8.5 mg/dL (8.4-10.2); Potassium 5.1 mmol/L (3.5-5.1); Total Bilirubin 0.9 mg/dL (0.2-1.3)
[2020-06-02 07:46] LABS: Anisocytosis Slight; Basophils % (A) 0 %; Eosinophils % (A) 0 %; HCT 22.8 % (39.0-53.0); Hypochromasia Marked; Lymphocytes # (A) 0.3 k/uL (1.0-4.8); Lymphocytes % (A) 3 %; MCH 25.5 pg (25.0-35.0); MCHC 28.6 g/dL (31.0-37.0); Mean Platelet Volume 7.7; Monocytes # (A) 0.5 k/uL (0-1.0); Monocytes % (A) 4 %; Neutrophils # (A) 10.2 k/uL (1.3-7.7); Neutrophils % (A) 92 %; Platelet Count 315 k/uL (150-450); Poikilocytosis Moderate; RBC 2.56 m/uL (4.30-5.90); RDW 16.1 % (11.5-15.5); WBC 11.2 k/uL (3.8-10.6)
[2020-06-02 07:56] LABS: HGB 6.5 gm/dL (13.0-17.5)
[2020-06-02 08:13] LABS: Glucose,Whole Blood 161 mg/dL (75-99)
[2020-06-02] MEDS ORDERED: CISATRACURIUM 2 MG/ML 5 ML VIAL IV ONE (08:39)
--- NOTE | 2020-06-02 08:57 | P.PN ---
Subjective Patient is seen in follow-up for acute kidney injury. Renal function a little better today. Patient went into respiratory distress last night and was transferred to the intensive care unit. He is currently intubated and sedated. He is on 50% FiO2. Hemoglobin 6.5 any scheduled to receive another unit of blood today. He is maintained on IV Lasix and is nonoliguric. No active bleeding noted per the nurse. Vital signs are stable. General: The patient appeared well nourished and normally developed. HEENT: Head exam is unremarkable. Neck is without jugular venous distension. LUNGS: Breath sounds decreased. HEART: Rate and Rhythm are regular. ABDOMEN: Soft. EXTREMITITES: Trace edema. Objective - Vital Signs Vital signs: Vital Signs Temp 98.4 F 06/02/20 08:00 Pulse 66 06/02/20 08:00 Resp 24 06/02/20 08:00 BP 123/57 06/02/20 08:00 Pulse Ox 92 L 06/02/20 08:00 Intake & Output 06/01/20 06/02/20 06/02/20 18:59 06:59 18:59 Intake Total 0 519.394 92.784 Output Total 1375 400 Balance 0 -855.606 -307.216 Weight 122.47 kg Intake: IV 60 40 Sodium Chloride 0.9% 1, 60 40 000 ml @ 20 mls/hr IV . Q24H RAMESH Rx#:[id number] Intake, IV Titration 149.394 52.784 Amount Insulin Regular 100 unit 51.662 1.347 In Sodium Chloride 0.9% 100 ml @ Titrate IV .Q0M RAMESH Rx#:[id number] propofoL 1,000 mg In 97.732 51.437 Empty Bag 1 bag @ Titrate IV .Q0M RAMESH Rx#: [id number] Blood Product 0 310 Rc As-1 Unit 0 310 [id number] Output: Urine 1375 400 Other: Voiding Method Indwelling Catheter Indwelling Catheter - Labs CBC & Chem 7: 06/02/20 06:59 06/02/20 06:59 Labs: Abnormal Lab Results - Last 24 Hours (Table) 06/01/20 06/01/20 06/01/20 Range/Units 10:43 10:43 15:51 WBC 11.5 H (3.8-10.6) k/uL RBC 2.61 L (4.30-5.90) m/uL Hgb 6.3 L* (13.0-17.5) gm/dL Hct 23.9 L (39.0-53.0) % MCH 24.3 L (25.0-35.0) pg MCHC 26.5 L (31.0-37.0) g/dL RDW 16.1 H (11.5-15.5) % Neutrophils # (Manual) 10.90 H (1.3-7.7) k/uL Lymphocytes # (Manual) 0.23 L (1.0-4.8) k/uL Metamyelocytes # (Man) (0) k/uL Nucleated RBCs 2 H (0-0) /100 WBC ABG pH (7.35-7.45) ABG pCO2 (35-45) mmHg ABG pO2 (83-108) mmHg ABG HCO3 (21-25) mmol/L ABG Total CO2 (19-24) mmol/L ABG O2 Saturation (94-97) % Sodium 136 L (137-145) mmol/L Potassium 6.6 H* (3.5-5.1) mmol/L Chloride 94 L (98-107) mmol/L Carbon Dioxide 35 H (22-30) mmol/L BUN 87 H (9-20) mg/dL Creatinine 2.46 H (0.66-1.25) mg/dL Glucose 288 H (74-99) mg/dL POC Glucose (mg/dL) (75-99) mg/dL Total Protein 5.4 L (6.3-8.2) g/dL Albumin 3.1 L (3.5-5.0) g/dL Urine Protein (Negative) Urine Blood (Negative) Ur Leukocyte Esterase (Negative) Urine Bacteria (None) /hpf Urine Mucus (None) /hpf Crossmatch See Detail 06/01/20 06/01/20 06/01/20 Range/Units 16:00 16:48 19:39 WBC (3.8-10.6) k/uL RBC (4.30-5.90) m/uL Hgb (13.0-17.5) gm/dL Hct (39.0-53.0) % MCH (25.0-35.0) pg MCHC (31.0-37.0) g/dL RDW (11.5-15.5) % Neutrophils # (Manual) (1.3-7.7) k/uL Lymphocytes # (Manual) (1.0-4.8) k/uL Metamyelocytes # (Man) (0) k/uL Nucleated RBCs (0-0) /100 WBC ABG pH (7.35-7.45) ABG pCO2 (35-45) mmHg ABG pO2 (83-108) mmHg ABG HCO3 (21-25) mmol/L ABG Total CO2 (19-24) mmol/L ABG O2 Saturation (94-97) % Sodium (137-145) mmol/L Potassium (3.5-5.1) mmol/L Chloride (98-107) mmol/L Carbon Dioxide (22-30) mmol/L BUN (9-20) mg/dL Creatinine (0.66-1.25) mg/dL Glucose (74-99) mg/dL POC Glucose (mg/dL) 323 H 321 H (75-99) mg/dL Total Protein (6.3-8.2) g/dL Albumin (3.5-5.0) g/dL Urine Protein Trace H (Negative) Urine Blood (Negative) Ur Leukocyte Esterase (Negative) Urine Bacteria (None) /hpf Urine Mucus (None) /hpf Crossmatch 06/01/20 06/01/20 06/01/20 Range/Units 20:03 20:32 20:57 WBC (3.8-10.6) k/uL RBC (4.30-5.90) m/uL Hgb (13.0-17.5) gm/dL Hct (39.0-53.0) % MCH (25.0-35.0) pg MCHC (31.0-37.0) g/dL RDW (11.5-15.5) % Neutrophils # (Manual) (1.3-7.7) k/uL Lymphocytes # (Manual) (1.0-4.8) k/uL Metamyelocytes # (Man) (0) k/uL Nucleated RBCs (0-0) /100 WBC ABG pH (7.35-7.45) ABG pCO2 (35-45) mmHg ABG pO2 (83-108) mmHg ABG HCO3 (21-25) mmol/L ABG Total CO2 (19-24) mmol/L ABG O2 Saturation (94-97) % Sodium (137-145) mmol/L Potassium (3.5-5.1) mmol/L Chloride (98-107) mmol/L Carbon Dioxide (22-30) mmol/L BUN (9-20) mg/dL Creatinine (0.66-1.25) mg/dL Glucose (74-99) mg/dL POC Glucose (mg/dL) 346 H 336 H 318 H (75-99) mg/dL Total Protein (6.3-8.2) g/dL Albumin (3.5-5.0) g/dL Urine Protein (Negative) Urine Blood (Negative) Ur Leukocyte Esterase (Negative) Urine Bacteria (None) /hpf Urine Mucus (None) /hpf Crossmatch 06/01/20 06/01/20 06/01/20 Range/Units 21:28 22:03 22:27 WBC (3.8-10.6) k/uL RBC (4.30-5.90) m/uL Hgb (13.0-17.5) gm/dL Hct (39.0-53.0) % MCH (25.0-35.0) pg MCHC (31.0-37.0) g/dL RDW (11.5-15.5) % Neutrophils # (Manual) (1.3-7.7) k/uL Lymphocytes # (Manual) (1.0-4.8) k/uL Metamyelocytes # (Man) (0) k/uL Nucleated RBCs (0-0) /100 WBC ABG pH (7.35-7.45) ABG pCO2 (35-45) mmHg ABG pO2 (83-108) mmHg ABG HCO3 (21-25) mmol/L ABG Total CO2 (19-24) mmol/L ABG O2 Saturation (94-97) % Sodium (137-145) mmol/L Potassium (3.5-5.1) mmol/L Chloride (98-107) mmol/L Carbon Dioxide (22-30) mmol/L BUN (9-20) mg/dL Creatinine (0.66-1.25) mg/dL Glucose (74-99) mg/dL POC Glucose (mg/dL) 289 H 264 H 225 H (75-99) mg/dL Total Protein (6.3-8.2) g/dL Albumin (3.5-5.0) g/dL Urine Protein (Negative) Urine Blood (Negative) Ur Leukocyte Esterase (Negative) Urine Bacteria (None) /hpf Urine Mucus (None) /hpf Crossmatch 06/02/20 06/02/20 06/02/20 Range/Units 00:26 00:35 02:03 WBC (3.8-10.6) k/uL RBC (4.30-5.90) m/uL Hgb (13.0-17.5) gm/dL Hct (39.0-53.0) % MCH (25.0-35.0) pg MCHC (31.0-37.0) g/dL RDW (11.5-15.5) % Neutrophils # (Manual) (1.3-7.7) k/uL Lymphocytes # (Manual) (1.0-4.8) k/uL Metamyelocytes # (Man) (0) k/uL Nucleated RBCs (0-0) /100 WBC ABG pH 7.31 L (7.35-7.45) ABG pCO2 74 H* (35-45) mmHg ABG pO2 59 L* (83-108) mmHg ABG HCO3 37 H (21-25) mmol/L ABG Total CO2 40 H (19-24) mmol/L ABG O2 Saturation 89.9 L (94-97) % Sodium 136 L (137-145) mmol/L Potassium 5.5 H (3.5-5.1) mmol/L Chloride 95 L (98-107) mmol/L Carbon Dioxide 35 H (22-30) mmol/L BUN 89 H (9-20) mg/dL Creatinine 2.41 H (0.66-1.25) mg/dL Glucose 140 H (74-99) mg/dL POC Glucose (mg/dL) 163 H (75-99) mg/dL Total Protein (6.3-8.2) g/dL Albumin (3.5-5.0) g/dL Urine Protein (Negative) Urine Blood (Negative) Ur Leukocyte Esterase (Negative) Urine Bacteria (None) /hpf Urine Mucus (None) /hpf Crossmatch 06/02/20 06/02/20 06/02/20 Range/Units 02:04 02:19 02:19 WBC 11.9 H (3.8-10.6) k/uL RBC 2.77 L (4.30-5.90) m/uL Hgb 6.9 L* (13.0-17.5) gm/dL Hct 25.3 L (39.0-53.0) % MCH (25.0-35.0) pg MCHC 27.4 L (31.0-37.0) g/dL RDW 16.0 H (11.5-15.5) % Neutrophils # (Manual) 11.50 H (1.3-7.7) k/uL Lymphocytes # (Manual) 0.24 L (1.0-4.8) k/uL Metamyelocytes # (Man) 0.12 H (0) k/uL Nucleated RBCs 1 H (0-0) /100 WBC ABG pH (7.35-7.45) ABG pCO2 (35-45) mmHg ABG pO2 (83-108) mmHg ABG HCO3 (21-25) mmol/L ABG Total CO2 (19-24) mmol/L ABG O2 Saturation (94-97) % Sodium (137-145) mmol/L Potassium 5.6 H (3.5-5.1) mmol/L Chloride 95 L (98-107) mmol/L Carbon Dioxide 33 H (22-30) mmol/L BUN 91 H (9-20) mg/dL Creatinine 2.33 H (0.66-1.25) mg/dL Glucose 117 H (74-99) mg/dL POC Glucose (mg/dL) 135 H (75-99) mg/dL Total Protein (6.3-8.2) g/dL Albumin (3.5-5.0) g/dL Urine Protein (Negative) Urine Blood (Negative) Ur Leukocyte Esterase (Negative) Urine Bacteria (None) /hpf Urine Mucus (None) /hpf Crossmatch 06/02/20 06/02/20 06/02/20 Range/Units 02:26 03:55 03:59 WBC (3.8-10.6) k/uL RBC (4.30-5.90) m/uL Hgb (13.0-17.5) gm/dL Hct (39.0-53.0) % MCH (25.0-35.0) pg MCHC (31.0-37.0) g/dL RDW (11.5-15.5) % Neutrophils # (Manual) (1.3-7.7) k/uL Lymphocytes # (Manual) (1.0-4.8) k/uL Metamyelocytes # (Man) (0) k/uL Nucleated RBCs (0-0) /100 WBC ABG pH 7.31 L 7.46 H (7.35-7.45) ABG pCO2 75 H* 52 H (35-45) mmHg ABG pO2 56 L* 261 H (83-108) mmHg ABG HCO3 38 H 37 H (21-25) mmol/L ABG Total CO2 40 H 38 H (19-24) mmol/L ABG O2 Saturation 87.6 L 100.0 H (94-97) % Sodium (137-145) mmol/L Potassium (3.5-5.1) mmol/L Chloride (98-107) mmol/L Carbon Dioxide (22-30) mmol/L BUN (9-20) mg/dL Creatinine (0.66-1.25) mg/dL Glucose (74-99) mg/dL POC Glucose (mg/dL) 133 H (75-99) mg/dL Total Protein (6.3-8.2) g/dL Albumin (3.5-5.0) g/dL Urine Protein (Negative) Urine Blood (Negative) Ur Leukocyte Esterase (Negative) Urine Bacteria (None) /hpf Urine Mucus (None) /hpf Crossmatch 06/02/20 06/02/20 06/02/20 Range/Units 05:32 06:04 06:50 WBC (3.8-10.6) k/uL RBC (4.30-5.90) m/uL Hgb (13.0-17.5) gm/dL Hct (39.0-53.0) % MCH (25.0-35.0) pg MCHC (31.0-37.0) g/dL RDW (11.5-15.5) % Neutrophils # (Manual) (1.3-7.7) k/uL Lymphocytes # (Manual) (1.0-4.8) k/uL Metamyelocytes # (Man) (0) k/uL Nucleated RBCs (0-0) /100 WBC ABG pH (7.35-7.45) ABG pCO2 (35-45) mmHg ABG pO2 (83-108) mmHg ABG HCO3 (21-25) mmol/L ABG Total CO2 (19-24) mmol/L ABG O2 Saturation (94-97) % Sodium (137-145) mmol/L Potassium (3.5-5.1) mmol/L Chloride (98-107) mmol/L Carbon Dioxide (22-30) mmol/L BUN (9-20) mg/dL Creatinine (0.66-1.25) mg/dL Glucose (74-99) mg/dL POC Glucose (mg/dL) 142 H 141 H (75-99) mg/dL Total Protein (6.3-8.2) g/dL Albumin (3.5-5.0) g/dL Urine Protein (Negative) Urine Blood Trace H (Negative) Ur Leukocyte Esterase Small H (Negative) Urine Bacteria Rare H (None) /hpf Urine Mucus Rare H (None) /hpf Crossmatch 06/02/20 06/02/20 06/02/20 Range/Units 06:59 06:59 07:16 WBC 11.2 H (3.8-10.6) k/uL RBC 2.56 L (4.30-5.90) m/uL Hgb 6.5 L* (13.0-17.5) gm/dL Hct 22.8 L (39.0-53.0) % MCH (25.0-35.0) pg MCHC 28.6 L (31.0-37.0) g/dL RDW 16.1 H (11.5-15.5) % Neutrophils # (Manual) (1.3-7.7) k/uL Lymphocytes # (Manual) (1.0-4.8) k/uL Metamyelocytes # (Man) (0) k/uL Nucleated RBCs (0-0) /100 WBC ABG pH (7.35-7.45) ABG pCO2 (35-45) mmHg ABG pO2 (83-108) mmHg ABG HCO3 (21-25) mmol/L ABG Total CO2 (19-24) mmol/L ABG O2 Saturation (94-97) % Sodium (137-145) mmol/L Potassium (3.5-5.1) mmol/L Chloride 95 L (98-107) mmol/L Carbon Dioxide 35 H (22-30) mmol/L BUN 89 H (9-20) mg/dL Creatinine 2.26 H (0.66-1.25) mg/dL Glucose 135 H (74-99) mg/dL POC Glucose (mg/dL) 157 H (75-99) mg/dL Total Protein 5.0 L (6.3-8.2) g/dL Albumin 2.8 L (3.5-5.0) g/dL Urine Protein (Negative) Urine Blood (Negative) Ur Leukocyte Esterase (Negative) Urine Bacteria (None) /hpf Urine Mucus (None) /hpf Crossmatch 06/02/20 Range/Units 08:12 WBC (3.8-10.6) k/uL RBC (4.30-5.90) m/uL Hgb (13.0-17.5) gm/dL Hct (39.0-53.0) % MCH (25.0-35.0) pg MCHC (31.0-37.0) g/dL RDW (11.5-15.5) % Neutrophils # (Manual) (1.3-7.7) k/uL Lymphocytes # (Manual) (1.0-4.8) k/uL Metamyelocytes # (Man) (0) k/uL Nucleated RBCs (0-0) /100 WBC ABG pH (7.35-7.45) ABG pCO2 (35-45) mmHg ABG pO2 (83-108) mmHg ABG HCO3 (21-25) mmol/L ABG Total CO2 (19-24) mmol/L ABG O2 Saturation (94-97) % Sodium (137-145) mmol/L Potassium (3.5-5.1) mmol/L Chloride (98-107) mmol/L Carbon Dioxide (22-30) mmol/L BUN (9-20) mg/dL Creatinine (0.66-1.25) mg/dL Glucose (74-99) mg/dL POC Glucose (mg/dL) 161 H (75-99) mg/dL Total Protein (6.3-8.2) g/dL Albumin (3.5-5.0) g/dL Urine Protein (Negative) Urine Blood (Negative) Ur Leukocyte Esterase (Negative) Urine Bacteria (None) /hpf Urine Mucus (None) /hpf Crossmatch Assessment and Plan Plan: Assessment: 1. Acute kidney injury secondary to ATN secondary to acute blood loss anemia. Also component of cardiorenal syndrome. Creatinine was 2.46 on admission and is 2.26 today. Unknown baseline renal function. No proteinuria on UA. No hydronephrosis noted on kidney ultrasound. 2. Acute GI bleed status post blood transfusion. Scheduled to receive another unit of blood today. No active bleeding noted. 3. Volume overload. 4. Acute hypercapnic and hypoxic respiratory failure. Currently intubated. Plan: Maintain IV Lasix 40 mg twice daily. Monitor hemoglobin and transfuse as needed. Continue to monitor renal function and urine output.
--- NOTE | 2020-06-02 09:56 | XR ---
EXAMINATION TYPE: XR chest 1V portable DATE OF EXAM: 06/02/2020 CLINICAL HISTORY: Central line placement TECHNIQUE: Single AP portable supine view of the chest is obtained. COMPARISON: Chest x-ray from earlier today an older studies. FINDINGS: New Left subclavian central venous catheter terminates at cavoatrial junction. Stable endotracheal and orogastric tubes. Overlying sternal wires and mediastinal clips redemonstrate d. Persistent cardiomegaly with atherosclerotic thoracic aorta. Persistent small left pleural effusio n and patchy bibasilar opacities. Multilevel spurring in the spine. IMPRESSION: New Left subclavian central venous catheter terminating at cavoatrial junction. No pneumo thorax noted. Other findings stable as there is cardiomegaly with central vascular congestion and sma ll left pleural effusion with bibasilar patchy atelectasis and/or infiltrate are redemonstrated.
[2020-06-02 09:58] LABS: Polychromasia Present
[2020-06-02 10:00] LABS: Glucose,Whole Blood 153 mg/dL (75-99)
[2020-06-02] MEDS ORDERED: ETOMIDATE 2 MG/ML 10 ML VIAL ONE (10:33)
[2020-06-02] MEDS ORDERED: PROPOFOL 10 MG/ML 20 ML VIAL IV ONE (10:33)
--- NOTE | 2020-06-02 10:36 | PCN ---
PROCEDURE NOTE PROCEDURE: Left subclavian triple-lumen catheter. PREOPERATIVE DIAGNOSIS: Administration of fluids and pressors. POSTOPERATIVE DIAGNOSIS: Administration of fluids and pressors. OPERATORS: Dr. Gomez and January Reyes. There was informed consent and universal timeout. After the patient was adequately positioned, we placed a left subclavian triple-lumen catheter. There was no immediate complication. The patient tolerated the procedure well. The tip of the catheter was seen to be in the right atrium. The catheter was sutured in place. A sterile dressing was applied by the nurse. There was no immediate complication. A chest x-ray will be ordered to rule out pneumothorax. There was good blood return from all 3 ports. MMODL / IJN: [id number] /
[2020-06-02] MEDS: NITROGLYCERIN OINT 1 INCH/GM PACKET TOPICAL SCH ×2 (10:47→17:58)
[2020-06-02] MEDS: FUROSEMIDE 10 MG/ML 4 ML VIAL IV SCH ×2 (10:47→23:01)
[2020-06-02] MEDS: PANTOPRAZOLE 40 MG/10 ML VIAL IV SCH (10:47)
--- NOTE | 2020-06-02 10:49 | PCN ---
PROCEDURE NOTE PROCEDURE: Left radial arterial line. OPERATORS: Dr. Gomez and Tin Reyes Indications: Hemodynamic monitoring. A time-out was completed verifying correct patient, procedure, site, positioning, and implant(s) or special equipment if applicable. Kobe's test was performed to ensure adequate perfusion. The patient's left wrist was prepped and draped in sterile fashion. 1% Lidocaine was used to anesthetize the area. An 18G Arrow arterial line was introduced into the radial/The catheter was threaded over the guide wire and the needle was removed with appropriate pulsatile blood return. Blood loss was minimal. The catheter was then sutured in place to the skin and a sterile dressing applied by the nurse. Perfusion to the extremity distal to the point of catheter insertion was checked and found to be adequate. The patient tolerated the procedure well and there were no complications. There was informed consent and universal timeout. MMODL / PATIENCEN: [id number] /
[2020-06-02] MEDS: SODIUM CHLORIDE 0.9% 1,000 ML IV SCH (11:01)
[2020-06-02 11:07] LABS: Glucose,Whole Blood 148 mg/dL (75-99)
[2020-06-02] MEDS: IPRATROPIUM-ALBUTEROL 3 ML NEB INHALATION SCH ×3 (11:47→20:30)
[2020-06-02 12:05] LABS: Glucose,Whole Blood 145 mg/dL (75-99)
[2020-06-02 13:03] LABS: Glucose,Whole Blood 145 mg/dL (75-99)
[2020-06-02 14:55] LABS: Glucose,Whole Blood 143 mg/dL (75-99)
[2020-06-02 15:07] LABS: Anisocytosis Slight; HCT 26.3 % (39.0-53.0); HGB 7.9 gm/dL (13.0-17.5); Hypochromasia Marked; MCH 26.3 pg (25.0-35.0); MCHC 29.9 g/dL (31.0-37.0); MCV 87.7 fL (80.0-100.0); Mean Platelet Volume 9.6; Platelet Count 305 k/uL (150-450); Poikilocytosis Marked; RDW 16.4 % (11.5-15.5); WBC 12.3 k/uL (3.8-10.6)
[2020-06-02] MEDS ORDERED: INSULIN DETEMIR (LEVEMIR) 100 UNIT/ML SYR SQ SCH (15:50)
--- NOTE | 2020-06-02 16:17 | P.CRDCN ---
History of Present Illness History of present illness: This is Marina Gresham PA-C dictating a consult on this patient The patient was interviewed and examined by me Case discussed with Dr. Saldana and he agrees with the plan of care HPI Patient is an 85-year-old male with a history significant for COPD, diabetes, CHF, CAD status post CABG who presented with shortness of breath. Unable to obtain history from the patient as he was sedated and intubated at the time of my exam. History was obtained from the chart. Chest x-ray showed diffuse interstitial and vascular prominence, small bilateral pleural effusions with bi basilar opacities. EKG showed atrial fibrillation, rate 90 bpm. Labs are significant for WBC 11.5, hemoglobin 6.3, platelets 405, potassium 6.6, BUN 87, creatinine 2.46. Troponin normal, BNP 7780. FOB was positive. He developed worsening respiratory failure requiring intubation and mechanical ventilation. He received a blood transfusion. Patient seen and examined in the ICU, sedated and intubated. Bedside telemetry shows rate-controlled atrial fibrillation, rates in the 60s. ROS: Unable to obtain, patient is sedated and intubated EXAMINATION: Patient is afebrile, pulse in the 60s, respirations 20, blood pressure 151/53, oxygen saturation 96% on mechanical ventilation Patient seen and examined in the ICU, sedated and intubated Heart is irregularly irregular, no audible murmurs Breath sounds equal bilaterally No elevated JVD Mild lower extremity edema bilaterally REVIEW OF LABS, ECG & MEDICAL DATA WBC 12.3, hemoglobin 7.9, platelets 164, potassium 5.1, BUN 89, creatinine 2.26 IMPRESSION / ASSESSMENT: #1 acute respiratory failure requiring intubation and mechanical ventilation #2 atrial fibrillation, rate controlled, not on anticoagulation due to anemia #3 acute blood loss anemia secondary to GI bleed, status post blood transfusions #4 acute kidney injury #5 history of COPD #6 diabetes #7 history of CHF #8 history of CAD status post CABG PLAN: Obtain due to the echocardiogram and Doppler studies to assess cardiac structure and function Continue statin management of diuretics per nephrology management of multiple other medical problems per primary care team and multiple consultants Past Medical History Past Medical History: COPD, Diabetes Mellitus Additional Past Medical History / Comment(s): CHF History of Any Multi-Drug Resistant Organisms: None Reported Past Surgical History: Cholecystectomy, Coronary Bypass/CABG, Heart Cathete rization With Stent Additional Past Surgical History / Comment(s): rectal cancer surgery-removed 2004 or 2005. Ostomy. Cataract surgery Date of Last Stent Placement:: 1995? Past Psychological History: No Psychological Hx Reported Smoking Status: Never smoker Past Alcohol Use History: None Reported Past Drug Use History: None Reported - Past Family History Mother Family Medical History: Diabetes Mellitus Additional Family Medical History / Comment(s): in her 90s Father Additional Family Medical History / Comment(s): of stomach cancer in the 1970s Medications and Allergies Home Medications Medication Instructions Recorded Confirmed Type Apixaban [Eliquis] 2.5 mg PO BID 06/01/20 06/01/20 History Atorvastatin Calcium [Lipitor] 80 mg PO HS 06/01/20 06/01/20 History Budesonide [Pulmicort Flexhaler] 1 puff INHALATION RT-BID 06/01/20 06/01/20 History Carvedilol [Coreg] 3.125 mg PO BID 06/01/20 06/01/20 History Cholecalciferol [Vitamin D3 (25 1,000 unit PO DAILY 06/01/20 06/01/20 History Mcg = 1000 Iu)] Famotidine 20 mg PO BID 06/01/20 06/01/20 History Furosemide [Lasix] 40 mg PO DAILY 06/01/20 06/01/20 History Gabapentin [Neurontin] 300 mg PO TID 06/01/20 06/01/20 History Insulin Glargine,Hum.rec.anlog 62 - 65 unit SQ 06/01/20 06/01/20 History [Lantus Solostar] Insulin Lispro [humaLOG Kwikpen] 5 unit SQ [facility] 06/01/20 06/01/20 History Insulin Lispro [humaLOG Kwikpen] See Protocol SQ [facility] 06/01/20 06/01/20 History Levothyroxine Sodium [Synthroid] 50 mcg PO DAILY 06/01/20 06/01/20 History Losartan [Cozaar] 25 mg PO DAILY 06/01/20 06/01/20 History Montelukast Sodium [Singulair] 10 mg PO HS 06/01/20 06/01/20 History predniSONE See Taper PO DIRECTED 06/01/20 06/01/20 History Allergies Allergy/AdvReac Type Severity Reaction Status Date / Time lisinopril Allergy Unknown Verified 06/02/20 09:13 lorazepam [From Ativan] AdvReac Confusion Verified 06/01/20 19:25 Physical Exam Vitals: Vital Signs Temp Pulse Pulse Resp BP BP Pulse Ox 06/02/20 16:00 98.6 F 64 20 96 06/02/20 15:56 65 06/02/20 15:47 64 06/02/20 15:30 64 20 93 L 06/02/20 15:25 20 06/02/20 15:00 63 20 94 L 06/02/20 14:30 64 20 94 L 06/02/20 14:00 63 20 94 L 06/02/20 13:30 63 20 94 L 06/02/20 13:08 98.4 F 63 20 124/41 94 L 06/02/20 13:00 63 20 95 06/02/20 12:30 63 20 96 06/02/20 12:04 65 06/02/20 12:00 98.2 F 63 20 96 06/02/20 11:52 62 06/02/20 11:44 20 06/02/20 11:30 63 20 94 L 06/02/20 11:00 62 20 94 L 06/02/20 10:57 98.6 F 62 20 135/46 94 L 06/02/20 10:30 62 20 94 L 06/02/20 10:27 98.6 F 62 20 141/49 95 06/02/20 10:17 98.6 F 63 20 137/48 93 L 06/02/20 10:00 63 20 119/58 93 L 06/02/20 09:30 67 20 137/63 94 L 06/02/20 09:00 79 20 122/62 92 L 06/02/20 08:30 71 24 126/62 91 L 06/02/20 08:00 98.4 F 66 24 123/57 92 L 06/02/20 07:30 66 24 128/67 94 L 06/02/20 07:00 71 24 127/90 95 06/02/20 06:30 66 24 125/64 91 L 06/02/20 06:00 71 24 120/62 90 L 06/02/20 05:30 81 24 118/60 92 L 06/02/20 05:00 75 24 109/54 93 L 09/08/20 04:30 74 24 99/53 94 L 06/02/20 04:15 62 24 99/51 92 L 06/02/20 04:00 98.3 F 66 24 94/49 99 06/02/20 03:45 65 24 92/50 100 06/02/20 03:30 64 24 104/57 100 06/02/20 03:15 86 24 103/47 100 06/02/20 03:00 98 F 93 21 132/74 92 L 06/02/20 02:49 29 H 06/02/20 00:00 97.9 F 80 19 117/53 93 L 06/01/20 23:38 97.9 F 80 19 117/53 93 L 06/01/20 20:41 105 H 06/01/20 20:33 108 H 06/01/20 20:32 100 06/01/20 20:27 94 06/01/20 20:00 98.2 F 99 19 130/61 96 06/01/20 19:31 98.2 F 99 19 130/61 96 06/01/20 19:01 98.1 F 18 L 16 115/69 90 L 06/01/20 18:51 98.2 F 99 16 100/56 94 L Intake and Output 06/02/20 06/02/20 06/02/20 06:59 14:59 22:59 Intake Total 488.151 728.468 98.969 Output Total 475 1700 400 Balance 13.151 -971.532 -301.031 Intake: IV 60 160 40 Sodium Chloride 0.9% 1, 60 160 40 000 ml @ 20 mls/hr IV . Q24H RAMESH Rx#:[id number] Intake, IV Titration 118.151 258.468 58.969 Amount Insulin Regular 100 unit 20.419 16.648 In Sodium Chloride 0.9% 100 ml @ Titrate IV .Q0M RAMESH Rx#:[id number] propofoL 1,000 mg In 97.732 241.820 58.969 Empty Bag 1 bag @ Titrate IV .Q0M RAMESH Rx#: [id number] Blood Product 310 310 Rc As-1 Unit 310 [id number] Rc As-1 Unit 310 [id number] Output: Urine 475 1700 400 Other: Voiding Method Indwelling Catheter Indwelling Catheter Indwelling Catheter Weight 122.47 kg ABP, PAP, CO, CI - Last 8 Hours Arterial Blood Pressure 151/53 Arterial Blood Pressure 138/46 Arterial Blood Pressure 141/48 Arterial Blood Pressure 134/49 Arterial Blood Pressure 128/43 Arterial Blood Pressure 122/41 Arterial Blood Pressure 126/41 Arterial Blood Pressure 140/53 Arterial Blood Pressure 138/47 Arterial Blood Pressure 138/48 Arterial Blood Pressure 136/46 Arterial Blood Pressure 145/52 Arterial Blood Pressure 140/49 Results 06/02/20 15:04 06/02/20 06:59 Cardiac Enzymes 06/02/20 Range/Units 06:59 AST 24 (17-59) U/L CBC 06/02/20 06/02/20 06/02/20 Range/Units 02:19 06:59 15:04 WBC 11.9 H 11.2 H 12.3 H (3.8-10.6) k/uL RBC 2.77 L 2.56 L 3.00 L (4.30-5.90) m/uL Hgb 6.9 L* 6.5 L* 7.9 L (13.0-17.5) gm/dL Hct 25.3 L 22.8 L 26.3 L (39.0-53.0) % Plt Count 347 315 305 (150-450) k/uL Comprehensive Metabolic Panel 06/02/20 06/02/20 06/02/20 Range/Units 00:26 02:19 06:59 Sodium 136 L 137 139 (137-145) mmol/L Potassium 5.5 H 5.6 H 5.1 (3.5-5.1) mmol/L Chloride 95 L 95 L 95 L (98-107) mmol/L Carbon Dioxide 35 H 33 H 35 H (22-30) mmol/L BUN 89 H 91 H 89 H (9-20) mg/dL Creatinine 2.41 H 2.33 H 2.26 H (0.66-1.25) mg/dL Glucose 140 H 117 H 135 H (74-99) mg/dL Calcium 8.5 8.5 8.5 (8.4-10.2) mg/dL AST 24 (17-59) U/L ALT 32 (4-49) U/L Alkaline Phosphatase 97 (38-126) U/L Total Protein 5.0 L (6.3-8.2) g/dL Albumin 2.8 L (3.5-5.0) g/dL Current Medications Generic Name Dose Route Start Last Admin Trade Name Freq PRN Reason Stop Dose Admin Albuterol/Ipratropium 3 ml 06/02/20 12:00 06/02/20 15:41 Duoneb 0.5 Mg-3 Mg/3 Ml Soln INHALATION 3 ml RT-Q4H RAMESH Administration Atorvastatin Calcium 80 mg 06/01/20 21:00 06/01/20 21:01 Lipitor PO 80 mg HS RAMESH Administration Chlorhexidine Gluconate 15 ml 06/02/20 21:00 Peridex MUCOUS MEM BID RAMESH Furosemide 40 mg 06/01/20 11:45 06/02/20 10:47 Lasix IV 40 mg Q12H RAMESH Administration Sodium Chloride 1,000 mls @ 20 mls/hr 06/01/20 11:45 06/02/20 11:01 Saline 0.9% IV 20 mls/hr .Q24H RAMESH Administration Propofol 1,000 mg/ IV Solution 100 mls @ 0 mls/hr 06/02/20 03:30 06/02/20 15:00 IV 40 mcg/kg/min .Q0M RAMESH 29.393 mls/hr Titration Protocol Titrate Insulin Aspart 0 unit 06/02/20 18:00 Novolog SQ Q6H RAMESH Protocol Insulin Detemir 20 unit 06/02/20 17:00 Levemir SQ HS RAMESH Levothyroxine Sodium 50 mcg 06/02/20 06:30 06/02/20 07:06 Synthroid PO 50 mcg 0630 RAMESH Administration Methylprednisolone Sodium Succinate 60 mg 06/01/20 15:09 06/02/20 11:00 Solu-Medrol IV 60 mg Q6HR RAMESH Administration Naloxone HCl 0.2 mg 06/01/20 11:40 Narcan IV Q2M PRN Opioid Reversal Nitroglycerin 1 inch 06/02/20 18:00 Nitro-Bid Oint TOPICAL QID RAMESH Pantoprazole Sodium 40 mg 06/01/20 11:45 06/02/20 10:47 Protonix IV 40 mg DAILY RAMESH Administration Intake and Output 06/02/20 06/02/20 06/02/20 06:59 14:59 22:59 Intake Total 488.151 728.468 98.969 Output Total 475 1700 400 Balance 13.151 -971.532 -301.031 Intake: IV 60 160 40 Sodium Chloride 0.9% 1, 60 160 40 000 ml @ 20 mls/hr IV . Q24H RAMESH Rx#:[id number] Intake, IV Titration 118.151 258.468 58.969 Amount Insulin Regular 100 unit 20.419 16.648 In Sodium Chloride 0.9% 100 ml @ Titrate IV .Q0M RAMESH Rx#:[id number] propofoL 1,000 mg In 97.732 241.820 58.969 Empty Bag 1 bag @ Titrate IV .Q0M RAMESH Rx#: [id number] Blood Product 310 310 Rc As-1 Unit 310 [id number] Rc As-1 Unit 310 [id number] Output: Urine 475 1700 400 Other: Voiding Method Indwelling Catheter Indwelling Catheter Indwelling Catheter Weight 122.47 kg Patient Weight 06/03/20 06:59 Weight 122.47 kg 06/02/20 15:04 06/02/20 06:59
--- NOTE | 2020-06-02 16:34 | CONS ---
CONSULTATION PULMONARY/CRITICAL CARE CONSULTATION: DATE OF SERVICE: 06/02/2020 This is an 85-year-old gentleman who presented to the emergency room with complaints of difficulty breathing. He apparently had been having difficulty breathing a couple days prior to admission. It is noted in the ER trace that he was a poor historian. He apparently does have a history of underlying COPD. In addition, he complained of some leg swelling. He also apparently is on CPAP at home, but apparently his machine was not working well. In the emergency room, he denied any chest pain or fevers. He was seen there and was noted to have a possible GI bleed. He also was noted to have hyperkalemia with a potassium of 6.6. Subsequent to the admission to the floor, the patient developed acute respiratory distress and required intubation on June 02. This occurs at maybe 2 o'clock in the morning for respiratory failure. Currently, the patient is on the volume assist-control mode with a rate of 24 to be dropped down to 20, tidal volume of 450, FiO2 of 50%, PEEP of 5. Blood gases show a PO2 of 261, a pCO2 of 52, and a pH 7.46. Those blood gases were done on 100% and the FiO2 was decreased at 50%. He did receive 1 unit of PRBCs for his GI bleed. In addition, the patient is on saline at 20 mL an hour, propofol at 50 mcg/kg per minute and insulin drip at 3 units an hour. The patient does have quite a large difference between his peak airway pressure and plateau pressure. His peak airway pressure being 34 cm of water and his plateau pressure being 21 cm of water. Today I have asked the nurses to give him an additional unit of blood. In addition, we are going to drop the rate from 24-20 down on the ventilator. Finally, will place an art line and a central line. ALLERGIES: Include LISINOPRIL and ATIVAN. HOME MEDICATIONS: Include Synthroid, vitamin D3, Pulmicort, Flexhaler, prednisone, Singulair, losartan, insulin, gabapentin, Lasix, famotidine, Coreg, Lipitor, and Eliquis. MEDICAL HISTORY: Apparently includes COPD and diabetes mellitus. He also apparently has a history of heart failure. In addition, he must have a history of underlying CAD as he has had a previous bypass grafting. SURGICAL HISTORY: Includes cholecystectomy, heart catheterization with stent. SOCIAL HISTORY: Listed as being a never smoker. There is no history of any alcohol use or drug use. FAMILY HISTORY: Unobtainable because he is on the ventilator. REVIEW OF SYSTEMS: Cannot be obtained because he is on the ventilator. As mentioned, when he first presented, he complained of shortness of breath as well as some leg swelling. Current vital signs include a temperature of 98.2, heart rate 65, respiratory rate 20, blood pressure 138/47, and his saturations are 96%. There is an FiO2 of 50 and a PEEP of 5. Appears in no acute distress. Currently sedated. HEENT: Examination is grossly unremarkable. He has orally placed endotracheal tube and NG tube. NECK: Supple. Full range of motion. No adenopathy. Neck veins are flat. CARDIOVASCULAR: Examination reveals an irregular rhythm and rate. Heart rate 65. S1, S2 normal. No distinct murmurs noted. LUNGS: Reveal diffuse coarse rhonchi. Breath sounds are equal. ABDOMEN: Soft. No bowel sounds. EXTREMITIES: Intact. There is no edema. SKIN: Without rash. NEUROLOGIC: Examination cannot be adequately assessed. LABS: Reviewed. His white count is 11.9, hemoglobin 6.9, hematocrit 25.3, platelet count 347,000, blood gases have been noted. Sodium 137, potassium 5.6 down from 6.6, chloride is 95, CO2 is 33, anion gap of 9, BUN and creatinine were 91 and 2.33. The rest of his labs look okay. N terminal proBNP was quite high at 7780. Troponin 0.031. Albumin 2.8. Urine is essentially negative for urinary tract infection. Stools for occult blood were positive. Microbiology is currently negative. Chest x-ray is consistent with fluid overload and CHF. Central line is in good placement. CURRENT MEDICATIONS: Reviewed. He is currently on Lipitor, chlorhexidine, Lasix, insulin, DuoNeb, levothyroxine, Solu-Medrol, Narcan, nitroglycerin ointment, Protonix, and propofol. The patient is also getting a saline IV at 20 mL an hour as mentioned prior. ASSESSMENT: 1. Acute hypoxemic respiratory failure, likely multifactorial, in part related to underlying CHF but also possible chronic obstructive pulmonary disease. 2. Hyperkalemia, improved. 3. Gastrointestinal bleed, status post 2 units of PRBCs. 4. History of diabetes. 5. History of congestive heart failure. 6. History of coronary artery disease. 7. Status post stent placement. 8. Status post bypass grafting. PLAN: Currently, the patient had a left subclavian central line placed as well as a left radial art line. Additional recommendations and suggestions are forthcoming. Prognosis is guarded. His age is 85. Apparently for the time being, he is a FULL CODE. We will give him 1 additional unit of blood. Will drop his rate from on the ventilator from 24-20. It should help to deal with this post hypercapnic alkalosis. In addition, will start the patient on tube feeds. Lines were placed. Prognosis is guarded. Will continue to follow. MMODL / IJN: [id number] /
--- NOTE | 2020-06-02 16:47 | P.PN ---
Subjective 85-year-old male is being treated for acute hypoxic and hypercapnic respiratory failure patient does have history of sleep apnea does appear to have some chronic CO2 retention. Patient is also being treated for heart failure exacerbation and echocardiogram is being obtained. Patient is anemic received 2 units of for blood transfusion although there is no clear evidence of acute GI bleed. Patient is also being treated for acute renal failure from a severe anemia there is no clear evidence of for acute blood loss anemia patient does have history of COPD and is on systemic steroids at this time patient has elevated blood sugars. Is on IV insulin drip which was changed to long-acting steroid. We'll insulin.patient has hypovolemic hyponatremia which is improving with IV Lasix. Constitutional: Denied any fatigue denied any fever. Cardio vascular: denied any chest pain, palpitations Gastrointestinal denied any nausea vomiting Pulmonary: Denied any shortness of breath cough Neurologic denied any new focal deficits All inpatient medications were reviewed and appropriate changes in these medications as dictated in the interval history and assessment and plan. Objective - Vital Signs Vital signs: Vital Signs Temp 98.6 F 06/02/20 16:00 Pulse 64 06/02/20 16:00 Resp 20 06/02/20 16:00 BP 124/41 06/02/20 13:08 Pulse Ox 96 06/02/20 16:00 Intake & Output 06/01/20 06/02/20 06/02/20 18:59 06:59 18:59 Intake Total 0 519.394 868.468 Output Total 1375 2100 Balance 0 -855.606 -1231.532 Weight 122.47 kg 122.47 kg Intake: IV 60 200 Sodium Chloride 0.9% 1, 60 200 000 ml @ 20 mls/hr IV . Q24H RAMESH Rx#:[id number] Intake, IV Titration 149.394 358.468 Amount Insulin Regular 100 unit 51.662 16.648 In Sodium Chloride 0.9% 100 ml @ Titrate IV .Q0M RAMESH Rx#:[id number] propofoL 1,000 mg In 97.732 341.820 Empty Bag 1 bag @ Titrate IV .Q0M RAMESH Rx#: [id number] Blood Product 0 310 310 Rc As-1 Unit 310 [id number] Rc As-1 Unit 0 310 [id number] Output: Urine 1375 2100 Other: Voiding Method Indwelling Catheter Indwelling Catheter Indwelling Catheter ABP, PAP, CO, CI - Last Documented Arterial Blood Pressure 151/53 - Exam PHYSICAL EXAMINATION: GENERAL: is intubated sedated HEENT: Pupils are round and equally reacting to light. EOMI. No scleral icterus. No conjunctival pallor. Normocephalic, atraumatic. No pharyngeal erythema. No thyromegaly. CARDIOVASCULAR: S1 and S2 present. No murmurs, rubs, or gallops. PULMONARY: lymphatics pretty wheezing diminished air entry into bilateral lung alaniz ABDOMEN: Soft, nontender, nondistended, normoactive bowel sounds. No palpable organomegaly. MUSCULOSKELETAL: No joint swelling or deformity. EXTREMITIES: No cyanosis, clubbing, or pedal edema. NEUROLOGICAL: patient is sedated SKIN: No rashes. - Labs CBC & Chem 7: 06/02/20 15:04 06/02/20 06:59 Labs: Abnormal Lab Results - Last 24 Hours (Table) 06/01/20 06/01/20 06/01/20 Range/Units 15:51 16:00 16:48 WBC (3.8-10.6) k/uL RBC (4.30-5.90) m/uL Hgb (13.0-17.5) gm/dL Hct (39.0-53.0) % MCHC (31.0-37.0) g/dL RDW (11.5-15.5) % Neutrophils # (1.3-7.7) k/uL Neutrophils # (Manual) (1.3-7.7) k/uL Lymphocytes # (1.0-4.8) k/uL Lymphocytes # (Manual) (1.0-4.8) k/uL Metamyelocytes # (Man) (0) k/uL Nucleated RBCs (0-0) /100 WBC ABG pH (7.35-7.45) ABG pCO2 (35-45) mmHg ABG pO2 (83-108) mmHg ABG HCO3 (21-25) mmol/L ABG Total CO2 (19-24) mmol/L ABG O2 Saturation (94-97) % Sodium (137-145) mmol/L Potassium (3.5-5.1) mmol/L Chloride (98-107) mmol/L Carbon Dioxide (22-30) mmol/L BUN (9-20) mg/dL Creatinine (0.66-1.25) mg/dL Glucose (74-99) mg/dL POC Glucose (mg/dL) 323 H (75-99) mg/dL Total Protein (6.3-8.2) g/dL Albumin (3.5-5.0) g/dL Urine Protein Trace H (Negative) Urine Blood (Negative) Ur Leukocyte Esterase (Negative) Urine Bacteria (None) /hpf Urine Mucus (None) /hpf Crossmatch See Detail 06/01/20 06/01/20 06/01/20 Range/Units 19:39 20:03 20:32 WBC (3.8-10.6) k/uL RBC (4.30-5.90) m/uL Hgb (13.0-17.5) gm/dL Hct (39.0-53.0) % MCHC (31.0-37.0) g/dL RDW (11.5-15.5) % Neutrophils # (1.3-7.7) k/uL Neutrophils # (Manual) (1.3-7.7) k/uL Lymphocytes # (1.0-4.8) k/uL Lymphocytes # (Manual) (1.0-4.8) k/uL Metamyelocytes # (Man) (0) k/uL Nucleated RBCs (0-0) /100 WBC ABG pH (7.35-7.45) ABG pCO2 (35-45) mmHg ABG pO2 (83-108) mmHg ABG HCO3 (21-25) mmol/L ABG Total CO2 (19-24) mmol/L ABG O2 Saturation (94-97) % Sodium (137-145) mmol/L Potassium (3.5-5.1) mmol/L Chloride (98-107) mmol/L Carbon Dioxide (22-30) mmol/L BUN (9-20) mg/dL Creatinine (0.66-1.25) mg/dL Glucose (74-99) mg/dL POC Glucose (mg/dL) 321 H 346 H 336 H (75-99) mg/dL Total Protein (6.3-8.2) g/dL Albumin (3.5-5.0) g/dL Urine Protein (Negative) Urine Blood (Negative) Ur Leukocyte Esterase (Negative) Urine Bacteria (None) /hpf Urine Mucus (None) /hpf Crossmatch 06/01/20 06/01/20 06/01/20 Range/Units 20:57 21:28 22:03 WBC (3.8-10.6) k/uL RBC (4.30-5.90) m/uL Hgb (13.0-17.5) gm/dL Hct (39.0-53.0) % MCHC (31.0-37.0) g/dL RDW (11.5-15.5) % Neutrophils # (1.3-7.7) k/uL Neutrophils # (Manual) (1.3-7.7) k/uL Lymphocytes # (1.0-4.8) k/uL Lymphocytes # (Manual) (1.0-4.8) k/uL Metamyelocytes # (Man) (0) k/uL Nucleated RBCs (0-0) /100 WBC ABG pH (7.35-7.45) ABG pCO2 (35-45) mmHg ABG pO2 (83-108) mmHg ABG HCO3 (21-25) mmol/L ABG Total CO2 (19-24) mmol/L ABG O2 Saturation (94-97) % Sodium (137-145) mmol/L Potassium (3.5-5.1) mmol/L Chloride (98-107) mmol/L Carbon Dioxide (22-30) mmol/L BUN (9-20) mg/dL Creatinine (0.66-1.25) mg/dL Glucose (74-99) mg/dL POC Glucose (mg/dL) 318 H 289 H 264 H (75-99) mg/dL Total Protein (6.3-8.2) g/dL Albumin (3.5-5.0) g/dL Urine Protein (Negative) Urine Blood (Negative) Ur Leukocyte Esterase (Negative) Urine Bacteria (None) /hpf Urine Mucus (None) /hpf Crossmatch 06/01/20 06/02/20 06/02/20 Range/Units 22:27 00:26 00:35 WBC (3.8-10.6) k/uL RBC (4.30-5.90) m/uL Hgb (13.0-17.5) gm/dL Hct (39.0-53.0) % MCHC (31.0-37.0) g/dL RDW (11.5-15.5) % Neutrophils # (1.3-7.7) k/uL Neutrophils # (Manual) (1.3-7.7) k/uL Lymphocytes # (1.0-4.8) k/uL Lymphocytes # (Manual) (1.0-4.8) k/uL Metamyelocytes # (Man) (0) k/uL Nucleated RBCs (0-0) /100 WBC ABG pH (7.35-7.45) ABG pCO2 (35-45) mmHg ABG pO2 (83-108) mmHg ABG HCO3 (21-25) mmol/L ABG Total CO2 (19-24) mmol/L ABG O2 Saturation (94-97) % Sodium 136 L (137-145) mmol/L Potassium 5.5 H (3.5-5.1) mmol/L Chloride 95 L (98-107) mmol/L Carbon Dioxide 35 H (22-30) mmol/L BUN 89 H (9-20) mg/dL Creatinine 2.41 H (0.66-1.25) mg/dL Glucose 140 H (74-99) mg/dL POC Glucose (mg/dL) 225 H 163 H (75-99) mg/dL Total Protein (6.3-8.2) g/dL Albumin (3.5-5.0) g/dL Urine Protein (Negative) Urine Blood (Negative) Ur Leukocyte Esterase (Negative) Urine Bacteria (None) /hpf Urine Mucus (None) /hpf Crossmatch 06/02/20 06/02/20 06/02/20 Range/Units 02:03 02:04 02:19 WBC 11.9 H (3.8-10.6) k/uL RBC 2.77 L (4.30-5.90) m/uL Hgb 6.9 L* (13.0-17.5) gm/dL Hct 25.3 L (39.0-53.0) % MCHC 27.4 L (31.0-37.0) g/dL RDW 16.0 H (11.5-15.5) % Neutrophils # (1.3-7.7) k/uL Neutrophils # (Manual) 11.50 H (1.3-7.7) k/uL Lymphocytes # (1.0-4.8) k/uL Lymphocytes # (Manual) 0.24 L (1.0-4.8) k/uL Metamyelocytes # (Man) 0.12 H (0) k/uL Nucleated RBCs 1 H (0-0) /100 WBC ABG pH 7.31 L (7.35-7.45) ABG pCO2 74 H* (35-45) mmHg ABG pO2 59 L* (83-108) mmHg ABG HCO3 37 H (21-25) mmol/L ABG Total CO2 40 H (19-24) mmol/L ABG O2 Saturation 89.9 L (94-97) % Sodium (137-145) mmol/L Potassium (3.5-5.1) mmol/L Chloride (98-107) mmol/L Carbon Dioxide (22-30) mmol/L BUN (9-20) mg/dL Creatinine (0.66-1.25) mg/dL Glucose (74-99) mg/dL POC Glucose (mg/dL) 135 H (75-99) mg/dL Total Protein (6.3-8.2) g/dL Albumin (3.5-5.0) g/dL Urine Protein (Negative) Urine Blood (Negative) Ur Leukocyte Esterase (Negative) Urine Bacteria (None) /hpf Urine Mucus (None) /hpf Crossmatch 06/02/20 06/02/20 06/02/20 Range/Units 02:19 02:26 03:55 WBC (3.8-10.6) k/uL RBC (4.30-5.90) m/uL Hgb (13.0-17.5) gm/dL Hct (39.0-53.0) % MCHC (31.0-37.0) g/dL RDW (11.5-15.5) % Neutrophils # (1.3-7.7) k/uL Neutrophils # (Manual) (1.3-7.7) k/uL Lymphocytes # (1.0-4.8) k/uL Lymphocytes # (Manual) (1.0-4.8) k/uL Metamyelocytes # (Man) (0) k/uL Nucleated RBCs (0-0) /100 WBC ABG pH 7.31 L 7.46 H (7.35-7.45) ABG pCO2 75 H* 52 H (35-45) mmHg ABG pO2 56 L* 261 H (83-108) mmHg ABG HCO3 38 H 37 H (21-25) mmol/L ABG Total CO2 40 H 38 H (19-24) mmol/L ABG O2 Saturation 87.6 L 100.0 H (94-97) % Sodium (137-145) mmol/L Potassium 5.6 H (3.5-5.1) mmol/L Chloride 95 L (98-107) mmol/L Carbon Dioxide 33 H (22-30) mmol/L BUN 91 H (9-20) mg/dL Creatinine 2.33 H (0.66-1.25) mg/dL Glucose 117 H (74-99) mg/dL POC Glucose (mg/dL) (75-99) mg/dL Total Protein (6.3-8.2) g/dL Albumin (3.5-5.0) g/dL Urine Protein (Negative) Urine Blood (Negative) Ur Leukocyte Esterase (Negative) Urine Bacteria (None) /hpf Urine Mucus (None) /hpf Crossmatch 06/02/20 06/02/20 06/02/20 Range/Units 03:59 05:32 06:04 WBC (3.8-10.6) k/uL RBC (4.30-5.90) m/uL Hgb (13.0-17.5) gm/dL Hct (39.0-53.0) % MCHC (31.0-37.0) g/dL RDW (11.5-15.5) % Neutrophils # (1.3-7.7) k/uL Neutrophils # (Manual) (1.3-7.7) k/uL Lymphocytes # (1.0-4.8) k/uL Lymphocytes # (Manual) (1.0-4.8) k/uL Metamyelocytes # (Man) (0) k/uL Nucleated RBCs (0-0) /100 WBC ABG pH (7.35-7.45) ABG pCO2 (35-45) mmHg ABG pO2 (83-108) mmHg ABG HCO3 (21-25) mmol/L ABG Total CO2 (19-24) mmol/L ABG O2 Saturation (94-97) % Sodium (137-145) mmol/L Potassium (3.5-5.1) mmol/L Chloride (98-107) mmol/L Carbon Dioxide (22-30) mmol/L BUN (9-20) mg/dL Creatinine (0.66-1.25) mg/dL Glucose (74-99) mg/dL POC Glucose (mg/dL) 133 H 142 H 141 H (75-99) mg/dL Total Protein (6.3-8.2) g/dL Albumin (3.5-5.0) g/dL Urine Protein (Negative) Urine Blood (Negative) Ur Leukocyte Esterase (Negative) Urine Bacteria (None) /hpf Urine Mucus (None) /hpf Crossmatch 06/02/20 06/02/20 06/02/20 Range/Units 06:50 06:59 06:59 WBC 11.2 H (3.8-10.6) k/uL RBC 2.56 L (4.30-5.90) m/uL Hgb 6.5 L* (13.0-17.5) gm/dL Hct 22.8 L (39.0-53.0) % MCHC 28.6 L (31.0-37.0) g/dL RDW 16.1 H (11.5-15.5) % Neutrophils # 10.2 H (1.3-7.7) k/uL Neutrophils # (Manual) (1.3-7.7) k/uL Lymphocytes # 0.3 L (1.0-4.8) k/uL Lymphocytes # (Manual) (1.0-4.8) k/uL Metamyelocytes # (Man) (0) k/uL Nucleated RBCs (0-0) /100 WBC ABG pH (7.35-7.45) ABG pCO2 (35-45) mmHg ABG pO2 (83-108) mmHg ABG HCO3 (21-25) mmol/L ABG Total CO2 (19-24) mmol/L ABG O2 Saturation (94-97) % Sodium (137-145) mmol/L Potassium (3.5-5.1) mmol/L Chloride 95 L (98-107) mmol/L Carbon Dioxide 35 H (22-30) mmol/L BUN 89 H (9-20) mg/dL Creatinine 2.26 H (0.66-1.25) mg/dL Glucose 135 H (74-99) mg/dL POC Glucose (mg/dL) (75-99) mg/dL Total Protein 5.0 L (6.3-8.2) g/dL Albumin 2.8 L (3.5-5.0) g/dL Urine Protein (Negative) Urine Blood Trace H (Negative) Ur Leukocyte Esterase Small H (Negative) Urine Bacteria Rare H (None) /hpf Urine Mucus Rare H (None) /hpf Crossmatch 06/02/20 06/02/20 06/02/20 Range/Units 07:16 08:12 09:58 WBC (3.8-10.6) k/uL RBC (4.30-5.90) m/uL Hgb (13.0-17.5) gm/dL Hct (39.0-53.0) % MCHC (31.0-37.0) g/dL RDW (11.5-15.5) % Neutrophils # (1.3-7.7) k/uL Neutrophils # (Manual) (1.3-7.7) k/uL Lymphocytes # (1.0-4.8) k/uL Lymphocytes # (Manual) (1.0-4.8) k/uL Metamyelocytes # (Man) (0) k/uL Nucleated RBCs (0-0) /100 WBC ABG pH (7.35-7.45) ABG pCO2 (35-45) mmHg ABG pO2 (83-108) mmHg ABG HCO3 (21-25) mmol/L ABG Total CO2 (19-24) mmol/L ABG O2 Saturation (94-97) % Sodium (137-145) mmol/L Potassium (3.5-5.1) mmol/L Chloride (98-107) mmol/L Carbon Dioxide (22-30) mmol/L BUN (9-20) mg/dL Creatinine (0.66-1.25) mg/dL Glucose (74-99) mg/dL POC Glucose (mg/dL) 157 H 161 H 153 H (75-99) mg/dL Total Protein (6.3-8.2) g/dL Albumin (3.5-5.0) g/dL Urine Protein (Negative) Urine Blood (Negative) Ur Leukocyte Esterase (Negative) Urine Bacteria (None) /hpf Urine Mucus (None) /hpf Crossmatch 06/02/20 06/02/20 06/02/20 Range/Units 11:06 12:04 13:02 WBC (3.8-10.6) k/uL RBC (4.30-5.90) m/uL Hgb (13.0-17.5) gm/dL Hct (39.0-53.0) % MCHC (31.0-37.0) g/dL RDW (11.5-15.5) % Neutrophils # (1.3-7.7) k/uL Neutrophils # (Manual) (1.3-7.7) k/uL Lymphocytes # (1.0-4.8) k/uL Lymphocytes # (Manual) (1.0-4.8) k/uL Metamyelocytes # (Man) (0) k/uL Nucleated RBCs (0-0) /100 WBC ABG pH (7.35-7.45) ABG pCO2 (35-45) mmHg ABG pO2 (83-108) mmHg ABG HCO3 (21-25) mmol/L ABG Total CO2 (19-24) mmol/L ABG O2 Saturation (94-97) % Sodium (137-145) mmol/L Potassium (3.5-5.1) mmol/L Chloride (98-107) mmol/L Carbon Dioxide (22-30) mmol/L BUN (9-20) mg/dL Creatinine (0.66-1.25) mg/dL Glucose (74-99) mg/dL POC Glucose (mg/dL) 148 H 145 H 145 H (75-99) mg/dL Total Protein (6.3-8.2) g/dL Albumin (3.5-5.0) g/dL Urine Protein (Negative) Urine Blood (Negative) Ur Leukocyte Esterase (Negative) Urine Bacteria (None) /hpf Urine Mucus (None) /hpf Crossmatch 06/02/20 06/02/20 Range/Units 14:53 15:04 WBC 12.3 H (3.8-10.6) k/uL RBC 3.00 L (4.30-5.90) m/uL Hgb 7.9 L (13.0-17.5) gm/dL Hct 26.3 L (39.0-53.0) % MCHC 29.9 L (31.0-37.0) g/dL RDW 16.4 H (11.5-15.5) % Neutrophils # (1.3-7.7) k/uL Neutrophils # (Manual) (1.3-7.7) k/uL Lymphocytes # (1.0-4.8) k/uL Lymphocytes # (Manual) (1.0-4.8) k/uL Metamyelocytes # (Man) (0) k/uL Nucleated RBCs (0-0) /100 WBC ABG pH (7.35-7.45) ABG pCO2 (35-45) mmHg ABG pO2 (83-108) mmHg ABG HCO3 (21-25) mmol/L ABG Total CO2 (19-24) mmol/L ABG O2 Saturation (94-97) % Sodium (137-145) mmol/L Potassium (3.5-5.1) mmol/L Chloride (98-107) mmol/L Carbon Dioxide (22-30) mmol/L BUN (9-20) mg/dL Creatinine (0.66-1.25) mg/dL Glucose (74-99) mg/dL POC Glucose (mg/dL) 143 H (75-99) mg/dL Total Protein (6.3-8.2) g/dL Albumin (3.5-5.0) g/dL Urine Protein (Negative) Urine Blood (Negative) Ur Leukocyte Esterase (Negative) Urine Bacteria (None) /hpf Urine Mucus (None) /hpf Crossmatch Microbiology - Last 24 Hours (Table) 06/02/20 03:12 Gram Stain - Preliminary Sputum Sputum Culture - Preliminary Assessment and Plan Plan: -acute on chronic hypercapnic as well as hypoxic respiratory failure: Secondary to COPD exacerbation, sleep apnea with CO2 retention as well as pulmonary edema leading to hypoxemia. Echocardiac exam is being up and continue with systemic steroids and inhalation treatments continued ventilatory support. -severe anemia: No evidence of acute GI bleed patient received Z2 units of blood transfusion we'll continue to monitor for GI bleed -Sleep apnea -Type 2 diabetes mellitus: Patient blood sugars are expected to go because of systemic steroids patient will be started on long-acting insulin along with sliding scale for steroids. Discontinue IV insulin. -coronary artery disease -acute renal failure possibly secondary to acute tubular necrosis from severe anemia with a competent of cardiorenal syndrome baseline creatinine is unknown. -Congestive heart failure EF is unknown echocardiac exam is pending patient has pulmonary edema
[2020-06-02] MEDS: INSULIN DETEMIR (LEVEMIR) 100 UNIT/ML SYR SQ SCH (17:22)
[2020-06-02 17:54] LABS: Glucose,Whole Blood 147 mg/dL (75-99)
[2020-06-02] MEDS: INSULIN ASPART (NovoLOG) 100 UNIT/ML VIAL SQ SCH (17:59)
--- NOTE | 2020-06-02 18:00 | ECHOF ---
Referral Reason:follow up MEASUREMENTS -------- HEIGHT: 177.8 cm WEIGHT: 122.5 kg BP: 126/41 IVSd: 1.8 cm (0.6 - 1.1) LVIDd: 3.8 cm (3.9 - 5.3) LVPWd: 1.7 cm (0.6 - 1.1) IVSs: 2.3 cm LVIDs: 2.8 cm LVPWs: 1.8 cm LAESV Index (A-L): 30.53 ml/m Ao Diam: 2.6 cm (2.0 - 3.7) AV Cusp: 1.1 cm (1.5 - 2.6) MV EXCURSION: 18.134 mm (> 18.000) MV EF SLOPE: 84 mm/s (70 - 150) EPSS: 1.0 cm MV E Mak: 1.64 m/s MV DecT: 152 ms MV A Mak: 0.92 m/s MV E/A Ratio: 1.79 AV maxP.81 mmHg AV meanP.33 mmHg RAP: 5.00 mmHg RVSP: 21.56 mmHg FINDINGS -------- This was a technically adequate study. Pt. on a vent. The left ventricular size is normal. There is severe concentric left ventricular hypertrophy. Ove rall left ventricular systolic function is low-normal with, an EF between 50 - 55 %. Septal wall mo tion is delayed and consistent with prior cardiac surgery. The RV was not well visualized. LA is midly dilated 29-33ml/m2. The right atrium was not well visualized. Interatrial and interventricular septum intact. There is no evidence of aortic regurgitation. There is moderate aortic stenosis present. Peak/manas n gradient across the Aortic Valve is 41.81mmHg / 24.33mmHg. Mild mitral annular calcification present. Mild mitral regurgitation is present. Mild tricuspid regurgitation present. There is no evidence of pulmonary hypertension. The right v entricular systolic pressure, as measured by Doppler, is 21.56mmHg. There is no pulmonic regurgitation present. The aortic root size is normal. IVC Not well visulized. There is no pericardial effusion. CONCLUSIONS -------- 1. The left ventricular size is normal. 2. There is severe concentric left ventricular hypertrophy. 3. Overall left ventricular systolic function is low-normal with, an EF between 50 - 55 %. 4. LA is midly dilated 29-33ml/m2. 5. There is moderate aortic stenosis present. 6. Peak/mean gradient across the Aortic Valve is 41.81mmHg / 24.33mmHg. 7. Mild mitral annular calcification present. 8. Mild mitral regurgitation is present. 9. Mild tricuspid regurgitation present. CAMPUS INTERVIEWS INTERN: Adeola Erickson RDCS
[2020-06-02] MEDS ORDERED: LACTATED RINGERS 1,000 ML IV SCH (20:15)
[2020-06-02] MEDS: CHLORHEXIDINE GLUCONATE 15 ML CUP MUCOUS MEM SCH (21:00)
[2020-06-02] MEDS: ATORVASTATIN 80 MG TAB PO SCH (21:01)
[2020-06-02 23:55] LABS: Glucose,Whole Blood 219 mg/dL (75-99)
[2020-06-03] MEDS: INSULIN ASPART (NovoLOG) 100 UNIT/ML VIAL SQ SCH ×5 (00:06→23:30)
[2020-06-03] MEDS: IPRATROPIUM-ALBUTEROL 3 ML NEB INHALATION SCH ×8 (00:14→23:08)
[2020-06-03] MEDS: methylPREDNISolone SOD SUCCI 125 MG/2 ML VIAL IV SCH ×3 (00:20→11:39)
[2020-06-03] MEDS: NITROGLYCERIN OINT 1 INCH/GM PACKET TOPICAL SCH ×2 (02:07→08:38)
[2020-06-03] MEDS: BUDESONIDE 1 MG/2 ML NEBU INHALATION SCH (02:17)
[2020-06-03] MEDS: FORMOTEROL FUMARATE 20 MCG/2 ML NEBU INHALATION SCH (02:17)
[2020-06-03 05:20] LABS: Anisocytosis Slight; Basophils % (A) 0 %; Eosinophils % (A) 0 %; HCT 27.4 % (39.0-53.0); HGB 8.2 gm/dL (13.0-17.5); Hypochromasia Marked; Lymphocytes # (A) 0.2 k/uL (1.0-4.8); Lymphocytes % (A) 2 %; MCH 26.2 pg (25.0-35.0); MCHC 29.9 g/dL (31.0-37.0); MCV 87.5 fL (80.0-100.0); Mean Platelet Volume 8.2; Monocytes # (A) 0.5 k/uL (0-1.0); Monocytes % (A) 4 %; Neutrophils # (A) 10.6 k/uL (1.3-7.7); Neutrophils % (A) 93 %; Platelet Count 349 k/uL (150-450); Poikilocytosis Marked; RBC 3.13 m/uL (4.30-5.90); RDW 16.9 % (11.5-15.5); WBC 11.4 k/uL (3.8-10.6)
[2020-06-03 05:31] LABS: Calcium 8.2 mg/dL (8.4-10.2); Potassium 4.3 mmol/L (3.5-5.1)
[2020-06-03 05:52] LABS: ABG HCO3 36 mmol/L (21-25); ABG Oxygen Saturation 98.6 % (94-97); ABG PCO2 41 mmHg (35-45); ABG PH 7.55 (7.35-7.45); ABG PO2 103 mmHg (83-108); ABG TCO2 38 mmol/L (19-24); Allen Test Performed? Yes
[2020-06-03 06:47] LABS: Glucose,Whole Blood 276 mg/dL (75-99)
[2020-06-03] MEDS: LEVOTHYROXINE 50 MCG TAB PO SCH (06:57)
[2020-06-03] MEDS: SODIUM CHLORIDE 0.9% 1,000 ML IV SCH (07:00)
--- NOTE | 2020-06-03 07:08 | P.CONS ---
History of Present Illness - Reason for Consult Consult date: 06/02/20 anemia Requesting physician: Jas Ramirez - Chief Complaint Shortness of breath - History of Present Illness 85-year-old male with multiple medical comorbidities including COPD, diabetes mellitus, congestive heart failure, coronary artery disease and a history of ane alyssia who presented to the hospital due to worsening of his shortness of breath. Of note patient currently intubated and sedated in the ICU and history is been taken in conversation with the medical team and on review of the electronic medical record. The patient has a colostomy status post colonic resection secondary to rectal cancer in the past. There are no reports of any signs or symptoms of GI bleeding however stool testing was found to be positive on occult blood test. No reports of any nausea or vomiting. The patient had been experiencing increasing shortness of breath prior to presentation. Hemoglobin found to be 6.3 on presentation. The patient is having a good normal brown out put per his ostomy. He is status post transfusion of 2 units of packed red blood cells. Currently he is being treated for an exacerbation of his underlying congestive heart failure. Review of Systems ROS unobtainable: due to endotracheal tube Past Medical History Past Medical History: COPD, Diabetes Mellitus Additional Past Medical History / Comment(s): CHF History of Any Multi-Drug Resistant Organisms: None Reported Past Surgical History: Cholecystectomy, Coronary Bypass/CABG, Heart Catheterization With Stent Additional Past Surgical History / Comment(s): rectal cancer surgery-removed 2004 or 2005. Ostomy. Cataract surgery Date of Last Stent Placement:: 1995? Past Psychological History: No Psychological Hx Reported Smoking Status: Never smoker Past Alcohol Use History: None Reported Past Drug Use History: None Reported - Past Family History Mother Family Medical History: Diabetes Mellitus Additional Family Medical History / Comment(s): in her 90s Father Additional Family Medical History / Comment(s): of stomach cancer in the 1970s Medications and Allergies Home Medications Medication Instructions Recorded Confirmed Type Apixaban [Eliquis] 2.5 mg PO BID 06/01/20 06/01/20 History Atorvastatin Calcium [Lipitor] 80 mg PO HS 06/01/20 06/01/20 History Budesonide [Pulmicort Flexhaler] 1 puff INHALATION RT-BID 06/01/20 06/01/20 History Carvedilol [Coreg] 3.125 mg PO BID 06/01/20 06/01/20 History Cholecalciferol [Vitamin D3 (25 1,000 unit PO DAILY 06/01/20 06/01/20 History Mcg = 1000 Iu)] Famotidine 20 mg PO BID 06/01/20 06/01/20 History Furosemide [Lasix] 40 mg PO DAILY 06/01/20 06/01/20 History Gabapentin [Neurontin] 300 mg PO TID 06/01/20 06/01/20 History Insulin Glargine,Hum.rec.anlog 62 - 65 unit SQ 06/01/20 06/01/20 History [Lantus Solostar] Insulin Lispro [humaLOG Kwikpen] 5 unit SQ [facility] 06/01/20 06/01/20 History Insulin Lispro [humaLOG Kwikpen] See Protocol SQ [facility] 06/01/20 06/01/20 History Levothyroxine Sodium [Synthroid] 50 mcg PO DAILY 06/01/20 06/01/20 History Losartan [Cozaar] 25 mg PO DAILY 06/01/20 06/01/20 History Montelukast Sodium [Singulair] 10 mg PO HS 06/01/20 06/01/20 History predniSONE See Taper PO DIRECTED 06/01/20 06/01/20 History Allergies Allergy/AdvReac Type Severity Reaction Status Date / Time lisinopril Allergy Unknown Verified 06/02/20 09:13 lorazepam [From Ativan] AdvReac Confusion Verified 06/01/20 19:25 Physical Exam Vitals: Vital Signs Temp Pulse Pulse Resp BP BP Pulse Ox 06/02/20 08:00 98.4 F 66 24 123/57 92 L 06/02/20 07:30 66 24 128/67 94 L 06/02/20 07:00 71 24 127/90 95 06/02/20 06:30 66 24 125/64 91 L 06/02/20 06:00 71 24 120/62 90 L 06/02/20 05:30 81 24 118/60 92 L 06/02/20 05:00 75 24 109/54 93 L 06/02/20 04:30 74 24 99/53 94 L 06/02/20 04:15 62 24 99/51 92 L 06/02/20 04:00 98.3 F 66 24 94/49 99 06/02/20 03:45 65 24 92/50 100 06/02/20 03:30 64 24 104/57 100 06/02/20 03:15 86 24 103/47 100 06/02/20 03:00 98 F 93 21 132/74 92 L 06/02/20 02:49 29 H 06/02/20 00:00 97.9 F 80 19 117/53 93 L 06/01/20 23:38 97.9 F 80 19 117/53 93 L 06/01/20 20:41 105 H 06/01/20 20:33 108 H 06/01/20 20:32 100 06/01/20 20:27 94 06/01/20 20:00 98.2 F 99 19 130/61 96 06/01/20 19:31 98.2 F 99 19 130/61 96 06/01/20 19:01 98.1 F 18 L 16 115/69 90 L 06/01/20 18:51 98.2 F 99 16 100/56 94 L 06/01/20 16:00 97.9 F 91 16 151/65 95 06/01/20 15:32 88 06/01/20 12:40 98.2 F 84 20 111/40 94 L 06/01/20 12:36 78 06/01/20 12:18 87 06/01/20 12:05 97.4 F L 91 18 114/52 92 L 06/01/20 10:35 87 06/01/20 10:22 87 06/01/20 10:08 97.5 F L 96 30 H 111/49 93 L Intake and Output 06/01/20 06/02/20 06/02/20 22:59 06:59 14:59 Intake Total 31.243 488.151 92.784 Output Total 900 475 400 Balance -868.757 13.151 -307.216 Intake: IV 60 40 Sodium Chloride 0.9% 1, 60 40 000 ml @ 20 mls/hr IV . Q24H [facility] Rx#:[id number] Intake, IV Titration 31.243 118.151 52.784 Amount Insulin Regular 100 unit 31.243 20.419 1.347 In Sodium Chloride 0.9% 100 ml @ Titrate IV .Q0M [facility] Rx#:[id number] propofoL 1,000 mg In 97.732 51.437 Empty Bag 1 bag @ Titrate IV .Q0M [facility] Rx#: [id number] Blood Product 0 310 Rc As-1 Unit 0 310 [id number] Output: Urine 900 475 400 Other: Voiding Method Indwelling Catheter Indwelling Catheter On physical examination, patient appears comfortable in no apparent distress. HEAD: Normocephalic, atraumatic. EYES: No scleral icterus. No conjunctival injection. MOUTH: No lesions, tongue midline, ET tube in place. NECK: Trachea midline, no gross abnormalities. CHEST: coarse respiratory noises in all lung alaniz. HEART: irregularly irregular. ABDOMEN: Soft, obese, nontender. Bowel sounds are positive. No organomegaly. No guarding or rigidity. EXTREMITIES: bilateral pedal edema. SKIN: No rashes, no jaundice. NEUROLOGIC: intubated and sedated. No focal deficits. Results CBC & Chem 7: 06/03/20 04:45 06/03/20 04:45 Labs: Abnormal Lab Results - Last 24 Hours (Table) 06/01/20 06/01/20 06/01/20 Range/Units 10:43 10:43 15:51 WBC 11.5 H (3.8-10.6) k/uL RBC 2.61 L (4.30-5.90) m/uL Hgb 6.3 L* (13.0-17.5) gm/dL Hct 23.9 L (39.0-53.0) % MCH 24.3 L (25.0-35.0) pg MCHC 26.5 L (31.0-37.0) g/dL RDW 16.1 H (11.5-15.5) % Neutrophils # (Manual) 10.90 H (1.3-7.7) k/uL Lymphocytes # (Manual) 0.23 L (1.0-4.8) k/uL Metamyelocytes # (Man) (0) k/uL Nucleated RBCs 2 H (0-0) /100 WBC ABG pH (7.35-7.45) ABG pCO2 (35-45) mmHg ABG pO2 (83-108) mmHg ABG HCO3 (21-25) mmol/L ABG Total CO2 (19-24) mmol/L ABG O2 Saturation (94-97) % Sodium 136 L (137-145) mmol/L Potassium 6.6 H* (3.5-5.1) mmol/L Chloride 94 L (98-107) mmol/L Carbon Dioxide 35 H (22-30) mmol/L BUN 87 H (9-20) mg/dL Creatinine 2.46 H (0.66-1.25) mg/dL Glucose 288 H (74-99) mg/dL POC Glucose (mg/dL) (75-99) mg/dL Total Protein 5.4 L (6.3-8.2) g/dL Albumin 3.1 L (3.5-5.0) g/dL Urine Protein (Negative) Urine Blood (Negative) Ur Leukocyte Esterase (Negative) Urine Bacteria (None) /hpf Urine Mucus (None) /hpf Crossmatch See Detail 06/01/20 06/01/20 06/01/20 Range/Units 16:00 16:48 19:39 WBC (3.8-10.6) k/uL RBC (4.30-5.90) m/uL Hgb (13.0-17.5) gm/dL Hct (39.0-53.0) % MCH (25.0-35.0) pg MCHC (31.0-37.0) g/dL RDW (11.5-15.5) % Neutrophils # (Manual) (1.3-7.7) k/uL Lymphocytes # (Manual) (1.0-4.8) k/uL Metamyelocytes # (Man) (0) k/uL Nucleated RBCs (0-0) /100 WBC ABG pH (7.35-7.45) ABG pCO2 (35-45) mmHg ABG pO2 (83-108) mmHg ABG HCO3 (21-25) mmol/L ABG Total CO2 (19-24) mmol/L ABG O2 Saturation (94-97) % Sodium (137-145) mmol/L Potassium (3.5-5.1) mmol/L Chloride (98-107) mmol/L Carbon Dioxide (22-30) mmol/L BUN (9-20) mg/dL Creatinine (0.66-1.25) mg/dL Glucose (74-99) mg/dL POC Glucose (mg/dL) 323 H 321 H (75-99) mg/dL Total Protein (6.3-8.2) g/dL Albumin (3.5-5.0) g/dL Urine Protein Trace H (Negative) Urine Blood (Negative) Ur Leukocyte Esterase (Negative) Urine Bacteria (None) /hpf Urine Mucus (None) /hpf Crossmatch 06/01/20 06/01/20 06/01/20 Range/Units 20:03 20:32 20:57 WBC (3.8-10.6) k/uL RBC (4.30-5.90) m/uL Hgb (13.0-17.5) gm/dL Hct (39.0-53.0) % MCH (25.0-35.0) pg MCHC (31.0-37.0) g/dL RDW (11.5-15.5) % Neutrophils # (Manual) (1.3-7.7) k/uL Lymphocytes # (Manual) (1.0-4.8) k/uL Metamyelocytes # (Man) (0) k/uL Nucleated RBCs (0-0) /100 WBC ABG pH (7.35-7.45) ABG pCO2 (35-45) mmHg ABG pO2 (83-108) mmHg ABG HCO3 (21-25) mmol/L ABG Total CO2 (19-24) mmol/L ABG O2 Saturation (94-97) % Sodium (137-145) mmol/L Potassium (3.5-5.1) mmol/L Chloride (98-107) mmol/L Carbon Dioxide (22-30) mmol/L BUN (9-20) mg/dL Creatinine (0.66-1.25) mg/dL Glucose (74-99) mg/dL POC Glucose (mg/dL) 346 H 336 H 318 H (75-99) mg/dL Total Protein (6.3-8.2) g/dL Albumin (3.5-5.0) g/dL Urine Protein (Negative) Urine Blood (Negative) Ur Leukocyte Esterase (Negative) Urine Bacteria (None) /hpf Urine Mucus (None) /hpf Crossmatch 06/01/20 06/01/20 06/01/20 Range/Units 21:28 22:03 22:27 WBC (3.8-10.6) k/uL RBC (4.30-5.90) m/uL Hgb (13.0-17.5) gm/dL Hct (39.0-53.0) % MCH (25.0-35.0) pg MCHC (31.0-37.0) g/dL RDW (11.5-15.5) % Neutrophils # (Manual) (1.3-7.7) k/uL Lymphocytes # (Manual) (1.0-4.8) k/uL Metamyelocytes # (Man) (0) k/uL Nucleated RBCs (0-0) /100 WBC ABG pH (7.35-7.45) ABG pCO2 (35-45) mmHg ABG pO2 (83-108) mmHg ABG HCO3 (21-25) mmol/L ABG Total CO2 (19-24) mmol/L ABG O2 Saturation (94-97) % Sodium (137-145) mmol/L Potassium (3.5-5.1) mmol/L Chloride (98-107) mmol/L Carbon Dioxide (22-30) mmol/L BUN (9-20) mg/dL Creatinine (0.66-1.25) mg/dL Glucose (74-99) mg/dL POC Glucose (mg/dL) 289 H 264 H 225 H (75-99) mg/dL Total Protein (6.3-8.2) g/dL Albumin (3.5-5.0) g/dL Urine Protein (Negative) Urine Blood (Negative) Ur Leukocyte Esterase (Negative) Urine Bacteria (None) /hpf Urine Mucus (None) /hpf Crossmatch 06/02/20 06/02/20 06/02/20 Range/Units 00:26 00:35 02:03 WBC (3.8-10.6) k/uL RBC (4.30-5.90) m/uL Hgb (13.0-17.5) gm/dL Hct (39.0-53.0) % MCH (25.0-35.0) pg MCHC (31.0-37.0) g/dL RDW (11.5-15.5) % Neutrophils # (Manual) (1.3-7.7) k/uL Lymphocytes # (Manual) (1.0-4.8) k/uL Metamyelocytes # (Man) (0) k/uL Nucleated RBCs (0-0) /100 WBC ABG pH 7.31 L (7.35-7.45) ABG pCO2 74 H* (35-45) mmHg ABG pO2 59 L* (83-108) mmHg ABG HCO3 37 H (21-25) mmol/L ABG Total CO2 40 H (19-24) mmol/L ABG O2 Saturation 89.9 L (94-97) % Sodium 136 L (137-145) mmol/L Potassium 5.5 H (3.5-5.1) mmol/L Chloride 95 L (98-107) mmol/L Carbon Dioxide 35 H (22-30) mmol/L BUN 89 H (9-20) mg/dL Creatinine 2.41 H (0.66-1.25) mg/dL Glucose 140 H (74-99) mg/dL POC Glucose (mg/dL) 163 H (75-99) mg/dL Total Protein (6.3-8.2) g/dL Albumin (3.5-5.0) g/dL Urine Protein (Negative) Urine Blood (Negative) Ur Leukocyte Esterase (Negative) Urine Bacteria (None) /hpf Urine Mucus (None) /hpf Crossmatch 06/02/20 06/02/20 06/02/20 Range/Units 02:04 02:19 02:19 WBC 11.9 H (3.8-10.6) k/uL RBC 2.77 L (4.30-5.90) m/uL Hgb 6.9 L* (13.0-17.5) gm/dL Hct 25.3 L (39.0-53.0) % MCH (25.0-35.0) pg MCHC 27.4 L (31.0-37.0) g/dL RDW 16.0 H (11.5-15.5) % Neutrophils # (Manual) 11.50 H (1.3-7.7) k/uL Lymphocytes # (Manual) 0.24 L (1.0-4.8) k/uL Metamyelocytes # (Man) 0.12 H (0) k/uL Nucleated RBCs 1 H (0-0) /100 WBC ABG pH (7.35-7.45) ABG pCO2 (35-45) mmHg ABG pO2 (83-108) mmHg ABG HCO3 (21-25) mmol/L ABG Total CO2 (19-24) mmol/L ABG O2 Saturation (94-97) % Sodium (137-145) mmol/L Potassium 5.6 H (3.5-5.1) mmol/L Chloride 95 L (98-107) mmol/L Carbon Dioxide 33 H (22-30) mmol/L BUN 91 H (9-20) mg/dL Creatinine 2.33 H (0.66-1.25) mg/dL Glucose 117 H (74-99) mg/dL POC Glucose (mg/dL) 135 H (75-99) mg/dL Total Protein (6.3-8.2) g/dL Albumin (3.5-5.0) g/dL Urine Protein (Negative) Urine Blood (Negative) Ur Leukocyte Esterase (Negative) Urine Bacteria (None) /hpf Urine Mucus (None) /hpf Crossmatch 06/02/20 06/02/20 06/02/20 Range/Units 02:26 03:55 03:59 WBC (3.8-10.6) k/uL RBC (4.30-5.90) m/uL Hgb (13.0-17.5) gm/dL Hct (39.0-53.0) % MCH (25.0-35.0) pg MCHC (31.0-37.0) g/dL RDW (11.5-15.5) % Neutrophils # (Manual) (1.3-7.7) k/uL Lymphocytes # (Manual) (1.0-4.8) k/uL Metamyelocytes # (Man) (0) k/uL Nucleated RBCs (0-0) /100 WBC ABG pH 7.31 L 7.46 H (7.35-7.45) ABG pCO2 75 H* 52 H (35-45) mmHg ABG pO2 56 L* 261 H (83-108) mmHg ABG HCO3 38 H 37 H (21-25) mmol/L ABG Total CO2 40 H 38 H (19-24) mmol/L ABG O2 Saturation 87.6 L 100.0 H (94-97) % Sodium (137-145) mmol/L Potassium (3.5-5.1) mmol/L Chloride (98-107) mmol/L Carbon Dioxide (22-30) mmol/L BUN (9-20) mg/dL Creatinine (0.66-1.25) mg/dL Glucose (74-99) mg/dL POC Glucose (mg/dL) 133 H (75-99) mg/dL Total Protein (6.3-8.2) g/dL Albumin (3.5-5.0) g/dL Urine Protein (Negative) Urine Blood (Negative) Ur Leukocyte Esterase (Negative) Urine Bacteria (None) /hpf Urine Mucus (None) /hpf Crossmatch 06/02/20 06/02/20 06/02/20 Range/Units 05:32 06:04 06:50 WBC (3.8-10.6) k/uL RBC (4.30-5.90) m/uL Hgb (13.0-17.5) gm/dL Hct (39.0-53.0) % MCH (25.0-35.0) pg MCHC (31.0-37.0) g/dL RDW (11.5-15.5) % Neutrophils # (Manual) (1.3-7.7) k/uL Lymphocytes # (Manual) (1.0-4.8) k/uL Metamyelocytes # (Man) (0) k/uL Nucleated RBCs (0-0) /100 WBC ABG pH (7.35-7.45) ABG pCO2 (35-45) mmHg ABG pO2 (83-108) mmHg ABG HCO3 (21-25) mmol/L ABG Total CO2 (19-24) mmol/L ABG O2 Saturation (94-97) % Sodium (137-145) mmol/L Potassium (3.5-5.1) mmol/L Chloride (98-107) mmol/L Carbon Dioxide (22-30) mmol/L BUN (9-20) mg/dL Creatinine (0.66-1.25) mg/dL Glucose (74-99) mg/dL POC Glucose (mg/dL) 142 H 141 H (75-99) mg/dL Total Protein (6.3-8.2) g/dL Albumin (3.5-5.0) g/dL Urine Protein (Negative) Urine Blood Trace H (Negative) Ur Leukocyte Esterase Small H (Negative) Urine Bacteria Rare H (None) /hpf Urine Mucus Rare H (None) /hpf Crossmatch 06/02/20 06/02/20 06/02/20 Range/Units 06:59 06:59 07:16 WBC 11.2 H (3.8-10.6) k/uL RBC 2.56 L (4.30-5.90) m/uL Hgb 6.5 L* (13.0-17.5) gm/dL Hct 22.8 L (39.0-53.0) % MCH (25.0-35.0) pg MCHC 28.6 L (31.0-37.0) g/dL RDW 16.1 H (11.5-15.5) % Neutrophils # (Manual) (1.3-7.7) k/uL Lymphocytes # (Manual) (1.0-4.8) k/uL Metamyelocytes # (Man) (0) k/uL Nucleated RBCs (0-0) /100 WBC ABG pH (7.35-7.45) ABG pCO2 (35-45) mmHg ABG pO2 (83-108) mmHg ABG HCO3 (21-25) mmol/L ABG Total CO2 (19-24) mmol/L ABG O2 Saturation (94-97) % Sodium (137-145) mmol/L Potassium (3.5-5.1) mmol/L Chloride 95 L (98-107) mmol/L Carbon Dioxide 35 H (22-30) mmol/L BUN 89 H (9-20) mg/dL Creatinine 2.26 H (0.66-1.25) mg/dL Glucose 135 H (74-99) mg/dL POC Glucose (mg/dL) 157 H (75-99) mg/dL Total Protein 5.0 L (6.3-8.2) g/dL Albumin 2.8 L (3.5-5.0) g/dL Urine Protein (Negative) Urine Blood (Negative) Ur Leukocyte Esterase (Negative) Urine Bacteria (None) /hpf Urine Mucus (None) /hpf Crossmatch 06/02/20 Range/Units 08:12 WBC (3.8-10.6) k/uL RBC (4.30-5.90) m/uL Hgb (13.0-17.5) gm/dL Hct (39.0-53.0) % MCH (25.0-35.0) pg MCHC (31.0-37.0) g/dL RDW (11.5-15.5) % Neutrophils # (Manual) (1.3-7.7) k/uL Lymphocytes # (Manual) (1.0-4.8) k/uL Metamyelocytes # (Man) (0) k/uL Nucleated RBCs (0-0) /100 WBC ABG pH (7.35-7.45) ABG pCO2 (35-45) mmHg ABG pO2 (83-108) mmHg ABG HCO3 (21-25) mmol/L ABG Total CO2 (19-24) mmol/L ABG O2 Saturation (94-97) % Sodium (137-145) mmol/L Potassium (3.5-5.1) mmol/L Chloride (98-107) mmol/L Carbon Dioxide (22-30) mmol/L BUN (9-20) mg/dL Creatinine (0.66-1.25) mg/dL Glucose (74-99) mg/dL POC Glucose (mg/dL) 161 H (75-99) mg/dL Total Protein (6.3-8.2) g/dL Albumin (3.5-5.0) g/dL Urine Protein (Negative) Urine Blood (Negative) Ur Leukocyte Esterase (Negative) Urine Bacteria (None) /hpf Urine Mucus (None) /hpf Crossmatch Chest x-ray: report reviewed (findings consistent with congestive heart failure and chest x-ray) Assessment and Plan (1) Normocytic hypochromic anemia Narrative/Plan: 85-year-old male with multiple medical comorbidities including prior history of rectal cancer status post colostomy formation as well as CAD, diabetes mellitus, CHF, COPD who presented with increasing shortness of breath. Currently being treated for an exacerbation of his underlying congestive heart failure the patient is intubated and sedated in the ICU. Patient found to be anemic on presentation with a hemoglobin of 6.3, hypochromic normocytic indices. No signs or symptoms of GI bleeding. Stool testing was positive for occult blood. He has a history of rectal cancer status post colon resection with end ostomy formation.unclear etiology of anemia, likely multifactorial givendeclining kidney function, currently no signs or symptoms of GI bleeding was good brown stool output from his ostomy, cannot rule out a component of occult GI bleeding with stool testing positive. Current Visit: Yes Status: Acute Code(s): D50.9 - IRON DEFICIENCY ANEMIA, UNSPECIFIED SNOMED Code(s): 33478049 (2) History of colostomy Current Visit: Yes Status: Acute Code(s): VSW7093 - SNOMED Code(s): 161 937453 Plan: supportive care Continue to monitor hemoglobin and hematocrit and transfuse as needed Okay for tube feeds Continue to monitor stool output Continue PPI therapy Continue treatment of underlyingmedical comorbidities including exacerbation of congestive heart failure Consider upper endoscopy to rule out GI bleed when medically optimized anemia laboratory evaluation Thank you for allowing us to participate in the care of the patient we will continue to follow
[2020-06-03] MEDS: PANTOPRAZOLE 40 MG/10 ML VIAL IV SCH (08:38)
[2020-06-03] MEDS: CHLORHEXIDINE GLUCONATE 15 ML CUP MUCOUS MEM SCH ×2 (08:38→21:45)
--- NOTE | 2020-06-03 09:27 | XR ---
EXAMINATION TYPE: XR chest 1V DATE OF EXAM: 06/03/2020 CLINICAL HISTORY: Intubation TECHNIQUE: Semiupright portable view of the chest obtained COMPARISON: 06/02/2020 chest radiograph FINDINGS: Endotracheal tube distal tip at the level of the inferior clavicular heads. The enteric tu be is looped over the expected region of the stomach and coursing superiorly over the esophagus, with the distal tip over the distal esophagus, and the side-port near the level of the GE junction. Left subclavian central venous catheter with distal tip at the cavoatrial junction. Sternotomy wires. Card iomegaly. Redemonstrated pulmonary vascular congestion. There is increased airspace opacities of the bilateral lung bases. Small left pleural effusion. No sizable pneumothorax within limits of semiuprig ht technique. IMPRESSION: 1. Enteric tube coiled with retrograde course, with distal tip and side-port over the distal esophagu s. 2. Endotracheal tube distal tip at the level of the inferior clavicular heads. 3. Increased bibasilar airspace opacities versus 06/02/2020. 4. Redemonstrated cardiomegaly, pulmonary basilar congestion, and small left pleural effusion. Dr. Martin discussed findings with [employer], via the phone on 06/03/2020 at 9:24 AM and r esults were acknowledged.
--- NOTE | 2020-06-03 09:32 | P.PN ---
Subjective Patient is seen in follow-up for acute kidney injury. Renal function stable. He is currently intubated and sedated. He is on 50% FiO2. Hemoglobin improved post blood transfusions. He is maintained on IV Lasix and is nonoliguric. No active bleeding noted per the nurse. Vital signs are stable. General: The patient appeared well nourished and normally developed. HEENT: Head exam is unremarkable. Neck is without jugular venous distension. LUNGS: Breath sounds decreased. HEART: Rate and Rhythm are regular. ABDOMEN: Soft. EXTREMITITES: 1+ edema. Objective - Vital Signs Vital signs: Vital Signs Temp 98.1 F 06/03/20 04:00 Pulse 64 06/03/20 08:00 Resp 20 06/03/20 08:00 BP 122/50 06/03/20 07:00 Pulse Ox 99 06/03/20 08:00 Intake & Output 06/02/20 06/03/20 06/03/20 18:59 06:59 18:59 Intake Total 978.521 528.283 140 Output Total 2550 1170 140 Balance -1571.479 -641.717 0 Weight 122.47 kg 121.5 kg Intake: IV 240 240 40 Sodium Chloride 0.9% 1, 240 240 40 000 ml @ 20 mls/hr IV . Q24H [facility] Rx#:[id number] Intake, IV Titration 428.521 198.283 100 Amount Insulin Regular 100 unit 16.648 In Sodium Chloride 0.9% 100 ml @ Titrate IV .Q0M [facility] Rx#:[id number] propofoL 1,000 mg In 411.873 198.283 100 Empty Bag 1 bag @ Titrate IV .Q0M [facility] Rx#: [id number] Tube Feeding 60 Blood Product 310 Rc As-1 Unit 310 [id number] Other 30 Output: Urine 2550 1070 140 Stool 100 Other: Voiding Method Indwelling Catheter Indwelling Catheter ABP, PAP, CO, CI - Last Documented Arterial Blood Pressure 136/47 - Labs CBC & Chem 7: 06/03/20 04:45 06/03/20 04:45 Labs: Abnormal Lab Results - Last 24 Hours (Table) 06/01/20 06/02/20 06/02/20 Range/Units 15:51 06:59 09:58 WBC 11.2 H (3.8-10.6) k/uL RBC 2.56 L (4.30-5.90) m/uL Hgb 6.5 L* (13.0-17.5) gm/dL Hct 22.8 L (39.0-53.0) % MCHC 28.6 L (31.0-37.0) g/dL RDW 16.1 H (11.5-15.5) % Neutrophils # 10.2 H (1.3-7.7) k/uL Lymphocytes # 0.3 L (1.0-4.8) k/uL ABG pH (7.35-7.45) ABG HCO3 (21-25) mmol/L ABG Total CO2 (19-24) mmol/L ABG O2 Saturation (94-97) % Chloride (98-107) mmol/L Carbon Dioxide (22-30) mmol/L BUN (9-20) mg/dL Creatinine (0.66-1.25) mg/dL Glucose (74-99) mg/dL POC Glucose (mg/dL) 153 H (75-99) mg/dL Calcium (8.4-10.2) mg/dL Crossmatch See Detail 06/02/20 06/02/20 06/02/20 Range/Units 11:06 12:04 13:02 WBC (3.8-10.6) k/uL RBC (4.30-5.90) m/uL Hgb (13.0-17.5) gm/dL Hct (39.0-53.0) % MCHC (31.0-37.0) g/dL RDW (11.5-15.5) % Neutrophils # (1.3-7.7) k/uL Lymphocytes # (1.0-4.8) k/uL ABG pH (7.35-7.45) ABG HCO3 (21-25) mmol/L ABG Total CO2 (19-24) mmol/L ABG O2 Saturation (94-97) % Chloride (98-107) mmol/L Carbon Dioxide (22-30) mmol/L BUN (9-20) mg/dL Creatinine (0.66-1.25) mg/dL Glucose (74-99) mg/dL POC Glucose (mg/dL) 148 H 145 H 145 H (75-99) mg/dL Calcium (8.4-10.2) mg/dL Crossmatch 06/02/20 06/02/20 06/02/20 Range/Units 14:53 15:04 17:53 WBC 12.3 H (3.8-10.6) k/uL RBC 3.00 L (4.30-5.90) m/uL Hgb 7.9 L (13.0-17.5) gm/dL Hct 26.3 L (39.0-53.0) % MCHC 29.9 L (31.0-37.0) g/dL RDW 16.4 H (11.5-15.5) % Neutrophils # (1.3-7.7) k/uL Lymphocytes # (1.0-4.8) k/uL ABG pH (7.35-7.45) ABG HCO3 (21-25) mmol/L ABG Total CO2 (19-24) mmol/L ABG O2 Saturation (94-97) % Chloride (98-107) mmol/L Carbon Dioxide (22-30) mmol/L BUN (9-20) mg/dL Creatinine (0.66-1.25) mg/dL Glucose (74-99) mg/dL POC Glucose (mg/dL) 143 H 147 H (75-99) mg/dL Calcium (8.4-10.2) mg/dL Crossmatch 06/02/20 06/03/20 06/03/20 Range/Units 23:53 04:45 04:45 WBC 11.4 H (3.8-10.6) k/uL RBC 3.13 L (4.30-5.90) m/uL Hgb 8.2 L (13.0-17.5) gm/dL Hct 27.4 L (39.0-53.0) % MCHC 29.9 L (31.0-37.0) g/dL RDW 16.9 H (11.5-15.5) % Neutrophils # 10.6 H (1.3-7.7) k/uL Lymphocytes # 0.2 L (1.0-4.8) k/uL ABG pH (7.35-7.45) ABG HCO3 (21-25) mmol/L ABG Total CO2 (19-24) mmol/L ABG O2 Saturation (94-97) % Chloride 97 L (98-107) mmol/L Carbon Dioxide 35 H (22-30) mmol/L BUN 86 H (9-20) mg/dL Creatinine 2.28 H (0.66-1.25) mg/dL Glucose 214 H (74-99) mg/dL POC Glucose (mg/dL) 219 H (75-99) mg/dL Calcium 8.2 L (8.4-10.2) mg/dL Crossmatch 06/03/20 06/03/20 Range/Units 05:50 06:46 WBC (3.8-10.6) k/uL RBC (4.30-5.90) m/uL Hgb (13.0-17.5) gm/dL Hct (39.0-53.0) % MCHC (31.0-37.0) g/dL RDW (11.5-15.5) % Neutrophils # (1.3-7.7) k/uL Lymphocytes # (1.0-4.8) k/uL ABG pH 7.55 H (7.35-7.45) ABG HCO3 36 H (21-25) mmol/L ABG Total CO2 38 H (19-24) mmol/L ABG O2 Saturation 98.6 H (94-97) % Chloride (98-107) mmol/L Carbon Dioxide (22-30) mmol/L BUN (9-20) mg/dL Creatinine (0.66-1.25) mg/dL Glucose (74-99) mg/dL POC Glucose (mg/dL) 276 H (75-99) mg/dL Calcium (8.4-10.2) mg/dL Crossmatch Microbiology - Last 24 Hours (Table) 06/02/20 03:12 Gram Stain - Preliminary Sputum Sputum Culture - Preliminary Assessment and Plan Plan: Assessment: 1. Acute kidney injury secondary to ATN secondary to acute blood loss anemia. Also component of cardiorenal syndrome. Creatinine was 2.46 on admission and is stable at 2.28 today. Unknown baseline renal function. No proteinuria on UA. No hydronephrosis noted on kidney ultrasound. 2. Acute GI bleed status post blood transfusions. No active bleeding noted. GI following. 3. Volume overload. 4. Acute hypercapnic and hypoxic respiratory failure. Currently intubated. Plan: increase Lasix to 60 mg IV twice daily. Monitor hemoglobin and transfuse as needed. Continue to monitor renal function and urine output. wean FiO2.
[2020-06-03] MEDS: FUROSEMIDE 10 MG/ML 10 ML VIAL IV SCH ×2 (10:24→21:46)
--- NOTE | 2020-06-03 10:50 | PN ---
PROGRESS NOTE PULMONARY/CRITICAL CARE PROGRESS NOTE: DATE OF SERVICE: 06/03/2020 CRITICAL CARE TIME: 34 minutes. This is an 85-year-old gentleman who we saw yesterday in consultation. He presented to the emergency department with difficulty breathing. He was admitted on 06/01. He apparently had been having difficulty breathing for a couple days prior to admission. It was noted in the ER trace that he was a very poor historian. He does have a history of underlying COPD. Does use oxygen at home and also CPAP at home, but apparently is noncompliant because the machine is not working. There was also admitted with a possible GI bleed and had a hemoglobin that was initially low and also potassium which was elevated at 6.6. Sometime early in the morning, on the following day, the patient was noted to have respiratory distress, was intubated and transferred to the ICU. He remains on the ventilator at this time. His vent settings include the volume assist- control mode rate of 20 to be reduced 16, tidal volume 450, FiO2 of 50%, PEEP of 5. Blood gases show a PO2 of 103, pCO2 of 41 and pH of 7.55. We were able to drop the rate from 20-16 as he is sitting on the rate of 20. We also determined that his peak airway pressure was 31 cm of water and his plateau pressure was 19 cm of water and a difference that was between the 2 was 12. Calculated airways resistance is 11 cm water per L per 2nd. That is elevated. His blood gases show pO2 of 103. pCO2 of 41 and pH of 7.55. This is consistent with normoxemia and a post hypercapnic alkalosis. The patient is on propofol at 35 mcg/kg per minute and saline at KVO. The patient may have an EGD today for possible GI bleed. He did receive 1 unit of PRBCs. Current vital signs include a temperature which is 98.1, heart rate 64, respiratory rate 20, blood pressure 136/47, saturation 99%. Appears in no acute distress. HEENT: Examination is grossly unremarkable. There is an orally placed endotracheal tube and NG tube. NECK: Supple full range of motion. No adenopathy, thyromegaly or neck vein distention. CARDIOVASCULAR: Examination reveals regular rhythm and rate. Heart rate between 65 and 70 beats per minute. S1, S2 normal. LUNGS: Reveal diffuse coarse rhonchi. Breath sounds equal. No crackles or wheezes. ABDOMEN: Soft. No bowel sounds. EXTREMITIES: Intact. No edema. SKIN: Without rash. NEUROLOGIC: Examination is difficult to assess given his current level of sedation. LABS: Reviewed. White count 11.4, hemoglobin 8.2, hematocrit 27.4, platelet count 349,000, blood gases have been noted. Sodium 139, potassium 4.3, chloride 97, CO2 is 35, anion gap is 7. BUN and creatinine were 86 and 2.28. Calcium 8.2. Microbiology is negative. Chest x-ray continues to show a pattern of fluid overload. MEDICATIONS: Were reviewed as they are every day. He is currently on Lipitor, chlorhexidine, Lasix, insulin, DuoNeb, levothyroxine, Solu-Medrol, Narcan, nitroglycerin ointment, Protonix, propofol and saline IV. ASSESSMENT: 1. Acute hypoxemic respiratory failure, likely multifactorial, in part related to underlying CHF but also possible COPD, requiring intubation and mechanical ventilation on June 02, 2020. 2. Hyperkalemia, improved. 3. Gastrointestinal bleed, status post 3 units of PRBCs. 4. History of diabetes mellitus. 5. History of congestive heart failure. 6. History of coronary artery disease. 7. Status post stent placement. 8. Status post bypass grafting. PLAN: The patient had lines placed yesterday. He is still not ready to be weaned from mechanical ventilation. His vent settings have changed a bit. The volume assist- control rate dropped from 20-16. He may have an EGD today. His laboratory data was reviewed and stable. He remains on propofol. Once the EGD is performed, and there is no active bleeding, will start tube feeds. He is on appropriate bronchodilators. Additional recommendations and suggestions are forthcoming. MMODL / IJN: [id number] /
--- NOTE | 2020-06-03 11:11 | CDI ---
Documentation Clarification Form Date: 06/03/2020 1110 CDS: Angelica Villaseñor RN, CCDS Admit Date: Patient Name: Primitivo Hammonds ATTENTION: The Clinical Documentation Specialists (CDI) and [facility] Coding Staff appreciate your assistance in clarifying documentation. Please respond to the clarification below the line at the bottom and electronically sign. The CDI & [facility] Coding staff will review the response and follow-up if needed. Please note: Queries are made part of the Legal Health Record. If you have any questions, please contact the author of this message via ITS. Dr. Saldana, CHF is documented in the ED notes, Consults, and progress notes and requires further specificity. History/Risk Factors: Atrial Fib, CAD, CABG, ABLA, COPD, DM, Acute respiratory failure Clinical Indicators: 06/02 Cardiology Consult: " Hx of CHF" 06/03 Pulmonary progress Note: "Acute hypoxemic respiratory failure, likely multifactorial, in part related to underlying CHF but also possible chronic obstructive pulmonary disease." VS/Pulse OX: 06/01 BNP: 7780 06/02 Echocardiogram Results: severe concentric LVH. EF 50-55%, moderate aortic stenosis, mild Mitral/Tricuspid regurg 06/01 Chest X Ray:"Correlation for CHF with pulmonary vascular congestion.Small pleural effusions with adjacent atelectasis and/or consolidation." Treatment: 06/01 Lasix 40 mg IVP Q 12 hrs, Lasix 60 mg IVP x 1 dose 06/03 Lasix 60 mg IVP Q 12 hrs In your professional opinion, can you please clarify the acuity and type of CHF if known? Diastolic Heart Failure: Acute Chronic Acute on Chronic Systolic & Diastolic Heart Failure: Acute Chronic Acute on Chronic Heart Failure Unable to Determine Other, please specify Please continue to document in your progress notes and discharge summary in order to capture severity of illness and risk of mortality. Include clinical findings that support your diagnosis. Unable to determine, please consult the initial consulting physician CHELSEA
[2020-06-03 11:46] LABS: Glucose,Whole Blood 252 mg/dL (75-99)
[2020-06-03 12:59] LABS: Reticulocyte % 2.2 % (0.5-2.0)
--- NOTE | 2020-06-03 15:16 | P.PCN ---
Date of Procedure: 06/03/20 Description of Procedure: BRIEF HISTORY: 85-year-old male with multiple medical comorbidities including COPD, diabetes mellitus, congestive heart failure, coronary artery disease and a history of anemia who presented to the hospital due to worsening of his shortness of breath. Of note patient currently intubated and sedated in the ICU and history is been taken in conversation with the medical team and on review of the electronic medical record. The patient has a colostomy status post colonic resection secondary to rectal cancer in the past. There are no reports of any signs or symptoms of GI bleeding however stool testing was found to be positive on occult blood test. No reports of any nausea or vomiting. The patient had been experiencing increasing shortness of breath prior to presentation. Hemoglobin found to be 6.3 on presentation. The patient is having a good normal brown output per his ostomy. He is status post transfusion of 2 units of packed red blood cells. Currently he is being treated for an exacerbation of his underlying congestive heart failure. PROCEDURE PERFORMED: Esophagogastroduodenoscopy with biopsy. PREOPERATIVE DIAGNOSIS: Anemia. ESTIMATED BLOOD LOSS: Minimal. IV sedation per anesthesia. PROCEDURE: After informed consent was obtained, the patient was brought into the endoscopy unit. IV sedation was administered by Anesthesia under continuous monitoring. Initially the Olympus GIF-190 video endoscope was inserted into the mouth. Esophagus intubated without any difficulty. It was gradually advanced into the stomach and duodenum and carefully examined. The bulb and the second part of the duodenum appeared normal, with biopsies. The scope at this time was withdrawn to the stomach, adequately insufflated with air, and upon careful examination, mucosa of the antrum, body, cardia and the fundus appeared normal, except for some mild scattered erythema in the antrum and body suggestive of mild gastritis biopsies taken. The scope was then withdrawn into the esophagus. The GE junction was located at 39 cm from the incisors. The esophagus appeared normal. There were no erosions or ulcerations seen and the patient tolerated the procedure well. IMPRESSION: 1. Mild gastritis. 2. Otherwise normal appearing mucosa with no old blood or active bleeding noted on EGD. 3. Biopsies of duodenum and antrum and body. RECOMMENDATIONS: The findings of this examination were discussed with the medical team. Okay to resume tube feeds were diet. Continue medical management. No further endoscopy planned at this time. Laboratory evaluation ordered for anemia.
--- NOTE | 2020-06-03 16:05 | P.PN ---
Subjective 85-year-old male is being treated for acute hypoxic and hypercapnic respiratory failure patient does have history of sleep apnea does appear to have some chronic CO2 retention. Patient is also being treated for heart failure exacerbation and echocardiogram is being obtained. Patient is anemic received 2 units of for blood transfusion although there is no clear evidence of acute GI bleed. Patient is also being treated for acute renal failure from a severe anemia there is no clear evidence of for acute blood loss anemia patient does have history of COPD and is on systemic steroids at this time patient has elevated blood sugars. Is on IV insulin drip which was changed to long-acting steroid. We'll insulin.patient has hypovolemic hyponatremia which is improving with IV Lasix. 06/03/2020 Patient still remains intubated and the patient is bit alkalotic because of its respiratory rate of on ventilator settings were decreased. Patient is due to undergo upper GI endoscopy which showed mild gastritis without any other significant abnormality. PERRLA remained fairly stable Review of systems: Unable to open due to his clinical condition All inpatient medications were reviewed and appropriate changes in these medications as dictated in the interval history and assessment and plan. Objective - Vital Signs Vital signs: Vital Signs Temp 98.1 F 06/03/20 12:00 Pulse 65 06/03/20 15:53 Resp 15 06/03/20 15:00 BP 126/59 06/03/20 15:00 Pulse Ox 98 06/03/20 15:00 Intake & Output 06/02/20 06/03/20 06/03/20 18:59 06:59 18:59 Intake Total 978.521 528.283 462.924 Output Total 2550 1170 1165 Balance -1571.479 -641.717 -702.076 Weight 122.47 kg 121.5 kg Intake: IV 240 240 180 Sodium Chloride 0.9% 1, 240 240 180 000 ml @ 20 mls/hr IV . Q24H RAMESH Rx#:[id number] Intake, IV Titration 428.521 198.283 282.924 Amount Insulin Regular 100 unit 16.648 In Sodium Chloride 0.9% 100 ml @ Titrate IV .Q0M RAMESH Rx#:[id number] propofoL 1,000 mg In 411.873 198.283 282.924 Empty Bag 1 bag @ Titrate IV .Q0M RAMESH Rx#: [id number] Tube Feeding 60 Blood Product 310 Rc As-1 Unit 310 [id number] Other 30 Output: Urine 2550 1070 1165 Stool 100 Other: Voiding Method Indwelling Catheter Indwelling Catheter Indwelling Catheter ABP, PAP, CO, CI - Last Documented Arterial Blood Pressure 146/49 - Exam PHYSICAL EXAMINATION: GENERAL: Patient is intubated sedated HEENT: Pupils are round and equally reacting to light. EOMI. No scleral icterus. No conjunctival pallor. Normocephalic, atraumatic. No pharyngeal erythema. No thyromegaly. CARDIOVASCULAR: S1 and S2 present. No murmurs, rubs, or gallops. PULMONARY: lymphatics pretty wheezing diminished air entry into bilateral lung alaniz ABDOMEN: Soft, nontender, nondistended, normoactive bowel sounds. No palpable organomegaly. MUSCULOSKELETAL: No joint swelling or deformity. EXTREMITIES: No cyanosis, clubbing, or pedal edema. NEUROLOGICAL: patient is sedated SKIN: No rashes. - Labs CBC & Chem 7: 06/03/20 04:45 06/03/20 04:45 Labs: Abnormal Lab Results - Last 24 Hours (Table) 06/02/20 06/02/20 06/03/20 Range/Units 17:53 23:53 04:45 WBC 11.4 H (3.8-10.6) k/uL RBC 3.13 L (4.30-5.90) m/uL Hgb 8.2 L (13.0-17.5) gm/dL Hct 27.4 L (39.0-53.0) % MCHC 29.9 L (31.0-37.0) g/dL RDW 16.9 H (11.5-15.5) % Neutrophils # 10.6 H (1.3-7.7) k/uL Lymphocytes # 0.2 L (1.0-4.8) k/uL Retic Count (0.5-2.0) % ABG pH (7.35-7.45) ABG HCO3 (21-25) mmol/L ABG Total CO2 (19-24) mmol/L ABG O2 Saturation (94-97) % Chloride (98-107) mmol/L Carbon Dioxide (22-30) mmol/L BUN (9-20) mg/dL Creatinine (0.66-1.25) mg/dL Glucose (74-99) mg/dL POC Glucose (mg/dL) 147 H 219 H (75-99) mg/dL Calcium (8.4-10.2) mg/dL 06/03/20 06/03/20 06/03/20 Range/Units 04:45 05:50 06:46 WBC (3.8-10.6) k/uL RBC (4.30-5.90) m/uL Hgb (13.0-17.5) gm/dL Hct (39.0-53.0) % MCHC (31.0-37.0) g/dL RDW (11.5-15.5) % Neutrophils # (1.3-7.7) k/uL Lymphocytes # (1.0-4.8) k/uL Retic Count (0.5-2.0) % ABG pH 7.55 H (7.35-7.45) ABG HCO3 36 H (21-25) mmol/L ABG Total CO2 38 H (19-24) mmol/L ABG O2 Saturation 98.6 H (94-97) % Chloride 97 L (98-107) mmol/L Carbon Dioxide 35 H (22-30) mmol/L BUN 86 H (9-20) mg/dL Creatinine 2.28 H (0.66-1.25) mg/dL Glucose 214 H (74-99) mg/dL POC Glucose (mg/dL) 276 H (75-99) mg/dL Calcium 8.2 L (8.4-10.2) mg/dL 06/03/20 06/03/20 Range/Units 09:58 11:44 WBC (3.8-10.6) k/uL RBC (4.30-5.90) m/uL Hgb (13.0-17.5) gm/dL Hct (39.0-53.0) % MCHC (31.0-37.0) g/dL RDW (11.5-15.5) % Neutrophils # (1.3-7.7) k/uL Lymphocytes # (1.0-4.8) k/uL Retic Count 2.2 H (0.5-2.0) % ABG pH (7.35-7.45) ABG HCO3 (21-25) mmol/L ABG Total CO2 (19-24) mmol/L ABG O2 Saturation (94-97) % Chloride (98-107) mmol/L Carbon Dioxide (22-30) mmol/L BUN (9-20) mg/dL Creatinine (0.66-1.25) mg/dL Glucose (74-99) mg/dL POC Glucose (mg/dL) 252 H (75-99) mg/dL Calcium (8.4-10.2) mg/dL Microbiology - Last 24 Hours (Table) 06/02/20 03:12 Gram Stain - Preliminary Sputum Sputum Culture - Preliminary Gram Neg Bacilli Assessment and Plan Plan: -acute on chronic hypercapnic as well as hypoxic respiratory failure: Secondary to COPD exacerbation, sleep apnea with CO2 retention as well as pulmonary edema leading to hypoxemia. Echocardiac exam is being up and continue with systemic s teroids and inhalation treatments continued ventilatory support. -severe anemia: No evidence of acute GI bleed patient received Z2 units of blood transfusion , hemoglobin remained stable upper GI endoscopy as mentioned above -Sleep apnea -Type 2 diabetes mellitus: Patient blood sugars are expected to go because of systemic steroids patient will be started on long-acting insulin along with sliding scale for steroids. Discontinue IV insulin. -coronary artery disease -acute renal failure possibly secondary to acute tubular necrosis from severe anemia with a competent of cardiorenal syndrome baseline creatinine is unknown. -Congestive heart failure EF is unknown echocardiac exam is pending patient has pulmonary edema
--- NOTE | 2020-06-03 16:10 | P.PN ---
Subjective This is Marina Gresham PA-C dictating a progress note on this patient The patient was interviewed and examined by me as well as by Dr. Saldana Case discussed with Dr. Saldana and he agrees with the plan of care HPI/interval history Patient is an 85-year-old male with a history significant for COPD, diabetes, CHF, CAD status post CABG who presented with shortness of breath. He developed worsening respiratory failure requiring intubation and mechanical ventilation. He was found to be anemic and his FOB was positive. He received blood tra nsfusions and his anticoagulation is on hold. He remains in the ICU sedated and intubated. He will be undergoing an EGD. Bedside telemetry shows atrial flutter with rates in the 60s. EXAMINATION Patient is afebrile, heart rates in the 60s, respirations 15, blood pressure 126/59, oxygen saturation 98% on mechanical ventilation Patient seen and examined in the ICU sedated and intubated Breath sounds equal bilaterally Heart is irregular, systolic murmur audible No lower extremity edema REVIEW OF LABS, ECG WBC 11.4, hemoglobin 8.2, platelets 349, potassium 4.3, BUN 86, creatinine 2.28 Echocardiogram shows EF 50-55, moderate aortic stenosis IMPRESSION / ASSESSMENT: #1 acute respiratory failure requiring intubation and mechanical ventilation #2 atrial fibrillation, currently in rate controlled atrial flutter, anticoagulation on hold due to anemia #3 acute blood loss anemia secondary to GI bleed, status post blood transfusions #4 acute kidney injury #5 history of COPD #6 diabetes #7 history of CHF #8 history of CAD status post CABG #9 recent echocardiogram showing EF 50-55%, moderate aortic stenosis PLAN: Management of diuretics per nephrology Continue statins Continue to hold anticoagulation Objective - Vital Signs Vital signs: Vital Signs Temp 98.1 F 06/03/20 12:00 Pulse 65 06/03/20 15:53 Resp 15 06/03/20 15:00 BP 126/59 06/03/20 15:00 Pulse Ox 98 06/03/20 15:00 Intake & Output 06/02/20 06/03/20 06/03/20 18:59 06:59 18:59 Intake Total 978.521 528.283 462.924 Output Total 2550 1170 1165 Balance -1571.479 -641.717 -702.076 Weight 122.47 kg 121.5 kg Intake: IV 240 240 180 Sodium Chloride 0.9% 1, 240 240 180 000 ml @ 20 mls/hr IV . Q24H RAMESH Rx#:[id number] Intake, IV Titration 428.521 198.283 282.924 Amount Insulin Regular 100 unit 16.648 In Sodium Chloride 0.9% 100 ml @ Titrate IV .Q0M RAMESH Rx#:[id number] propofoL 1,000 mg In 411.873 198.283 282.924 Empty Bag 1 bag @ Titrate IV .Q0M RAMESH Rx#: [id number] Tube Feeding 60 Blood Product 310 Rc As-1 Unit 310 [id number] Other 30 Output: Urine 2550 1070 1165 Stool 100 Other: Voiding Method Indwelling Catheter Indwelling Catheter Indwelling Catheter ABP, PAP, CO, CI - Last Documented Arterial Blood Pressure 146/49 - Labs CBC & Chem 7: 06/03/20 04:45 06/03/20 04:45 Labs: Abnormal Lab Results - Last 24 Hours (Table) 06/02/20 06/02/20 06/03/20 Range/Units 17:53 23:53 04:45 WBC 11.4 H (3.8-10.6) k/uL RBC 3.13 L (4.30-5.90) m/uL Hgb 8.2 L (13.0-17.5) gm/dL Hct 27.4 L (39.0-53.0) % MCHC 29.9 L (31.0-37.0) g/dL RDW 16.9 H (11.5-15.5) % Neutrophils # 10.6 H (1.3-7.7) k/uL Lymphocytes # 0.2 L (1.0-4.8) k/uL Retic Count (0.5-2.0) % ABG pH (7.35-7.45) ABG HCO3 (21-25) mmol/L ABG Total CO2 (19-24) mmol/L ABG O2 Saturation (94-97) % Chloride (98-107) mmol/L Carbon Dioxide (22-30) mmol/L BUN (9-20) mg/dL Creatinine (0.66-1.25) mg/dL Glucose (74-99) mg/dL POC Glucose (mg/dL) 147 H 219 H (75-99) mg/dL Calcium (8.4-10.2) mg/dL 06/03/20 06/03/20 06/03/20 Range/Units 04:45 05:50 06:46 WBC (3.8-10.6) k/uL RBC (4.30-5.90) m/uL Hgb (13.0-17.5) gm/dL Hct (39.0-53.0) % MCHC (31.0-37.0) g/dL RDW (11.5-15.5) % Neutrophils # (1.3-7.7) k/uL Lymphocytes # (1.0-4.8) k/uL Retic Count (0.5-2.0) % ABG pH 7.55 H (7.35-7.45) ABG HCO3 36 H (21-25) mmol/L ABG Total CO2 38 H (19-24) mmol/L ABG O2 Saturation 98.6 H (94-97) % Chloride 97 L (98-107) mmol/L Carbon Dioxide 35 H (22-30) mmol/L BUN 86 H (9-20) mg/dL Creatinine 2.28 H (0.66-1.25) mg/dL Glucose 214 H (74-99) mg/dL POC Glucose (mg/dL) 276 H (75-99) mg/dL Calcium 8.2 L (8.4-10.2) mg/dL 06/03/20 06/03/20 Range/Units 09:58 11:44 WBC (3.8-10.6) k/uL RBC (4.30-5.90) m/uL Hgb (13.0-17.5) gm/dL Hct (39.0-53.0) % MCHC (31.0-37.0) g/dL RDW (11.5-15.5) % Neutrophils # (1.3-7.7) k/uL Lymphocytes # (1.0-4.8) k/uL Retic Count 2.2 H (0.5-2.0) % ABG pH (7.35-7.45) ABG HCO3 (21-25) mmol/L ABG Total CO2 (19-24) mmol/L ABG O2 Saturation (94-97) % Chloride (98-107) mmol/L Carbon Dioxide (22-30) mmol/L BUN (9-20) mg/dL Creatinine (0.66-1.25) mg/dL Glucose (74-99) mg/dL POC Glucose (mg/dL) 252 H (75-99) mg/dL Calcium (8.4-10.2) mg/dL Microbiology - Last 24 Hours (Table) 06/02/20 03:12 Gram Stain - Preliminary Sputum Sputum Culture - Preliminary Gram Neg Bacilli
[2020-06-03 17:38] LABS: Glucose,Whole Blood 268 mg/dL (75-99)
[2020-06-03 18:58] LABS: % Iron Saturation 2.69 (15.00-50.00); Ferritin 14.1 ng/mL (22.0-322.0); Folate, Serum 11.1 ng/mL
[2020-06-03] MEDS: ATORVASTATIN 80 MG TAB PO SCH (21:45)
[2020-06-03] MEDS: methylPREDNISolone SOD SUCCI 40 MG/ML 1 ML VIAL IV SCH (21:46)
[2020-06-03] MEDS: INSULIN DETEMIR (LEVEMIR) 100 UNIT/ML SYR SQ SCH (21:46)
[2020-06-03 23:24] LABS: Glucose,Whole Blood 288 mg/dL (75-99)
[2020-06-04] MEDS: IPRATROPIUM-ALBUTEROL 3 ML NEB INHALATION SCH ×6 (02:36→23:26)
[2020-06-04 05:54] LABS: Glucose,Whole Blood 285 mg/dL (75-99)
[2020-06-04] MEDS: INSULIN ASPART (NovoLOG) 100 UNIT/ML VIAL SQ SCH ×4 (05:58→20:28)
[2020-06-04] MEDS: LEVOTHYROXINE 50 MCG TAB PO SCH (05:58)
[2020-06-04 06:18] LABS: ABG Base Excess 14.7 mmol/L; ABG HCO3 38 mmol/L (21-25); ABG Oxygen Saturation 99.1 % (94-97); ABG PCO2 48 mmHg (35-45); ABG PH 7.51 (7.35-7.45); ABG PO2 122 mmHg (83-108); ABG TCO2 39 mmol/L (19-24); Allen Test Performed? Yes
[2020-06-04 06:23] LABS: Anisocytosis Slight; Basophils % (A) 0 %; Eosinophils % (A) 0 %; HCT 26.7 % (39.0-53.0); HGB 7.8 gm/dL (13.0-17.5); Hypochromasia Marked; Lymphocytes # (A) 0.2 k/uL (1.0-4.8); Lymphocytes % (A) 2 %; MCH 25.8 pg (25.0-35.0); MCHC 29.3 g/dL (31.0-37.0); MCV 88.1 fL (80.0-100.0); Monocytes # (A) 0.5 k/uL (0-1.0); Monocytes % (A) 6 %; Neutrophils % (A) 90 %; Platelet Count 311 k/uL (150-450); Poikilocytosis Moderate; RBC 3.03 m/uL (4.30-5.90); RDW 17.4 % (11.5-15.5); WBC 8.9 k/uL (3.8-10.6)
[2020-06-04 06:41] LABS: Potassium 3.9 mmol/L (3.5-5.1)
--- NOTE | 2020-06-04 09:35 | P.PN ---
Subjective Patient is seen in follow-up for acute kidney injury. Renal function better. He is currently intubated and sedated. He is on 50% FiO2. Hemoglobin improved post blood transfusions. He is maintained on IV Lasix and is nonoliguric. No active bleeding noted per the nurse. Vital signs are stable. General: The patient appeared well nourished and normally developed. HEENT: Head exam is unremarkable. Neck is without jugular venous distension. LUNGS: Breath sounds decreased. HEART: Rate and Rhythm are regular. ABDOMEN: Soft. EXTREMITITES: 1+ edema. Objective - Vital Signs Vital signs: Vital Signs Temp 98.6 F 06/04/20 08:00 Pulse 52 L 06/04/20 08:00 Resp 16 06/04/20 08:00 BP 110/52 06/04/20 08:00 Pulse Ox 98 06/04/20 08:00 Intake & Output 06/03/20 06/04/20 06/04/20 18:59 06:59 18:59 Intake Total 564.210 539.292 120 Output Total 1665 1720 75 Balance -1100.790 -1180.708 45 Intake: IV 240 240 20 Sodium Chloride 0.9% 1, 240 240 20 000 ml @ 20 mls/hr IV . Q24H RAMESH Rx#:[id number] Intake, IV Titration 314.210 159.292 100 Amount propofoL 1,000 mg In 314.210 159.292 100 Empty Bag 1 bag @ Titrate IV .Q0M RAMESH Rx#: [id number] Tube Feeding 10 80 Other 60 Output: Urine 1665 1620 75 Stool 100 Other: Voiding Method Indwelling Catheter Indwelling Catheter ABP, PAP, CO, CI - Last Documented Arterial Blood Pressure 109/33 - Labs CBC & Chem 7: 06/04/20 05:45 06/04/20 05:45 Labs: Abnormal Lab Results - Last 24 Hours (Table) 06/03/20 06/03/20 06/03/20 Range/Units 09:58 09:58 11:44 RBC (4.30-5.90) m/uL Hgb (13.0-17.5) gm/dL Hct (39.0-53.0) % MCHC (31.0-37.0) g/dL RDW (11.5-15.5) % Neutrophils # (1.3-7.7) k/uL Lymphocytes # (1.0-4.8) k/uL Retic Count 2.2 H (0.5-2.0) % ABG pH (7.35-7.45) ABG pCO2 (35-45) mmHg ABG pO2 (83-108) mmHg ABG HCO3 (21-25) mmol/L ABG Total CO2 (19-24) mmol/L ABG O2 Saturation (94-97) % Carbon Dioxide (22-30) mmol/L BUN (9-20) mg/dL Creatinine (0.66-1.25) mg/dL Glucose (74-99) mg/dL POC Glucose (mg/dL) 252 H (75-99) mg/dL Calcium (8.4-10.2) mg/dL Iron 9 L (65-175) ug/dL % Saturation 2.69 L (15.00-50.00) Ferritin 14.1 L (22.0-322.0) ng/mL 06/03/20 06/03/20 06/04/20 Range/Units 17:36 23:22 05:45 RBC 3.03 L (4.30-5.90) m/uL Hgb 7.8 L (13.0-17.5) gm/dL Hct 26.7 L (39.0-53.0) % MCHC 29.3 L (31.0-37.0) g/dL RDW 17.4 H (11.5-15.5) % Neutrophils # 8.0 H (1.3-7.7) k/uL Lymphocytes # 0.2 L (1.0-4.8) k/uL Retic Count (0.5-2.0) % ABG pH (7.35-7.45) ABG pCO2 (35-45) mmHg ABG pO2 (83-108) mmHg ABG HCO3 (21-25) mmol/L ABG Total CO2 (19-24) mmol/L ABG O2 Saturation (94-97) % Carbon Dioxide (22-30) mmol/L BUN (9-20) mg/dL Creatinine (0.66-1.25) mg/dL Glucose (74-99) mg/dL POC Glucose (mg/dL) 268 H 288 H (75-99) mg/dL Calcium (8.4-10.2) mg/dL Iron (65-175) ug/dL % Saturation (15.00-50.00) Ferritin (22.0-322.0) ng/mL 06/04/20 06/04/20 06/04/20 Range/Units 05:45 05:53 06:15 RBC (4.30-5.90) m/uL Hgb (13.0-17.5) gm/dL Hct (39.0-53.0) % MCHC (31.0-37.0) g/dL RDW (11.5-15.5) % Neutrophils # (1.3-7.7) k/uL Lymphocytes # (1.0-4.8) k/uL Retic Count (0.5-2.0) % ABG pH 7.51 H (7.35-7.45) ABG pCO2 48 H (35-45) mmHg ABG pO2 122 H (83-108) mmHg ABG HCO3 38 H (21-25) mmol/L ABG Total CO2 39 H (19-24) mmol/L ABG O2 Saturation 99.1 H (94-97) % Carbon Dioxide 36 H (22-30) mmol/L BUN 86 H (9-20) mg/dL Creatinine 1.94 H (0.66-1.25) mg/dL Glucose 272 H (74-99) mg/dL POC Glucose (mg/dL) 285 H (75-99) mg/dL Calcium 8.0 L (8.4-10.2) mg/dL Iron (65-175) ug/dL % Saturation (15.00-50.00) Ferritin (22.0-322.0) ng/mL Microbiology - Last 24 Hours (Table) 06/02/20 03:12 Gram Stain - Preliminary Sputum Sputum Culture - Preliminary Gram Neg Bacilli Assessment and Plan Plan: Assessment: 1. Acute kidney injury secondary to ATN secondary to acute blood loss anemia. Also component of cardiorenal syndrome. Creatinine was 2.46 on admission and is 1.94 today. Unknown baseline renal function. No proteinuria on UA. No hydronephrosis noted on kidney ultrasound. 2. Acute GI bleed status post blood transfusions. No active bleeding noted. GI following. EGD revealed mild gastritis. 3. Volume overload. 4. Acute hypercapnic and hypoxic respiratory failure. Currently intubated. Plan: maintain Lasix 60 mg IV twice daily. Monitor hemoglobin and transfuse as needed. Continue to monitor renal function and urine output. wean FiO2.
--- NOTE | 2020-06-04 09:56 | XR ---
EXAMINATION TYPE: XR chest 1V DATE OF EXAM: 06/04/2020 COMPARISON: 06/03/2020 HISTORY: Post intubation FINDINGS: There are bilateral pleural effusions with cardiomegaly and bibasilar infiltrate. There is a diffuse interstitial pattern. ET and NG tube noted. NG tube seen extending into the left abdomen. Left-sided central line seen and there is postoperative change. IMPRESSION: 1. Diffuse pleural-parenchymal changes correlate for CHF.
[2020-06-04] MEDS: methylPREDNISolone SOD SUCCI 40 MG/ML 1 ML VIAL IV SCH ×2 (09:57→19:45)
[2020-06-04] MEDS: SODIUM FERRIC GLUCONAT-SUCROSE 125 MG in SODIUM CHLORIDE 0.9% 100 ML IVPB SCH (09:57)
[2020-06-04] MEDS: FUROSEMIDE 10 MG/ML 10 ML VIAL IV SCH ×2 (09:57→19:45)
[2020-06-04] MEDS: PANTOPRAZOLE 40 MG/10 ML VIAL IV SCH (09:57)
[2020-06-04] MEDS: CHLORHEXIDINE GLUCONATE 15 ML CUP MUCOUS MEM SCH (09:57)
[2020-06-04 11:26] LABS: ABG Base Excess 12.9 mmol/L; ABG HCO3 36 mmol/L (21-25); ABG PCO2 47 mmHg (35-45); ABG PH 7.49 (7.35-7.45); ABG PO2 130 mmHg (83-108); ABG TCO2 38 mmol/L (19-24)
[2020-06-04 11:28] LABS: Allen Test Performed? no
[2020-06-04] MEDS ORDERED: FUROSEMIDE 10 MG/ML 10 ML VIAL IV STA (11:57)
[2020-06-04 12:22] LABS: Glucose,Whole Blood 291 mg/dL (75-99)
--- NOTE | 2020-06-04 12:40 | P.PN ---
Subjective Progress Note Date: 06/04/20 Principal diagnosis: Anemia Patient was seen and examined the bedside in the ICU. Patient continues with sedation and intubation. Patient underwent EGD yesterday which showed mild gastritis, with no active bleeding or old blood source noted. The nurse reports no signs of GI bleed through the night. Objective - Vital Signs Vital signs: Vital Signs Temp 99.2 F 06/04/20 12:00 Pulse 67 06/04/20 12:20 Resp 25 H 06/04/20 12:00 BP 156/78 06/04/20 12:00 Pulse Ox 98 06/04/20 12:00 Intake & Output 06/03/20 06/04/20 06/04/20 18:59 06:59 18:59 Intake Total 564.210 539.292 290 Output Total 1665 1720 573 Balance -1100.790 -1180.708 -283 Intake: IV 240 240 80 Sodium Chloride 0.9% 1, 240 240 80 000 ml @ 20 mls/hr IV . Q24H [facility] Rx#:[id number] Intake, IV Titration 314.210 159.292 200 Amount Sodium Ferric Gluconat- 100 Sucrose 125 mg In Sodium Chloride 0.9% 100 ml @ 100 mls/hr IVPB DAILY [facility] Rx#:[id number] propofoL 1,000 mg In 314.210 159.292 100 Empty Bag 1 bag @ Titrate IV .Q0M [facility] Rx#: [id number] Tube Feeding 10 80 10 Other 60 Output: Urine 1665 1620 573 Stool 100 Other: Voiding Method Indwelling Catheter Indwelling Catheter Indwelling Catheter ABP, PAP, CO, CI - Last Documented Arterial Blood Pressure 151/56 - Exam On physical examination, patient appears comfortable in no apparent distress. Intubated and sedated HEAD: Normocephalic, atraumatic. EYES: No scleral icterus. No conjunctival injection. MOUTH: No lesions, tongue midline, ET tube in place. NECK: Trachea midline, no gross abnormalities. CHEST: coarse respiratory noises in all lung alaniz. HEART: irregularly irregular. ABDOMEN: Soft, obese, nontender. Bowel sounds are positive. No organomegaly. No guarding or rigidity. Colostomy bag intact with brown stool. EXTREMITIES: bilateral pedal edema. SKIN: No rashes, no jaundice. NEUROLOGIC: intubated and sedated. No focal deficits. Re - Labs CBC & Chem 7: 06/04/20 05:45 06/04/20 05:45 Labs: Abnormal Lab Results - Last 24 Hours (Table) 06/03/20 06/03/20 06/03/20 Range/Units 09:58 09:58 17:36 RBC (4.30-5.90) m/uL Hgb (13.0-17.5) gm/dL Hct (39.0-53.0) % MCHC (31.0-37.0) g/dL RDW (11.5-15.5) % Neutrophils # (1.3-7.7) k/uL Lymphocytes # (1.0-4.8) k/uL Retic Count 2.2 H (0.5-2.0) % ABG pH (7.35-7.45) ABG pCO2 (35-45) mmHg ABG pO2 (83-108) mmHg ABG HCO3 (21-25) mmol/L ABG Total CO2 (19-24) mmol/L ABG O2 Saturation (94-97) % Carbon Dioxide (22-30) mmol/L BUN (9-20) mg/dL Creatinine (0.66-1.25) mg/dL Glucose (74-99) mg/dL POC Glucose (mg/dL) 268 H (75-99) mg/dL Calcium (8.4-10.2) mg/dL Iron 9 L (65-175) ug/dL % Saturation 2.69 L (15.00-50.00) Ferritin 14.1 L (22.0-322.0) ng/mL 06/03/20 06/04/20 06/04/20 Range/Units 23:22 05:45 05:45 RBC 3.03 L (4.30-5.90) m/uL Hgb 7.8 L (13.0-17.5) gm/dL Hct 26.7 L (39.0-53.0) % MCHC 29.3 L (31.0-37.0) g/dL RDW 17.4 H (11.5-15.5) % Neutrophils # 8.0 H (1.3-7.7) k/uL Lymphocytes # 0.2 L (1.0-4.8) k/uL Retic Count (0.5-2.0) % ABG pH (7.35-7.45) ABG pCO2 (35-45) mmHg ABG pO2 (83-108) mmHg ABG HCO3 (21-25) mmol/L ABG Total CO2 (19-24) mmol/L ABG O2 Saturation (94-97) % Carbon Dioxide 36 H (22-30) mmol/L BUN 86 H (9-20) mg/dL Creatinine 1.94 H (0.66-1.25) mg/dL Glucose 272 H (74-99) mg/dL POC Glucose (mg/dL) 288 H (75-99) mg/dL Calcium 8.0 L (8.4-10.2) mg/dL Iron (65-175) ug/dL % Saturation (15.00-50.00) Ferritin (22.0-322.0) ng/mL 06/04/20 06/04/20 06/04/20 Range/Units 05:53 06:15 11:22 RBC (4.30-5.90) m/uL Hgb (13.0-17.5) gm/dL Hct (39.0-53.0) % MCHC (31.0-37.0) g/dL RDW (11.5-15.5) % Neutrophils # (1.3-7.7) k/uL Lymphocytes # (1.0-4.8) k/uL Retic Count (0.5-2.0) % ABG pH 7.51 H 7.49 H (7.35-7.45) ABG pCO2 48 H 47 H (35-45) mmHg ABG pO2 122 H 130 H (83-108) mmHg ABG HCO3 38 H 36 H (21-25) mmol/L ABG Total CO2 39 H 38 H (19-24) mmol/L ABG O2 Saturation 99.1 H 99.0 H (94-97) % Carbon Dioxide (22-30) mmol/L BUN (9-20) mg/dL Creatinine (0.66-1.25) mg/dL Glucose (74-99) mg/dL POC Glucose (mg/dL) 285 H (75-99) mg/dL Calcium (8.4-10.2) mg/dL Iron (65-175) ug/dL % Saturation (15.00-50.00) Ferritin (22.0-322.0) ng/mL 06/04/20 Range/Units 12:20 RBC (4.30-5.90) m/uL Hgb (13.0-17.5) gm/dL Hct (39.0-53.0) % MCHC (31.0-37.0) g/dL RDW (11.5-15.5) % Neutrophils # (1.3-7.7) k/uL Lymphocytes # (1.0-4.8) k/uL Retic Count (0.5-2.0) % ABG pH (7.35-7.45) ABG pCO2 (35-45) mmHg ABG pO2 (83-108) mmHg ABG HCO3 (21-25) mmol/L ABG Total CO2 (19-24) mmol/L ABG O2 Saturation (94-97) % Carbon Dioxide (22-30) mmol/L BUN (9-20) mg/dL Creatinine (0.66-1.25) mg/dL Glucose (74-99) mg/dL POC Glucose (mg/dL) 291 H (75-99) mg/dL Calcium (8.4-10.2) mg/dL Iron (65-175) ug/dL % Saturation (15.00-50.00) Ferritin (22.0-322.0) ng/mL Microbiology - Last 24 Hours (Table) 06/02/20 03:12 Gram Stain - Final Sputum Sputum Culture - Final Klebsiella pneumoniae Stenotrophomonas maltophilia Assessment and Plan Assessment: (1) Normocytic hypochromic anemia Narrative/Plan: 85-year-old male with multiple medical comorbidities including prior history of rectal cancer status post colostomy formation as well as CAD, diabetes mellitus, CHF, COPD who presented with increasing shortness of breath. Currently being treated for an exacerbation of his underlying congestive heart failure the patient is intubated and sedated in the ICU. Patient found to be anemic on presentation with a hemoglobin of 6.3, hypochromic normocytic indices. No signs or symptoms of GI bleeding. Stool testing was positive for occult blood. He has a history of rectal cancer status post colon resection with end ostomy formation.unclear etiology of anemia, likely multifactorial givendeclining kidney function, currently no signs or symptoms of GI bleeding was good brown stool output from his ostomy, cannot rule out a component of occult GI bleeding with stool testing positive. Current Visit: Yes Status: Acute Code(s): D50.9 - IRON DEFICIENCY ANEMIA, UNSPECIFIED SNOMED Code(s): 73558999 (2) History of colostomy Current Visit: Yes Status: Acute Code(s): NKS9786 - SNOMED Code(s): 115865266 Plan: supportive care Status post EGD, findings include mild gastritis otherwise normal appearing mucosa with no old blood or active bleeding noted on EGD. Biopsies obtained Continue to monitor hemoglobin and hematocrit and transfuse as needed Okay for tube feeds Continue to monitor stool output Continue PPI therapy Continue treatment of underlyingmedical comorbidities including exacerbation of congestive heart failure anemia laboratory evaluation IV iron ordered Patient to follow-up in outpatient setting for biopsy results Thank you for allowing us to participate in the care of the patient, we will continue to follow The impression and plan of care has been dictated as directed. I performed a history and examination of this patient, discussed the same with the dictator. I agree with the dictator's note ,documented as a scribe. Any additional findings or plans will be noted.
[2020-06-04] MEDS: SODIUM CHLORIDE 0.9% 1,000 ML IV SCH (12:43)
--- NOTE | 2020-06-04 14:35 | P.PN ---
Subjective Progress Note Date: 06/04/20 85-year-old male patient is currently intubated on a mechanical ventilator and the patient is being seen for a follow-up. The patient is known to me from previous hospitalizations. He has multiple medical problems and comorbidities. He has been hospitalized for an acute hypoxic respiratory failure as the patient presented emergency department with difficulty breathing. He has COPD. Chronic hypoxic respiratory failure maintained on oxygen 2 L and he also has valvular heart disease with moderate degree of aortic stenosis and diastolic heart failure. The patient also was suspected to have a GI bleed. The patient currently is intubated on a mechanical ventilator. On today's evaluation, the patient is sedated with propofol which is running at 50 g per KG per minute. IV fluids are 20s an hour and the patient is being diuresis with IV Lasix and the neck fluid balance is -2.2 L over the past 24 hours. He has been receiving enteral feeding for nutritional support with the vital high protein at the rate of 20 mL an hour. His cardiac rhythm is consistent with atrial flutter/fibrillation. His chest x-ray shows interval improvement in the volume status. There are still some cardiomegaly. He remains on assist control mode at the rate of 16 with tidal volume of 450 and FiO2 50% with a PEEP of 5. The morning blood gases showed a pH of 7.51 with a pCO2 of 48 and pO2 122. Hemoglobin stable at 7.8. White cell count stable at 8.9. He has chronic kidney disease in the creatinine is also improving is down to 1.9 as the patient is being diuresis. Based on all this, I stop the sedation and check his weaning parameters. The patient had a rapid shallow breathing index of 27 with a tidal volume of 450 and the vital capacity of 9.5 L. He was given a spelled his breathing trial with a pressure support of 5 and a PEEP of 5 and subsequent blood gases showed a pH of 7.49 with a pCO2 of 47 and pO2 130. The patient was awake and alert and the patient was following commands and answering questions appropriately without any significant agitation. I decided to extubated patient accordingly. Objective - Vital Signs Vital signs: Vital Signs Temp 99.2 F 06/04/20 12:00 Pulse 76 06/04/20 14:00 Resp 16 06/04/20 14:00 BP 156/78 06/04/20 12:00 Pulse Ox 95 06/04/20 14:00 Intake & Output 06/03/20 06/04/20 06/04/20 18:59 06:59 18:59 Intake Total 564.210 539.292 350 Output Total 1665 1720 1693 Balance -1100.790 -1180.708 -1343 Intake: IV 240 240 140 Sodium Chloride 0.9% 1, 240 240 140 000 ml @ 20 mls/hr IV . Q24H [facility] Rx#:[id number] Intake, IV Titration 314.210 159.292 200 Amount Sodium Ferric Gluconat- 100 Sucrose 125 mg In Sodium Chloride 0.9% 100 ml @ 100 mls/hr IVPB DAILY [facility] Rx#:[id number] propofoL 1,000 mg In 314.210 159.292 100 Empty Bag 1 bag @ Titrate IV .Q0M [facility] Rx#: [id number] Tube Feeding 10 80 10 Other 60 Output: Urine 1665 1620 1693 Stool 100 Other: Voiding Method Indwelling Catheter Indwelling Catheter Indwelling Catheter ABP, PAP, CO, CI - Last Documented Arterial Blood Pressure 123/47 - Exam Gen. appearance, comfortable likely distress. The patient extubated. Earlier he was intubated on a mechanical ventilator and ET tube and a NG tube admitted mode and the patient is currently on oxygen by nasal cannula. Head exam was generally normal. There was no scleral icterus or corneal arcus. Mucous membranes were moist. Neck was supple and without jugular venous distension, thyromegaly, or carotid bruits. Carotids were easily palpable bilaterally. There was no adenopathy. He has significant crowding of the posterior oropharynx with a Mallampati class IV. Lungs sounds are diminished and some coarse rhonchi in the lung bases bilaterally. Heart sounds are irregular, possible sinus and there is a systolic ejection murmur grade 3/6 related to his underlying aortic stenosis. Abdominal exam revealed normal bowel sounds. The abdomen was soft, non-tender, and without masses, organomegaly, or appreciable enlargement of the abdominal aorta. The patient has a colostomy bag which is functional and there is no direct tenderness rebound tenderness or guarding at this point in time. Extremities revealed +1 pitting edema and there is no cyanosis or clubbing. Neurologically the patient is waking up from sedation. The patient doing well. No focal neurological deficit. - Labs CBC & Chem 7: 06/04/20 05:45 06/04/20 05:45 Labs: Abnormal Lab Results - Last 24 Hours (Table) 06/03/20 06/03/20 06/03/20 Range/Units 09:58 17:36 23:22 RBC (4.30-5.90) m/uL Hgb (13.0-17.5) gm/dL Hct (39.0-53.0) % MCHC (31.0-37.0) g/dL RDW (11.5-15.5) % Neutrophils # (1.3-7.7) k/uL Lymphocytes # (1.0-4.8) k/uL ABG pH (7.35-7.45) ABG pCO2 (35-45) mmHg ABG pO2 (83-108) mmHg ABG HCO3 (21-25) mmol/L ABG Total CO2 (19-24) mmol/L ABG O2 Saturation (94-97) % Carbon Dioxide (22-30) mmol/L BUN (9-20) mg/dL Creatinine (0.66-1.25) mg/dL Glucose (74-99) mg/dL POC Glucose (mg/dL) 268 H 288 H (75-99) mg/dL Calcium (8.4-10.2) mg/dL Iron 9 L (65-175) ug/dL % Saturation 2.69 L (15.00-50.00) Ferritin 14.1 L (22.0-322.0) ng/mL 06/04/20 06/04/20 06/04/20 Range/Units 05:45 05:45 05:53 RBC 3.03 L (4.30-5.90) m/uL Hgb 7.8 L (13.0-17.5) gm/dL Hct 26.7 L (39.0-53.0) % MCHC 29.3 L (31.0-37.0) g/dL RDW 17.4 H (11.5-15.5) % Neutrophils # 8.0 H (1.3-7.7) k/uL Lymphocytes # 0.2 L (1.0-4.8) k/uL ABG pH (7.35-7.45) ABG pCO2 (35-45) mmHg ABG pO2 (83-108) mmHg ABG HCO3 (21-25) mmol/L ABG Total CO2 (19-24) mmol/L ABG O2 Saturation (94-97) % Carbon Dioxide 36 H (22-30) mmol/L BUN 86 H (9-20) mg/dL Creatinine 1.94 H (0.66-1.25) mg/dL Glucose 272 H (74-99) mg/dL POC Glucose (mg/dL) 285 H (75-99) mg/dL Calcium 8.0 L (8.4-10.2) mg/dL Iron (65-175) ug/dL % Saturation (15.00-50.00) Ferritin (22.0-322.0) ng/mL 06/04/20 06/04/20 06/04/20 Range/Units 06:15 11:22 12:20 RBC (4.30-5.90) m/uL Hgb (13.0-17.5) gm/dL Hct (39.0-53.0) % MCHC (31.0-37.0) g/dL RDW (11.5-15.5) % Neutrophils # (1.3-7.7) k/uL Lymphocytes # (1.0-4.8) k/uL ABG pH 7.51 H 7.49 H (7.35-7.45) ABG pCO2 48 H 47 H (35-45) mmHg ABG pO2 122 H 130 H (83-108) mmHg ABG HCO3 38 H 36 H (21-25) mmol/L ABG Total CO2 39 H 38 H (19-24) mmol/L ABG O2 Saturation 99.1 H 99.0 H (94-97) % Carbon Dioxide (22-30) mmol/L BUN (9-20) mg/dL Creatinine (0.66-1.25) mg/dL Glucose (74-99) mg/dL POC Glucose (mg/dL) 291 H (75-99) mg/dL Calcium (8.4-10.2) mg/dL Iron (65-175) ug/dL % Saturation (15.00-50.00) Ferritin (22.0-322.0) ng/mL Microbiology - Last 24 Hours (Table) 06/02/20 03:12 Gram Stain - Final Sputum Sputum Culture - Final Klebsiella pneumoniae Stenotrophomonas maltophilia Assessment and Plan Plan: 1 acute hypoxic respiratory failure, multifactorial, essential related to decompensated heart failure/valvular heart disease with fluid overload. The patient also has underlying COPD and chronic hypoxic respiratory failure. The patient was intubated on mechanical ventilator. He was diuresed adequately. Sputum showed Klebsiella and the patient was started on IV Zosyn today. The patient is a negative fluid balance. The patient was noted to have good weaning parameters and the patient was extubated today to a nasal cannula. 2 CHF with diastolic dysfunction 3 moderate severe aortic stenosis 4 COPD with chronic hypoxic respiratory failure, FEV1 of 42% of predicted 5 acute kidney injury on top of chronic kidney disease in the creatinine is improving 6 coronary artery disease with previous coronary stenting 7 diabetes mellitus 8 previous history of colostomy, for an underlying rectal cancer 9 GI bleeding post EGD and the patient was found to have mild gastritis otherwise normal appearing upper GI examination. 10 anemia of chronic disease with interval drop in hemoglobin down to 6.3 and the patient received an EGD and packed RBC transfusion and currently hemoglobin is at 7.8. The patient is his total of 2 units of packed RBC during this current admission. 11 history of aortic valve replacement back in 2007 and previous history of coronary artery bypass surgery 12 obstructive sleep apnea, nontolerant to CPAP therapy and the patient has been utilizing oxygen at 2 L overnight 13 hypothyroidism Plan Add IV Zosyn regarding Klebsiella Sputum, Cannot Rule Out the Possibility of a Pneumonia Continue Lasix 60 mg IV push every 12 hours Continue DuoNeb neb last treatment [id number] Patient has been extubated and monitor the overall pulmonary status Monitor renal function may resume Eliquis within next 24 hours We'll continue to follow. Condition is critical still. This evaluation was done and more than 30 minutes. There is a critically care evaluation. Time with Patient: Greater than 30
--- NOTE | 2020-06-04 14:53 | P.PN ---
Subjective 85-year-old male is being treated for acute hypoxic and hypercapnic respiratory failure patient does have history of sleep apnea does appear to have some chronic CO2 retention. Patient is also being treated for heart failure exacerbation and echocardiogram is being obtained. Patient is anemic received 2 units of for blood transfusion although there is no clear evidence of acute GI bleed. Patient is also being treated for acute renal failure from a severe anemia there is no clear evidence of for acute blood loss anemia patient does have history of COPD and is on systemic steroids at this time patient has elevated blood sugars. Is on IV insulin drip which was changed to long-acting steroid. We'll insulin.patient has hypovolemic hyponatremia which is improving with IV Lasix. 06/03/2020 Patient still remains intubated and the patient is bit alkalotic because of its respiratory rate of on ventilator settings were decreased. Patient is due to undergo upper GI endoscopy which showed mild gastritis without any other significant abnormality. PERRLA remained fairly stable 06/04/2020 Patient is extubated today feels better today but still wheezing at this time. Constitutional: Denied any fatigue denied any fever. Cardio vascular: denied any chest pain, palpitations Gastrointestinal denied any nausea vomiting Pulmonary: Denied any shortness of breath cough Neurologic denied any new focal deficits All inpatient medications were reviewed and appropriate changes in these medications as dictated in the interval history and assessment and plan. Objective - Vital Signs Vital signs: Vital Signs Temp 99.2 F 06/04/20 12:00 Pulse 76 06/04/20 14:00 Resp 16 06/04/20 14:00 BP 156/78 06/04/20 12:00 Pulse Ox 95 06/04/20 14:00 Intake & Output 06/03/20 06/04/20 06/04/20 18:59 06:59 18:59 Intake Total 564.210 539.292 350 Output Total 1665 1720 1693 Balance -1100.790 -1180.708 -1343 Intake: IV 240 240 140 Sodium Chloride 0.9% 1, 240 240 140 000 ml @ 20 mls/hr IV . Q24H [facility] Rx#:[id number] Intake, IV Titration 314.210 159.292 200 Amount Sodium Ferric Gluconat- 100 Sucrose 125 mg In Sodium Chloride 0.9% 100 ml @ 100 mls/hr IVPB DAILY [facility] Rx#:[id number] propofoL 1,000 mg In 314.210 159.292 100 Empty Bag 1 bag @ Titrate IV .Q0M [facility] Rx#: [id number] Tube Feeding 10 80 10 Other 60 Output: Urine 1665 1620 1693 Stool 100 Other: Voiding Method Indwelling Catheter Indwelling Catheter Indwelling Catheter ABP, PAP, CO, CI - Last Documented Arterial Blood Pressure 123/47 - Exam PHYSICAL EXAMINATION: GENERAL: Patient is alert oriented 3 not in respiratory distress HEENT: Pupils are round and equally reacting to light. EOMI. No scleral icterus. No conjunctival pallor. Normocephalic, atraumatic. No pharyngeal erythema. No thyromegaly. CARDIOVASCULAR: S1 and S2 present. No murmurs, rubs, or gallops. PULMONARY: Patient still has significant wheezing and diffuse rhonchi as well. ABDOMEN: Soft, nontender, nondistended, normoactive bowel sounds. No palpable organomegaly. MUSCULOSKELETAL: No joint swelling or deformity. EXTREMITIES: No cyanosis, clubbing, or pedal edema. NEUROLOGICAL: Does not appear to have any new focal deficits SKIN: No rashes. - Labs CBC & Chem 7: 06/04/20 05:45 06/04/20 05:45 Labs: Abnormal Lab Results - Last 24 Hours (Table) 06/03/20 06/03/20 06/03/20 Range/Units 09:58 17:36 23:22 RBC (4.30-5.90) m/uL Hgb (13.0-17.5) gm/dL Hct (39.0-53.0) % MCHC (31.0-37.0) g/dL RDW (11.5-15.5) % Neutrophils # (1.3-7.7) k/uL Lymphocytes # (1.0-4.8) k/uL ABG pH (7.35-7.45) ABG pCO2 (35-45) mmHg ABG pO2 (83-108) mmHg ABG HCO3 (21-25) mmol/L ABG Total CO2 (19-24) mmol/L ABG O2 Saturation (94-97) % Carbon Dioxide (22-30) mmol/L BUN (9-20) mg/dL Creatinine (0.66-1.25) mg/dL Glucose (74-99) mg/dL POC Glucose (mg/dL) 268 H 288 H (75-99) mg/dL Calcium (8.4-10.2) mg/dL Iron 9 L (65-175) ug/dL % Saturation 2.69 L (15.00-50.00) Ferritin 14.1 L (22.0-322.0) ng/mL 06/04/20 06/04/20 06/04/20 Range/Units 05:45 05:45 05:53 RBC 3.03 L (4.30-5.90) m/uL Hgb 7.8 L (13.0-17.5) gm/dL Hct 26.7 L (39.0-53.0) % MCHC 29.3 L (31.0-37.0) g/dL RDW 17.4 H (11.5-15.5) % Neutrophils # 8.0 H (1.3-7.7) k/uL Lymphocytes # 0.2 L (1.0-4.8) k/uL ABG pH (7.35-7.45) ABG pCO2 (35-45) mmHg ABG pO2 (83-108) mmHg ABG HCO3 (21-25) mmol/L ABG Total CO2 (19-24) mmol/L ABG O2 Saturation (94-97) % Carbon Dioxide 36 H (22-30) mmol/L BUN 86 H (9-20) mg/dL Creatinine 1.94 H (0.66-1.25) mg/dL Glucose 272 H (74-99) mg/dL POC Glucose (mg/dL) 285 H (75-99) mg/dL Calcium 8.0 L (8.4-10.2) mg/dL Iron (65-175) ug/dL % Saturation (15.00-50.00) Ferritin (22.0-322.0) ng/mL 06/04/20 06/04/20 06/04/20 Range/Units 06:15 11:22 12:20 RBC (4.30-5.90) m/uL Hgb (13.0-17.5) gm/dL Hct (39.0-53.0) % MCHC (31.0-37.0) g/dL RDW (11.5-15.5) % Neutrophils # (1.3-7.7) k/uL Lymphocytes # (1.0-4.8) k/uL ABG pH 7.51 H 7.49 H (7.35-7.45) ABG pCO2 48 H 47 H (35-45) mmHg ABG pO2 122 H 130 H (83-108) mmHg ABG HCO3 38 H 36 H (21-25) mmol/L ABG Total CO2 39 H 38 H (19-24) mmol/L ABG O2 Saturation 99.1 H 99.0 H (94-97) % Carbon Dioxide (22-30) mmol/L BUN (9-20) mg/dL Creatinine (0.66-1.25) mg/dL Glucose (74-99) mg/dL POC Glucose (mg/dL) 291 H (75-99) mg/dL Calcium (8.4-10.2) mg/dL Iron (65-175) ug/dL % Saturation (15.00-50.00) Ferritin (22.0-322.0) ng/mL Microbiology - Last 24 Hours (Table) 06/02/20 03:12 Gram Stain - Final Sputum Sputum Culture - Final Klebsiella pneumoniae Stenotrophomonas maltophilia Assessment and Plan Plan: -acute on chronic hypercapnic as well as hypoxic respiratory failure: Secondary to COPD exacerbation, sleep apnea with CO2 retention as well as pulmonary edema leading to hypoxemia. Echocardiac exam is being up and continue with systemic steroids and inhalation treatments. Patient is extubated on 06/04/2020 -severe anemia: No evidence of acute GI bleed patient received Z2 units of blood transfusion , hemoglobin remained stable upper GI endoscopy as mentioned above -Sleep apnea -Type 2 diabetes mellitus: Patient blood sugars are expected to go because of systemic steroids patient will be started on long-acting insulin along with sliding scale for steroids. Her sugars are still high -coronary artery disease -acute renal failure possibly secondary to acute tubular necrosis from severe anemia with a competent of cardiorenal syndrome baseline creatinine is unknown. -Congestive heart failure EF is unknown echocardiac exam is pending patient has pulmonary edema
[2020-06-04] MEDS: PIPERACILLIN-TAZOBACTAM 3.375 GM in SODIUM CHLORIDE 0.9% 100 ML IVPB SCH (16:04)
[2020-06-04] MEDS ORDERED: POTASSIUM CHLORIDE 20 MEQ in WATER FOR INJECTION 1 100ML.BAG IVPB STA (16:28)
[2020-06-04] MEDS ORDERED: Potassium Replacement Protocol 1 EACH MISC MISCELLANE PRN (16:28)
[2020-06-04 17:55] LABS: Glucose,Whole Blood 248 mg/dL (75-99)
[2020-06-04] MEDS: ATORVASTATIN 80 MG TAB PO SCH (19:40)
[2020-06-04 20:21] LABS: Glucose,Whole Blood 230 mg/dL (75-99)
[2020-06-04] MEDS ORDERED: INSULIN DETEMIR (LEVEMIR) 100 UNIT/ML SYR SQ SCH (21:00)
[2020-06-05] MEDS: PIPERACILLIN-TAZOBACTAM 3.375 GM in SODIUM CHLORIDE 0.9% 100 ML IVPB SCH ×4 (00:50→23:37)
[2020-06-05] MEDS: MELATONIN 5 MG TABLET PO SCH ×2 (01:55→20:46)
[2020-06-05] MEDS: IPRATROPIUM-ALBUTEROL 3 ML NEB INHALATION SCH ×6 (03:42→23:48)
[2020-06-05 04:14] LABS: Anisocytosis Slight; Basophils % (A) 0 %; Eosinophils % (A) 0 %; HGB 8.7 gm/dL (13.0-17.5); Hypochromasia Marked; Lymphocytes # (A) 0.3 k/uL (1.0-4.8); Lymphocytes % (A) 3 %; MCH 25.7 pg (25.0-35.0); MCHC 29.8 g/dL (31.0-37.0); MCV 86.2 fL (80.0-100.0); Monocytes # (A) 0.6 k/uL (0-1.0); Monocytes % (A) 6 %; Neutrophils # (A) 8.9 k/uL (1.3-7.7); Neutrophils % (A) 87 %; Platelet Count 317 k/uL (150-450); Poikilocytosis Moderate; RBC 3.37 m/uL (4.30-5.90); RDW 17.6 % (11.5-15.5); WBC 10.2 k/uL (3.8-10.6)
[2020-06-05 04:33] LABS: Calcium 8.3 mg/dL (8.4-10.2); Potassium 3.7 mmol/L (3.5-5.1)
[2020-06-05 05:58] LABS: Glucose,Whole Blood 204 mg/dL (75-99)
[2020-06-05] MEDS ORDERED: POTASSIUM CHLORIDE ER 20 MEQ TAB.ER PO SCH ×2 (06:00→19:00)
[2020-06-05] MEDS: INSULIN ASPART (NovoLOG) 100 UNIT/ML VIAL SQ SCH ×4 (06:01→20:42)
[2020-06-05] MEDS: LEVOTHYROXINE 50 MCG TAB PO SCH (06:04)
--- NOTE | 2020-06-05 08:32 | XR ---
EXAMINATION TYPE: XR chest 1V portable DATE OF EXAM: 06/05/2020 COMPARISON: 06/04/2020 HISTORY: Shortness of breath TECHNIQUE: Single frontal view of the chest is obtained. FINDINGS: ET and NG tube have been removed. Central line and postsurgical changes noted. Diffuse int erstitial pattern with cardiomegaly, bilateral pleural effusion and infiltrate. Biapical pleural thic kening. No pneumothorax. IMPRESSION: 1. Correlate for CHF.
[2020-06-05] MEDS: FUROSEMIDE 10 MG/ML 10 ML VIAL IV SCH ×2 (08:49→20:48)
[2020-06-05] MEDS: PANTOPRAZOLE 40 MG/10 ML VIAL IV SCH (08:49)
[2020-06-05] MEDS: APIXABAN 2.5 MG TABLET PO SCH ×2 (09:08→20:46)
[2020-06-05] MEDS: SODIUM FERRIC GLUCONAT-SUCROSE 125 MG in SODIUM CHLORIDE 0.9% 100 ML IVPB SCH (09:08)
--- NOTE | 2020-06-05 09:32 | P.PN ---
Subjective Patient is seen in follow-up for acute kidney injury. Renal function better. extubated June 04. Requiring intermittent use of BiPAP. He is maintained on IV Lasix and is nonoliguric. No active bleeding noted per the nurse. patient states he feels better today compared to yesterday. Vital signs are stable. General: The patient appeared well nourished and normally developed. HEENT: Head exam is unremarkable. Neck is without jugular venous distension. LUNGS: Breath sounds decreased. HEART: Rate and Rhythm are regular. ABDOMEN: Soft. EXTREMITITES: 1+ edema. Objective - Vital Signs Vital signs: Vital Signs Temp 98.3 F 06/05/20 08:00 Pulse 62 06/05/20 08:47 Resp 26 H 06/05/20 08:00 BP 111/60 06/05/20 08:00 Pulse Ox 99 06/05/20 08:00 Intake & Output 06/04/20 06/05/20 06/05/20 18:59 06:59 18:59 Intake Total 610 486 Output Total 3048 1675 Balance -2438 -1189 Weight 122.1 kg Intake: IV 300 286 Sodium Chloride 0.9% 1, 240 220 000 ml @ 20 mls/hr IV . Q24H [facility] Rx#:[id number] pressure bag 60 66 Intake, IV Titration 300 200 Amount Piperacillin-Tazobactam 3 100 200 .375 gm In Sodium Chloride 0.9% 100 ml @ 25 mls/hr IVPB Q8HR [facility] Rx# :[id number] Sodium Ferric Gluconat- 100 Sucrose 125 mg In Sodium Chloride 0.9% 100 ml @ 100 mls/hr IVPB DAILY [facility] Rx#:[id number] propofoL 1,000 mg In 100 Empty Bag 1 bag @ Titrate IV .Q0M [facility] Rx#: [id number] Tube Feeding 10 Output: Urine 2848 1675 Stool 200 Other: Voiding Method Indwelling Catheter Indwelling Catheter ABP, PAP, CO, CI - Last Documented Arterial Blood Pressure 121/35 - Labs CBC & Chem 7: 06/05/20 04:00 06/05/20 04:00 Labs: Abnormal Lab Results - Last 24 Hours (Table) 06/04/20 06/04/20 06/04/20 Range/Units 11:22 12:20 17:53 RBC (4.30-5.90) m/uL Hgb (13.0-17.5) gm/dL Hct (39.0-53.0) % MCHC (31.0-37.0) g/dL RDW (11.5-15.5) % Neutrophils # (1.3-7.7) k/uL Lymphocytes # (1.0-4.8) k/uL ABG pH 7.49 H (7.35-7.45) ABG pCO2 47 H (35-45) mmHg ABG pO2 130 H (83-108) mmHg ABG HCO3 36 H (21-25) mmol/L ABG Total CO2 38 H (19-24) mmol/L ABG O2 Saturation 99.0 H (94-97) % Carbon Dioxide (22-30) mmol/L BUN (9-20) mg/dL Creatinine (0.66-1.25) mg/dL Glucose (74-99) mg/dL POC Glucose (mg/dL) 291 H 248 H (75-99) mg/dL Calcium (8.4-10.2) mg/dL 06/04/20 06/05/20 06/05/20 Range/Units 20:20 04:00 04:00 RBC 3.37 L (4.30-5.90) m/uL Hgb 8.7 L (13.0-17.5) gm/dL Hct 29.0 L (39.0-53.0) % MCHC 29.8 L (31.0-37.0) g/dL RDW 17.6 H (11.5-15.5) % Neutrophils # 8.9 H (1.3-7.7) k/uL Lymphocytes # 0.3 L (1.0-4.8) k/uL ABG pH (7.35-7.45) ABG pCO2 (35-45) mmHg ABG pO2 (83-108) mmHg ABG HCO3 (21-25) mmol/L ABG Total CO2 (19-24) mmol/L ABG O2 Saturation (94-97) % Carbon Dioxide 36 H (22-30) mmol/L BUN 88 H (9-20) mg/dL Creatinine 1.79 H (0.66-1.25) mg/dL Glucose 199 H (74-99) mg/dL POC Glucose (mg/dL) 230 H (75-99) mg/dL Calcium 8.3 L (8.4-10.2) mg/dL 06/05/20 Range/Units 05:56 RBC (4.30-5.90) m/uL Hgb (13.0-17.5) gm/dL Hct (39.0-53.0) % MCHC (31.0-37.0) g/dL RDW (11.5-15.5) % Neutrophils # (1.3-7.7) k/uL Lymphocytes # (1.0-4.8) k/uL ABG pH (7.35-7.45) ABG pCO2 (35-45) mmHg ABG pO2 (83-108) mmHg ABG HCO3 (21-25) mmol/L ABG Total CO2 (19-24) mmol/L ABG O2 Saturation (94-97) % Carbon Dioxide (22-30) mmol/L BUN (9-20) mg/dL Creatinine (0.66-1.25) mg/dL Glucose (74-99) mg/dL POC Glucose (mg/dL) 204 H (75-99) mg/dL Calcium (8.4-10.2) mg/dL Microbiology - Last 24 Hours (Table) 06/02/20 03:12 Gram Stain - Final Sputum Sputum Culture - Final Klebsiella pneumoniae Stenotrophomonas maltophilia Assessment and Plan Plan: Assessment: 1. Acute kidney injury secondary to ATN secondary to acute blood loss anemia. Also component of cardiorenal syndrome. Creatinine was 2.46 on admission and is 1.79 today. Unknown baseline renal function. No proteinuria on UA. No hydronephrosis noted on kidney ultrasound. 2. Acute GI bleed status post blood transfusions. No active bleeding noted. GI following. EGD revealed mild gastritis. 3. Volume overload. improving with diuresis. 4. Acute hypercapnic and hypoxic respiratory failure. status post extubation June 04. Plan: maintain Lasix 60 mg IV twice daily. Monitor hemoglobin and transfuse as needed. Continue to monitor renal function and urine output.
--- NOTE | 2020-06-05 11:46 | P.PN ---
Subjective Progress Note Date: 06/05/20 Principal diagnosis: Anemia Patient was seen and examined in the ICU. Patient has been extubated and is doing well. He denies any abdominal pain, nausea, or vomiting. He is having brown stool through his colostomy. His hemoglobin was stable at 8.7. Objective - Vital Signs Vital signs: Vital Signs Temp 98.3 F 06/05/20 08:00 Pulse 56 L 06/05/20 09:00 Resp 26 H 06/05/20 09:00 BP 117/47 06/05/20 09:00 Pulse Ox 98 06/05/20 09:00 Intake & Output 06/04/20 06/05/20 06/05/20 18:59 06:59 18:59 Intake Total 610 486 278 Output Total 3048 1675 255 Balance -2438 -1189 23 Weight 122.1 kg 122.1 kg Intake: IV 300 286 78 Sodium Chloride 0.9% 1, 240 220 60 000 ml @ 20 mls/hr IV . Q24H [facility] Rx#:[id number] pressure bag 60 66 18 Intake, IV Titration 300 200 200 Amount Piperacillin-Tazobactam 3 100 200 100 .375 gm In Sodium Chloride 0.9% 100 ml @ 25 mls/hr IVPB Q8HR [facility] Rx# :[id number] Sodium Ferric Gluconat- 100 100 Sucrose 125 mg In Sodium Chloride 0.9% 100 ml @ 100 mls/hr IVPB DAILY [facility] Rx#:[id number] propofoL 1,000 mg In 100 Empty Bag 1 bag @ Titrate IV .Q0M [facility] Rx#: [id number] Tube Feeding 10 Output: Urine 2848 1675 255 Stool 200 Other: Voiding Method Indwelling Catheter Indwelling Catheter ABP, PAP, CO, CI - Last Documented Arterial Blood Pressure 131/46 - Exam On physical examination, patient appears comfortable in no apparent distress. Morbidly obese. HEAD: Normocephalic, atraumatic. EYES: No scleral icterus. No conjunctival injection. MOUTH: No lesions, tongue midline, ET tube in place. NECK: Trachea midline, no gross abnormalities. CHEST: coarse respiratory noises in all lung alaniz. HEART: irregularly irregular. ABDOMEN: Soft, obese, nontender. Bowel sounds are positive. No organomegaly. No guarding or rigidity. Colostomy bag intact with brown stool. EXTREMITIES: bilateral pedal edema. SKIN: No rashes, no jaundice. NEUROLOGIC: Alert and oriented x 3. No focal deficits. - Labs CBC & Chem 7: 06/05/20 04:00 06/05/20 04:00 Labs: Abnormal Lab Results - Last 24 Hours (Table) 06/04/20 06/04/20 06/04/20 Range/Units 12:20 17:53 20:20 RBC (4.30-5.90) m/uL Hgb (13.0-17.5) gm/dL Hct (39.0-53.0) % MCHC (31.0-37.0) g/dL RDW (11.5-15.5) % Neutrophils # (1.3-7.7) k/uL Lymphocytes # (1.0-4.8) k/uL Carbon Dioxide (22-30) mmol/L BUN (9-20) mg/dL Creatinine (0.66-1.25) mg/dL Glucose (74-99) mg/dL POC Glucose (mg/dL) 291 H 248 H 230 H (75-99) mg/dL Calcium (8.4-10.2) mg/dL 06/05/20 06/05/20 06/05/20 Range/Units 04:00 04:00 05:56 RBC 3.37 L (4.30-5.90) m/uL Hgb 8.7 L (13.0-17.5) gm/dL Hct 29.0 L (39.0-53.0) % MCHC 29.8 L (31.0-37.0) g/dL RDW 17.6 H (11.5-15.5) % Neutrophils # 8.9 H (1.3-7.7) k/uL Lymphocytes # 0.3 L (1.0-4.8) k/uL Carbon Dioxide 36 H (22-30) mmol/L BUN 88 H (9-20) mg/dL Creatinine 1.79 H (0.66-1.25) mg/dL Glucose 199 H (74-99) mg/dL POC Glucose (mg/dL) 204 H (75-99) mg/dL Calcium 8.3 L (8.4-10.2) mg/dL Microbiology - Last 24 Hours (Table) 06/02/20 03:12 Gram Stain - Final Sputum Sputum Culture - Final Klebsiella pneumoniae Stenotrophomonas maltophilia Assessment and Plan Assessment: (1) Normocytic hypochromic anemia Narrative/Plan: 85-year-old male with multiple medical comorbidities including prior history of rectal cancer status post colostomy formation as well as CAD, diabetes mellitus, CHF, COPD who presented with increasing shortness of breath. Currently being treated for an exacerbation of his underlying congestive heart failure the patient is intubated and sedated in the ICU. Patient found to be anemic on presentation with a hemoglobin of 6.3, hypochromic normocytic indices. No signs or symptoms of GI bleeding. Stool testing was positive for occult blood. He has a history of rectal cancer status post colon resection with end ostomy formation.unclear etiology of anemia, likely multifactorial givendeclining kidney function, currently no signs or symptoms of GI bleeding was good brown stool output from his ostomy, cannot rule out a component of occult GI bleeding with stool testing positive. Current Visit: Yes Status: Acute Code(s): D50.9 - IRON DEFICIENCY ANEMIA, UNSPECIFIED SNOMED Code(s): 27891236 (2) History of colostomy Current Visit: Yes Status: Acute Code(s): HQP9809 - SNOMED Code(s): 553912161 Plan: supportive care Diet as tolerated Status post EGD, findings include mild gastritis otherwise normal appearing muc jameson with no old blood or active bleeding noted on EGD. Biopsies obtained Continue to monitor hemoglobin and hematocrit and transfuse as needed Continue to monitor stool output Continue PPI therapy Continue treatment of underlyingmedical comorbidities including exacerbation of congestive heart failure anemia laboratory evaluation IV iron ordered Patient to follow-up in outpatient setting for biopsy results Thank you for allowing us to participate in the care of the patient, we will sign off at this time. Please do not hesitate to call us with any questions. The impression and plan of care has been dictated as directed. I performed a history and examination of this patient, discussed the same with the dictator. I agree with the dictator's note ,documented as a scribe. Any additional findings or plans will be noted.
[2020-06-05 11:49] LABS: Glucose,Whole Blood 143 mg/dL (75-99)
[2020-06-05] MEDS: SODIUM CHLORIDE 0.9% 1,000 ML IV SCH (12:26)
--- NOTE | 2020-06-05 13:20 | P.PN ---
Subjective This is Marina Gresham PA-C dictating a progress note on this patient The patient was interviewed and examined by me as well as by Dr. Saldana Case discussed with Dr. Saldana and he agrees with the plan of care HPI/interval history Patient is an 85-year-old male with a history significant for COPD, diabetes, CHF, CAD status post CABG who presented with shortness of breath. He developed worsening respiratory failure requiring intubation and mechanical ventilation. He was found to be anemic and his FOB was positive. He received blood t ransfusions and his anticoagulation is on hold. He underwent an EGD which showed mild gastritis no old blood or active bleeding. He was successfully extubated yesterday. He remains in atrial fibrillation with rates in the 100s. Patient seen and examined in the ICU. Complains of pleuritic chest discomfort. He is coughing. He also complains of shortness of breath. EXAMINATION Patient is afebrile, pulse in the 60s, respirations 26, blood pressure 117/47, oxygen saturation 98% on 4 L nasal cannula Patient seen and examined resting in the ICU, appears to have some increased work of breathing Lungs are rhonchorous bilaterally Heart is irregular, systolic murmur audible No lower extremity edema REVIEW OF LABS, ECG WBC 10.2, hemoglobin 8.7, platelets 317, sodium 142, potassium 3.7, BUN 88, creatinine 1.79 Echocardiogram shows EF 50-55, moderate aortic stenosis EKG today showed atrial fibrillation rate controlled, without any acute ST segment changes IMPRESSION / ASSESSMENT: #1 acute respiratory failure requiring intubation and mechanical ventilation, successful extubation yesterday #2 atrial fibrillation, currently in rate controlled atrial fibrillation, anticoagulation was on hold, recently restarted #3 acute blood loss anemia secondary to GI bleed, status post blood transfu sions, hemoglobin stable, status post EGD showing mild gastritis without any bleeding #4 acute kidney injury, creatinine improving #5 history of COPD #6 diabetes #7 history of CHF #8 history of CAD status post CABG #9 recent echocardiogram showing EF 50-55%, moderate aortic stenosis PLAN: Monitor for any further bleeding, monitor hemoglobin Continue statins Management of diuretics per nephrology We'll continue to follow Objective - Vital Signs Vital signs: Vital Signs Temp 98.3 F 06/05/20 08:00 Pulse 60 06/05/20 13:10 Resp 26 H 06/05/20 09:00 BP 117/47 06/05/20 09:00 Pulse Ox 98 06/05/20 09:00 Intake & Output 06/04/20 06/05/20 06/05/20 18:59 06:59 18:59 Intake Total 610 486 278 Output Total 3048 1675 255 Balance -0608 -1189 23 Weight 122.1 kg 122.1 kg Intake: IV 300 286 78 Sodium Chloride 0.9% 1, 240 220 60 000 ml @ 20 mls/hr IV . Q24H [facility] Rx#:[id number] pressure bag 60 66 18 Intake, IV Titration 300 200 200 Amount Piperacillin-Tazobactam 3 100 200 100 .375 gm In Sodium Chloride 0.9% 100 ml @ 25 mls/hr IVPB Q8HR [facility] Rx# :[id number] Sodium Ferric Gluconat- 100 100 Sucrose 125 mg In Sodium Chloride 0.9% 100 ml @ 100 mls/hr IVPB DAILY [facility] Rx#:[id number] propofoL 1,000 mg In 100 Empty Bag 1 bag @ Titrate IV .Q0M [facility] Rx#: [id number] Tube Feeding 10 Output: Urine 2848 1675 255 Stool 200 Other: Voiding Method Indwelling Catheter Indwelling Catheter ABP, PAP, CO, CI - Last Documented Arterial Blood Pressure 131/46 - Labs CBC & Chem 7: 06/05/20 04:00 06/05/20 04:00 Labs: Abnormal Lab Results - Last 24 Hours (Table) 06/04/20 06/04/20 06/05/20 Range/Units 17:53 20:20 04:00 RBC 3.37 L (4.30-5.90) m/uL Hgb 8.7 L (13.0-17.5) gm/dL Hct 29.0 L (39.0-53.0) % MCHC 29.8 L (31.0-37.0) g/dL RDW 17.6 H (11.5-15.5) % Neutrophils # 8.9 H (1.3-7.7) k/uL Lymphocytes # 0.3 L (1.0-4.8) k/uL Carbon Dioxide (22-30) mmol/L BUN (9-20) mg/dL Creatinine (0.66-1.25) mg/dL Glucose (74-99) mg/dL POC Glucose (mg/dL) 248 H 230 H (75-99) mg/dL Calcium (8.4-10.2) mg/dL 06/05/20 06/05/20 06/05/20 Range/Units 04:00 05:56 11:48 RBC (4.30-5.90) m/uL Hgb (13.0-17.5) gm/dL Hct (39.0-53.0) % MCHC (31.0-37.0) g/dL RDW (11.5-15.5) % Neutrophils # (1.3-7.7) k/uL Lymphocytes # (1.0-4.8) k/uL Carbon Dioxide 36 H (22-30) mmol/L BUN 88 H (9-20) mg/dL Creatinine 1.79 H (0.66-1.25) mg/dL Glucose 199 H (74-99) mg/dL POC Glucose (mg/dL) 204 H 143 H (75-99) mg/dL Calcium 8.3 L (8.4-10.2) mg/dL Microbiology - Last 24 Hours (Table) 06/02/20 03:12 Gram Stain - Final Sputum Sputum Culture - Final Klebsiella pneumoniae Stenotrophomonas maltophilia
--- NOTE | 2020-06-05 13:26 | P.PN ---
Subjective 85-year-old male is being treated for acute hypoxic and hypercapnic respiratory failure patient does have history of sleep apnea does appear to have some chronic CO2 retention. Patient is also being treated for heart failure exacerbation and echocardiogram is being obtained. Patient is anemic received 2 units of for blood transfusion although there is no clear evidence of acute GI bleed. Patient is also being treated for acute renal failure from a severe anemia there is no clear evidence of for acute blood loss anemia patient does have history of COPD and is on systemic steroids at this time patient has elevated blood sugars. Is on IV insulin drip which was changed to long-acting steroid. We'll insulin.patient has hypovolemic hyponatremia which is improving with IV Lasix. 06/03/2020 Patient still remains intubated and the patient is bit alkalotic because of its respiratory rate of on ventilator settings were decreased. Patient is due to undergo upper GI endoscopy which showed mild gastritis without any other significant abnormality. PERRLA remained fairly stable 06/04/2020 Patient is extubated today feels better today but still wheezing at this time. 06/05/2020 Patient is doing much better today his wheezing or significant improvement patient remains on IV Lasix. Patient is quite weak. Patient systemic steroids were discontinued, cutting down the long-acting insulin because of that reason. His kidney function continued to improve Constitutional: Denied any fatigue denied any fever. Cardio vascular: denied any chest pain, palpitations Gastrointestinal denied any nausea vomiting Pulmonary: Denied any shortness of breath cough Neurologic denied any new focal deficits All inpatient medications were reviewed and appropriate changes in these medications as dictated in the interval history and assessment and plan. Objective - Vital Signs Vital signs: Vital Signs Temp 98.3 F 06/05/20 08:00 Pulse 62 06/05/20 13:21 Resp 26 H 06/05/20 09:00 BP 117/47 06/05/20 09:00 Pulse Ox 98 06/05/20 09:00 Intake & Output 06/04/20 06/05/20 06/05/20 18:59 06:59 18:59 Intake Total 610 486 278 Output Total 8870 3321 255 Balance -4497 -6318 23 Weight 122.1 kg 122.1 kg Intake: IV 300 286 78 Sodium Chloride 0.9% 1, 240 220 60 000 ml @ 20 mls/hr IV . Q24H [facility] Rx#:[id number] pressure bag 60 66 18 Intake, IV Titration 300 200 200 Amount Piperacillin-Tazobactam 3 100 200 100 .375 gm In Sodium Chloride 0.9% 100 ml @ 25 mls/hr IVPB Q8HR [facility] Rx# :[id number] Sodium Ferric Gluconat- 100 100 Sucrose 125 mg In Sodium Chloride 0.9% 100 ml @ 100 mls/hr IVPB DAILY [facility] Rx#:[id number] propofoL 1,000 mg In 100 Empty Bag 1 bag @ Titrate IV .Q0M [facility] Rx#: [id number] Tube Feeding 10 Output: Urine 2848 1675 255 Stool 200 Other: Voiding Method Indwelling Catheter Indwelling Catheter ABP, PAP, CO, CI - Last Documented Arterial Blood Pressure 131/46 - Exam PHYSICAL EXAMINATION: GENERAL: Patient is alert oriented 3 not in respiratory distress HEENT: Pupils are round and equally reacting to light. EOMI. No scleral icterus. No conjunctival pallor. Normocephalic, atraumatic. No pharyngeal erythema. No thyromegaly. CARDIOVASCULAR: S1 and S2 present. No murmurs, rubs, or gallops. PULMONARY: Wheezing improved still has bibasilar crackles and rhonchi ABDOMEN: Soft, nontender, nondistended, normoactive bowel sounds. No palpable organomegaly. MUSCULOSKELETAL: No joint swelling or deformity. EXTREMITIES: No cyanosis, clubbing, or pedal edema. NEUROLOGICAL: Does not appear to have any new focal deficits SKIN: No rashes. - Labs CBC & Chem 7: 06/05/20 04:00 06/05/20 04:00 Labs: Abnormal Lab Results - Last 24 Hours (Table) 06/04/20 06/04/20 06/05/20 Range/Units 17:53 20:20 04:00 RBC 3.37 L (4.30-5.90) m/uL Hgb 8.7 L (13.0-17.5) gm/dL Hct 29.0 L (39.0-53.0) % MCHC 29.8 L (31.0-37.0) g/dL RDW 17.6 H (11.5-15.5) % Neutrophils # 8.9 H (1.3-7.7) k/uL Lymphocytes # 0.3 L (1.0-4.8) k/uL Carbon Dioxide (22-30) mmol/L BUN (9-20) mg/dL Creatinine (0.66-1.25) mg/dL Glucose (74-99) mg/dL POC Glucose (mg/dL) 248 H 230 H (75-99) mg/dL Calcium (8.4-10.2) mg/dL 06/05/20 06/05/20 06/05/20 Range/Units 04:00 05:56 11:48 RBC (4.30-5.90) m/uL Hgb (13.0-17.5) gm/dL Hct (39.0-53.0) % MCHC (31.0-37.0) g/dL RDW (11.5-15.5) % Neutrophils # (1.3-7.7) k/uL Lymphocytes # (1.0-4.8) k/uL Carbon Dioxide 36 H (22-30) mmol/L BUN 88 H (9-20) mg/dL Creatinine 1.79 H (0.66-1.25) mg/dL Glucose 199 H (74-99) mg/dL POC Glucose (mg/dL) 204 H 143 H (75-99) mg/dL Calcium 8.3 L (8.4-10.2) mg/dL Microbiology - Last 24 Hours (Table) 06/02/20 03:12 Gram Stain - Final Sputum Sputum Culture - Final Klebsiella pneumoniae Stenotrophomonas maltophilia Assessment and Plan Plan: -acute on chronic hypercapnic as well as hypoxic respiratory failure: Secondary to COPD exacerbation, sleep apnea with CO2 retention as well as pulmonary edema leading to hypoxemia. Echocardiac exam is being up and continue with systemic steroids and inhalation treatments. Patient is extubated on 06/04/2020 -severe anemia: No evidence of acute GI bleed patient received Z2 units of blood transfusion , hemoglobin remained stable upper GI endoscopy as mentioned above -Sleep apnea -Type 2 diabetes mellitus: Patient blood sugars are expected to go because of systemic steroids patient will be started on long-acting insulin along with sliding scale for steroids. Her sugars are still high -coronary artery disease -acute renal failure possibly secondary to acute tubular necrosis from severe anemia with a competent of cardiorenal syndrome baseline creatinine is unknown. -Congestive heart failure EF is unknown echocardiac exam is pending patient has pulmonary edema
--- NOTE | 2020-06-05 13:32 | P.PN ---
Subjective Progress Note Date: 06/05/20 Principal diagnosis: Acute on chronic hypoxic respiratory failure, multifactorial, related to decompensated heart failure, with diastolic dysfunction, valvular heart disease, and Klebsiella pneumonia/Stenotrophomonas maltophilia pneumonia. Acute on chronic anemia 85-year-old male patient is currently intubated on a mechanical ventilator and the patient is being seen for a follow-up. The patient is known to me from previous hospitalizations. He has multiple medical problems and comorbidities. He has been hospitalized for an acute hypoxic respiratory failure as the patient presented emergency department with difficulty breathing. He has COPD. Chronic hypoxic respiratory failure maintained on oxygen 2 L and he also has valvular heart disease with moderate degree of aortic stenosis and diastolic heart failure. The patient also was suspected to have a GI bleed. The patient currently is intubated on a mechanical ventilator. On today's evaluation, the patient is sedated with propofol which is running at 50 g per KG per minute. IV fluids are 20s an hour and the patient is being diuresis with IV Lasix and the neck fluid balance is -2.2 L over the past 24 hours. He has been receiving enteral feeding for nutritional support with the vital high protein at the rate of 20 mL an hour. His cardiac rhythm is consistent with atrial flutter/fibrillation. His chest x-ray shows interval improvement in the volume status. There are still some cardiomegaly. He remains on assist control mode at the rate of 16 with tidal volume of 450 and FiO2 50% with a PEEP of 5. The morning blood gases showed a pH of 7.51 with a pCO2 of 48 and pO2 122. Hemoglobin stable at 7.8. White cell count stable at 8.9. He has chronic kidney disease in the creatinine is also improving is down to 1.9 as the patient is being diuresis. Based on all this, I stop the sedation and check his weaning parameters. The patient had a rapid shallow breathing index of 27 with a tidal volume of 450 and the vital capacity of 9.5 L. He was given a spelled his breathing trial with a pressure support of 5 and a PEEP of 5 and subsequent blood gases showed a pH of 7.49 with a pCO2 of 47 and pO2 130. The patient was awake and alert and the patient was following commands and answering questions appropriately without any significant agitation. I decided to extubated patient accordingly. On 06/05/2020 patient seen in follow-up in the intensive care unit, yesterday patient was weaned and extubated from the mechanical ventilation successfully, in the evening patient did require BiPAP support, with pressures often of 5, and FiO2 of 50%, this morning she was switched over to high flow nasal cannula currently at 6 L/m, his pulse ox is 99%, he is awake and alert, he remains on Lasix at 60 mg every 12 hours, and he is in negative fluid balance over the last 24 hours with over 3.6 L negative in the last 24 hours, remains in atrial fibrillation, which is chronic for him, with the controlled rate at 60-62 BPM. Today's chest x-ray has been reviewed showing diffuse interstitial pattern with cardiomegaly, bilateral pleural effusions. No evidence of active bleeding, today's hemoglobin is 8.7. Renal profile is improving, with BUN at 88, creatinine is 1.79. Yesterday we started the patient on Zosyn for evidence of Klebsiella pneumonia in the sputum, later in the evening, the second organism was identified in the sputum, Stenotrophomonas maltophilia. Patient has had no fever or chills. He is alert and oriented 3, CAM-ICU was negative. Patient has a slightly congested cough, no phlegm production, not significantly congested. Objective - Vital Signs Vital signs: Vital Signs Temp 98.3 F 06/05/20 08:00 Pulse 60 06/05/20 13:10 Resp 26 H 06/05/20 09:00 BP 117/47 06/05/20 09:00 Pulse Ox 98 06/05/20 09:00 Intake & Output 06/04/20 06/05/20 06/05/20 18:59 06:59 18:59 Intake Total 610 486 278 Output Total 3048 1675 255 Balance -2438 -1189 23 Weight 122.1 kg 122.1 kg Intake: IV 300 286 78 Sodium Chloride 0.9% 1, 240 220 60 000 ml @ 20 mls/hr IV . Q24H [facility] Rx#:[id number] pressure bag 60 66 18 Intake, IV Titration 300 200 200 Amount Piperacillin-Tazobactam 3 100 200 100 .375 gm In Sodium Chloride 0.9% 100 ml @ 25 mls/hr IVPB Q8HR [facility] Rx# :[id number] Sodium Ferric Gluconat- 100 100 Sucrose 125 mg In Sodium Chloride 0.9% 100 ml @ 100 mls/hr IVPB DAILY RAMESH Rx#:[id number] propofoL 1,000 mg In 100 Empty Bag 1 bag @ Titrate IV .Q0M RAMESH Rx#: [id number] Tube Feeding 10 Output: Urine 2848 1675 255 Stool 200 Other: Voiding Method Indwelling Catheter Indwelling Catheter ABP, PAP, CO, CI - Last Documented Arterial Blood Pressure 131/46 - Exam GENERAL EXAM: Alert, very pleasant, 85-year-old white male, on 6L of oxygen a pulse ox of 99% comfortable in no apparent distress. HEAD: Normocephalic/atraumatic. EYES: Normal reaction of pupils, equal size. Conjunctiva pink, sclera white. NOSE: Clear with pink turbinates. THROAT: No erythema or exudates. NECK: No masses, no JVD, no thyroid enlargement, no adenopathy. CHEST: No chest wall deformity. Symmetrical expansion. LUNGS: Equal air entry with no crackles, wheeze, rhonchi or dullness. CVS: Irregular rate and rhythm, normal S1 and S2, no gallops, no murmurs, no rubs ABDOMEN: Soft, nontender. No hepatosplenomegaly, normal bowel sounds, no guarding or rigidity. EXTREMITIES: No clubbing, no edema, no cyanosis, 2+ pulses and upper and lower extremities. MUSCULOSKELETAL: Muscle strength and tone normal. SPINE: No scoliosis or deformity SKIN: No rashes CENTRAL NERVOUS SYSTEM: Alert and oriented -3. No focal deficits, tone is normal in all 4 extremities. PSYCHIATRIC: Alert and oriented -3. Appropriate affect. Intact judgment and insight. - Labs CBC & Chem 7: 06/05/20 04:00 06/05/20 04:00 Labs: Abnormal Lab Results - Last 24 Hours (Table) 06/04/20 06/04/20 06/05/20 Range/Units 17:53 20:20 04:00 RBC 3.37 L (4.30-5.90) m/uL Hgb 8.7 L (13.0-17.5) gm/dL Hct 29.0 L (39.0-53.0) % MCHC 29.8 L (31.0-37.0) g/dL RDW 17.6 H (11.5-15.5) % Neutrophils # 8.9 H (1.3-7.7) k/uL Lymphocytes # 0.3 L (1.0-4.8) k/uL Carbon Dioxide (22-30) mmol/L BUN (9-20) mg/dL Creatinine (0.66-1.25) mg/dL Glucose (74-99) mg/dL POC Glucose (mg/dL) 248 H 230 H (75-99) mg/dL Calcium (8.4-10.2) mg/dL 06/05/20 06/05/20 06/05/20 Range/Units 04:00 05:56 11:48 RBC (4.30-5.90) m/uL Hgb (13.0-17.5) gm/dL Hct (39.0-53.0) % MCHC (31.0-37.0) g/dL RDW (11.5-15.5) % Neutrophils # (1.3-7.7) k/uL Lymphocytes # (1.0-4.8) k/uL Carbon Dioxide 36 H (22-30) mmol/L BUN 88 H (9-20) mg/dL Creatinine 1.79 H (0.66-1.25) mg/dL Glucose 199 H (74-99) mg/dL POC Glucose (mg/dL) 204 H 143 H (75-99) mg/dL Calcium 8.3 L (8.4-10.2) mg/dL Microbiology - Last 24 Hours (Table) 06/02/20 03:12 Gram Stain - Final Sputum Sputum Culture - Final Klebsiella pneumoniae Stenotrophomonas maltophilia Assessment and Plan Plan: Assessment: 1 acute hypoxic respiratory failure, multifactorial, essential related to decompensated heart failure/valvular heart disease with fluid overload. The patient also has underlying COPD and chronic hypoxic respiratory failure. The patient was intubated on mechanical ventilator. He was diuresed adequately. Sputum showed Klebsiella and stenotrophomonas and the patient was started on IV Zosyn The patient is a negative fluid balance. The patient was noted to have good weaning parameters and the patient was extubated today to a nasal cannula on 06/04/2020 2 CHF with diastolic dysfunction 3 moderate severe aortic stenosis 4 COPD with chronic hypoxic respiratory failure, FEV1 of 42% of predicted 5 acute kidney injury on top of chronic kidney disease in the creatinine is improving 6 coronary artery disease with previous coronary stenting 7 diabetes mellitus 8 previous history of colostomy, for an underlying rectal cancer 9 GI bleeding post EGD and the patient was found to have mild gastritis otherwise normal appearing upper GI examination. 10 anemia of chronic disease with interval drop in hemoglobin down to 6.3 and the patient received an EGD and packed RBC transfusion and currently hemoglobin is at 7.8. The patient is his total of 2 units of packed RBC during this current admission. 11 history of aortic valve replacement back in 2007 and previous history of coronary artery bypass surgery 12 obstructive sleep apnea, nontolerant to CPAP therapy and the patient has been utilizing oxygen at 2 L overnight 13 hypothyroidism Plan: Continue with current antibiotic coverage, vital signs have been stable overnight, no fever or chills, not on any vasopressors, continues to diurese, he is maintaining negative fluid balance, today's chest x-ray has been reviewed still showing interstitial pattern and small pleural effusions, echocardiogram showed preserved LV function, moderate aortic stenosis, and mild MR and mild TR. Mentation is appropriate, delirium screen is negative. No acute events overnight maintain aspiration precautions, encourage deep breathing and coughing, weaning FiO2, renal profile slightly improved, nephrology is following, no nausea no vomiting, no diarrhea, may use BiPAP support as needed and at bedtime, otherwise continue weaning FiO2. I performed a history & physical examination of the patient and discussed their management with my nurse practitioner, Odalis Reyes. I reviewed the nurse practitioner's note and agree with the documented findings and plan of care. Lung sounds are positive for diminished breath sounds. The findings and the impression was discussed with the patient. I attest to the documentation by the nurse practitioner. Time with Patient: Less than 30
[2020-06-05 16:50] LABS: Glucose,Whole Blood 219 mg/dL (75-99)
[2020-06-05 20:39] LABS: Glucose,Whole Blood 232 mg/dL (75-99)
[2020-06-05] MEDS: INSULIN DETEMIR (LEVEMIR) 100 UNIT/ML SYR SQ SCH (20:43)
[2020-06-05] MEDS: ATORVASTATIN 80 MG TAB PO SCH (20:46)
[2020-06-06] MEDS: IPRATROPIUM-ALBUTEROL 3 ML NEB INHALATION SCH ×5 (03:54→18:53)
[2020-06-06 04:33] LABS: Anisocytosis Slight; Basophils % (A) 0 %; Eosinophils # (A) 0.1 k/uL (0-0.7); Eosinophils % (A) 1 %; HCT 29.4 % (39.0-53.0); HGB 8.5 gm/dL (13.0-17.5); Hypochromasia Marked; Lymphocytes # (A) 0.4 k/uL (1.0-4.8); Lymphocytes % (A) 5 %; MCH 25.3 pg (25.0-35.0); MCHC 28.9 g/dL (31.0-37.0); MCV 87.6 fL (80.0-100.0); Mean Platelet Volume 8.9; Monocytes # (A) 0.6 k/uL (0-1.0); Monocytes % (A) 7 %; Neutrophils # (A) 6.8 k/uL (1.3-7.7); Neutrophils % (A) 83 %; Platelet Count 250 k/uL (150-450); Poikilocytosis Moderate; RBC 3.35 m/uL (4.30-5.90); RDW 17.5 % (11.5-15.5); WBC 8.2 k/uL (3.8-10.6)
[2020-06-06 04:48] LABS: Calcium 8.3 mg/dL (8.4-10.2); Potassium 3.6 mmol/L (3.5-5.1)
[2020-06-06] MEDS ORDERED: POTASSIUM CHLORIDE 20 MEQ in WATER FOR INJECTION 1 100ML.BAG IVPB STA (04:55)
[2020-06-06] MEDS: LEVOTHYROXINE 50 MCG TAB PO SCH (05:02)
[2020-06-06 06:33] LABS: Glucose,Whole Blood 153 mg/dL (75-99)
[2020-06-06] MEDS: INSULIN ASPART (NovoLOG) 100 UNIT/ML VIAL SQ SCH ×4 (06:39→20:54)
--- NOTE | 2020-06-06 08:36 | CDI ---
Documentation Clarification Form Date: 06/06/2020 0833 CDS: Angelica Villaseñor RN, CCDS Admit Date: 06/01/2020 Patient Name: Primitivo Hammonds ATTENTION: The Clinical Documentation Specialists (CDI) and [facility] Coding Staff appreciate your assistance in clarifying documentation. Please respond to the clarification below the line at the bottom and electronically sign. The CDI & [facility] Coding staff will review the response and follow-up if needed. Please note: Queries are made part of the Legal Health Record. If you have any questions, please contact the author of this message via ITS. Dr. Pizarro, CKD is documented in the 06/04 & 06/05 Pulmonary Progress Notes and requires further specificity. History/Risk Factors: Patients Historical BUN/CR/GFR: there are no previous lab results at this facility [facility] [employer] DM, CHF, CABG, A/C GIB, CAD, Hyponatremia, Hyperkalemia, Hypoalbuminemia, iron\\ deficiency anemia Clinical Indicators: 06/05 Pulmonary Progress Note: "He has chronic kidney disease in the creatinine is also improving is down to 1.9 as the patient is being diuresis. Assessment: 5 acute kidney injury on top of chronic kidney disease in the creatinine is improving." 06/01 to Current Labs: BUN: 94/95/86/88/69 Creatinine: 2.46/2.26/2.28/1.94/1.79/1.95 GFR: 23/25/31/34/30 Hgb: 6.3/7.9/8.2/7.8/8.7/8.5 K+ 6.6/5.1/4.3/3.7/3.6 Treatment: 06/01 Ca+Gl- 1gm IVPB x 1, 1 amp D50, 1 amp HCO3, 15gm Kayexalate po x 1 06/04 to current Ferric Sodium Gluconate 125 mg IVPB QD Several doses of IVP Lasix. Current order is 60 mg IVP Q 12 hrs 0.9% NS @ 20 cc/hr IV Insulin Gtt In order to capture the severity of condition, please clarify the stage of the CKD, if known: CKD Stage 1 (GFR > 90) CKD Stage 2 (GFR 60-89) CKD Stage 3 (GFR 30-59) CKD Stage 4 (GFR 15-29) CKD Stage 5 (GFR <15) ESRD Other, please specify Unable to determine Please continue to document in your progress notes and discharge summary in order to capture severity of illness and risk of mortality. Include clinical findings that support your diagnosis. CKD Stage 3 (GFR 30-59) MTDD
[2020-06-06] MEDS: FUROSEMIDE 10 MG/ML 10 ML VIAL IV SCH ×2 (08:38→20:56)
[2020-06-06] MEDS: PANTOPRAZOLE 40 MG/10 ML VIAL IV SCH (08:38)
[2020-06-06] MEDS: APIXABAN 2.5 MG TABLET PO SCH ×2 (08:39→21:00)
[2020-06-06] MEDS: PIPERACILLIN-TAZOBACTAM 3.375 GM in SODIUM CHLORIDE 0.9% 100 ML IVPB SCH ×3 (08:39→23:53)
--- NOTE | 2020-06-06 09:04 | XR ---
EXAMINATION TYPE: XR chest 1V portable DATE OF EXAM: 06/06/2020 CLINICAL HISTORY: Shortness of breath TECHNIQUE: Semiupright portable view of the chest COMPARISON: 06/05/2020 chest radiograph FINDINGS: Sternotomy wires. Left subclavian central venous catheter distal tip over the cavoatrial j unction. Redemonstrated cardiomegaly. Pulmonary vascular congestion and bibasilar airspace opacities unchanged. Small bilateral pleural effusions. No pneumothorax within limits of technique. IMPRESSION: Unchanged radiographic appearance of the chest. Findings may represent CHF with small carmen ateral pleural effusions.
[2020-06-06] MEDS: SODIUM FERRIC GLUCONAT-SUCROSE 125 MG in SODIUM CHLORIDE 0.9% 100 ML IVPB SCH (09:16)
--- NOTE | 2020-06-06 09:27 | P.PN ---
Subjective Patient is seen in follow-up for acute kidney injury. Renal function slightly worse due to diuresis. extubated June 04. currently on nasal cannula. He is maintained on IV Lasix and is nonoliguric. No active bleeding noted per the nurse. sitting up in chair. Denies chest pain or shortness of breath. Vital signs are stable. General: The patient appeared well nourished and normally developed. HEENT: Head exam is unremarkable. Neck is without jugular venous distension. LUNGS: Breath sounds decreased. HEART: Rate and Rhythm are regular. ABDOMEN: Soft. EXTREMITITES: 1+ edema. Objective - Vital Signs Vital signs: Vital Signs Temp 98.3 F 06/06/20 08:00 Pulse 69 06/06/20 09:00 Resp 22 06/06/20 09:00 BP 124/64 06/06/20 00:00 Pulse Ox 98 06/06/20 09:00 Intake & Output 06/05/20 06/06/20 06/06/20 18:59 06:59 18:59 Intake Total 612 832 178 Output Total 1642 2100 460 Balance -2942 -0032 -282 Weight 122.1 kg Intake: IV 312 232 178 Piperacillin-Tazobactam 3 100 .375 gm In Sodium Chloride 0.9% 100 ml @ 25 mls/hr IVPB Q8HR RAMESH Rx# :[id number] Sodium Chloride 0.9% 1, 240 160 60 000 ml @ 20 mls/hr IV . Q24H RAMESH Rx#:[id number] pressure bag 72 72 18 Intake, IV Titration 300 100 Amount Piperacillin-Tazobactam 3 200 100 .375 gm In Sodium Chloride 0.9% 100 ml @ 25 mls/hr IVPB Q8HR RAMESH Rx# :[id number] Sodium Ferric Gluconat- 100 Sucrose 125 mg In Sodium Chloride 0.9% 100 ml @ 100 mls/hr IVPB DAILY RAMESH Rx#:[id number] Oral 500 Output: Urine 1642 2100 460 Other: Voiding Method Indwelling Catheter Indwelling Catheter ABP, PAP, CO, CI - Last Documented Arterial Blood Pressure 144/48 - Labs CBC & Chem 7: 06/06/20 04:25 06/06/20 04:25 Labs: Abnormal Lab Results - Last 24 Hours (Table) 09/11/20 09/11/20 09/11/20 Range/Units 11:48 16:49 20:38 RBC (4.30-5.90) m/uL Hgb (13.0-17.5) gm/dL Hct (39.0-53.0) % MCHC (31.0-37.0) g/dL RDW (11.5-15.5) % Lymphocytes # (1.0-4.8) k/uL Carbon Dioxide (22-30) mmol/L BUN (9-20) mg/dL Creatinine (0.66-1.25) mg/dL Glucose (74-99) mg/dL POC Glucose (mg/dL) 143 H 219 H 232 H (75-99) mg/dL Calcium (8.4-10.2) mg/dL 06/06/20 06/06/20 06/06/20 Range/Units 04:25 04:25 06:32 RBC 3.35 L (4.30-5.90) m/uL Hgb 8.5 L (13.0-17.5) gm/dL Hct 29.4 L (39.0-53.0) % MCHC 28.9 L (31.0-37.0) g/dL RDW 17.5 H (11.5-15.5) % Lymphocytes # 0.4 L (1.0-4.8) k/uL Carbon Dioxide 39 H (22-30) mmol/L BUN 69 H (9-20) mg/dL Creatinine 1.95 H (0.66-1.25) mg/dL Glucose 163 H (74-99) mg/dL POC Glucose (mg/dL) 153 H (75-99) mg/dL Calcium 8.3 L (8.4-10.2) mg/dL Assessment and Plan Plan: Assessment: 1. Acute kidney injury secondary to ATN secondary to acute blood loss anemia. Also component of cardiorenal syndrome. Creatinine was 2.46 on admission and is 1.95 today. Unknown baseline renal function. No proteinuria on UA. No hydronephrosis noted on kidney ultrasound. 2. Acute GI bleed status post blood transfusions. No active bleeding noted. GI following. EGD revealed mild gastritis. 3. Volume overload. improving with diuresis. 4. Acute hypercapnic and hypoxic respiratory failure. status post extubation June 04. 5. Pneumonia maintained on antibiotics. Sputum culture positive for Klebsiella and stenotrophomona. 6. Rule out chronic kidney disease. Plan: maintain Lasix 60 mg IV twice daily - will start decreasing dose tomorrow depending on renal function. Monitor hemoglobin and transfuse as needed. Continue to monitor renal function and urine output. add Aranesp.
[2020-06-06] MEDS ORDERED: DARBEPOETIN ALFA 40 MCG/0.4 ML SYRINGE SQ SCH (10:00)
[2020-06-06 11:33] LABS: ABG PCO2 74 mmHg (35-45); ABG PO2 59 mmHg (83-108)
[2020-06-06 11:34] LABS: ABG PCO2 75 mmHg (35-45); ABG PO2 56 mmHg (83-108)
[2020-06-06 12:00] LABS: Glucose,Whole Blood 192 mg/dL (75-99)
--- NOTE | 2020-06-06 12:26 | P.PN ---
Subjective Progress Note Date: 06/06/20 On today's evaluation of 06/06/2020, the patient is awake and alert. The patient continues to diurese. He is in a negative fluid balance of 3.6 L over the past 24 hours and he has diuresed another 2.2 L. Chest x-ray findings are stable. There is some limited by the pulmonary infiltrates. As mentioned earlier, the sputum showed stenotrophomonas and capsula. The patient on IV Zosyn. Pneumonia cannot be completely excluded. The patient was started on a 0.2. And was 8.5. Creatinine is improved at 1.9. No significant electrodes imbalance. Is awake and alert. He has a congested cough. Unable to make up much of sputum. No nausea. No vomiting. No diarrhea. No abdominal pain. No other significant events otherwise for now. He remains on Lasix 60 mg IV push every 12 hours. He is also receiving IV iron. IV fluids are currently at KVO. He is post ventilator-dependent respiratory failure due to acute hypoxic respiratory failure. Objective - Vital Signs Vital signs: Vital Signs Temp 98.3 F 06/06/20 08:00 Pulse 73 06/06/20 11:46 Resp 15 06/06/20 11:00 BP 128/66 06/06/20 11:00 Pulse Ox 98 06/06/20 11:00 Intake & Output 06/05/20 06/06/20 06/06/20 18:59 06:59 18:59 Intake Total 612 832 198 Output Total 1642 2100 810 Balance -1030 -1268 -612 Weight 122.1 kg Intake: IV 312 232 198 Piperacillin-Tazobactam 3 100 .375 gm In Sodium Chloride 0.9% 100 ml @ 25 mls/hr IVPB Q8HR RAMESH Rx# :[id number] Sodium Chloride 0.9% 1, 240 160 80 000 ml @ 20 mls/hr IV . Q24H RAMESH Rx#:[id number] pressure bag 72 72 18 Intake, IV Titration 300 100 Amount Piperacillin-Tazobactam 3 200 100 .375 gm In Sodium Chloride 0.9% 100 ml @ 25 mls/hr IVPB Q8HR RAMESH Rx# :[id number] Sodium Ferric Gluconat- 100 Sucrose 125 mg In Sodium Chloride 0.9% 100 ml @ 100 mls/hr IVPB DAILY RAMESH Rx#:[id number] Oral 500 Output: Urine 1642 2100 810 Other: Voiding Method Indwelling Catheter Indwelling Catheter Indwelling Catheter ABP, PAP, CO, CI - Last Documented Arterial Blood Pressure 152/52 - Exam Gen. appearance, comfortable likely distress. The patient is currently on oxygen 3 L per minute nasal cannula Head exam was generally normal. There was no scleral icterus or corneal arcus. Mucous membranes were moist. Neck was supple and without jugular venous distension, thyromegaly, or carotid bruits. Carotids were easily palpable bilaterally. There was no adenopathy. He has significant crowding of the posterior oropharynx with a Mallampati class IV. Lungs sounds are diminished and some coarse rhonchi in the lung bases bilaterally. Heart sounds are irregular, possible sinus and there is a systolic ejection murmur grade 3/6 related to his underlying aortic stenosis. Abdominal exam revealed normal bowel sounds. The abdomen was soft, non-tender, and without masses, organomegaly, or appreciable enlargement of the abdominal aorta. The patient has a colostomy bag which is functional and there is no direct tenderness rebound tenderness or guarding at this point in time. Extremities revealed +1 pitting edema and there is no cyanosis or clubbing. Neurologically the patient is waking up from sedation. The patient doing well. No focal neurological deficit. - Labs CBC & Chem 7: 06/06/20 04:25 06/06/20 04:25 Labs: Abnormal Lab Results - Last 24 Hours (Table) 06/02/20 06/02/20 06/05/20 Range/Units 02:03 02:26 16:49 RBC (4.30-5.90) m/uL Hgb (13.0-17.5) gm/dL Hct (39.0-53.0) % MCHC (31.0-37.0) g/dL RDW (11.5-15.5) % Lymphocytes # (1.0-4.8) k/uL ABG pCO2 74 H* 75 H* (35-45) mmHg ABG pO2 59 L* 56 L* (83-108) mmHg Carbon Dioxide (22-30) mmol/L BUN (9-20) mg/dL Creatinine (0.66-1.25) mg/dL Glucose (74-99) mg/dL POC Glucose (mg/dL) 219 H (75-99) mg/dL Calcium (8.4-10.2) mg/dL 06/05/20 06/06/20 06/06/20 Range/Units 20:38 04:25 04:25 RBC 3.35 L (4.30-5.90) m/uL Hgb 8.5 L (13.0-17.5) gm/dL Hct 29.4 L (39.0-53.0) % MCHC 28.9 L (31.0-37.0) g/dL RDW 17.5 H (11.5-15.5) % Lymphocytes # 0.4 L (1.0-4.8) k/uL ABG pCO2 (35-45) mmHg ABG pO2 (83-108) mmHg Carbon Dioxide 39 H (22-30) mmol/L BUN 69 H (9-20) mg/dL Creatinine 1.95 H (0.66-1.25) mg/dL Glucose 163 H (74-99) mg/dL POC Glucose (mg/dL) 232 H (75-99) mg/dL Calcium 8.3 L (8.4-10.2) mg/dL 06/06/20 06/06/20 Range/Units 06:32 11:59 RBC (4.30-5.90) m/uL Hgb (13.0-17.5) gm/dL Hct (39.0-53.0) % MCHC (31.0-37.0) g/dL RDW (11.5-15.5) % Lymphocytes # (1.0-4.8) k/uL ABG pCO2 (35-45) mmHg ABG pO2 (83-108) mmHg Carbon Dioxide (22-30) mmol/L BUN (9-20) mg/dL Creatinine (0.66-1.25) mg/dL Glucose (74-99) mg/dL POC Glucose (mg/dL) 153 H 192 H (75-99) mg/dL Calcium (8.4-10.2) mg/dL Assessment and Plan Plan: 1 acute hypoxic respiratory failure, multifactorial, essential related to decompensated heart failure/valvular heart disease with fluid overload. She is currently on 3 L of oxygen by nasal cannula. The patient has diabetes adequately. The patient on IV Zosyn covered for a combination of stenotrophomonas and Klebsiella the sputum. Chest x-ray findings are stable. Oxidation is improved. 2 CHF with diastolic dysfunction 3 moderate severe aortic stenosis 4 COPD with chronic hypoxic respiratory failure, FEV1 of 42% of predicted 5 acute kidney injury on top of chronic kidney disease in the creatinine is improving 6 coronary artery disease with previous coronary stenting 7 diabetes mellitus 8 previous history of colostomy, for an underlying rectal cancer 9 GI bleeding post EGD and the patient was found to have mild gastritis otherwise normal appearing upper GI examination. 10 anemia of chronic disease 11 history of aortic valve replacement back in 2007 and previous history of coronary artery bypass surgery 12 obstructive sleep apnea, nontolerant to CPAP therapy and the patient has been utilizing oxygen at 2 L overnight 13 hypothyroidism Plan Continue Lasix 60 mg IV push every 12 hours and continue Zosyn Continue DuoNeb neb last treatment [id number] Chest x-ray findings are stable and the patient's overall pulmonary status is improved The patient was started on anticoagulation with Eliquis We'll continue to follow. The patient can be transferred out to a medical surgical floor
[2020-06-06 12:46] LABS: Glucose,Whole Blood 232 mg/dL (75-99)
[2020-06-06] MEDS: SODIUM CHLORIDE 0.9% 1,000 ML IV SCH (12:48)
--- NOTE | 2020-06-06 13:22 | P.PN ---
Subjective This is Marina Gresham PA-C dictating a progress note on this patient The patient was interviewed and examined by me as well as by Dr. Saldana Case discussed with Dr. Saldana and he agrees with the plan of care HPI/interval history Patient is an 85-year-old male with a history significant for COPD, diabetes, CHF, CAD status post CABG who presented with shortness of breath. He developed worsening respiratory failure requiring intubation and mechanical ventilation. He was found to be anemic and his FOB was positive. He received blood t ransfusions and his anticoagulation is on hold. He underwent an EGD which showed mild gastritis no old blood or active bleeding. He was successfully extubated. Yesterday his anticoagulation was recently resumed and he'll not had any further bleeding per the nursing staff. Telemetry reveals he is still in atrial fibrillation with rates in the 70s. Patient seen and examined sitting up in the chair. Seems to be breathing more comfortably today. He denies any chest discomfort. He continues to cough. EXAMINATION Patient is afebrile, pulse in the 70s, respirations 16, blood pressure in the 120s over 60s, oxygen saturation 97% on 4 L nasal cannula Patient seen and examined sitting in the chair in no acute distress Lungs are rhonchorous bilaterally Heart is irregularly irregular, systolic murmur audible Mild lower extremity edema REVIEW OF LABS, ECG WBC 8.2, hemoglobin 8.5, platelets 250, sodium 142, potassium 3.6, BUN 69, creatinine 1.95 IMPRESSION / ASSESSMENT: #1 acute respiratory failure requiring intubation and mechanical ventilation, has been extubated, being treated for possible pneumonia #2 atrial fibrillation, currently in rate controlled atrial fibrillation, on anticoagulation #3 acute blood loss anemia secondary to GI bleed, status post blood transfusions, hemoglobin stable, status post EGD showing mild gastritis without any bleeding #4 acute kidney injury, creatinine improving #5 history of COPD #6 diabetes #7 history of CHF #8 history of CAD status post CABG #9 recent echocardiogram showing EF 50-55%, moderate aortic stenosis PLAN: Continue to monitor hemoglobin and for any further bleeding Continue statins Continue diuretics Objective - Vital Signs Vital signs: Vital Signs Temp 98.2 F 06/06/20 12:00 Pulse 71 06/06/20 13:00 Resp 16 06/06/20 13:00 BP 94/51 06/06/20 13:00 Pulse Ox 98 06/06/20 13:00 Intake & Output 06/05/20 06/06/20 06/06/20 18:59 06:59 18:59 Intake Total 612 832 238 Output Total 1642 2100 1210 Balance -0044 -9111 -072 Weight 122.1 kg Intake: IV 312 232 238 Piperacillin-Tazobactam 3 100 .375 gm In Sodium Chloride 0.9% 100 ml @ 25 mls/hr IVPB Q8HR [facility] Rx# :[id number] Sodium Chloride 0.9% 1, 240 160 120 000 ml @ 20 mls/hr IV . Q24H [facility] Rx#:[id number] pressure bag 72 72 18 Intake, IV Titration 300 100 Amount Piperacillin-Tazobactam 3 200 100 .375 gm In Sodium Chloride 0.9% 100 ml @ 25 mls/hr IVPB Q8HR [facility] Rx# :[id number] Sodium Ferric Gluconat- 100 Sucrose 125 mg In Sodium Chloride 0.9% 100 ml @ 100 mls/hr IVPB DAILY [facility] Rx#:[id number] Oral 500 Output: Urine 1642 2100 1210 Other: Voiding Method Indwelling Catheter Indwelling Catheter Indwelling Catheter ABP, PAP, CO, CI - Last Documented Arterial Blood Pressure 152/52 - Labs CBC & Chem 7: 06/06/20 04:25 06/06/20 04:25 Labs: Abnormal Lab Results - Last 24 Hours (Table) 06/02/20 06/02/20 06/05/20 Range/Units 02:03 02:26 16:49 RBC (4.30-5.90) m/uL Hgb (13.0-17.5) gm/dL Hct (39.0-53.0) % MCHC (31.0-37.0) g/dL RDW (11.5-15.5) % Lymphocytes # (1.0-4.8) k/uL ABG pCO2 74 H* 75 H* (35-45) mmHg ABG pO2 59 L* 56 L* (83-108) mmHg Carbon Dioxide (22-30) mmol/L BUN (9-20) mg/dL Creatinine (0.66-1.25) mg/dL Glucose (74-99) mg/dL POC Glucose (mg/dL) 219 H (75-99) mg/dL Calcium (8.4-10.2) mg/dL 06/05/20 06/06/20 06/06/20 Range/Units 20:38 04:25 04:25 RBC 3.35 L (4.30-5.90) m/uL Hgb 8.5 L (13.0-17.5) gm/dL Hct 29.4 L (39.0-53.0) % MCHC 28.9 L (31.0-37.0) g/dL RDW 17.5 H (11.5-15.5) % Lymphocytes # 0.4 L (1.0-4.8) k/uL ABG pCO2 (35-45) mmHg ABG pO2 (83-108) mmHg Carbon Dioxide 39 H (22-30) mmol/L BUN 69 H (9-20) mg/dL Creatinine 1.95 H (0.66-1.25) mg/dL Glucose 163 H (74-99) mg/dL POC Glucose (mg/dL) 232 H (75-99) mg/dL Calcium 8.3 L (8.4-10.2) mg/dL 06/06/20 06/06/20 06/06/20 Range/Units 06:32 11:59 12:45 RBC (4.30-5.90) m/uL Hgb (13.0-17.5) gm/dL Hct (39.0-53.0) % MCHC (31.0-37.0) g/dL RDW (11.5-15.5) % Lymphocytes # (1.0-4.8) k/uL ABG pCO2 (35-45) mmHg ABG pO2 (83-108) mmHg Carbon Dioxide (22-30) mmol/L BUN (9-20) mg/dL Creatinine (0.66-1.25) mg/dL Glucose (74-99) mg/dL POC Glucose (mg/dL) 153 H 192 H 232 H (75-99) mg/dL Calcium (8.4-10.2) mg/dL
--- NOTE | 2020-06-06 16:30 | P.PN ---
Subjective 85-year-old male is being treated for acute hypoxic and hypercapnic respiratory failure patient does have history of sleep apnea does appear to have some chronic CO2 retention. Patient is also being treated for heart failure exacerbation and echocardiogram is being obtained. Patient is anemic received 2 units of for blood transfusion although there is no clear evidence of acute GI bleed. Patient is also being treated for acute renal failure from a severe anemia there is no clear evidence of for acute blood loss anemia patient does have history of COPD and is on systemic steroids at this time patient has elevated blood sugars. Is on IV insulin drip which was changed to long-acting steroid. We'll insulin.patient has hypovolemic hyponatremia which is improving with IV Lasix. 06/03/2020 Patient still remains intubated and the patient is bit alkalotic because of its respiratory rate of on ventilator settings were decreased. Patient is due to undergo upper GI endoscopy which showed mild gastritis without any other significant abnormality. PERRLA remained fairly stable 06/04/2020 Patient is extubated today feels better today but still wheezing at this time. 06/05/2020 Patient is doing much better today his wheezing or significant improvement patient remains on IV Lasix. Patient is quite weak. Patient systemic steroids were discontinued, cutting down the long-acting insulin because of that reason. His kidney function continued to improve 06/06/2020 Patient's parent cultures are positive for stenotrophomonas maltophilia. Patient wheezing is bit was a believe today patient is using BiPAP on as-needed basis his serum creatinine is also bit worse but patient is being continued on IV Lasix today will reevaluate the the kidney function tomorrow if it continues to get worse then Lasix will be discontinued at the time patient does have some pedal edema still although significant improved. Constitutional: Patient is fatigued Cardio vascular: denied any chest pain, palpitations Gastrointestinal denied any nausea vomiting Pulmonary: Does have shortness of breath and appeared to be fatigued and tired Neurologic denied any new focal deficits All inpatient medications were reviewed and appropriate changes in these medications as dictated in the interval history and assessment and plan. Objective - Vital Signs Vital signs: Vital Signs Temp 98.8 F 06/06/20 16:00 Pulse 69 06/06/20 16:00 Resp 14 06/06/20 16:00 BP 119/49 06/06/20 16:00 Pulse Ox 98 06/06/20 16:00 Intake & Output 06/05/20 06/06/20 06/06/20 18:59 06:59 18:59 Intake Total 612 832 430 Output Total 1642 2100 1610 Balance -1030 -1268 -1180 Weight 122.1 kg Intake: IV 312 232 430 Piperacillin-Tazobactam 3 200 .375 gm In Sodium Chloride 0.9% 100 ml @ 25 mls/hr IVPB Q8HR [facility] Rx# :[id number] Sodium Chloride 0.9% 1, 240 160 200 000 ml @ 20 mls/hr IV . Q24H [facility] Rx#:[id number] pressure bag 72 72 30 Intake, IV Titration 300 100 Amount Piperacillin-Tazobactam 3 200 100 .375 gm In Sodium Chloride 0.9% 100 ml @ 25 mls/hr IVPB Q8HR [facility] Rx# :[id number] Sodium Ferric Gluconat- 100 Sucrose 125 mg In Sodium Chloride 0.9% 100 ml @ 100 mls/hr IVPB DAILY [facility] Rx#:[id number] Oral 500 Output: Urine 1642 2100 1610 Other: Voiding Method Indwelling Catheter Indwelling Catheter Indwelling Catheter ABP, PAP, CO, CI - Last Documented Arterial Blood Pressure 152/52 - Exam PHYSICAL EXAMINATION: GENERAL: Patient is alert oriented 3 not in respiratory distress HEENT: Pupils are round and equally reacting to light. EOMI. No scleral icterus. No conjunctival pallor. Normocephalic, atraumatic. No pharyngeal erythema. No thyromegaly. CARDIOVASCULAR: S1 and S2 present. No murmurs, rubs, or gallops. PULMONARY: Significant expiratory wheezing with rhonchi ABDOMEN: Soft, nontender, nondistended, normoactive bowel sounds. No palpable organomegaly. MUSCULOSKELETAL: No joint swelling or deformity. EXTREMITIES: No cyanosis, clubbing, or pedal edema. NEUROLOGICAL: Does not appear to have any new focal deficits SKIN: No rashes. - Labs CBC & Chem 7: 06/06/20 04:25 06/06/20 04:25 Labs: Abnormal Lab Results - Last 24 Hours (Table) 06/02/20 06/02/20 06/05/20 Range/Units 02:03 02:26 16:49 RBC (4.30-5.90) m/uL Hgb (13.0-17.5) gm/dL Hct (39.0-53.0) % MCHC (31.0-37.0) g/dL RDW (11.5-15.5) % Lymphocytes # (1.0-4.8) k/uL ABG pCO2 74 H* 75 H* (35-45) mmHg ABG pO2 59 L* 56 L* (83-108) mmHg Carbon Dioxide (22-30) mmol/L BUN (9-20) mg/dL Creatinine (0.66-1.25) mg/dL Glucose (74-99) mg/dL POC Glucose (mg/dL) 219 H (75-99) mg/dL Calcium (8.4-10.2) mg/dL 06/05/20 06/06/20 06/06/20 Range/Units 20:38 04:25 04:25 RBC 3.35 L (4.30-5.90) m/uL Hgb 8.5 L (13.0-17.5) gm/dL Hct 29.4 L (39.0-53.0) % MCHC 28.9 L (31.0-37.0) g/dL RDW 17.5 H (11.5-15.5) % Lymphocytes # 0.4 L (1.0-4.8) k/uL ABG pCO2 (35-45) mmHg ABG pO2 (83-108) mmHg Carbon Dioxide 39 H (22-30) mmol/L BUN 69 H (9-20) mg/dL Creatinine 1.95 H (0.66-1.25) mg/dL Glucose 163 H (74-99) mg/dL POC Glucose (mg/dL) 232 H (75-99) mg/dL Calcium 8.3 L (8.4-10.2) mg/dL 06/06/20 06/06/20 06/06/20 Range/Units 06:32 11:59 12:45 RBC (4.30-5.90) m/uL Hgb (13.0-17.5) gm/dL Hct (39.0-53.0) % MCHC (31.0-37.0) g/dL RDW (11.5-15.5) % Lymphocytes # (1.0-4.8) k/uL ABG pCO2 (35-45) mmHg ABG pO2 (83-108) mmHg Carbon Dioxide (22-30) mmol/L BUN (9-20) mg/dL Creatinine (0.66-1.25) mg/dL Glucose (74-99) mg/dL POC Glucose (mg/dL) 153 H 192 H 232 H (75-99) mg/dL Calcium (8.4-10.2) mg/dL Assessment and Plan Plan: -acute on chronic hypercapnic as well as hypoxic respiratory failure: Secondary to COPD exacerbation, sleep apnea with CO2 retention as well as pulmonary edema leading to hypoxemia. Echocardiac exam is being up and continue with systemic steroids and inhalation treatments. Patient is extubated on 06/04/2020 -severe anemia: No evidence of acute GI bleed patient received Z2 units of blood transfusion , hemoglobin remained stable upper GI endoscopy as mentioned above -Sleep apnea -Type 2 diabetes mellitus: Patient blood sugars are expected to go because of systemic steroids patient will be started on long-acting insulin along with sliding scale for steroids. Her sugars are still high -coronary artery disease -acute renal failure possibly secondary to acute tubular necrosis from severe anemia with a competent of cardiorenal syndrome baseline creatinine is unknown. -Congestive heart failure EF is unknown echocardiac exam is pending patient has pulmonary edema
[2020-06-06 16:41] LABS: Glucose,Whole Blood 238 mg/dL (75-99)
[2020-06-06 20:51] LABS: Glucose,Whole Blood 247 mg/dL (75-99)
[2020-06-06] MEDS: INSULIN DETEMIR (LEVEMIR) 100 UNIT/ML SYR SQ SCH (20:54)
[2020-06-06] MEDS: MELATONIN 5 MG TABLET PO SCH (21:00)
[2020-06-06] MEDS: ATORVASTATIN 80 MG TAB PO SCH (21:00)
[2020-06-06] MEDS: ZOLPIDEM 5 MG TAB PO PRN (22:55)
[2020-06-07] MEDS: IPRATROPIUM-ALBUTEROL 3 ML NEB INHALATION SCH ×7 (00:02→23:29)
[2020-06-07 04:48] LABS: Anisocytosis Slight; Basophils % (A) 0 %; Eosinophils # (A) 0.4 k/uL (0-0.7); Eosinophils % (A) 3 %; HCT 29.9 % (39.0-53.0); HGB 8.7 gm/dL (13.0-17.5); Hypochromasia Marked; Lymphocytes # (A) 0.5 k/uL (1.0-4.8); Lymphocytes % (A) 5 %; MCH 25.8 pg (25.0-35.0); MCHC 28.9 g/dL (31.0-37.0); MCV 89.3 fL (80.0-100.0); Mean Platelet Volume 9.6; Monocytes # (A) 0.7 k/uL (0-1.0); Monocytes % (A) 6 %; Neutrophils # (A) 8.8 k/uL (1.3-7.7); Neutrophils % (A) 83 %; Platelet Count 251 k/uL (150-450); Poikilocytosis Moderate; RBC 3.35 m/uL (4.30-5.90); RDW 16.8 % (11.5-15.5); WBC 10.6 k/uL (3.8-10.6)
[2020-06-07 05:02] LABS: Calcium 8.2 mg/dL (8.4-10.2)
[2020-06-07] MEDS: LEVOTHYROXINE 50 MCG TAB PO SCH (06:19)
--- NOTE | 2020-06-07 06:35 | XR ---
EXAMINATION TYPE: XR chest 1V portable DATE OF EXAM: 06/07/2020 COMPARISON: 06/06/2020 HISTORY: Shortness of breath TECHNIQUE: Single frontal view of the chest is obtained. FINDINGS: Postoperative change and left-sided PICC line noted. There is bilateral infiltrate and sma ll effusion greater on the left. Mild central interstitial pattern. No pneumothorax. Heart is enlarge d. IMPRESSION: 1. Mild improvement in appearance of the chest most typical of improving CHF. Underlying pneumonia no t excluded.
[2020-06-07 06:42] LABS: Glucose,Whole Blood 172 mg/dL (75-99)
[2020-06-07] MEDS: INSULIN ASPART (NovoLOG) 100 UNIT/ML VIAL SQ SCH ×4 (06:46→20:39)
[2020-06-07] MEDS: SODIUM FERRIC GLUCONAT-SUCROSE 125 MG in SODIUM CHLORIDE 0.9% 100 ML IVPB SCH (08:12)
[2020-06-07] MEDS: PANTOPRAZOLE 40 MG/10 ML VIAL IV SCH (08:38)
[2020-06-07] MEDS: PIPERACILLIN-TAZOBACTAM 3.375 GM in SODIUM CHLORIDE 0.9% 100 ML IVPB SCH ×3 (08:38→23:37)
[2020-06-07] MEDS: APIXABAN 2.5 MG TABLET PO SCH ×2 (08:38→20:01)
[2020-06-07] MEDS: FUROSEMIDE 10 MG/ML 10 ML VIAL IV SCH ×2 (08:39→20:01)
--- NOTE | 2020-06-07 09:23 | P.PN ---
Subjective Patient is seen in follow-up for acute kidney injury. Renal function better today.. extubated June 04. currently on nasal cannula. He is maintained on IV Lasix and is nonoliguric. No active bleeding noted per the nurse. sitting up in chair. Denies chest pain or shortness of breath. Vital signs are stable. General: The patient appeared well nourished and normally developed. HEENT: Head exam is unremarkable. Neck is without jugular venous distension. LUNGS: Breath sounds decreased. HEART: Rate and Rhythm are regular. ABDOMEN: Soft. EXTREMITITES: 1+ edema. Objective - Vital Signs Vital signs: Vital Signs Temp 98.1 F 06/07/20 08:00 Pulse 68 06/07/20 08:00 Resp 22 06/07/20 08:00 BP 103/43 06/07/20 08:00 Pulse Ox 93 L 06/07/20 09:16 Intake & Output 06/06/20 06/07/20 06/07/20 18:59 06:59 18:59 Intake Total 430 796 283 Output Total 1610 1350 225 Balance -1180 -554 58 Intake: IV 430 296 283 Piperacillin-Tazobactam 3 200 100 100 .375 gm In Sodium Chloride 0.9% 100 ml @ 25 mls/hr IVPB Q8HR [facility] Rx# :[id number] Sodium Chloride 0.9% 1, 200 160 80 000 ml @ 20 mls/hr IV . Q24H [facility] Rx#:[id number] Sodium Ferric Gluconat- 100 Sucrose 125 mg In Sodium Chloride 0.9% 100 ml @ 100 mls/hr IVPB DAILY [facility] Rx#:[id number] pressure bag 30 36 3 Oral 500 Output: Urine 1610 1350 225 Other: Voiding Method Indwelling Catheter Indwelling Catheter ABP, PAP, CO, CI - Last Documented Arterial Blood Pressure 152/52 - Labs CBC & Chem 7: 06/07/20 04:35 06/07/20 04:35 Labs: Abnormal Lab Results - Last 24 Hours (Table) 06/02/20 06/02/20 06/06/20 Range/Units 02:03 02:26 11:59 RBC (4.30-5.90) m/uL Hgb (13.0-17.5) gm/dL Hct (39.0-53.0) % MCHC (31.0-37.0) g/dL RDW (11.5-15.5) % Neutrophils # (1.3-7.7) k/uL Lymphocytes # (1.0-4.8) k/uL ABG pCO2 74 H* 75 H* (35-45) mmHg ABG pO2 59 L* 56 L* (83-108) mmHg Carbon Dioxide (22-30) mmol/L BUN (9-20) mg/dL Creatinine (0.66-1.25) mg/dL Glucose (74-99) mg/dL POC Glucose (mg/dL) 192 H (75-99) mg/dL Calcium (8.4-10.2) mg/dL 06/06/20 06/06/20 06/06/20 Range/Units 12:45 16:40 20:49 RBC (4.30-5.90) m/uL Hgb (13.0-17.5) gm/dL Hct (39.0-53.0) % MCHC (31.0-37.0) g/dL RDW (11.5-15.5) % Neutrophils # (1.3-7.7) k/uL Lymphocytes # (1.0-4.8) k/uL ABG pCO2 (35-45) mmHg ABG pO2 (83-108) mmHg Carbon Dioxide (22-30) mmol/L BUN (9-20) mg/dL Creatinine (0.66-1.25) mg/dL Glucose (74-99) mg/dL POC Glucose (mg/dL) 232 H 238 H 247 H (75-99) mg/dL Calcium (8.4-10.2) mg/dL 06/07/20 06/07/20 06/07/20 Range/Units 04:35 04:35 06:41 RBC 3.35 L (4.30-5.90) m/uL Hgb 8.7 L (13.0-17.5) gm/dL Hct 29.9 L (39.0-53.0) % MCHC 28.9 L (31.0-37.0) g/dL RDW 16.8 H (11.5-15.5) % Neutrophils # 8.8 H (1.3-7.7) k/uL Lymphocytes # 0.5 L (1.0-4.8) k/uL ABG pCO2 (35-45) mmHg ABG pO2 (83-108) mmHg Carbon Dioxide 39 H (22-30) mmol/L BUN 63 H (9-20) mg/dL Creatinine 1.74 H (0.66-1.25) mg/dL Glucose 164 H (74-99) mg/dL POC Glucose (mg/dL) 172 H (75-99) mg/dL Calcium 8.2 L (8.4-10.2) mg/dL Assessment and Plan Plan: Assessment: 1. Acute kidney injury secondary to ATN secondary to acute blood loss anemia. Also component of cardiorenal syndrome. Creatinine was 2.46 on admission and is 1.74 today. Unknown baseline renal function. No proteinuria on UA. No hydronephrosis noted on kidney ultrasound. 2. Acute GI bleed status post blood transfusions. No active bleeding noted. GI following. EGD revealed mild gastritis. maintained on Aranesp. 3. Volume overload. improving with diuresis. 4. Acute hypercapnic and hypoxic respiratory failure. status post extubation June 04. 5. Pneumonia maintained on antibiotics. Sputum culture positive for Klebsiella and stenotrophomona. 6. Rule out chronic kidney disease. Plan: maintain Lasix 60 mg IV twice daily. Monitor hemoglobin and transfuse as needed. Continue to monitor renal function and urine output.
--- NOTE | 2020-06-07 11:13 | P.PN ---
Subjective Progress Note Date: 06/07/20 On 06/07/2020, the patient has no specific complaints. He continues to diabetes and IV Lasix. He has lost an additional 3 L net fluid balance over the past 24 hours. He is awake and alert. Sitting up on a recliner. Is on 3 L of oxygen by nasal cannula. He remains in atrial fibrillation. Rate is controlled and the patient on anticoagulant. The patient is also on IV Zosyn. He has grown Klebsiella and [place] Ultrafoam Unasyn the sputum. No nausea. No vomiting. No chest pain. No altered mentation. Receiving IV iron. Receiving Levemir insulin 15 units along with slight scale coverage. Physical therapy is on the case and the patient is going to be transferred to a medical medical floor. He remains on Lasix 60 mg IV push every 12 hours. Objective - Vital Signs Vital signs: Vital Signs Temp 98.1 F 06/07/20 08:00 Pulse 68 06/07/20 08:00 Resp 22 06/07/20 08:00 BP 103/43 06/07/20 08:00 Pulse Ox 93 L 06/07/20 09:16 Intake & Output 06/06/20 06/07/20 06/07/20 18:59 06:59 18:59 Intake Total 430 796 283 Output Total 1610 1350 225 Balance -1180 -554 58 Intake: IV 430 296 283 Piperacillin-Tazobactam 3 200 100 100 .375 gm In Sodium Chloride 0.9% 100 ml @ 25 mls/hr IVPB Q8HR [facility] Rx# :[id number] Sodium Chloride 0.9% 1, 200 160 80 000 ml @ 20 mls/hr IV . Q24H [facility] Rx#:[id number] Sodium Ferric Gluconat- 100 Sucrose 125 mg In Sodium Chloride 0.9% 100 ml @ 100 mls/hr IVPB DAILY [facility] Rx#:[id number] pressure bag 30 36 3 Oral 500 Output: Urine 1610 1350 225 Other: Voiding Method Indwelling Catheter Indwelling Catheter Indwelling Catheter ABP, PAP, CO, CI - Last Documented Arterial Blood Pressure 152/52 - Exam Gen. appearance, comfortable likely distress. The patient is currently on oxygen 3 L per minute nasal cannula Head exam was generally normal. There was no scleral icterus or corneal arcus. Mucous membranes were moist. Neck was supple and without jugular venous distension, thyromegaly, or carotid bruits. Carotids were easily palpable bilaterally. There was no adenopathy. He has significant crowding of the posterior oropharynx with a Mallampati class IV. Lungs sounds are diminished and some coarse rhonchi in the lung bases bilaterally. Heart sounds are irregular, possible sinus and there is a systolic ejection mu rmur grade 3/6 related to his underlying aortic stenosis. Abdominal exam revealed normal bowel sounds. The abdomen was soft, non-tender, and without masses, organomegaly, or appreciable enlargement of the abdominal aorta. The patient has a colostomy bag which is functional and there is no direct tenderness rebound tenderness or guarding at this point in time. Extremities revealed +1 pitting edema and there is no cyanosis or clubbing. Neurologically the patient is waking up from sedation. The patient doing well. No focal neurological deficit. - Labs CBC & Chem 7: 06/07/20 04:35 06/07/20 04:35 Labs: Abnormal Lab Results - Last 24 Hours (Table) 06/02/20 06/02/20 06/06/20 Range/Units 02:03 02:26 11:59 RBC (4.30-5.90) m/uL Hgb (13.0-17.5) gm/dL Hct (39.0-53.0) % MCHC (31.0-37.0) g/dL RDW (11.5-15.5) % Neutrophils # (1.3-7.7) k/uL Lymphocytes # (1.0-4.8) k/uL ABG pCO2 74 H* 75 H* (35-45) mmHg ABG pO2 59 L* 56 L* (83-108) mmHg Carbon Dioxide (22-30) mmol/L BUN (9-20) mg/dL Creatinine (0.66-1.25) mg/dL Glucose (74-99) mg/dL POC Glucose (mg/dL) 192 H (75-99) mg/dL Calcium (8.4-10.2) mg/dL 06/06/20 06/06/20 06/06/20 Range/Units 12:45 16:40 20:49 RBC (4.30-5.90) m/uL Hgb (13.0-17.5) gm/dL Hct (39.0-53.0) % MCHC (31.0-37.0) g/dL RDW (11.5-15.5) % Neutrophils # (1.3-7.7) k/uL Lymphocytes # (1.0-4.8) k/uL ABG pCO2 (35-45) mmHg ABG pO2 (83-108) mmHg Carbon Dioxide (22-30) mmol/L BUN (9-20) mg/dL Creatinine (0.66-1.25) mg/dL Glucose (74-99) mg/dL POC Glucose (mg/dL) 232 H 238 H 247 H (75-99) mg/dL Calcium (8.4-10.2) mg/dL 06/07/20 06/07/20 06/07/20 Range/Units 04:35 04:35 06:41 RBC 3.35 L (4.30-5.90) m/uL Hgb 8.7 L (13.0-17.5) gm/dL Hct 29.9 L (39.0-53.0) % MCHC 28.9 L (31.0-37.0) g/dL RDW 16.8 H (11.5-15.5) % Neutrophils # 8.8 H (1.3-7.7) k/uL Lymphocytes # 0.5 L (1.0-4.8) k/uL ABG pCO2 (35-45) mmHg ABG pO2 (83-108) mmHg Carbon Dioxide 39 H (22-30) mmol/L BUN 63 H (9-20) mg/dL Creatinine 1.74 H (0.66-1.25) mg/dL Glucose 164 H (74-99) mg/dL POC Glucose (mg/dL) 172 H (75-99) mg/dL Calcium 8.2 L (8.4-10.2) mg/dL Assessment and Plan Plan: 1 acute hypoxic respiratory failure, multifactorial, essential related to decomp ensated heart failure/valvular heart disease with fluid overload. She is currently on 3 L of oxygen by nasal cannula. The patient has diabetes adequately. The patient on IV Zosyn covered for a combination of stenotrophomonas and Klebsiella the sputum. Chest x-ray findings are stable. The oxidation is improved and the patient continues to diureses aggressively with IV Lasix. 2 CHF with diastolic dysfunction 3 moderate severe aortic stenosis, still on IV Lasix 4 COPD with chronic hypoxic respiratory failure, FEV1 of 42% of predicted 5 acute kidney injury on top of chronic kidney disease in the creatinine is improving 6 coronary artery disease with previous coronary stenting 7 diabetes mellitus 8 previous history of colostomy, for an underlying rectal cancer 9 GI bleeding post EGD and the patient was found to have mild gastritis otherwise normal appearing upper GI examination. 10 anemia of chronic disease 11 history of aortic valve replacement back in 2007 and previous history of coronary artery bypass surgery 12 obstructive sleep apnea, nontolerant to CPAP therapy and the patient has been utilizing oxygen at 2 L overnight 13 hypothyroidism Plan Overall condition is improving. The patient is more active and interactive on today's evaluation. Continue Lasix 60 mg IV push every 12 hours and continue Zosyn Continue DuoNeb neb last treatment [id number] Chest x-ray findings are stable and the patient's overall pulmonary status is improved The patient was started on anticoagulation with Eliquis We'll continue to follow. The patient can be transferred out to a medical surgical floor
--- NOTE | 2020-06-07 11:17 | P.PN ---
Subjective 85-year-old male is being treated for acute hypoxic and hypercapnic respiratory failure patient does have history of sleep apnea does appear to have some chronic CO2 retention. Patient is also being treated for heart failure exacerbation and echocardiogram is being obtained. Patient is anemic received 2 units of for blood transfusion although there is no clear evidence of acute GI bleed. Patient is also being treated for acute renal failure from a severe anemia there is no clear evidence of for acute blood loss anemia patient does have history of COPD and is on systemic steroids at this time patient has elevated blood sugars. Is on IV insulin drip which was changed to long-acting steroid. We'll insulin.patient has hypovolemic hyponatremia which is improving with IV Lasix. 06/03/2020 Patient still remains intubated and the patient is bit alkalotic because of its respiratory rate of on ventilator settings were decreased. Patient is due to undergo upper GI endoscopy which showed mild gastritis without any other significant abnormality. PERRLA remained fairly stable 06/04/2020 Patient is extubated today feels better today but still wheezing at this time. 06/05/2020 Patient is doing much better today his wheezing or significant improvement patient remains on IV Lasix. Patient is quite weak. Patient systemic steroids were discontinued, cutting down the long-acting insulin because of that reason. His kidney function continued to improve 06/06/2020 Patient's parent cultures are positive for stenotrophomonas maltophilia. Patient wheezing is bit was a believe today patient is using BiPAP on as-needed basis his serum creatinine is also bit worse but patient is being continued on IV Lasix today will reevaluate the the kidney function tomorrow if it continues to get worse then Lasix will be discontinued at the time patient does have some pedal edema still although significant improved. 06/07/2020 Patient feels bit better today wheezing improved today Constitutional: Patient is fatigued Cardio vascular: denied any chest pain, palpitations Gastrointestinal denied any nausea vomiting Pulmonary: Does have shortness of breath and appeared to be fatigued and tired Neurologic denied any new focal deficits All inpatient medications were reviewed and appropriate changes in these medications as dictated in the interval history and assessment and plan. Objective - Vital Signs Vital signs: Vital Signs Temp 98.1 F 06/07/20 08:00 Pulse 68 06/07/20 08:00 Resp 22 06/07/20 08:00 BP 103/43 06/07/20 08:00 Pulse Ox 93 L 06/07/20 09:16 Intake & Output 06/06/20 06/07/20 06/07/20 18:59 06:59 18:59 Intake Total 430 796 283 Output Total 1610 1350 225 Balance -1180 -554 58 Intake: IV 430 296 283 Piperacillin-Tazobactam 3 200 100 100 .375 gm In Sodium Chloride 0.9% 100 ml @ 25 mls/hr IVPB Q8HR [facility] Rx# :[id number] Sodium Chloride 0.9% 1, 200 160 80 000 ml @ 20 mls/hr IV . Q24H [facility] Rx#:[id number] Sodium Ferric Gluconat- 100 Sucrose 125 mg In Sodium Chloride 0.9% 100 ml @ 100 mls/hr IVPB DAILY [facility] Rx#:[id number] pressure bag 30 36 3 Oral 500 Output: Urine 1610 1350 225 Other: Voiding Method Indwelling Catheter Indwelling Catheter Indwelling Catheter ABP, PAP, CO, CI - Last Documented Arterial Blood Pressure 152/52 - Exam PHYSICAL EXAMINATION: GENERAL: Patient is alert oriented 3 not in respiratory distress HEENT: Pupils are round and equally reacting to light. EOMI. No scleral icterus. No conjunctival pallor. Normocephalic, atraumatic. No pharyngeal erythema. No thyromegaly. CARDIOVASCULAR: S1 and S2 present. No murmurs, rubs, or gallops. PULMONARY: Significant expiratory wheezing with rhonchi ABDOMEN: Soft, nontender, nondistended, normoactive bowel sounds. No palpable organomegaly. MUSCULOSKELETAL: No joint swelling or deformity. EXTREMITIES: No cyanosis, clubbing, or pedal edema. NEUROLOGICAL: Does not appear to have any new focal deficits SKIN: No rashes. - Labs CBC & Chem 7: 06/07/20 04:35 06/07/20 04:35 Labs: Abnormal Lab Results - Last 24 Hours (Table) 06/02/20 06/02/20 06/06/20 Range/Units 02:03 02:26 11:59 RBC (4.30-5.90) m/uL Hgb (13.0-17.5) gm/dL Hct (39.0-53.0) % MCHC (31.0-37.0) g/dL RDW (11.5-15.5) % Neutrophils # (1.3-7.7) k/uL Lymphocytes # (1.0-4.8) k/uL ABG pCO2 74 H* 75 H* (35-45) mmHg ABG pO2 59 L* 56 L* (83-108) mmHg Carbon Dioxide (22-30) mmol/L BUN (9-20) mg/dL Creatinine (0.66-1.25) mg/dL Glucose (74-99) mg/dL POC Glucose (mg/dL) 192 H (75-99) mg/dL Calcium (8.4-10.2) mg/dL 06/06/20 06/06/20 06/06/20 Range/Units 12:45 16:40 20:49 RBC (4.30-5.90) m/uL Hgb (13.0-17.5) gm/dL Hct (39.0-53.0) % MCHC (31.0-37.0) g/dL RDW (11.5-15.5) % Neutrophils # (1.3-7.7) k/uL Lymphocytes # (1.0-4.8) k/uL ABG pCO2 (35-45) mmHg ABG pO2 (83-108) mmHg Carbon Dioxide (22-30) mmol/L BUN (9-20) mg/dL Creatinine (0.66-1.25) mg/dL Glucose (74-99) mg/dL POC Glucose (mg/dL) 232 H 238 H 247 H (75-99) mg/dL Calcium (8.4-10.2) mg/dL 06/07/20 06/07/20 06/07/20 Range/Units 04:35 04:35 06:41 RBC 3.35 L (4.30-5.90) m/uL Hgb 8.7 L (13.0-17.5) gm/dL Hct 29.9 L (39.0-53.0) % MCHC 28.9 L (31.0-37.0) g/dL RDW 16.8 H (11.5-15.5) % Neutrophils # 8.8 H (1.3-7.7) k/uL Lymphocytes # 0.5 L (1.0-4.8) k/uL ABG pCO2 (35-45) mmHg ABG pO2 (83-108) mmHg Carbon Dioxide 39 H (22-30) mmol/L BUN 63 H (9-20) mg/dL Creatinine 1.74 H (0.66-1.25) mg/dL Glucose 164 H (74-99) mg/dL POC Glucose (mg/dL) 172 H (75-99) mg/dL Calcium 8.2 L (8.4-10.2) mg/dL Assessment and Plan Plan: -acute on chronic hypercapnic as well as hypoxic respiratory failure: Secondary to COPD exacerbation, sleep apnea with CO2 retention as well as pulmonary edema leading to hypoxemia. Echocardiac exam is being up and continue with systemic steroids and inhalation treatments. Patient is extubated on 06/04/2020 -severe anemia: No evidence of acute GI bleed patient received Z2 units of blood transfusion , hemoglobin remained stable upper GI endoscopy as mentioned above -Sleep apnea -Type 2 diabetes mellitus: Patient blood sugars are expected to go because of systemic steroids patient will be started on long-acting insulin along with sliding scale for steroids. Her sugars are still high -coronary artery disease -acute renal failure possibly secondary to acute tubular necrosis from severe anemia with a competent of cardiorenal syndrome baseline creatinine is unknown. -Congestive heart failure EF is unknown echocardiac exam is pending patient has pulmonary edema
[2020-06-07 12:02] LABS: Glucose,Whole Blood 250 mg/dL (75-99)
[2020-06-07] MEDS: SODIUM CHLORIDE 0.9% 1,000 ML IV SCH (12:30)
--- NOTE | 2020-06-07 13:02 | P.PN ---
Subjective This is Marina Gresham PA-C dictating a progress note on this patient The patient was interviewed and examined by me as well as by Dr. Saldana Case discussed with Dr. Saldana and he agrees with the plan of care HPI/interval history Patient is an 85-year-old male with a history significant for COPD, diabetes, CHF, CAD status post CABG who presented with shortness of breath. He developed worsening respiratory failure requiring intubation and mechanical ventilation. He was found to be anemic and his FOB was positive. He received blood t ransfusions and his anticoagulation was held. He underwent an EGD which showed mild gastritis no old blood or active bleeding. He was successfully extubated. His anticoagulation has been resumed and no further bleeding issues have been reported. Bedside telemetry revealed atrial fibrillation with rate controlled in the 70s. Patient seen and examined sitting in his chair. He states his breathing is better. Continues to cough. No chest pain. EXAMINATION Patient is afebrile, pulse in the 60s, blood pressure 93/70, oxygen saturation 94% on 2 L nasal cannula, respirations 22 Patient seen and examined sitting in the chair in no acute distress Lungs are rhonchorous bilaterally Heart is irregularly irregular, systolic murmur audible trace lower extremity edema REVIEW OF LABS, ECG WBC 10.6, hemoglobin 8.7, platelets 251, potassium 4.0, BUN 63, creatinine 1.74 IMPRESSION / ASSESSMENT: #1 acute respiratory failure requiring intubation and mechanical ventilation, has been extubated, being treated for possible pneumonia, breathing seems to be improving #2 atrial fibrillation, currently in rate controlled atrial fibrillation, on anticoagulation #3 acute blood loss anemia secondary to GI bleed, status post blood transfusions, hemoglobin stable, status post EGD showing mild gastritis without any bleeding, anticoagulation has been restarted and no further bleeding issues have been noted #4 acute kidney injury, creatinine improving #5 history of COPD #6 diabetes #7 acute on chronic CHF, improving with Lasix #8 history of CAD status post CABG #9 recent echocardiogram showing EF 50-55%, moderate aortic stenosis PLAN: Continue the current regimen including IV diuretics, statins, and anticoagulation Objective - Vital Signs Vital signs: Vital Signs Temp 98.3 F 06/07/20 12:00 Pulse 68 06/07/20 12:00 Resp 22 06/07/20 12:00 BP 93/70 06/07/20 12:00 Pulse Ox 94 L 06/07/20 12:00 Intake & Output 06/06/20 06/07/20 06/07/20 18:59 06:59 18:59 Intake Total 430 796 283 Output Total 1610 1350 850 Balance -1180 -554 -567 Intake: IV 430 296 283 Piperacillin-Tazobactam 3 200 100 100 .375 gm In Sodium Chloride 0.9% 100 ml @ 25 mls/hr IVPB Q8HR [facility] Rx# :[id number] Sodium Chloride 0.9% 1, 200 160 80 000 ml @ 20 mls/hr IV . Q24H [facility] Rx#:[id number] Sodium Ferric Gluconat- 100 Sucrose 125 mg In Sodium Chloride 0.9% 100 ml @ 100 mls/hr IVPB DAILY [facility] Rx#:[id number] pressure bag 30 36 3 Oral 500 Output: Urine 1610 1350 850 Other: Voiding Method Indwelling Catheter Indwelling Catheter Indwelling Catheter ABP, PAP, CO, CI - Last Documented Arterial Blood Pressure 152/52 - Labs CBC & Chem 7: 06/07/20 04:35 06/07/20 04:35 Labs: Abnormal Lab Results - Last 24 Hours (Table) 06/06/20 06/06/20 06/07/20 Range/Units 16:40 20:49 04:35 RBC 3.35 L (4.30-5.90) m/uL Hgb 8.7 L (13.0-17.5) gm/dL Hct 29.9 L (39.0-53.0) % MCHC 28.9 L (31.0-37.0) g/dL RDW 16.8 H (11.5-15.5) % Neutrophils # 8.8 H (1.3-7.7) k/uL Lymphocytes # 0.5 L (1.0-4.8) k/uL Carbon Dioxide (22-30) mmol/L BUN (9-20) mg/dL Creatinine (0.66-1.25) mg/dL Glucose (74-99) mg/dL POC Glucose (mg/dL) 238 H 247 H (75-99) mg/dL Calcium (8.4-10.2) mg/dL 09/13/20 09/13/20 09/13/20 Range/Units 04:35 06:41 12:00 RBC (4.30-5.90) m/uL Hgb (13.0-17.5) gm/dL Hct (39.0-53.0) % MCHC (31.0-37.0) g/dL RDW (11.5-15.5) % Neutrophils # (1.3-7.7) k/uL Lymphocytes # (1.0-4.8) k/uL Carbon Dioxide 39 H (22-30) mmol/L BUN 63 H (9-20) mg/dL Creatinine 1.74 H (0.66-1.25) mg/dL Glucose 164 H (74-99) mg/dL POC Glucose (mg/dL) 172 H 250 H (75-99) mg/dL Calcium 8.2 L (8.4-10.2) mg/dL
[2020-06-07 16:39] LABS: Glucose,Whole Blood 276 mg/dL (75-99)
[2020-06-07] MEDS: ATORVASTATIN 80 MG TAB PO SCH (20:01)
[2020-06-07] MEDS: MELATONIN 5 MG TABLET PO SCH (20:01)
[2020-06-07 20:36] LABS: Glucose,Whole Blood 258 mg/dL (75-99)
[2020-06-07] MEDS: INSULIN DETEMIR (LEVEMIR) 100 UNIT/ML SYR SQ SCH (20:39)
[2020-06-07] MEDS: ZOLPIDEM 5 MG TAB PO PRN (21:09)
[2020-06-08] MEDS: IPRATROPIUM-ALBUTEROL 3 ML NEB INHALATION SCH ×5 (03:33→20:09)
[2020-06-08 05:01] LABS: Anisocytosis Slight; Basophils % (A) 0 %; Eosinophils # (A) 0.4 k/uL (0-0.7); Eosinophils % (A) 4 %; HCT 27.2 % (39.0-53.0); HGB 7.9 gm/dL (13.0-17.5); Hypochromasia Marked; Lymphocytes # (A) 0.6 k/uL (1.0-4.8); Lymphocytes % (A) 6 %; MCH 26.5 pg (25.0-35.0); MCHC 29.1 g/dL (31.0-37.0); MCV 91.1 fL (80.0-100.0); Mean Platelet Volume 8.3; Monocytes # (A) 0.6 k/uL (0-1.0); Monocytes % (A) 6 %; Neutrophils # (A) 8.7 k/uL (1.3-7.7); Neutrophils % (A) 82 %; Platelet Count 276 k/uL (150-450); Poikilocytosis Moderate; RBC 2.98 m/uL (4.30-5.90); WBC 10.5 k/uL (3.8-10.6)
[2020-06-08 05:16] LABS: Calcium 8.3 mg/dL (8.4-10.2); Potassium 4.1 mmol/L (3.5-5.1)
[2020-06-08] MEDS: LEVOTHYROXINE 50 MCG TAB PO SCH (06:22)
[2020-06-08 06:43] LABS: Glucose,Whole Blood 200 mg/dL (75-99)
[2020-06-08] MEDS: INSULIN ASPART (NovoLOG) 100 UNIT/ML VIAL SQ SCH ×4 (06:44→22:17)
[2020-06-08] MEDS: PIPERACILLIN-TAZOBACTAM 3.375 GM in SODIUM CHLORIDE 0.9% 100 ML IVPB SCH ×2 (08:37→15:30)
[2020-06-08] MEDS: PANTOPRAZOLE 40 MG/10 ML VIAL IV SCH (09:36)
[2020-06-08] MEDS: APIXABAN 2.5 MG TABLET PO SCH ×2 (09:36→22:12)
[2020-06-08] MEDS: SODIUM FERRIC GLUCONAT-SUCROSE 125 MG in SODIUM CHLORIDE 0.9% 100 ML IVPB SCH (09:38)
[2020-06-08] MEDS: FUROSEMIDE 10 MG/ML 10 ML VIAL IV SCH ×2 (09:41→20:30)
--- NOTE | 2020-06-08 09:49 | P.PN ---
Subjective Progress Note Date: 06/08/20 This is a 85-year-old male with history of COPD, diabetes, CHF, and also previous bypass surgery was admitted to the hospital with shortness of breath. He was found to have anemia, most probably secondary to GI bleeding. Patient received blood transfusion. Patient also had EGD which showed mild gastritis. Patient also required transient respiratory support. Currently he is feeling better. He is eating better. No complaints of any chest pain. Wants to go home. A chest x-ray showed improving CHF and possible pleural effusion. His creatinine is about 1.76. Patient was on Cozaar and also Coreg at home. We will resume his Coreg. Patient is still on IV Lasix, which probably could be changed to by mouth Lasix. Increase activity as tolerated Objective - Vital Signs Vital signs: Vital Signs Temp 97.6 F 06/08/20 08:15 Pulse 80 06/08/20 08:15 Resp 27 H 06/08/20 08:15 BP 112/45 06/08/20 08:15 Pulse Ox 96 06/08/20 08:15 Intake & Output 06/07/20 06/08/20 06/08/20 18:59 06:59 18:59 Intake Total 283 796 280 Output Total 1250 1450 525 Balance -967 -654 -245 Weight 119 kg Intake: IV 283 296 160 Piperacillin-Tazobactam 3 100 100 .375 gm In Sodium Chloride 0.9% 100 ml @ 25 mls/hr IVPB Q8HR [facility] Rx# :[id number] Sodium Chloride 0.9% 1, 80 160 160 000 ml @ 20 mls/hr IV . Q24H [facility] Rx#:[id number] Sodium Ferric Gluconat- 100 Sucrose 125 mg In Sodium Chloride 0.9% 100 ml @ 100 mls/hr IVPB DAILY [facility] Rx#:[id number] pressure bag 3 36 Oral 500 120 Output: Urine 1250 1450 325 Stool 200 Other: Voiding Method Indwelling Catheter Indwelling Catheter Indwelling Catheter ABP, PAP, CO, CI - Last Documented Arterial Blood Pressure 152/52 - Exam GENERAL EXAM: Patient is alert and oriented and doesn't appear to be in any acute distress HEENT: Normocephalic. Normal reaction of pupils, equal size, normal range of extraocular motion. No erythema or exudates in the throat. NECK: No masses, no nuchal rigidity. CHEST: No chest wall deformity. LUNGS: Diminished breath sounds at bases HEART: S1 and S2 normal with no audible mumurs or gallops. Regular rhythm, femorals equal on both sides.. ABDOMEN: No hepatosplenomegaly, normal bowel sounds, no guarding or rigidity. SKIN: No rashes CENTRAL NERVOUS SYSTEM: No focal deficits. EXTREMITIES: No cyanosis, clubbing or edema. - Labs CBC & Chem 7: 06/08/20 04:15 06/08/20 04:15 Labs: Abnormal Lab Results - Last 24 Hours (Table) 06/07/20 06/07/20 06/07/20 Range/Units 12:00 16:38 20:35 RBC (4.30-5.90) m/uL Hgb (13.0-17.5) gm/dL Hct (39.0-53.0) % MCHC (31.0-37.0) g/dL RDW (11.5-15.5) % Neutrophils # (1.3-7.7) k/uL Lymphocytes # (1.0-4.8) k/uL Carbon Dioxide (22-30) mmol/L BUN (9-20) mg/dL Creatinine (0.66-1.25) mg/dL Glucose (74-99) mg/dL POC Glucose (mg/dL) 250 H 276 H 258 H (75-99) mg/dL Calcium (8.4-10.2) mg/dL 06/08/20 06/08/20 06/08/20 Range/Units 04:15 04:15 06:42 RBC 2.98 L (4.30-5.90) m/uL Hgb 7.9 L (13.0-17.5) gm/dL Hct 27.2 L (39.0-53.0) % MCHC 29.1 L (31.0-37.0) g/dL RDW 17.0 H (11.5-15.5) % Neutrophils # 8.7 H (1.3-7.7) k/uL Lymphocytes # 0.6 L (1.0-4.8) k/uL Carbon Dioxide 35 H (22-30) mmol/L BUN 55 H (9-20) mg/dL Creatinine 1.76 H (0.66-1.25) mg/dL Glucose 193 H (74-99) mg/dL POC Glucose (mg/dL) 200 H (75-99) mg/dL Calcium 8.3 L (8.4-10.2) mg/dL Assessment and Plan (1) Acute renal failure (ARF) Current Visit: Yes Status: Acute Code(s): N17.9 - ACUTE KIDNEY FAILURE, UNSPECIFIED SNOMED Code(s): 56012048 (2) Congestive heart failure Current Visit: Yes Status: Acute Code(s): I50.9 - HEART FAILURE, UNSPECIFIED SNOMED Code(s): 05907439 (3) GI hemorrhage Current Visit: Yes Status: Acute Code(s): K92.2 - GASTROINTESTINAL HEMORRHAGE, UNSPECIFIED SNOMED Code(s): 22001724 (4) Normocytic hypochromic anemia Current Visit: Yes Status: Acute Code(s): D50.9 - IRON DEFICIENCY ANEMIA, UNSPECIFIED SNOMED Code(s): 76269370 (5) Acute exacerbation of chronic obstructive pulmonary disease Current Visit: No Status: Acute Code(s): J44.1 - CHRONIC OBSTRUCTIVE PULMONARY DISEASE W (ACUTE) EXACERBATION SNOMED Code(s): 242534375 Plan: Restart his Coreg. We will wait for nephrology input regarding starting LAYA inhibitor. If not, we'll may use small dose of hydralazine. May switch to by mouth Lasix. Increase activity as tolerated
--- NOTE | 2020-06-08 11:30 | XR ---
EXAMINATION TYPE: XR chest 1V portable DATE OF EXAM: 06/08/2020 CLINICAL HISTORY: CHF TECHNIQUE: Upright portable view of the chest obtained COMPARISON: 06/07/2020 FINDINGS: Sternotomy wires. Left subclavian central venous catheter distal tip over the distal SVC. Cardiomegaly. Mildly increased pulmonary vascular congestion. Increased bibasilar airspace opacities. Small bilateral pleural effusions redemonstrated. No pneumothorax. IMPRESSION: Mildly worsened pulmonary vascular congestion and bibasilar airspace opacities versus 05/26. Persistent small bilateral pleural effusions.
[2020-06-08 11:58] LABS: Glucose,Whole Blood 227 mg/dL (75-99)
--- NOTE | 2020-06-08 12:03 | P.PN ---
Subjective 85-year-old male is being treated for acute hypoxic and hypercapnic respiratory failure patient does have history of sleep apnea does appear to have some chronic CO2 retention. Patient is also being treated for heart failure exacerbation and echocardiogram is being obtained. Patient is anemic received 2 units of for blood transfusion although there is no clear evidence of acute GI bleed. Patient is also being treated for acute renal failure from a severe anemia there is no clear evidence of for acute blood loss anemia patient does have history of COPD and is on systemic steroids at this time patient has elevated blood sugars. Is on IV insulin drip which was changed to long-acting steroid. We'll insulin.patient has hypovolemic hyponatremia which is improving with IV Lasix. 06/03/2020 Patient still remains intubated and the patient is bit alkalotic because of its respiratory rate of on ventilator settings were decreased. Patient is due to undergo upper GI endoscopy which showed mild gastritis without any other significant abnormality. PERRLA remained fairly stable 06/04/2020 Patient is extubated today feels better today but still wheezing at this time. 06/05/2020 Patient is doing much better today his wheezing or significant improvement patient remains on IV Lasix. Patient is quite weak. Patient systemic steroids were discontinued, cutting down the long-acting insulin because of that reason. His kidney function continued to improve 06/06/2020 Patient's parent cultures are positive for stenotrophomonas maltophilia. Patient wheezing is bit was a believe today patient is using BiPAP on as-needed basis his serum creatinine is also bit worse but patient is being continued on IV Lasix today will reevaluate the the kidney function tomorrow if it continues to get worse then Lasix will be discontinued at the time patient does have some pedal edema still although significant improved. 06/07/2020 Patient feels bit better today wheezing improved today 06/08/2020 Patient still has some wheezing patient is been being continued on IV Lasix patient will be discharged out of ICU. Constitutional: Patient is fatigued Cardio vascular: denied any chest pain, palpitations Gastrointestinal denied any nausea vomiting Pulmonary: Does have shortness of breath and appeared to be fatigued and tired Neurologic denied any new focal deficits All inpatient medications were reviewed and appropriate changes in these medi cations as dictated in the interval history and assessment and plan. Objective - Vital Signs Vital signs: Vital Signs Temp 97.6 F 06/08/20 08:15 Pulse 68 06/08/20 11:33 Resp 27 H 06/08/20 11:31 BP 112/45 06/08/20 08:15 Pulse Ox 96 06/08/20 08:15 Intake & Output 06/07/20 06/08/20 06/08/20 18:59 06:59 18:59 Intake Total 283 796 380 Output Total 1250 1450 525 Balance -967 -654 -145 Weight 119 kg Intake: IV 283 296 260 Piperacillin-Tazobactam 3 100 100 .375 gm In Sodium Chloride 0.9% 100 ml @ 25 mls/hr IVPB Q8HR [facility] Rx# :[id number] Sodium Chloride 0.9% 1, 80 160 160 000 ml @ 20 mls/hr IV . Q24H [facility] Rx#:[id number] Sodium Ferric Gluconat- 100 100 Sucrose 125 mg In Sodium Chloride 0.9% 100 ml @ 100 mls/hr IVPB DAILY [facility] Rx#:[id number] pressure bag 3 36 Oral 500 120 Output: Urine 1250 1450 325 Stool 200 Other: Voiding Method Indwelling Catheter Indwelling Catheter Indwelling Catheter ABP, PAP, CO, CI - Last Documented Arterial Blood Pressure 152/52 - Exam PHYSICAL EXAMINATION: GENERAL: Patient is alert oriented 3 not in respiratory distress HEENT: Pupils are round and equally reacting to light. EOMI. No scleral icterus. No conjunctival pallor. Normocephalic, atraumatic. No pharyngeal erythema. No thyromegaly. CARDIOVASCULAR: S1 and S2 present. No murmurs, rubs, or gallops. PULMONARY: Does have wheezing and rhonchi much better compared to yesterday ABDOMEN: Soft, nontender, nondistended, normoactive bowel sounds. No palpable organomegaly. MUSCULOSKELETAL: No joint swelling or deformity. EXTREMITIES: No cyanosis, clubbing, does have pedal edema NEUROLOGICAL: Does not appear to have any new focal deficits SKIN: No rashes. - Labs CBC & Chem 7: 06/08/20 04:15 06/08/20 04:15 Labs: Abnormal Lab Results - Last 24 Hours (Table) 06/07/20 06/07/20 06/07/20 Range/Units 12:00 16:38 20:35 RBC (4.30-5.90) m/uL Hgb (13.0-17.5) gm/dL Hct (39.0-53.0) % MCHC (31.0-37.0) g/dL RDW (11.5-15.5) % Neutrophils # (1.3-7.7) k/uL Lymphocytes # (1.0-4.8) k/uL Carbon Dioxide (22-30) mmol/L BUN (9-20) mg/dL Creatinine (0.66-1.25) mg/dL Glucose (74-99) mg/dL POC Glucose (mg/dL) 250 H 276 H 258 H (75-99) mg/dL Calcium (8.4-10.2) mg/dL 06/08/20 06/08/20 06/08/20 Range/Units 04:15 04:15 06:42 RBC 2.98 L (4.30-5.90) m/uL Hgb 7.9 L (13.0-17.5) gm/dL Hct 27.2 L (39.0-53.0) % MCHC 29.1 L (31.0-37.0) g/dL RDW 17.0 H (11.5-15.5) % Neutrophils # 8.7 H (1.3-7.7) k/uL Lymphocytes # 0.6 L (1.0-4.8) k/uL Carbon Dioxide 35 H (22-30) mmol/L BUN 55 H (9-20) mg/dL Creatinine 1.76 H (0.66-1.25) mg/dL Glucose 193 H (74-99) mg/dL POC Glucose (mg/dL) 200 H (75-99) mg/dL Calcium 8.3 L (8.4-10.2) mg/dL 06/08/20 Range/Units 11:57 RBC (4.30-5.90) m/uL Hgb (13.0-17.5) gm/dL Hct (39.0-53.0) % MCHC (31.0-37.0) g/dL RDW (11.5-15.5) % Neutrophils # (1.3-7.7) k/uL Lymphocytes # (1.0-4.8) k/uL Carbon Dioxide (22-30) mmol/L BUN (9-20) mg/dL Creatinine (0.66-1.25) mg/dL Glucose (74-99) mg/dL POC Glucose (mg/dL) 227 H (75-99) mg/dL Calcium (8.4-10.2) mg/dL Assessment and Plan Plan: -acute on chronic hypercapnic as well as hypoxic respiratory failure: Secondary to COPD exacerbation, sleep apnea with CO2 retention as well as pulmonary edema leading to hypoxemia. Echocardiac exam is being up and continue with systemic steroids and inhalation treatments. Patient is extubated on 06/04/2020 -severe anemia: No evidence of acute GI bleed patient received Z2 units of blood transfusion , hemoglobin remained stable upper GI endoscopy as mentioned above -Sleep apnea -Type 2 diabetes mellitus: Patient blood sugars are expected to go because of systemic steroids patient will be started on long-acting insulin along with sliding scale for steroids. Her sugars are still high -coronary artery disease -acute renal failure possibly secondary to acute tubular necrosis from severe anemia with a competent of cardiorenal syndrome baseline creatinine is unknown. -Congestive heart failure EF chronic diastolic dysfunction with acute exacerbation patient is presently on IV Lasix patient still has significant edema
[2020-06-08] MEDS ORDERED: EPINEPHrine 10 ML SYRINGE (0.1 MG/ML) ONE (12:27)
--- NOTE | 2020-06-08 12:33 | P.PN ---
Subjective Progress Note Date: 06/08/20 06/08/2020, the patient is sitting up on a recliner. Doing well. Still diuresing with IV Lasix 60 mg IV push every 12 hours. The fluid balance over the past 24 hours is -1.6 L. The patient has a creatinine of 1.76 with a BUN of 55. Electrolytes are all within normal limits. White cell count of 10.5 with hemoglobin of 7.5. He is using incentive spirometer. A congested cough. No significant sputum production. Repeat chest x-ray from today shows some worsening in the pulmonary markings and bilateral pulmonary infiltrates in lung bases compared to yesterday's chest x-ray. The patient has Klebsiella pneumonia and stenotrophomonas and the patient is currently on IV Zosyn. We'll encourage use of incentive spirometer and pulmonary toileting. He is on Levemir insulin. He is weak and sleepy. Yet he is appropriate. Objective - Vital Signs Vital signs: Vital Signs Temp 97.6 F 06/08/20 08:15 Pulse 68 06/08/20 12:00 Resp 39 H 06/08/20 12:00 BP 92/48 06/08/20 12:00 Pulse Ox 97 06/08/20 12:00 Intake & Output 06/07/20 06/08/20 06/08/20 18:59 06:59 18:59 Intake Total 283 796 380 Output Total 1250 1450 525 Balance -967 -654 -145 Weight 119 kg Intake: IV 283 296 260 Piperacillin-Tazobactam 3 100 100 .375 gm In Sodium Chloride 0.9% 100 ml @ 25 mls/hr IVPB Q8HR [facility] Rx# :[id number] Sodium Chloride 0.9% 1, 80 160 160 000 ml @ 20 mls/hr IV . Q24H [facility] Rx#:[id number] Sodium Ferric Gluconat- 100 100 Sucrose 125 mg In Sodium Chloride 0.9% 100 ml @ 100 mls/hr IVPB DAILY [facility]ESH Rx#:[id number] pressure bag 3 36 Oral 500 120 Output: Urine 1250 1450 325 Stool 200 Other: Voiding Method Indwelling Catheter Indwelling Catheter Indwelling Catheter ABP, PAP, CO, CI - Last Documented Arterial Blood Pressure 152/52 - Exam Gen. appearance, comfortable likely distress. The patient is currently on oxygen 3 L per minute nasal cannula Head exam was generally normal. There was no scleral icterus or corneal arcus. Mucous membranes were moist. Neck was supple and without jugular venous distension, thyromegaly, or carotid bruits. Carotids were easily palpable bilaterally. There was no adenopathy. He has significant crowding of the posterior oropharynx with a Mallampati class IV. Lungs sounds are diminished and some coarse rhonchi in the lung bases bilaterally. Heart sounds are irregular, possible sinus and there is a systolic ejection murmur grade 3/6 related to his underlying aortic stenosis. Abdominal exam revealed normal bowel sounds. The abdomen was soft, non-tender, and without masses, organomegaly, or appreciable enlargement of the abdominal aorta. The patient has a colostomy bag which is functional and there is no direct tenderness rebound tenderness or guarding at this point in time. Extremities revealed +1 pitting edema and there is no cyanosis or clubbing. Neurologically the patient is waking up from sedation. The patient doing well. No focal neurological deficit. - Labs CBC & Chem 7: 06/08/20 04:15 06/08/20 04:15 Labs: Abnormal Lab Results - Last 24 Hours (Table) 06/07/20 06/07/20 06/08/20 Range/Units 16:38 20:35 04:15 RBC 2.98 L (4.30-5.90) m/uL Hgb 7.9 L (13.0-17.5) gm/dL Hct 27.2 L (39.0-53.0) % MCHC 29.1 L (31.0-37.0) g/dL RDW 17.0 H (11.5-15.5) % Neutrophils # 8.7 H (1.3-7.7) k/uL Lymphocytes # 0.6 L (1.0-4.8) k/uL Carbon Dioxide (22-30) mmol/L BUN (9-20) mg/dL Creatinine (0.66-1.25) mg/dL Glucose (74-99) mg/dL POC Glucose (mg/dL) 276 H 258 H (75-99) mg/dL Calcium (8.4-10.2) mg/dL 06/08/20 06/08/20 06/08/20 Range/Units 04:15 06:42 11:57 RBC (4.30-5.90) m/uL Hgb (13.0-17.5) gm/dL Hct (39.0-53.0) % MCHC (31.0-37.0) g/dL RDW (11.5-15.5) % Neutrophils # (1.3-7.7) k/uL Lymphocytes # (1.0-4.8) k/uL Carbon Dioxide 35 H (22-30) mmol/L BUN 55 H (9-20) mg/dL Creatinine 1.76 H (0.66-1.25) mg/dL Glucose 193 H (74-99) mg/dL POC Glucose (mg/dL) 200 H 227 H (75-99) mg/dL Calcium 8.3 L (8.4-10.2) mg/dL Assessment and Plan Plan: 1 acute hypoxic respiratory failure, multifactorial, essential related to decompensated heart failure/valvular heart disease with fluid overload. She is currently on 3 L of oxygen by nasal cannula. The patient has diabetes adequately. The patient on IV Zosyn covered for a combination of stenotrophomonas and Klebsiella the sputum. Chest x-ray findings are stable. The oxidation is improved and the patient continues to diureses aggressively w ith IV Lasix.. There is some interval worsening in the pulmonary infiltrates and a pulmonary vessel congestion on today's chest x-ray. This was monitored very closely. The patient will be kept on diuretics and IV Zosyn for another 24 hours. The patient CHF with diastolic heart failure patient has had Klebsiella and stenotrophomonas in the sputum. The patient is improved significantly with diuresis. Using incentive spirometer. 2 CHF with diastolic dysfunction 3 moderate severe aortic stenosis, still on IV Lasix 4 COPD with chronic hypoxic respiratory failure, FEV1 of 42% of predicted 5 acute kidney injury on top of chronic kidney disease in the creatinine is improving 6 coronary artery disease with previous coronary stenting 7 diabetes mellitus 8 previous history of colostomy, for an underlying rectal cancer 9 GI bleeding post EGD and the patient was found to have mild gastritis otherwise normal appearing upper GI examination. 10 anemia of chronic disease 11 history of aortic valve replacement back in 2007 and previous history of coronary artery bypass surgery 12 obstructive sleep apnea, nontolerant to CPAP therapy and the patient has been utilizing oxygen at 2 L overnight 13 hypothyroidism Plan Overall condition is improving. Repeat chest x-ray in the morning. Continue Lasix 60 mg IV push every 12 hours and continue Zosyn Continue DuoNeb neb last treatment [id number] Chest x-ray findings are stable and the patient's overall pulmonary status is improved anticoagulation with Eliquis We'll continue to follow. The patient can be transferred out to a medical surgical floor
[2020-06-08 13:43] VITALS: BMI 37.6
--- NOTE | 2020-06-08 13:56 | PN ---
PROGRESS NOTE Patient is seen for followup for acute kidney injury. The patient's renal function is stable with serum creatinine staying at about 1.7 for the last 2 days. It is improved from a peak of about 2.46 mg/dL. The patient is currently being diuresed. He is maintained on Lasix 60 mg IV Q 12 hours. He has an indwelling Winslow catheter, 24 hour urine output at about 2.9 L. PHYSICAL EXAMINATION: On physical examination today. Patient is comfortable, awake. He is not in any acute distress. Blood pressure 112/45, heart rate 80 per minute. He is afebrile. Examination of the heart S1, S2. Examination of the lungs, bilateral breath sounds are heard. Decreased breath sounds at bases. ABDOMEN: Soft, obese. Examination of lower extremities shows edema 1+ bilaterally. FURNACE CLEANER exam grossly intact. LAB: Show hemoglobin of 7.9, sodium 138, potassium 4.1, CO2 35, BUN 55, creatinine 1.76. ASSESSMENT: 1. Acute kidney injury, acute tubular necrosis, nonoliguric, currently stable, maintained on IV Lasix which we can continue. 2. Congestive heart failure, volume overload. Continue with current diuretics. 3. Acute gastrointestinal bleed, status post packed RBCs transfusion. EGD showed mild gastritis. Currently maintained on Aranesp as well. No active bleeding noted currently. 4. Hypercapnic hypoxic acute respiratory failure status post extubation June 04. 5. Pneumonia, maintained on antibiotics. Sputum positive for Klebsiella and Stenotrophomona. PLAN: May continue with the current dose of Lasix. Repeat labs in a.m. Continue to avoid nephrotoxic agents. MMODL / IJN: [id number] /
[2020-06-08 16:40] LABS: Glucose,Whole Blood 277 mg/dL (75-99)
[2020-06-08 20:52] LABS: Glucose,Whole Blood 277 mg/dL (75-99)
[2020-06-08] MEDS ORDERED: INSULIN DETEMIR (LEVEMIR) 100 UNIT/ML SYR SQ SCH (21:00)
[2020-06-08] MEDS: SODIUM CHLORIDE 0.9% 1,000 ML IV SCH (22:11)
[2020-06-08] MEDS: ATORVASTATIN 80 MG TAB PO SCH (22:12)
[2020-06-08] MEDS: MELATONIN 5 MG TABLET PO SCH (22:12)
[2020-06-09] MEDS: IPRATROPIUM-ALBUTEROL 3 ML NEB INHALATION SCH ×7 (00:09→23:54)
[2020-06-09] MEDS: PIPERACILLIN-TAZOBACTAM 3.375 GM in SODIUM CHLORIDE 0.9% 100 ML IVPB SCH ×4 (01:56→23:36)
[2020-06-09 06:57] LABS: Glucose,Whole Blood 169 mg/dL (75-99)
[2020-06-09] MEDS: LEVOTHYROXINE 50 MCG TAB PO SCH (06:59)
[2020-06-09] MEDS: INSULIN ASPART (NovoLOG) 100 UNIT/ML VIAL SQ SCH ×4 (06:59→21:11)
[2020-06-09] MEDS: PANTOPRAZOLE 40 MG/10 ML VIAL IV SCH (08:03)
[2020-06-09] MEDS: FUROSEMIDE 10 MG/ML 10 ML VIAL IV SCH ×2 (08:03→21:11)
[2020-06-09] MEDS: APIXABAN 2.5 MG TABLET PO SCH ×2 (08:06→21:11)
[2020-06-09 11:08] LABS: Calcium 8.3 mg/dL (8.4-10.2); Potassium 3.9 mmol/L (3.5-5.1)
[2020-06-09] MEDS: SODIUM FERRIC GLUCONAT-SUCROSE 125 MG in SODIUM CHLORIDE 0.9% 100 ML IVPB SCH (12:10)
[2020-06-09] MEDS: SODIUM CHLORIDE 0.9% 1,000 ML IV SCH (12:11)
[2020-06-09 12:15] LABS: Glucose,Whole Blood 216 mg/dL (75-99)
--- NOTE | 2020-06-09 12:18 | P.PN ---
Subjective Progress Note Date: 06/09/20 06/09/2020, I'm seeing the patient for a follow-up. No new complaints. He remains on IV Lasix. Continues to have adequate urine output and diuresis. Based on the 24-hour fluid balance, the patient has been negative fluid balance of 1.7 L. The creatinine is 1.86 with a BUN of 49. No respiratory distress. No chest pain. No altered mentation. Chest x-ray was not done today. He remains on IV Zosyn. Afebrile. The triple-lumen Catheter be removed. He has a Winslow catheter in place. He is on anticoagulation with Eliquis. Objective - Vital Signs Vital signs: Vital Signs Temp 98.2 F 06/09/20 08:00 Pulse 68 06/09/20 11:48 Resp 28 H 06/09/20 10:00 BP 101/53 06/09/20 10:00 Pulse Ox 96 06/09/20 10:00 Intake & Output 06/08/20 06/09/20 06/09/20 18:59 06:59 18:59 Intake Total 540 220 100 Output Total 1500 1025 800 Balance -960 -805 -700 Weight 119 kg Intake: IV 420 220 100 Piperacillin-Tazobactam 3 100 .375 gm In Sodium Chloride 0.9% 100 ml @ 25 mls/hr IVPB Q8HR [facility] Rx# :[id number] Sodium Chloride 0.9% 1, 320 120 100 000 ml @ 20 mls/hr IV . Q24H [facility] Rx#:[id number] Sodium Ferric Gluconat- 100 Sucrose 125 mg In Sodium Chloride 0.9% 100 ml @ 100 mls/hr IVPB DAILY [facility] Rx#:[id number] Oral 120 Output: Urine 1100 1025 800 Stool 400 Other: Voiding Method Indwelling Catheter Indwelling Catheter Indwelling Catheter ABP, PAP, CO, CI - Last Documented Arterial Blood Pressure 152/52 - Exam Gen. appearance, comfortable likely distress. The patient is currently on oxygen 3 L per minute nasal cannula Head exam was generally normal. There was no scleral icterus or corneal arcus. Mucous membranes were moist. Neck was supple and without jugular venous distension, thyromegaly, or carotid bruits. Carotids were easily palpable bilaterally. There was no adenopathy. He has significant crowding of the posterior oropharynx with a Mallampati class IV. Lungs sounds are diminished and some coarse rhonchi in the lung bases bilaterally. Heart sounds are irregular, possible sinus and there is a systolic ejection murmur grade 3/6 related to his underlying aortic stenosis. Abdominal exam revealed normal bowel sounds. The abdomen was soft, non-tender, and without masses, organomegaly, or appreciable enlargement of the abdominal aorta. The patient has a colostomy bag which is functional and there is no direct tenderness rebound tenderness or guarding at this point in time. Extremities revealed +1 pitting edema and there is no cyanosis or clubbing. Neurologically the patient is waking up from sedation. The patient doing well. No focal neurological deficit. - Labs CBC & Chem 7: 06/08/20 04:15 06/09/20 10:20 Labs: Abnormal Lab Results - Last 24 Hours (Table) 06/08/20 06/08/20 06/09/20 Range/Units 16:39 20:51 06:56 Chloride (98-107) mmol/L Carbon Dioxide (22-30) mmol/L BUN (9-20) mg/dL Creatinine (0.66-1.25) mg/dL Glucose (74-99) mg/dL POC Glucose (mg/dL) 277 H 277 H 169 H (75-99) mg/dL Calcium (8.4-10.2) mg/dL 06/09/20 Range/Units 10:20 Chloride 97 L (98-107) mmol/L Carbon Dioxide 40 H (22-30) mmol/L BUN 49 H (9-20) mg/dL Creatinine 1.86 H (0.66-1.25) mg/dL Glucose 209 H (74-99) mg/dL POC Glucose (mg/dL) (75-99) mg/dL Calcium 8.3 L (8.4-10.2) mg/dL Assessment and Plan Plan: 1 acute hypoxic respiratory failure, multifactorial, essential related to decompensated heart failure/valvular heart disease with fluid overload. She is currently on 3 L of oxygen by nasal cannula. The patient has been extubated. The patient has been diuresed adequately and he remains on IV Lasix 60 mg every 12 hours with a negative fluid balance. 2 CHF with diastolic dysfunction, moderate severe aortic stenosis, still on IV Lasix 3 possible pneumonia with Klebsiella and stenotrophomonas in the sputum currently on IV Zosyn 4 COPD with chronic hypoxic respiratory failure, FEV1 of 42% of predicted 5 acute kidney injury on top of chronic kidney disease, improvement in the creatinine is stable at 1.8 6 coronary artery disease with previous coronary stenting 7 diabetes mellitus 8 previous history of colostomy, for an underlying rectal cancer 9 GI bleeding post EGD and the patient was found to have mild gastritis otherwise normal appearing upper GI examination. 10 anemia of chronic disease 11 history of aortic valve replacement back in 2007 and previous history of coronary artery bypass surgery 12 obstructive sleep apnea, nontolerant to CPAP therapy and the patient has been utilizing oxygen at 2 L overnight 13 hypothyroidism Plan Overall condition is improving. Physical therapy with possible ECF placement Continue Lasix 60 mg IV push every 12 hours and continue Zosyn Continue DuoNeb neb last treatment [id number] anticoagulation with Eliquis We'll continue to follow. The patient can be transferred out to a medical surgical floor
--- NOTE | 2020-06-09 12:46 | PN ---
PROGRESS NOTE This is an 85-year-old gentleman with history of COPD, diabetes, congestive heart failure, coronary artery disease status post CABG, who was admitted to hospital with anemia and underwent blood transfusion. EGD showed mild gastritis. His congestive heart failure has been improving. On exam, heart rate is 68 beats per minute, blood pressure is 101/53, respiratory rate is 18, O2 saturation is 96%. There is no jugular venous distention. Carotid upstroke is diminished. There is no bruit. Chest exam reveals good air entry bilaterally. Heart exam reveals first and second heart sounds. No gallop. Has a systolic murmur at the left lower sternal border. Abdomen is soft. Exam of the extremities did not reveal any edema. Peripheral pulses are felt. LABS: Show the BUN is 49, creatinine is 1.8 potassium is 3.9. Patient is currently on Eliquis 2.5 b.i.d., Lipitor 80 q. daily, Coreg, Lasix 60 IV q.12. ASSESSMENT: 1. Acute exacerbation of chronic congestive heart failure. 2. Chronic obstructive pulmonary disease. 3. Renal failure. 4. Gastrointestinal bleed. PLAN: Will switch the Lasix to p.o. Continue the Eliquis, Lipitor, Coreg. MMODL / IJN: [id number] /
[2020-06-09] MEDS ORDERED: POTASSIUM CHLORIDE ER 20 MEQ TAB.ER PO SCH (13:00)
--- NOTE | 2020-06-09 13:53 | P.PN ---
Subjective 85-year-old male is being treated for acute hypoxic and hypercapnic respiratory failure patient does have history of sleep apnea does appear to have some chronic CO2 retention. Patient is also being treated for heart failure exacerbation and echocardiogram is being obtained. Patient is anemic received 2 units of for blood transfusion although there is no clear evidence of acute GI bleed. Patient is also being treated for acute renal failure from a severe anemia there is no clear evidence of for acute blood loss anemia patient does have history of COPD and is on systemic steroids at this time patient has elevated blood sugars. Is on IV insulin drip which was changed to long-acting steroid. We'll insulin.patient has hypovolemic hyponatremia which is improving with IV Lasix. 06/03/2020 Patient still remains intubated and the patient is bit alkalotic because of its respiratory rate of on ventilator settings were decreased. Patient is due to undergo upper GI endoscopy which showed mild gastritis without any other significant abnormality. PERRLA remained fairly stable 06/04/2020 Patient is extubated today feels better today but still wheezing at this time. 06/05/2020 Patient is doing much better today his wheezing or significant improvement patient remains on IV Lasix. Patient is quite weak. Patient systemic steroids were discontinued, cutting down the long-acting insulin because of that reason. His kidney function continued to improve 06/06/2020 Patient's parent cultures are positive for stenotrophomonas maltophilia. Patient wheezing is bit was a believe today patient is using BiPAP on as-needed basis his serum creatinine is also bit worse but patient is being continued on IV Lasix today will reevaluate the the kidney function tomorrow if it continues to get worse then Lasix will be discontinued at the time patient does have some pedal edema still although significant improved. 06/07/2020 Patient feels bit better today wheezing improved today 06/08/2020 Patient still has some wheezing patient is been being continued on IV Lasix patient will be discharged out of ICU. 06/09/2020 Patient is on IV Lasix with into fluid balance but the still has significant anasarca. Patient's creatinine is around 1.86 fairly stable and it was 1.7 yesterday. Patient wheezing did improve is pretty status did improve but his overall prognosis remains extremely poor mostly considering his age. Constitutional: Patient is fatigued Cardio vascular: denied any chest pain, palpitations Gastrointestinal denied any nausea vomiting Pulmonary: Does have shortness of breath and appeared to be fatigued and tired Neurologic denied any new focal deficits All inpatient medications were reviewed and appropriate changes in these medications as dictated in the interval history and assessment and plan. Objective - Vital Signs Vital signs: Vital Signs Temp 98.2 F 06/09/20 12:00 Pulse 68 06/09/20 12:00 Resp 26 H 06/09/20 12:00 BP 101/53 06/09/20 12:00 Pulse Ox 99 06/09/20 12:00 Intake & Output 06/08/20 06/09/20 06/09/20 18:59 06:59 18:59 Intake Total 540 220 100 Output Total 1500 1025 800 Balance -960 -805 -700 Weight 119 kg Intake: IV 420 220 100 Piperacillin-Tazobactam 3 100 .375 gm In Sodium Chloride 0.9% 100 ml @ 25 mls/hr IVPB Q8HR [facility] Rx# :[id number] Sodium Chloride 0.9% 1, 320 120 100 000 ml @ 20 mls/hr IV . Q24H [facility] Rx#:[id number] Sodium Ferric Gluconat- 100 Sucrose 125 mg In Sodium Chloride 0.9% 100 ml @ 100 mls/hr IVPB DAILY [facility] Rx#:[id number] Oral 120 Output: Urine 1100 1025 800 Stool 400 Other: Voiding Method Indwelling Catheter Indwelling Catheter Indwelling Catheter ABP, PAP, CO, CI - Last Documented Arterial Blood Pressure 152/52 - Exam PHYSICAL EXAMINATION: GENERAL: Patient is alert oriented 3 not in respiratory distress HEENT: Pupils are round and equally reacting to light. EOMI. No scleral icterus. No conjunctival pallor. Normocephalic, atraumatic. No pharyngeal erythema. No thyromegaly. CARDIOVASCULAR: S1 and S2 present. No murmurs, rubs, or gallops. PULMONARY: Wheezing did improve ABDOMEN: Soft, nontender, nondistended, normoactive bowel sounds. No palpable organomegaly. MUSCULOSKELETAL: No joint swelling or deformity. EXTREMITIES: No cyanosis, clubbing, does have pedal edema NEUROLOGICAL: Does not appear to have any new focal deficits SKIN: No rashes. - Labs CBC & Chem 7: 06/08/20 04:15 06/09/20 10:20 Labs: Abnormal Lab Results - Last 24 Hours (Table) 09/06/08/20 06/09/20 Range/Units 16:39 20:51 06:56 Chloride (98-107) mmol/L Carbon Dioxide (22-30) mmol/L BUN (9-20) mg/dL Creatinine (0.66-1.25) mg/dL Glucose (74-99) mg/dL POC Glucose (mg/dL) 277 H 277 H 169 H (75-99) mg/dL Calcium (8.4-10.2) mg/dL 06/09/20 06/09/20 Range/Units 10:20 12:13 Chloride 97 L (98-107) mmol/L Carbon Dioxide 40 H (22-30) mmol/L BUN 49 H (9-20) mg/dL Creatinine 1.86 H (0.66-1.25) mg/dL Glucose 209 H (74-99) mg/dL POC Glucose (mg/dL) 216 H (75-99) mg/dL Calcium 8.3 L (8.4-10.2) mg/dL Assessment and Plan Plan: -acute on chronic hypercapnic as well as hypoxic respiratory failure: Secondary to COPD exacerbation, sleep apnea with CO2 retention as well as pulmonary edema leading to hypoxemia. Echocardiac exam is being up and continue with systemic steroids and inhalation treatments. Patient is extubated on 06/04/2020 -severe anemia: No evidence of acute GI bleed patient received Z2 units of blood transfusion , hemoglobin remained stable upper GI endoscopy as mentioned above -Sleep apnea -Type 2 diabetes mellitus: Patient blood sugars remains high after almost 3 days of discontinuation of systemic steroids. We will increase the dose of long- acting insulin to 25 units -coronary artery disease -acute renal failure possibly secondary to acute tubular necrosis from severe anemia with a competent of cardiorenal syndrome baseline creatinine is unknown. -Congestive heart failure EF chronic diastolic dysfunction with acute exacerbation patient is presently on IV Lasix patient still has significant edema
[2020-06-09 16:34] LABS: Glucose,Whole Blood 213 mg/dL (75-99)
--- NOTE | 2020-06-09 17:10 | PN ---
PROGRESS NOTE Patient is seen for followup for acute kidney injury. Patient's renal function has improved. His serum creatinine is currently staying at about 1.7 to 1.8 mg/dL. The patient has an indwelling Winslow catheter; 24-hour urine output of about 2.5 L. On examination today, patient is comfortable, awake, not in any acute distress. Blood pressure is 101/53, heart rate of about 67 per minute. Patient is afebrile. EXAMINATION OF THE HEART: S1 and S2. EXAMINATION OF LUNGS: Decreased breath sounds at bases. ABDOMEN: Soft, obese, non-tender. Examination of lower extremities shows chronic skin changes, edema 1+ bilaterally. SOCIAL SERVICES ANALYST exam is grossly intact. Labs show sodium 140, potassium 3.9, chloride 97. CO2 is 40. BUN 49, creatinine 1.86. ASSESSMENT: 1. Acute kidney injury, acute tubular necrosis, nonoliguric, stable, maintained on IV Lasix. Serum creatinine staying 1.7 to 1.8. The patient has good urine output. 2. Congestive heart failure, currently improved, mostly diastolic; ejection fraction 50% to 55%. 3. Hypercapnic hypoxic respiratory failure, status post extubation June 04. 4. Pneumonia, maintained on antibiotics. Sputum was positive for Klebsiella and Stenotrophomonas. 5. Acute gastrointestinal bleed, status post packed RBCs transfusion. EGD showed mild gastritis. Patient is maintained on Aranesp. PLAN: Check chest x-ray in a.m. May continue with IV Lasix for now. Consider decreasing Lasix in a.m. if renal function is worse. MMODL / IJN: [id number] /
[2020-06-09 20:38] LABS: Glucose,Whole Blood 214 mg/dL (75-99)
[2020-06-09] MEDS: ATORVASTATIN 80 MG TAB PO SCH (21:11)
[2020-06-09] MEDS: MELATONIN 5 MG TABLET PO SCH (21:11)
[2020-06-09] MEDS: INSULIN DETEMIR (LEVEMIR) 100 UNIT/ML SYR SQ SCH (21:12)
[2020-06-10] MEDS: IPRATROPIUM-ALBUTEROL 3 ML NEB INHALATION SCH ×5 (03:30→20:16)
[2020-06-10 06:16] LABS: Glucose,Whole Blood 107 mg/dL (75-99)
[2020-06-10] MEDS: INSULIN ASPART (NovoLOG) 100 UNIT/ML VIAL SQ SCH ×4 (06:17→22:41)
[2020-06-10] MEDS: LEVOTHYROXINE 50 MCG TAB PO SCH (06:37)
[2020-06-10] MEDS: FUROSEMIDE 10 MG/ML 10 ML VIAL IV SCH (09:56)
[2020-06-10] MEDS: ALPRAZolam 0.25 MG TAB PO PRN ×2 (10:00→22:40)
[2020-06-10] MEDS: PIPERACILLIN-TAZOBACTAM 3.375 GM in SODIUM CHLORIDE 0.9% 100 ML IVPB SCH ×2 (10:00→17:36)
[2020-06-10] MEDS: PANTOPRAZOLE 40 MG/10 ML VIAL IV SCH (10:01)
[2020-06-10] MEDS: APIXABAN 2.5 MG TABLET PO SCH ×2 (10:01→22:40)
[2020-06-10 11:30] LABS: Glucose,Whole Blood 176 mg/dL (75-99)
--- NOTE | 2020-06-10 11:38 | P.PN ---
Subjective 85-year-old male is being treated for acute hypoxic and hypercapnic respiratory failure patient does have history of sleep apnea does appear to have some chronic CO2 retention. Patient is also being treated for heart failure exacerbation and echocardiogram is being obtained. Patient is anemic received 2 units of for blood transfusion although there is no clear evidence of acute GI bleed. Patient is also being treated for acute renal failure from a severe anemia there is no clear evidence of for acute blood loss anemia patient does have history of COPD and is on systemic steroids at this time patient has elevated blood sugars. Is on IV insulin drip which was changed to long-acting steroid. We'll insulin.patient has hypovolemic hyponatremia which is improving with IV Lasix. 06/03/2020 Patient still remains intubated and the patient is bit alkalotic because of its respiratory rate of on ventilator settings were decreased. Patient is due to undergo upper GI endoscopy which showed mild gastritis without any other significant abnormality. PERRLA remained fairly stable 06/04/2020 Patient is extubated today feels better today but still wheezing at this time. 06/05/2020 Patient is doing much better today his wheezing or significant improvement patient remains on IV Lasix. Patient is quite weak. Patient systemic steroids were discontinued, cutting down the long-acting insulin because of that reason. His kidney function continued to improve 06/06/2020 Patient's parent cultures are positive for stenotrophomonas maltophilia. Patient wheezing is bit was a believe today patient is using BiPAP on as-needed basis his serum creatinine is also bit worse but patient is being continued on IV Lasix today will reevaluate the the kidney function tomorrow if it continues to get worse then Lasix will be discontinued at the time patient does have some pedal edema still although significant improved. 06/07/2020 Patient feels bit better today wheezing improved today 06/08/2020 Patient still has some wheezing patient is been being continued on IV Lasix patient will be discharged out of ICU. 06/09/2020 Patient is on IV Lasix with into fluid balance but the still has significant anasarca. Patient's creatinine is around 1.86 fairly stable and it was 1.7 yesterday. Patient wheezing did improve is pretty status did improve but his overall prognosis remains extremely poor mostly considering his age. 06/10/2020 Patient's serum creatinine remains stable patient looks much better wheezing did improve significantly decreased air entry into bilateral lung alaniz. Patient is a 2 person assist with the family wanted to take him home patient will need supervision will discuss with the family once again regarding the situation. Patient was switched to oral Lasix. Constitutional: Patient is fatigued Cardio vascular: denied any chest pain, palpitations Gastrointestinal denied any nausea vomiting Pulmonary: Shortness of breath improved Neurologic denied any new focal deficits All inpatient medications were reviewed and appropriate changes in these medications as dictated in the interval history and assessment and plan. Objective - Vital Signs Vital signs: Vital Signs Temp 98.6 F 06/10/20 03:51 Pulse 66 06/10/20 08:32 Resp 20 06/10/20 03:51 BP 133/62 06/10/20 03:51 Pulse Ox 96 06/10/20 03:51 Intake & Output 06/09/20 06/10/20 06/10/20 18:59 06:59 18:59 Intake Total 440 160 Output Total 1300 1605 Balance -860 -1445 Weight 110 kg Intake: IV 440 160 Piperacillin-Tazobactam 3 100 .375 gm In Sodium Chloride 0.9% 100 ml @ 25 mls/hr IVPB Q8HR [facility] Rx# :[id number] Sodium Chloride 0.9% 1, 340 160 000 ml @ 20 mls/hr IV . Q24H RAMESH Rx#:[id number] Output: Urine 1300 1255 Uretheral (W[place]low) 600 Stool 350 Other: Voiding Method Indwelling Catheter Indwelling Catheter ABP, PAP, CO, CI - Last Documented Arterial Blood Pressure 152/52 - Exam PHYSICAL EXAMINATION: GENERAL: Patient is alert oriented 3 not in respiratory distress HEENT: Pupils are round and equally reacting to light. EOMI. No scleral icterus. No conjunctival pallor. Normocephalic, atraumatic. No pharyngeal erythema. No thyromegaly. CARDIOVASCULAR: S1 and S2 present. No murmurs, rubs, or gallops. PULMONARY: Wheezing did improve ABDOMEN: Soft, nontender, nondistended, normoactive bowel sounds. No palpable organomegaly. MUSCULOSKELETAL: No joint swelling or deformity. EXTREMITIES: No cyanosis, clubbing, does have pedal edema NEUROLOGICAL: Does not appear to have any new focal deficits SKIN: No rashes. - Labs CBC & Chem 7: 06/08/20 04:15 06/09/20 10:20 Labs: Abnormal Lab Results - Last 24 Hours (Table) 06/09/20 06/09/20 06/09/20 Range/Units 12:13 16:33 20:36 POC Glucose (mg/dL) 216 H 213 H 214 H (75-99) mg/dL 06/10/20 06/10/20 Range/Units 06:14 11:29 POC Glucose (mg/dL) 107 H 176 H (75-99) mg/dL Assessment and Plan Plan: -acute on chronic hypercapnic as well as hypoxic respiratory failure: Secondary to COPD exacerbation, sleep apnea with CO2 retention as well as pulmonary edema leading to hypoxemia. Echocardiac exam is being up and continue with systemic steroids and inhalation treatments. Patient is extubated on 06/04/2020 -severe anemia: No evidence of acute GI bleed patient received 2 units of blood transfusion , hemoglobin remained stable upper GI endoscopy as mentioned above -Sleep apnea -Type 2 diabetes mellitus: Patient blood sugars remains high after almost 3 days of discontinuation of systemic steroids. Patient blood sugars improved significantly. -coronary artery disease -acute renal failure possibly secondary to acute tubular necrosis from severe anemia with a competent of cardiorenal syndrome baseline creatinine is unknown. -Congestive heart failure EF chronic diastolic dysfunction with acute exacerbation patient is presently on oral Lasix possibly of discharge tomorrow.
--- NOTE | 2020-06-10 12:18 | P.PN ---
Subjective Progress Note Date: 06/10/20 Principal diagnosis: Acute on chronic hypoxic respiratory failure, multifactorial, related to decompensated heart failure, with diastolic dysfunction, valvular heart disease, and Klebsiella pneumonia/Stenotrophomonas maltophilia pneumonia. Acute on chronic anemia 85-year-old male patient is currently intubated on a mechanical ventilator and the patient is being seen for a follow-up. The patient is known to me from previous hospitalizations. He has multiple medical problems and comorbidities. He has been hospitalized for an acute hypoxic respiratory failure as the patient presented emergency department with difficulty breathing. He has COPD. Chronic hypoxic respiratory failure maintained on oxygen 2 L and he also has valvular heart disease with moderate degree of aortic stenosis and diastolic heart failure. The patient also was suspected to have a GI bleed. The patient currently is intubated on a mechanical ventilator. On today's evaluation, the patient is sedated with propofol which is running at 50 g per KG per minute. IV fluids are 20s an hour and the patient is being diuresis with IV Lasix and the neck fluid balance is -2.2 L over the past 24 hours. He has been receiving enteral feeding for nutritional support with the vital high protein at the rate of 20 mL an hour. His cardiac rhythm is consistent with atrial flutter/fibrillation. His chest x-ray shows interval improvement in the volume status. There are still some cardiomegaly. He remains on assist control mode at the rate of 16 with tidal volume of 450 and FiO2 50% with a PEEP of 5. The morning blood gases showed a pH of 7.51 with a pCO2 of 48 and pO2 122. Hemoglobin stable at 7.8. White cell count stable at 8.9. He has chronic kidney disease in the creatinine is also improving is down to 1.9 as the patient is being diuresis. Based on all this, I stop the sedation and check his weaning parameters. The patient had a rapid shallow breathing index of 27 with a tidal volume of 450 and the vital capacity of 9.5 L. He was given a spelled his breathing trial with a pressure support of 5 and a PEEP of 5 and subsequent blood gases showed a pH of 7.49 with a pCO2 of 47 and pO2 130. The patient was awake and alert and the patient was following commands and answering questions appropriately without any significant agitation. I decided to extubated patient accordingly. On 06/05/2020 patient seen in follow-up in the intensive care unit, yesterday patient was weaned and extubated from the mechanical ventilation successfully, in the evening patient did require BiPAP support, with pressures often of 5, and FiO2 of 50%, this morning she was switched over to high flow nasal cannula currently at 6 L/m, his pulse ox is 99%, he is awake and alert, he remains on Lasix at 60 mg every 12 hours, and he is in negative fluid balance over the last 24 hours with over 3.6 L negative in the last 24 hours, remains in atrial fibrillation, which is chronic for him, with the controlled rate at 60-62 BPM. Today's chest x-ray has been reviewed showing diffuse interstitial pattern with cardiomegaly, bilateral pleural effusions. No evidence of active bleeding, today's hemoglobin is 8.7. Renal profile is improving, with BUN at 88, creatinine is 1.79. Yesterday we started the patient on Zosyn for evidence of Klebsiella pneumonia in the sputum, later in the evening, the second organism was identified in the sputum, Stenotrophomonas maltophilia. Patient has had no fever or chills. He is alert and oriented 3, CAM-ICU was negative. Patient has a slightly congested cough, no phlegm production, not significantly congested. On 06/10/2020 patient seen in follow-up on selective care unit, currently he appears to be short of breath, related to his positioning in bed, patient was repositioned, his breathing has improved, liters of oxygen and the pulse ox of 95-96%, hemodynamically patient has been stable, has had no chills. Patient is on oral Lasix, nephrology is following and managing the diuretics, and she also remains on empiric antibiotic coverage in the form of Zosyn. He is maintaining negative fluid balance, overall fluid volume status has significantly improved, no lower extremity edema. No new labs today. Patient has been working with physical therapy, yesterday he set up in the chair, and then did some ambulation with a rolling walker and limited assistance Objective - Vital Signs Vital signs: Vital Signs Temp 98.6 F 06/10/20 03:51 Pulse 66 06/10/20 11:48 Resp 20 06/10/20 03:51 BP 118/58 06/10/20 08:00 Pulse Ox 95 06/10/20 08:00 Intake & Output 06/09/20 06/10/2006/10/20 18:59 06:59 18:59 Intake Total 440 160 Output Total 1300 1605 Balance -860 -1445 Weight 110 kg Intake: IV 440 160 Piperacillin-Tazobactam 3 100 .375 gm In Sodium Chloride 0.9% 100 ml @ 25 mls/hr IVPB Q8HR [facility] Rx# :[id number] Sodium Chloride 0.9% 1, 340 160 000 ml @ 20 mls/hr IV . Q24H [facility] Rx#:[id number] Output: Urine 1300 1255 Uretheral ([place]) 600 Stool 350 Other: Voiding Method Indwelling Catheter Indwelling Catheter Indwelling Catheter ABP, PAP, CO, CI - Last Documented Arterial Blood Pressure 152/52 - Exam GENERAL EXAM: Alert, very pleasant, 85-year-old white male, on 2L of oxygen a pulse ox of 99% comfortable in no apparent distress. HEAD: Normocephalic/atraumatic. EYES: Normal reaction of pupils, equal size. Conjunctiva pink, sclera white. NOSE: Clear with pink turbinates. THROAT: No erythema or exudates. NECK: No masses, no JVD, no thyroid enlargement, no adenopathy. CHEST: No chest wall deformity. Symmetrical expansion. LUNGS: Equal air entry with no crackles, wheeze, rhonchi or dullness. CVS: Irregular rate and rhythm, normal S1 and S2, no gallops, no murmurs, no rubs ABDOMEN: Soft, nontender. No hepatosplenomegaly, normal bowel sounds, no guarding or rigidity. EXTREMITIES: No clubbing, no edema, no cyanosis, 2+ pulses and upper and lower extremities. MUSCULOSKELETAL: Muscle strength and tone normal. SPINE: No scoliosis or deformity SKIN: No rashes CENTRAL NERVOUS SYSTEM: Alert and oriented -3. No focal deficits, tone is normal in all 4 extremities. PSYCHIATRIC: Alert and oriented -3. Appropriate affect. Intact judgment and insight. - Labs CBC & Chem 7: 06/08/20 04:15 06/09/20 10:20 Labs: Abnormal Lab Results - Last 24 Hours (Table) 06/09/20 06/09/20 06/09/20 Range/Units 12:13 16:33 20:36 POC Glucose (mg/dL) 216 H 213 H 214 H (75-99) mg/dL 06/10/20 06/10/20 Range/Units 06:14 11:29 POC Glucose (mg/dL) 107 H 176 H (75-99) mg/dL Assessment and Plan Plan: Assessment: 1 acute hypoxic respiratory failure, multifactorial, essential related to decompensated heart failure/valvular heart disease with fluid overload. The patient also has underlying COPD and chronic hypoxic respiratory failure. The patient was intubated on mechanical ventilator. He was diuresed adequately. Sputum showed Klebsiella and stenotrophomonas and the patient was started on IV Zosyn The patient is a negative fluid balance. The patient was noted to have good weaning parameters and the patient was extubated today to a nasal cannula on 06/04/2020 2 CHF with diastolic dysfunction 3 moderate severe aortic stenosis 4 COPD with chronic hypoxic respiratory failure, FEV1 of 42% of predicted 5 acute kidney injury on top of chronic kidney disease in the creatinine is improving 6 coronary artery disease with previous coronary stenting 7 diabetes mellitus 8 previous history of colostomy, for an underlying rectal cancer 9 GI bleeding post EGD and the patient was found to have mild gastritis otherwise normal appearing upper GI examination. 10 anemia of chronic disease with interval drop in hemoglobin down to 6.3 and the patient received an EGD and packed RBC transfusion and currently hemoglobin is at 7.8. The patient is his total of 2 units of packed RBC during this current admission. 11 history of aortic valve replacement back in 2007 and previous history of coronary artery bypass surgery 12 obstructive sleep apnea, nontolerant to CPAP therapy and the patient has been utilizing oxygen at 2 L overnight 13 hypothyroidism Plan: Patient is doing well, no acute events overnight, FiO2 down to 2 L, continue weaning FiO2, no worsening dyspnea, encouraged the patient to sit up in the chair, and continue working with physical therapy, patient has been transitioned to oral diuretics, he is maintaining negative fluid balance, remains on empiric antibiotics, his had no fever or chills, no acute events overnight. Social work is following, and evaluating home discharge needs, and the plan is for the patient to return home with family assistance. I performed a history & physical examination of the patient and discussed their management with my nurse practitioner, Odalis Reyes. I reviewed the nurse practitioner's note and agree with the documented findings and plan of care. Lung sounds are positive for diminished breath sounds. The findings and the impression was discussed with the patient. I attest to the documentation by the nurse practitioner. Time with Patient: Less than 30
[2020-06-10] MEDS: SODIUM FERRIC GLUCONAT-SUCROSE 125 MG in SODIUM CHLORIDE 0.9% 100 ML IVPB SCH (12:40)
[2020-06-10] MEDS: SODIUM CHLORIDE 0.9% 1,000 ML IV SCH (12:42)
--- NOTE | 2020-06-10 14:05 | PN ---
PROGRESS NOTE Patient is seen for followup for acute kidney injury. He has been transferred out of the ICU. Patient is doing well. He denies any significant complaints. PHYSICAL EXAMINATION: Today, blood pressure 118/58, heart rate 67 per minute, he is afebrile. Examination of the heart S1, S2. Examination of the lungs, bilateral breath sounds are heard. Abdomen is soft, obese, nontender. Examination of the lower extremities shows trace edema bilaterally. RN CHILD exam grossly intact. LABS: Show sodium 140, potassium 3.9, chloride 97, CO2 is 40, BUN 49, creatinine 1.86 from yesterday. ASSESSMENT: 1. Acute kidney injury ATN, currently stable. No labs from today. 2. Volume overload, significantly improved. Lasix is changed to p.o. 3. CHF, mostly diastolic, ejection fraction 50%-55%. 4. Pneumonia maintained on antibiotics. Sputum positive for Klebsiella and stenotrophomonas. 5. Acute gastrointestinal bleed, status post packed RBCs transfusion. EGD showed mild gastritis. Maintained on Aranesp. 6. Metabolic alkalosis associated with recent diuresis. PLAN: Change to p.o. Lasix. Repeat labs in a.m. MMODL / IJN: [id number] /
--- NOTE | 2020-06-10 14:17 | P.PN ---
Subjective Progress Note Date: 06/10/20 CHIEF COMPLAINT: CHF HISTORY OF PRESENT ILLNESS: Patient examined this morning at the bedside. He denies shortness of breath. Denies chest pain. Vital signs stable. Fluid balance over the last 24 hours is -2305cc. PHYSICAL EXAM: VITAL SIGNS: Reviewed. GENERAL: Well-developed in no acute distress. NECK: Supple. No JVD or thyromegaly LUNGS: Respirations even and unlabored. Lungs diminished bilaterally. HEART: Irregular rate and rhythm. S1 and S2 heard. Systolic murmur. EXTREMITIES: Normal range of motion. No clubbing or cyanosis. Peripheral pulses intact. No lower extremity edema ASSESSMENT: Acute exacerbation of chronic diastolic congestive heart failure, EF 50-55% Chronic obstructive pulmonary disease A-flutter, typical GI Bleed Chronic kidney disease History of coronary artery disease, status post CABG Diabetes mellitus, type II PLAN: Continue Eliquis Lasix has been transitioned to oral per pulmonary Monitor kidney function Daily weight Accurate I&O Further recommendations pending patient course Nurse practitioner note has been reviewed by physician. Signing provider agrees with the documented findings, assessment, and plan of care. Objective - Vital Signs Vital signs: Vital Signs Temp 98.6 F 06/10/20 03:51 Pulse 66 06/10/20 11:48 Resp 20 06/10/20 03:51 BP 118/58 06/10/20 08:00 Pulse Ox 95 06/10/20 08:00 Intake & Output 06/09/20 06/10/20 06/10/20 18:59 06:59 18:59 Intake Total 440 160 Output Total 1300 1605 Balance -860 -1445 Weight 110 kg Intake: IV 440 160 Piperacillin-Tazobactam 3 100 .375 gm In Sodium Chloride 0.9% 100 ml @ 25 mls/hr IVPB Q8HR [facility] Rx# :[id number] Sodium Chloride 0.9% 1, 340 160 000 ml @ 20 mls/hr IV . Q24H [facility] Rx#:[id number] Output: Urine 1300 1255 Uretheral ([place]) 600 Stool 350 Other: Voiding Method Indwelling Catheter Indwelling Catheter Indwelling Catheter ABP, PAP, CO, CI - Last Documented Arterial Blood Pressure 152/52 - Labs CBC & Chem 7: 06/08/20 04:15 06/09/20 10:20 Labs: Abnormal Lab Results - Last 24 Hours (Table) 06/09/20 06/09/20 06/10/20 Range/Units 16:33 20:36 06:14 POC Glucose (mg/dL) 213 H 214 H 107 H (75-99) mg/dL 06/10/20 Range/Units 11:29 POC Glucose (mg/dL) 176 H (75-99) mg/dL
[2020-06-10 15:53] LABS: Anisocytosis Slight; Basophils % (A) 0 %; Eosinophils # (A) 0.3 k/uL (0-0.7); Eosinophils % (A) 4 %; HCT 25.3 % (39.0-53.0); HGB 7.3 gm/dL (13.0-17.5); Hypochromasia Marked; Lymphocytes # (A) 0.5 k/uL (1.0-4.8); Lymphocytes % (A) 6 %; MCH 25.5 pg (25.0-35.0); MCHC 28.6 g/dL (31.0-37.0); MCV 89.1 fL (80.0-100.0); Mean Platelet Volume 8.6; Monocytes # (A) 0.4 k/uL (0-1.0); Monocytes % (A) 5 %; Neutrophils # (A) 6.5 k/uL (1.3-7.7); Neutrophils % (A) 83 %; Platelet Count 222 k/uL (150-450); Poikilocytosis Moderate; RBC 2.85 m/uL (4.30-5.90); RDW 18.4 % (11.5-15.5); WBC 7.9 k/uL (3.8-10.6)
[2020-06-10 16:32] LABS: Calcium 8.3 mg/dL (8.4-10.2); Potassium 4.1 mmol/L (3.5-5.1)
[2020-06-10 16:35] LABS: Glucose,Whole Blood 204 mg/dL (75-99)
[2020-06-10] MEDS: FUROSEMIDE 40 MG TAB PO SCH (17:37)
[2020-06-10 20:50] LABS: Glucose,Whole Blood 246 mg/dL (75-99)
[2020-06-10] MEDS: ATORVASTATIN 80 MG TAB PO SCH (22:40)
[2020-06-10] MEDS: MELATONIN 5 MG TABLET PO SCH (22:40)
[2020-06-10] MEDS: INSULIN DETEMIR (LEVEMIR) 100 UNIT/ML SYR SQ SCH (22:41)
[2020-06-11] MEDS: PIPERACILLIN-TAZOBACTAM 3.375 GM in SODIUM CHLORIDE 0.9% 100 ML IVPB SCH ×2 (00:28→10:39)
[2020-06-11] MEDS: IPRATROPIUM-ALBUTEROL 3 ML NEB INHALATION SCH ×5 (01:57→15:48)
[2020-06-11 05:27] VITALS: RESP 22
[2020-06-11 06:25] LABS: Glucose,Whole Blood 140 mg/dL (75-99)
[2020-06-11] MEDS: LEVOTHYROXINE 50 MCG TAB PO SCH (06:52)
[2020-06-11] MEDS: INSULIN ASPART (NovoLOG) 100 UNIT/ML VIAL SQ SCH ×2 (06:52→12:57)
[2020-06-11] MEDS: SODIUM FERRIC GLUCONAT-SUCROSE 125 MG in SODIUM CHLORIDE 0.9% 100 ML IVPB SCH (09:00)
[2020-06-11] MEDS: APIXABAN 2.5 MG TABLET PO SCH (10:39)
[2020-06-11] MEDS: FUROSEMIDE 40 MG TAB PO SCH (10:39)
[2020-06-11] MEDS: PANTOPRAZOLE 40 MG/10 ML VIAL IV SCH (10:39)
--- NOTE | 2020-06-11 11:26 | P.DS ---
Providers Date of admission: 06/01/20 11:38 Attending physician: Manuel Leon MD Consults: 06/01/20 11:39 Consult Physician Urgent Consulting Provider: Ozzy Stone Consult Reason/Comments: arf, hyperkalemia Do you want consulting provider notified?: Yes Consult Physician Urgent Consulting Provider: Cosme Stallworth Consult Reason/Comments: chf Do you want consulting provider notified?: Yes 06/02/20 03:18 Consult Physician Routine Consulting Provider: Toby Morales Consult Reason/Comments: ICU management Do you want consulting provider notified?: Already Contacted Primary care physician: [facility] Course: 85-year-old male is being treated for acute hypoxic and hypercapnic respiratory failure patient does have history of sleep apnea does appear to have some chroni c CO2 retention. Patient is also being treated for heart failure exacerbation and echocardiogram is being obtained. Patient is anemic received 2 units of for blood transfusion although there is no clear evidence of acute GI bleed. Patient is also being treated for acute renal failure from a severe anemia there is no clear evidence of for acute blood loss anemia patient does have history of COPD and is on systemic steroids at this time patient has elevated blood sugars. Is on IV insulin drip which was changed to long-acting steroid. We'll insulin.patient has hypovolemic hyponatremia which is improving with IV Lasix. 06/03/2020 Patient still remains intubated and the patient is bit alkalotic because of its respiratory rate of on ventilator settings were decreased. Patient is due to un dergo upper GI endoscopy which showed mild gastritis without any other significant abnormality. PERRLA remained fairly stable 06/04/2020 Patient is extubated today feels better today but still wheezing at this time. 06/05/2020 Patient is doing much better today his wheezing or significant improvement patient remains on IV Lasix. Patient is quite weak. Patient systemic steroids were discontinued, cutting down the long-acting insulin because of that reason. His kidney function continued to improve 06/06/2020 Patient's parent cultures are positive for stenotrophomonas maltophilia. Patien t wheezing is bit was a believe today patient is using BiPAP on as-needed basis his serum creatinine is also bit worse but patient is being continued on IV Lasix today will reevaluate the the kidney function tomorrow if it continues to get worse then Lasix will be discontinued at the time patient does have some pedal edema still although significant improved. 06/07/2020 Patient feels bit better today wheezing improved today 06/08/2020 Patient still has some wheezing patient is been being continued on IV Lasix patient will be discharged out of ICU. 06/09/2020 Patient is on IV Lasix with into fluid balance but the still has significant anasarca. Patient's creatinine is around 1.86 fairly stable and it was 1.7 yesterday. Patient wheezing did improve is pretty status did improve but his o verall prognosis remains extremely poor mostly considering his age. 06/10/2020 Patient's serum creatinine remains stable patient looks much better wheezing did improve significantly decreased air entry into bilateral lung alaniz. Patient is a 2 person assist with the family wanted to take him home patient will need supervision will discuss with the family once again regarding the situation. Patient was switched to oral Lasix. 06/11/2020 I tried reaching daughter's yesterday was unable to reach them. social media content manager discussed with them and patient and family declined subacute rehabilitation. Patient is definitely high risk for readmission because of his age and medical problems. Although patient is presently clinically doing well for the catheter will be discontinued patient still has some rhonchi on the left side patient has stenotrophomonas which usually doesn't need to be treated and Klebsiella which is sensitive to Cipro) and patient is being discharged on cephalosporins. Patient fairly euvolemic at this time. We will see if patient can urinate by himself with discontinuation of Winslow catheter. Prognosis is extremely poor PHYSICAL EXAMINATION: GENERAL: Patient is alert oriented 3 not in respiratory distress HEENT: Pupils are round and equally reacting to light. EOMI. No scleral icterus. No conjunctival pallor. Normocephalic, atraumatic. No pharyngeal erythema. No thyromegaly. CARDIOVASCULAR: S1 and S2 present. No murmurs, rubs, or gallops. PULMONARY: Wheezing did improve ABDOMEN: Soft, nontender, nondistended, normoactive bowel sounds. No palpable organomegaly. MUSCULOSKELETAL: No joint swelling or deformity. EXTREMITIES: No cyanosis, clubbing, does have pedal edema NEUROLOGICAL: Does not appear to have any new focal deficits SKIN: No rashes. Assessment and Plan Plan: -acute on chronic hypercapnic as well as hypoxic respiratory failure: Secondary to COPD exacerbation, sleep apnea with CO2 retention as well as pulmonary edema leading to hypoxemia. Echocardiac exam is being up and continue with systemic steroids and inhalation treatments. Patient is extubated on 06/04/2020 patient -severe anemia: No evidence of acute GI bleed patient received 2 units of blood transfusion , hemoglobin remained stable upper GI endoscopy as mentioned above -Sleep apnea -Type 2 diabetes mellitus: Patient blood sugars remains high after almost 3 days of discontinuation of systemic steroids. Patient blood sugars improved significantly. -coronary artery disease -acute renal failure possibly secondary to acute tubular necrosis from severe anemia with a competent of cardiorenal syndrome baseline creatinine is unknown. His present creatinine is 1.7 fairly stable at this level unsure patient has chronic kidney disease -Congestive heart failure EF chronic diastolic dysfunction with acute exacerbation patient is presently on oral Lasix will being discharged today Winslow catheter will be removed and we'll see if we can urinate by himself Patient Condition at Discharge: Serious Plan - Discharge Summary Discharge Rx Participant: No New Discharge Prescriptions: New Darbepoetin Tony [Aranesp] 40 mcg SQ Q7D syringe carvediloL [Coreg] 1.563 mg PO BID-W/MEALS #30 dose Insulin Detemir (Levemir) [Levemir] 25 unit SQ HS #0 syr Continue Cholecalciferol [Vitamin D3 (25 Mcg = 1000 Iu)] 1,000 unit PO QAM Budesonide [Pulmicort Flexhaler] 1 puff INHALATION RT-BID Montelukast [Singulair] 10 mg PO HS Atorvastatin [Lipitor] 80 mg PO HS Levothyroxine Sodium [Synthroid] 50 mcg PO QAM INSULIN ASPART (NovoLOG) [NovoLOG (formulary)] See Protocol SQ AC-TID Albuterol Inhaler (Mhu) [Ventolin Hfa Inhaler (Mhu)] 2 puff INHALATION RT-Q4H PRN PRN Reason: Shortness Of Breath Insulin Detemir (Levemir) [Levemir] 70 unit SQ HS syr Levothyroxine Sodium [Synthroid] 50 mcg PO DAILY Furosemide [Lasix] 40 mg PO DAILY Famotidine 20 mg PO BID Atorvastatin Calcium [Lipitor] 80 mg PO HS Apixaban [Eliquis] 2.5 mg PO BID Cefuroxime Axetil [Ceftin] 500 mg PO BID 3 Days #6 tab Discontinued carvediloL [Coreg] 3.125 mg PO BID Gabapentin [Neurontin] 900 mg PO HS Apixaban [Eliquis] 2.5 mg PO BID #60 tablet Furosemide [Lasix] 40 mg PO BID@0900,1600 #60 tab Famotidine [Pepcid] 20 mg PO DAILY #30 tab predniSONE See Taper PO DIRECTED #26 tab INSULIN ASPART (NovoLOG) [NovoLOG (formulary)] 10 unit SQ AC-TID vial Cholecalciferol [Vitamin D3 (25 Mcg = 1000 Iu)] 1,000 unit PO DAILY Budesonide [Pulmicort Flexhaler] 1 puff INHALATION RT-BID predniSONE See Taper PO DIRECTED Montelukast Sodium [Singulair] 10 mg PO HS Losartan [Cozaar] 25 mg PO DAILY Insulin Glargine,Hum.rec.anlog [Lantus Solostar] 62 - 65 unit SQ HS Gabapentin [Neurontin] 300 mg PO TID Insulin Lispro [humaLOG Kwikpen] 5 unit SQ ACHS Insulin Lispro [humaLOG Kwikpen] See Protocol SQ ACHS Carvedilol [Coreg] 3.125 mg PO BID Discharge Medication List Atorvastatin [Lipitor] 80 mg PO HS 07/13/16 [History] Budesonide [Pulmicort Flexhaler] 1 puff INHALATION RT-BID 07/13/16 [History] Cholecalciferol [Vitamin D3 (25 Mcg = 1000 Iu)] 1,000 unit PO QAM 07/13/16 [History] INSULIN ASPART (NovoLOG) [NovoLOG (formulary)] See Protocol SQ AC-TID 07/13/16 [History] Levothyroxine Sodium [Synthroid] 50 mcg PO QAM 07/13/16 [History] Montelukast [Singulair] 10 mg PO HS 07/13/16 [History] Albuterol Inhaler (Mhu) [Ventolin Hfa Inhaler (Mhu)] 2 puff INHALATION RT-Q4H PRN 03/05/20 [History] Insulin Detemir (Levemir) [Levemir] 70 unit SQ HS syr 03/12/20 [Rx] Apixaban [Eliquis] 2.5 mg PO BID 06/01/20 [History] Atorvastatin Calcium [Lipitor] 80 mg PO HS 06/01/20 [History] Famotidine 20 mg PO BID 06/01/20 [History] Furosemide [Lasix] 40 mg PO DAILY 06/01/20 [History] Levothyroxine Sodium [Synthroid] 50 mcg PO DAILY 06/01/20 [History] Cefuroxime Axetil [Ceftin] 500 mg PO BID 3 Days #6 tab 06/11/20 [Rx] Darbepoetin Tony [Aranesp] 40 mcg SQ Q7D syringe 06/11/20 [Rx] Insulin Detemir (Levemir) [Levemir] 25 unit SQ HS #0 syr 06/11/20 [Rx] carvediloL [Coreg] 1.563 mg PO BID-W/MEALS #30 dose 06/11/20 [Rx] Follow up Appointment(s)/Referral(s): [facility] [NON-STAFF] - As Needed [facility], [NON-STAFF] - 1-2 Days Graeme Alonso DO [Primary Care Provider] - 3 Days Monica Pizarro MD [STAFF PHYSICIAN] - 1 Week Activity/Diet/Wound Care/Special Instructions: Family is requesting refill for losartan medication. Discharge Disposition: HOME WITH HOME HEALTH SERVICES
[2020-06-11 11:37] VITALS: TEMP 97
--- NOTE | 2020-06-11 12:25 | P.PN ---
Subjective Progress Note Date: 06/11/20 Principal diagnosis: Acute on chronic hypoxic respiratory failure, multifactorial, related to decompensated heart failure, with diastolic dysfunction, valvular heart disease, and Klebsiella pneumonia/Stenotrophomonas maltophilia pneumonia. Acute on chronic anemia 85-year-old male patient is currently intubated on a mechanical ventilator and the patient is being seen for a follow-up. The patient is known to me from previous hospitalizations. He has multiple medical problems and comorbidities. He has been hospitalized for an acute hypoxic respiratory failure as the patient presented emergency department with difficulty breathing. He has COPD. Chronic hypoxic respiratory failure maintained on oxygen 2 L and he also has valvular heart disease with moderate degree of aortic stenosis and diastolic heart failure. The patient also was suspected to have a GI bleed. The patient currently is intubated on a mechanical ventilator. On today's evaluation, the patient is sedated with propofol which is running at 50 g per KG per minute. IV fluids are 20s an hour and the patient is being diuresis with IV Lasix and the neck fluid balance is -2.2 L over the past 24 hours. He has been receiving enteral feeding for nutritional support with the vital high protein at the rate of 20 mL an hour. His cardiac rhythm is consistent with atrial flutter/fibrillation. His chest x-ray shows interval improvement in the volume status. There are still some cardiomegaly. He remains on assist control mode at the rate of 16 with tidal volume of 450 and FiO2 50% with a PEEP of 5. The morning blood gases showed a pH of 7.51 with a pCO2 of 48 and pO2 122. Hemoglobin stable at 7.8. White cell count stable at 8.9. He has chronic kidney disease in the creatinine is also improving is down to 1.9 as the patient is being diuresis. Based on all this, I stop the sedation and check his weaning parameters. The patient had a rapid shallow breathing index of 27 with a tidal volume of 450 and the vital capacity of 9.5 L. He was given a spelled his breathing trial with a pressure support of 5 and a PEEP of 5 and subsequent blood gases showed a pH of 7.49 with a pCO2 of 47 and pO2 130. The patient was awake and alert and the patient was following commands and answering questions appropriately without any significant agitation. I decided to extubated patient accordingly. On 06/05/2020 patient seen in follow-up in the intensive care unit, yesterday patient was weaned and extubated from the mechanical ventilation successfully, in the evening patient did require BiPAP support, with pressures often of 5, and FiO2 of 50%, this morning she was switched over to high flow nasal cannula currently at 6 L/m, his pulse ox is 99%, he is awake and alert, he remains on Lasix at 60 mg every 12 hours, and he is in negative fluid balance over the last 24 hours with over 3.6 L negative in the last 24 hours, remains in atrial fibrillation, which is chronic for him, with the controlled rate at 60-62 BPM. Today's chest x-ray has been reviewed showing diffuse interstitial pattern with cardiomegaly, bilateral pleural effusions. No evidence of active bleeding, today's hemoglobin is 8.7. Renal profile is improving, with BUN at 88, creatinine is 1.79. Yesterday we started the patient on Zosyn for evidence of Klebsiella pneumonia in the sputum, later in the evening, the second organism was identified in the sputum, Stenotrophomonas maltophilia. Patient has had no fever or chills. He is alert and oriented 3, CAM-ICU was negative. Patient has a slightly congested cough, no phlegm production, not significantly congested. On 06/10/2020 patient seen in follow-up on selective care unit, currently he appears to be short of breath, related to his positioning in bed, patient was repositioned, his breathing has improved, liters of oxygen and the pulse ox of 95-96%, hemodynamically patient has been stable, has had no chills. Patient is on oral Lasix, nephrology is following and managing the diuretics, and she also remains on empiric antibiotic coverage in the form of Zosyn. He is maintaining negative fluid balance, overall fluid volume status has significantly improved, no lower extremity edema. No new labs today. Patient has been working with physical therapy, yesterday he set up in the chair, and then did some ambulation with a rolling walker and limited assistance On 06/11/2020 patient seen in follow-up on selective care unit. Patient is doing well, awake and alert, oriented 3, and denies any acute distress, he sitting up in the recliner, breathing comfortably, he is currently on 2 L of oxygen, with pulse ox 100%, his been afebrile, his been treated with Zosyn for Klebsiella and stenotrophomonas pneumonia, and decompensated heart failure. H e's been diuresed, fluid volume status has been optimized. His home dose Lasix has been resumed, and is currently at 40 mg twice daily, patient has produced 1.3 L in urine output over the last 24 hours. Objective - Vital Signs Vital signs: Vital Signs Temp 97.0 F L 06/11/20 08:00 Pulse 80 06/11/20 12:01 Resp 22 06/11/20 04:00 BP 114/75 06/11/20 08:00 Pulse Ox 100 06/11/20 08:00 Intake & Output 06/10/20 06/11/20 06/11/20 18:59 06:59 18:59 Intake Total 454 140 Output Total 550 800 Balance -96 -800 140 Intake: IV 100 140 Piperacillin-Tazobactam 3 100 .375 gm In Sodium Chloride 0.9% 100 ml @ 25 mls/hr IVPB Q8HR RAMESH Rx# :[id number] Sodium Chloride 0.9% 1, 40 000 ml @ 20 mls/hr IV . Q24H RAMESH Rx#:[id number] Sodium Ferric Gluconat- 100 Sucrose 125 mg In Sodium Chloride 0.9% 100 ml @ 100 mls/hr IVPB DAILY RAMESH Rx#:[id number] Oral 354 Output: Urine 550 800 Other: Voiding Method Indwelling Catheter Indwelling Catheter Indwelling Catheter ABP, PAP, CO, CI - Last Documented Arterial Blood Pressure 152/52 - Exam GENERAL EXAM: Alert, very pleasant, 85-year-old white male, on 2L of oxygen a pulse ox of 99% comfortable in no apparent distress. HEAD: Normocephalic/atraumatic. EYES: Normal reaction of pupils, equal size. Conjunctiva pink, sclera white. NOSE: Clear with pink turbinates. THROAT: No erythema or exudates. NECK: No masses, no JVD, no thyroid enlargement, no adenopathy. CHEST: No chest wall deformity. Symmetrical expansion. LUNGS: Equal air entry with no crackles, wheeze, rhonchi or dullness. CVS: Irregular rate and rhythm, normal S1 and S2, no gallops, no murmurs, no rubs ABDOMEN: Soft, nontender. No hepatosplenomegaly, normal bowel sounds, no guarding or rigidity. EXTREMITIES: No clubbing, no edema, no cyanosis, 2+ pulses and upper and lower extremities. MUSCULOSKELETAL: Muscle strength and tone normal. SPINE: No scoliosis or deformity SKIN: No rashes CENTRAL NERVOUS SYSTEM: Alert and oriented -3. No focal deficits, tone is normal in all 4 extremities. PSYCHIATRIC: Alert and oriented -3. Appropriate affect. Intact judgment and insight. - Labs CBC & Chem 7: 06/10/20 15:38 06/10/20 15:38 Labs: Abnormal Lab Results - Last 24 Hours (Table) 06/10/20 06/10/20 06/10/20 Range/Units 15:38 15:38 16:33 RBC 2.85 L (4.30-5.90) m/uL Hgb 7.3 L (13.0-17.5) gm/dL Hct 25.3 L (39.0-53.0) % MCHC 28.6 L (31.0-37.0) g/dL RDW 18.4 H (11.5-15.5) % Lymphocytes # 0.5 L (1.0-4.8) k/uL Carbon Dioxide 36 H (22-30) mmol/L BUN 43 H (9-20) mg/dL Creatinine 1.75 H (0.66-1.25) mg/dL Glucose 197 H (74-99) mg/dL POC Glucose (mg/dL) 204 H (75-99) mg/dL Calcium 8.3 L (8.4-10.2) mg/dL 06/10/20 06/11/20 Range/Units 20:47 06:24 RBC (4.30-5.90) m/uL Hgb (13.0-17.5) gm/dL Hct (39.0-53.0) % MCHC (31.0-37.0) g/dL RDW (11.5-15.5) % Lymphocytes # (1.0-4.8) k/uL Carbon Dioxide (22-30) mmol/L BUN (9-20) mg/dL Creatinine (0.66-1.25) mg/dL Glucose (74-99) mg/dL POC Glucose (mg/dL) 246 H 140 H (75-99) mg/dL Calcium (8.4-10.2) mg/dL Assessment and Plan Plan: Assessment: 1 acute hypoxic respiratory failure, multifactorial, essential related to decompensated heart failure/valvular heart disease with fluid overload. The patient also has underlying COPD and chronic hypoxic respiratory failure. The patient was intubated on mechanical ventilator. He was diuresed adequately. Sputum showed Klebsiella and stenotrophomonas and the patient was started on IV Zosyn The patient is a negative fluid balance. The patient was noted to have good weaning parameters and the patient was extubated today to a nasal cannula on 06/04/2020 2 CHF with diastolic dysfunction 3 moderate severe aortic stenosis 4 COPD with chronic hypoxic respiratory failure, FEV1 of 42% of predicted 5 acute kidney injury on top of chronic kidney disease in the creatinine is improving 6 coronary artery disease with previous coronary stenting 7 diabetes mellitus 8 previous history of colostomy, for an underlying rectal cancer 9 GI bleeding post EGD and the patient was found to have mild gastritis otherwise normal appearing upper GI examination. 10 anemia of chronic disease with interval drop in hemoglobin down to 6.3 and the patient received an EGD and packed RBC transfusion and currently hemoglobin is at 7.8. The patient is his total of 2 units of packed RBC during this current admission. 11 history of aortic valve replacement back in 2007 and previous history of coronary artery bypass surgery 12 obstructive sleep apnea, nontolerant to CPAP therapy and the patient has been utilizing oxygen at 2 L overnight 13 hypothyroidism Plan: Patient is doing well, fluid volume status has been optimized, and has been transitioned to oral diuretics, remains on Zosyn for pneumonia related to Klebsiella pneumonia and stenotrophomonas, vital signs are stable, patient has been afebrile, breathing comfortably, participating with physical therapy, disch arge home is pending today with home care. Patient is to have follow-up appointment with Dr. Rico and Dr. Pizarro following his discharge. I performed a history & physical examination of the patient and discussed their management with my nurse practitioner, Odalis Reyes. I reviewed the nurse practitioner's note and agree with the documented findings and plan of care. Lung sounds are positive for diminished breath sounds. The findings and the impression was discussed with the patient. I attest to the documentation by the nurse practitioner. Time with Patient: Less than 30
[2020-06-11 12:28] LABS: Glucose,Whole Blood 186 mg/dL (75-99)
[2020-06-11] MEDS: SODIUM CHLORIDE 0.9% 1,000 ML IV SCH (12:57)
--- NOTE | 2020-06-11 13:57 | P.PN ---
Subjective Progress Note Date: 06/11/20 CHIEF COMPLAINT: CHF HISTORY OF PRESENT ILLNESS: Patient examined this morning at the bedside. He denies shortness of breath. Denies chest pain. Vital signs stable. PHYSICAL EXAM: VITAL SIGNS: Reviewed. GENERAL: Well-developed in no acute distress. NECK: Supple. No JVD or thyromegaly LUNGS: Respirations even and unlabored. Lungs diminished bilaterally. HEART: Irregular rate and rhythm. S1 and S2 heard. Systolic murmur. EXTREMITIES: Normal range of motion. No clubbing or cyanosis. Peripheral pulses intact. No lower extremity edema ASSESSMENT: Acute exacerbation of chronic diastolic congestive heart failure, EF 50-55% Chronic obstructive pulmonary disease A-flutter, typical GI Bleed Chronic kidney disease History of coronary artery disease, status post CABG Diabetes mellitus, type II PLAN: Continue Eliquis Continue oral Lasix Monitor kidney function Daily weight Accurate I&O Patient is stable for discharge from a cardiac standpoint Nurse practitioner note has been reviewed by physician. Signing provider agrees with the documented findings, assessment, and plan of care. Objective - Vital Signs Vital signs: Vital Signs Temp 97.0 F L 06/11/20 08:00 Pulse 80 06/11/20 12:01 Resp 22 06/11/20 04:00 BP 114/75 06/11/20 08:00 Pulse Ox 100 06/11/20 08:00 Intake & Output 06/10/20 06/11/20 06/11/20 18:59 06:59 18:59 Intake Total 454 140 Output Total 550 800 Balance -96 -800 140 Intake: IV 100 140 Piperacillin-Tazobactam 3 100 .375 gm In Sodium Chloride 0.9% 100 ml @ 25 mls/hr IVPB Q8HR RAMESH Rx# :[id number] Sodium Chloride 0.9% 1, 40 000 ml @ 20 mls/hr IV . Q24H RAMESH Rx#:[id number] Sodium Ferric Gluconat- 100 Sucrose 125 mg In Sodium Chloride 0.9% 100 ml @ 100 mls/hr IVPB DAILY RAMESH Rx#:[id number] Oral 354 Output: Urine 550 800 Other: Voiding Method Indwelling Catheter Indwelling Catheter Indwelling Catheter ABP, PAP, CO, CI - Last Documented Arterial Blood Pressure 152/52 - Labs CBC & Chem 7: 06/10/20 15:38 06/10/20 15:38 Labs: Abnormal Lab Results - Last 24 Hours (Table) 06/10/20 06/10/20 06/10/20 Range/Units 15:38 15:38 16:33 RBC 2.85 L (4.30-5.90) m/uL Hgb 7.3 L (13.0-17.5) gm/dL Hct 25.3 L (39.0-53.0) % MCHC 28.6 L (31.0-37.0) g/dL RDW 18.4 H (11.5-15.5) % Lymphocytes # 0.5 L (1.0-4.8) k/uL Carbon Dioxide 36 H (22-30) mmol/L BUN 43 H (9-20) mg/dL Creatinine 1.75 H (0.66-1.25) mg/dL Glucose 197 H (74-99) mg/dL POC Glucose (mg/dL) 204 H (75-99) mg/dL Calcium 8.3 L (8.4-10.2) mg/dL 06/10/20 06/11/20 06/11/20 Range/Units 20:47 06:24 12:12 RBC (4.30-5.90) m/uL Hgb (13.0-17.5) gm/dL Hct (39.0-53.0) % MCHC (31.0-37.0) g/dL RDW (11.5-15.5) % Lymphocytes # (1.0-4.8) k/uL Carbon Dioxide (22-30) mmol/L BUN (9-20) mg/dL Creatinine (0.66-1.25) mg/dL Glucose (74-99) mg/dL POC Glucose (mg/dL) 246 H 140 H 186 H (75-99) mg/dL Calcium (8.4-10.2) mg/dL
[2020-06-11 15:29] VITALS: BP 144/62
[2020-06-11 15:57] VITALS: PULSE 86
--- NOTE | 2020-06-11 16:13 | PN ---
PROGRESS NOTE Patient is seen for followup for acute kidney injury on top of chronic kidney disease. Patient is currently comfortable, awake, he denies any significant complaints. His renal function appears to be at baseline. We have a prior creatinine of 1.5 mg/dL in February of 2020. PHYSICAL EXAMINATION: On examination today, blood pressure was 114/75, heart rate 68 per minute, patient is afebrile. Examination of the heart S1, S2. Examination of the lungs, bilateral breath sounds are heard. Abdomen is soft, obese. Excalation of the lower extremities, chronic skin changes. Trace edema noted. [employer] exam grossly intact. LABS: Show sodium of 138 from yesterday, serum creatinine was 1.75 yesterday. No labs available from today. ASSESSMENT: 1. Acute kidney injury, ATN currently improved. 2. Volume overload now improved. Lasix has been switched to p.o. 3. CHF, mostly diastolic EF 50%-55%. 4. Pneumonia with sputum culture positive for Klebsiella and stenotrophomonas. 5. Acute gastrointestinal bleed, status post packed RBCs transfusion with EGD showing mild gastritis. Currently maintained on Aranesp as well for the anemia. 6. Metabolic alkalosis associated with recent diuresis, currently improved. PLAN: Continue with oral Lasix for now. The patient will need followup as outpatient for CKD. MMODL / IJN: [id number] /
[2020-06-11 17:05] LABS: Glucose,Whole Blood 148 mg/dL (75-99)
== END 2020-06-11 18:55 | disposition home health service (06) | DRG 208 ==
LOC: EC 10:05 → MERGE 11:38 → 3SCARD 11:38 → 2SICU 06-02 02:51 → 3SCARD 06-09 23:53
PROVIDERS: ADMIT Internal Medicine; ATTEND Internal Medicine
PROC: 30233N1 Transfusion of Nonautologous Red Blood Cells into Peripheral Vein, Percutaneous Approach (ICD-10-PCS; 2020-06-01)
PROC: 5A1945Z Respiratory Ventilation, 24-96 Consecutive Hours (ICD-10-PCS; 2020-06-02)
PROC: 02H633Z Insertion of Infusion Device into Right Atrium, Percutaneous Approach (ICD-10-PCS; 2020-06-02)
PROC: 03HY32Z Insertion of Monitoring Device into Upper Artery, Percutaneous Approach (ICD-10-PCS; 2020-06-02)
PROC: 4A133J1 Monitoring of Arterial Pulse, Peripheral, Percutaneous Approach (ICD-10-PCS; 2020-06-02)
PROC: 0BH17EZ Insertion of Endotracheal Airway into Trachea, Via Natural or Artificial Opening (ICD-10-PCS; 2020-06-02)
PROC: 4A133B1 Monitoring of Arterial Pressure, Peripheral, Percutaneous Approach (ICD-10-PCS; 2020-06-02)
PROC: 0DB78ZX Excision of Stomach, Pylorus, Via Natural or Artificial Opening Endoscopic, Diagnostic (ICD-10-PCS; principal; 2020-06-03 07:30)
PROC: 0DB98ZX Excision of Duodenum, Via Natural or Artificial Opening Endoscopic, Diagnostic (ICD-10-PCS; principal; 2020-06-03 07:30)
PROC: 5A09357 Assistance with Respiratory Ventilation, Less than 24 Consecutive Hours, Continuous Positive Airway Pressure (ICD-10-PCS; 2020-06-06)
DX: J15.0 Pneumonia due to Klebsiella pneumoniae (principal); I50.33 Acute on chronic diastolic (congestive) heart failure; K29.71 Gastritis, unspecified, with bleeding; J96.21 Acute and chronic respiratory failure with hypoxia; J96.22 Acute and chronic respiratory failure with hypercapnia; N17.0 Acute kidney failure with tubular necrosis; I13.0 Hypertensive heart and chronic kidney disease with heart failure and stage 1 through stage 4 chronic kidney disease, or unspecified chronic kidney disease; D62 Acute posthemorrhagic anemia; E87.1 Hypo-osmolality and hyponatremia; E87.4 Mixed disorder of acid-base balance; I48.20 Chronic atrial fibrillation, unspecified; I48.3 Typical atrial flutter; J44.0 Chronic obstructive pulmonary disease with (acute) lower respiratory infection; J44.1 Chronic obstructive pulmonary disease with (acute) exacerbation; I25.10 Atherosclerotic heart disease of native coronary artery without angina pectoris; G47.33 Obstructive sleep apnea (adult) (pediatric); Z99.89 Dependence on other enabling machines and devices; Z85.048 Personal history of other malignant neoplasm of rectum, rectosigmoid junction, and anus; D50.9 Iron deficiency anemia, unspecified; D63.8 Anemia in other chronic diseases classified elsewhere; E03.9 Hypothyroidism, unspecified; E11.22 Type 2 diabetes mellitus with diabetic chronic kidney disease; E66.9 Obesity, unspecified; E86.1 Hypovolemia; E87.5 Hyperkalemia; E88.09 Other disorders of plasma-protein metabolism, not elsewhere classified; I35.0 Nonrheumatic aortic (valve) stenosis; Z79.01 Long term (current) use of anticoagulants; N18.3 Chronic kidney disease, stage 3 (moderate); T50.2X5A Adverse effect of carbonic-anhydrase inhibitors, benzothiadiazides and other diuretics, initial encounter; Z79.4 Long term (current) use of insulin; Z79.890 Hormone replacement therapy; Z79.899 Other long term (current) drug therapy; Z80.0 Family history of malignant neoplasm of digestive organs; Z83.3 Family history of diabetes mellitus; Z91.19 Patient's noncompliance with other medical treatment and regimen; Z93.3 Colostomy status; Z95.1 Presence of aortocoronary bypass graft; Z95.2 Presence of prosthetic heart valve; Z95.5 Presence of coronary angioplasty implant and graft; Z90.49 Acquired absence of other specified parts of digestive tract; Z98.49 Cataract extraction status, unspecified eye; Z68.38 Body mass index [BMI] 38.0-38.9, adult; R33.9 Retention of urine, unspecified; Z88.8 Allergy status to other drugs, medicaments and biological substances; E11.65 Type 2 diabetes mellitus with hyperglycemia; T38.0X5A Adverse effect of glucocorticoids and synthetic analogues, initial encounter
CPT/HCPCS: 36415; 36600; 43239; 71045; 71046; 76770; 80048; 80053; 81001; 81003; 82272; 82570; 82607; 82728; 82746; 82805; 83036; 83540; 83550; 83605; 83880; 84132; 84133; 84300; 84484; 84540; 85025; 85027; 85045; 85610; 85730; 86850; 86900; 86901; 86920; 87070; 87077; 87186; 87205; 88305; 88313; 88341; 88342; 93005; 93306; 94002; 94003; 94640; 94660; 96365; 96375; 99291

== ENCOUNTER 2020-06-15 11:44 | Inpatient (IN) | payer MEDICARE ==
--- NOTE | 2020-06-15 12:54 | ED ---
General Adult HPI - General Chief complaint: Recheck/Abnormal Lab/Rx Stated complaint: abn labs Time Seen by Provider: 06/15/20 11:55 Source: patient, family Mode of arrival: wheelchair Limitations: no limitations - History of Present Illness Initial comments: Patient is any sexual male with past medical history of COPD, heart failure, rectal cancer with colostomy presents emergency department from his primary care office. He did see Dr. Tracy only today in office for follow-up appointment. He was hospitalized for several days one and a half weeks ago for COPD/CHF exacerbation and anemia that required 2 units of packed red blood cells. He is on Eliquis and has been since February due to A. fib. He was scoped during his last admission and they found some gastritis however no other signs of active bleeding. Hemoglobin stabilized and he was discharged home. Today at his appointment he continued to complain of breath with exertion. He was noted to be 80% on his portable oxygen. Normally wears 2 L. They did complete a hemoglobin and was noted to be in the fives. They recommended they come to the emergency chart for evaluation. Daughter does report that the colostomy output has been darker in color. Denies hematuria. No hematemesis or hemoptysis. No fevers or chills. Has had a mild productive cough. Denies chest pain. No a bdominal pain. No alleviating, precipitating or modifying factors - Related Data Home Medications Medication Instructions Recorded Confirmed Budesonide [Pulmicort Flexhaler] 1 puff INHALATION RT-BID 07/13/16 06/15/20 Cholecalciferol [Vitamin D3 (25 1,000 unit PO QAM 07/13/16 06/15/20 Mcg = 1000 Iu)] Montelukast [Singulair] 10 mg PO HS 07/13/16 06/15/20 Atorvastatin Calcium [Lipitor] 80 mg PO HS 06/01/20 06/15/20 Famotidine 20 mg PO BID 06/01/20 06/15/20 Levothyroxine Sodium [Synthroid] 50 mcg PO DAILY 06/01/20 06/15/20 Albuterol Nebulized [Ventolin 2.5 mg INHALATION RT-Q4H PRN 06/15/20 06/15/20 Nebulized] Carvedilol [Coreg] 1.563 mg PO BID-W/MEALS 06/15/20 06/15/20 Cyanocobalamin (Vitamin B-12) 1,000 mcg PO DAILY 06/15/20 06/15/20 [Vitamin B-12] Ferrous Sulfate [Iron (65 MG 325 mg PO DAILY 06/15/20 06/15/20 Elemental)] Insulin Glargine,Hum.rec.anlog 62 - 65 unit SQ HS 06/15/20 06/15/20 [Lantus Solostar] Insulin Lispro [humaLOG Kwikpen] See Protocol SQ PC-TID 06/15/20 06/15/20 Multivitamins, Thera [Multivitamin 1 tab PO DAILY 06/15/20 06/15/20 (formulary)] Vit C/E/Zn/Coppr/Lutein/Zeaxan 1 cap PO BID 06/15/20 06/15/20 [Preservision Areds 2 Softgel] Previous Rx's Medication Instructions Recorded Darbepoetin Tony [Aranesp] 40 mcg SQ Q7D syringe 06/11/20 Furosemide [Lasix] 40 mg PO BID #0 06/17/20 Allergies Allergy/AdvReac Type Severity Reaction Status Date / Time lisinopril Allergy Unknown Verified 06/15/20 13:23 lorazepam [From Ativan] AdvReac Confusion Verified 06/15/20 13:23 Review of Systems ROS Statement: Those systems with pertinent positive or pertinent negative responses have been documented in the HPI. ROS Other: All systems not noted in ROS Statement are negative. Past Medical History Past Medical History: Coronary Artery Disease (CAD), Cancer, Heart Failure, COPD, Diabetes Mellitus, GERD/Reflux, Hyperlipidemia, Hypertension, Pneumonia, Renal Disease, Respiratory Disorder, Sleep Apnea/CPAP/BIPAP, Thyroid Disorder Additional Past Medical History / Comment(s): CHF History of Any Multi-Drug Resistant Organisms: None Reported Past Surgical History: Bowel Resection, Cholecystectomy, Coronary Bypass/CABG, Heart Catheterization, Heart Catheterization With Stent Additional Past Surgical History / Comment(s): rectal cancer surgery-removed 2004 or 2005. Ostomy. Cataract surgery Past Anesthesia/Blood Transfusion Reactions: Postoperative Nausea & Vomiting (PONV) Additional Past Anesthesia/Blood Transfusion Reaction / Comment(s): Pt has received blood in past without reaction. Date of Last Stent Placement:: 1995? Past Psychological History: No Psychological Hx Reported Smoking Status: Never smoker Past Alcohol Use History: None Reported, Occasional Past Drug Use History: None Reported - Past Family History Mother Additional Family Medical History / Comment(s): in her 90s Father Additional Family Medical History / Comment(s): of stomach cancer in the 1970s General Exam Limitations: no limitations General appearance: alert, in no apparent distress, obese Head exam: Present: atraumatic, normocephalic, normal inspection ENT exam: Present: mucous membranes dry Neck exam: Present: normal inspection. Absent: tenderness, meningismus, lymphadenopathy Respiratory exam: Present: rales, decreased breath sounds. Absent: respiratory distress, wheezes, rhonchi, accessory muscle use Cardiovascular Exam: Present: regular rate, normal rhythm, normal heart sounds. Absent: systolic murmur, diastolic murmur, rubs, gallop, clicks GI/Abdominal exam: Present: soft, normal bowel sounds, other (colostomy over left abdomen - filled with dark brown liquid stool ). Absent: distended, tenderness, guarding, rebound, rigid Extremities exam: Present: full ROM, normal capillary refill, pedal edema. Absent: tenderness, joint swelling, calf tenderness Neurological exam: Present: alert Psychiatric exam: Present: flat affect Skin exam: Present: warm, dry, intact, normal color. Absent: rash Course Vital Signs 06/15/20 06/15/20 06/15/20 11:51 12:16 13:48 Temperature 98.3 F Pulse Rate 87 86 84 Respiratory 16 18 18 Rate Blood Pressure 154/87 134/61 125/64 O2 Sat by Pulse 96 100 99 Oximetry 06/15/20 06/15/20 14:19 15:00 Temperature 97.9 F Pulse Rate 84 93 Respiratory 18 18 Rate Blood Pressure 136/61 136/61 O2 Sat by Pulse 95 93 L Oximetry EKG Findings - EKG Comments: EKG Findings:: EKG demonstrates a sinus rhythm with a first-degree AV block. Rate of 85. MS interval to 22. QRS 86. QTC of 464. No acute ST segment elevations or depressions. Some baseline artifact Medical Decision Making - Medical Decision Making Upon arrival the patient is placed into room 5. A thorough history and physical exam was performed. Patient is placed on continuous pulse ox and cardiac harmeet toring. A 12-lead EKG was performed. I did take a sample of the patient's stool from his colostomy site. Laboratory studies were conducted. His reported that the patient did have a hemoglobin of 5 in office. Repeat hemoglobin here demonstrates a hemoglobin of 7.6 for which the patient appears stable from his previous discharge hemoglobin of 7.3. Fecal occult is positive. Creatinine 1.8 which is near the patient's baseline. Troponin is elevated 0.056. BNP 5420. Chest x-ray is concerning for congestive heart failure. Results are discussed with the patient is daughter at bedside. I did recommend hospital admission returned his hemoglobin level as he is fecal occult blood positive. Patient agreed to this. He was also given 60 mg of Lasix. Patient remained in hemodynamically stable condition without signs of respiratory distress and was transferred to the floor in stable condition - Lab Data Result diagrams: 06/17/20 06:50 06/17/20 06:50 Lab Results 06/15/20 06/15/20 06/15/20 Range/Units 12:41 12:41 12:41 WBC 10.6 (3.8-10.6) k/uL RBC 2.75 L (4.30-5.90) m/uL Hgb 7.6 L (13.0-17.5) gm/dL Hct 26.1 L (39.0-53.0) % MCV 94.7 D (80.0-100.0) fL MCH 27.5 (25.0-35.0) pg MCHC 29.0 L (31.0-37.0) g/dL RDW 20.6 H (11.5-15.5) % Plt Count 251 (150-450) k/uL Neutrophils % 86 % Lymphocytes % 6 % Monocytes % 4 % Eosinophils % 2 % Basophils % 0 % Neutrophils # 9.1 H (1.3-7.7) k/uL Lymphocytes # 0.7 L (1.0-4.8) k/uL Monocytes # 0.4 (0-1.0) k/uL Eosinophils # 0.2 (0-0.7) k/uL Basophils # 0.0 (0-0.2) k/uL Hypochromasia Marked Poikilocytosis Moderate Anisocytosis Moderate Macrocytosis Slight PT 10.5 (9.0-12.0) sec INR 1.0 (<1.2) APTT 25.0 (22.0-30.0) sec Sodium (137-145) mmol/L Potassium (3.5-5.1) mmol/L Chloride (98-107) mmol/L Carbon Dioxide (22-30) mmol/L Anion Gap mmol/L BUN (9-20) mg/dL Creatinine (0.66-1.25) mg/dL Est GFR (CKD-EPI)AfAm (>60 ml/min/1.73 sqM) Est GFR (CKD-EPI)NonAf (>60 ml/min/1.73 sqM) Glucose (74-99) mg/dL Plasma Lactic Acid Alberto (0.7-2.0) mmol/L Calcium (8.4-10.2) mg/dL Magnesium (1.6-2.3) mg/dL Total Bilirubin (0.2-1.3) mg/dL AST (17-59) U/L ALT (4-49) U/L Alkaline Phosphatase (38-126) U/L Troponin I (0.000-0.034) ng/mL NT-Pro-B Natriuret Pep pg/mL Total Protein (6.3-8.2) g/dL Albumin (3.5-5.0) g/dL Stool Occult Blood Positive (Negative) Blood Type Blood Type Recheck Bld Type Recheck Status Antibody Screen Crossmatch Spec Expiration Date 06/15/20 06/15/20 06/15/20 Range/Units 12:41 12:41 12:41 WBC (3.8-10.6) k/uL RBC (4.30-5.90) m/uL Hgb (13.0-17.5) gm/dL Hct (39.0-53.0) % MCV (80.0-100.0) fL MCH (25.0-35.0) pg MCHC (31.0-37.0) g/dL RDW (11.5-15.5) % Plt Count (150-450) k/uL Neutrophils % % Lymphocytes % % Monocytes % % Eosinophils % % Basophils % % Neutrophils # (1.3-7.7) k/uL Lymphocytes # (1.0-4.8) k/uL Monocytes # (0-1.0) k/uL Eosinophils # (0-0.7) k/uL Basophils # (0-0.2) k/uL Hypochromasia Poikilocytosis Anisocytosis Macrocytosis PT (9.0-12.0) sec INR (<1.2) APTT (22.0-30.0) sec Sodium 140 (137-145) mmol/L Potassium 4.6 (3.5-5.1) mmol/L Chloride 99 (98-107) mmol/L Carbon Dioxide 38 H (22-30) mmol/L Anion Gap 3 mmol/L BUN 39 H (9-20) mg/dL Creatinine 1.81 H (0.66-1.25) mg/dL Est GFR (CKD-EPI)AfAm 38 (>60 ml/min/1.73 sqM) Est GFR (CKD-EPI)NonAf 33 (>60 ml/min/1.73 sqM) Glucose 149 H (74-99) mg/dL Plasma Lactic Acid Alberto 0.8 (0.7-2.0) mmol/L Calcium 8.6 (8.4-10.2) mg/dL Magnesium 2.1 (1.6-2.3) mg/dL Total Bilirubin 0.5 (0.2-1.3) mg/dL AST 23 (17-59) U/L ALT 34 (4-49) U/L Alkaline Phosphatase 103 (38-126) U/L Troponin I 0.056 H* (0.000-0.034) ng/mL NT-Pro-B Natriuret Pep pg/mL Total Protein 5.4 L (6.3-8.2) g/dL Albumin 3.0 L (3.5-5.0) g/dL Stool Occult Blood (Negative) Blood Type Blood Type Recheck Bld Type Recheck Status Antibody Screen Crossmatch Spec Expiration Date 06/15/20 06/15/20 Range/Units 12:41 12:41 WBC (3.8-10.6) k/uL RBC (4.30-5.90) m/uL Hgb (13.0-17.5) gm/dL Hct (39.0-53.0) % MCV (80.0-100.0) fL MCH (25.0-35.0) pg MCHC (31.0-37.0) g/dL RDW (11.5-15.5) % Plt Count (150-450) k/uL Neutrophils % % Lymphocytes % % Monocytes % % Eosinophils % % Basophils % % Neutrophils # (1.3-7.7) k/uL Lymphocytes # (1.0-4.8) k/uL Monocytes # (0-1.0) k/uL Eosinophils # (0-0.7) k/uL Basophils # (0-0.2) k/uL Hypochromasia Poikilocytosis Anisocytosis Macrocytosis PT (9.0-12.0) sec INR (<1.2) APTT (22.0-30.0) sec Sodium (137-145) mmol/L Potassium (3.5-5.1) mmol/L Chloride (98-107) mmol/L Carbon Dioxide (22-30) mmol/L Anion Gap mmol/L BUN (9-20) mg/dL Creatinine (0.66-1.25) mg/dL Est GFR (CKD-EPI)AfAm (>60 ml/min/1.73 sqM) Est GFR (CKD-EPI)NonAf (>60 ml/min/1.73 sqM) Glucose (74-99) mg/dL Plasma Lactic Acid Alberto (0.7-2.0) mmol/L Calcium (8.4-10.2) mg/dL Magnesium (1.6-2.3) mg/dL Total Bilirubin (0.2-1.3) mg/dL AST (17-59) U/L ALT (4-49) U/L Alkaline Phosphatase (38-126) U/L Troponin I (0.000-0.034) ng/mL NT-Pro-B Natriuret Pep 5420 pg/mL Total Protein (6.3-8.2) g/dL Albumin (3.5-5.0) g/dL Stool Occult Blood (Negative) Blood Type AB Positive Blood Type Recheck AB Pos Bld Type Recheck Status No Antibody Screen NEGATIVE Crossmatch See Detail Spec Expiration Date 06/18/20202340 Disposition Clinical Impression: Fecal occult blood test positive, Hypoxia, Acute respiratory failure, Symptomatic anemia Disposition: ADMITTED IP TO THIS [facility] Condition: Stable Is patient prescribed a controlled substance at d/c from ED?: No Time of Disposition: 14:01
[2020-06-15 13:00] LABS: Anisocytosis Moderate; Basophils % (A) 0 %; Eosinophils # (A) 0.2 k/uL (0-0.7); Eosinophils % (A) 2 %; HCT 26.1 % (39.0-53.0); HGB 7.6 gm/dL (13.0-17.5); Hypochromasia Marked; Lymphocytes # (A) 0.7 k/uL (1.0-4.8); Lymphocytes % (A) 6 %; MCH 27.5 pg (25.0-35.0); Macrocytosis Slight; Mean Platelet Volume 7.1; Monocytes # (A) 0.4 k/uL (0-1.0); Monocytes % (A) 4 %; Neutrophils # (A) 9.1 k/uL (1.3-7.7); Neutrophils % (A) 86 %; Platelet Count 251 k/uL (150-450); Poikilocytosis Moderate; RBC 2.75 m/uL (4.30-5.90); RDW 20.6 % (11.5-15.5); WBC 10.6 k/uL (3.8-10.6)
[2020-06-15 13:09] LABS: Calcium 8.6 mg/dL (8.4-10.2); Magnesium 2.1 mg/dL (1.6-2.3); Potassium 4.6 mmol/L (3.5-5.1); Total Bilirubin 0.5 mg/dL (0.2-1.3); Total Protein 5.4 g/dL (6.3-8.2)
[2020-06-15 13:17] LABS: MCV 94.7 fL (80.0-100.0)
[2020-06-15 13:20] LABS: Prothrombin Time 10.5 sec (9.0-12.0)
--- NOTE | 2020-06-15 13:26 | XR ---
EXAMINATION TYPE: XR chest 2V DATE OF EXAM: 06/15/2020 COMPARISON: Prior chest x-ray 06/08/2020 HISTORY: Pain and shortness of breath TECHNIQUE: Frontal and lateral views of the chest are obtained. FINDINGS: The heart is enlarged. Central vascularity and interstitium appear prominently. There is n o pneumothorax. There is blunting the posterior costophrenic angles. Increased AP diameter chest and flattening the hemidiaphragms noted. Patient is post median sternotomy. Interval removal of the left subclavian central venous catheter. IMPRESSION: Correlate for congestive heart failure with possible effusions.
[2020-06-15] MEDS ORDERED: NALOXONE 0.4 MG/ML 1 ML VIAL IV PRN (14:01)
[2020-06-15] MEDS ORDERED: FUROSEMIDE 10 MG/ML 10 ML VIAL IV STA (14:04)
[2020-06-15 16:42] LABS: Glucose,Whole Blood 155 mg/dL (75-99)
[2020-06-15] MEDS: FLUTICASONE 110 MCG INHALER INHALATION SCH (18:35)
[2020-06-15 18:48] LABS: Anisocytosis Moderate; HCT 25.7 % (39.0-53.0); HGB 7.3 gm/dL (13.0-17.5); Hypochromasia Marked; MCH 27.2 pg (25.0-35.0); MCHC 28.3 g/dL (31.0-37.0); MCV 95.9 fL (80.0-100.0); Macrocytosis Slight; Mean Platelet Volume 8.3; Platelet Count 242 k/uL (150-450); Poikilocytosis Slight; RBC 2.68 m/uL (4.30-5.90); WBC 8.7 k/uL (3.8-10.6)
[2020-06-15 20:46] LABS: Glucose,Whole Blood 144 mg/dL (75-99)
[2020-06-15] MEDS ORDERED: ZOLPIDEM 5 MG TAB PO PRN (20:48)
[2020-06-15] MEDS: MONTELUKAST 10 MG TAB PO SCH (20:58)
[2020-06-15] MEDS: ATORVASTATIN 80 MG TAB PO SCH (20:58)
[2020-06-15] MEDS: PANTOPRAZOLE 40 MG/10 ML VIAL IVP SCH (20:59)
[2020-06-15] MEDS: INSULIN DETEMIR (LEVEMIR) 100 UNIT/ML SYR SQ SCH (20:59)
[2020-06-15] MEDS: MELATONIN 5 MG TABLET PO SCH (20:59)
[2020-06-15] MEDS: FUROSEMIDE 10 MG/ML 4 ML VIAL IV SCH (20:59)
[2020-06-15] MEDS: carvediloL 3.125 MG TAB PO SCH (20:59)
--- NOTE | 2020-06-15 23:37 | P.HPIM ---
History of Present Illness H&P Date: 06/15/20 Chief Complaint: ALEJANDRA, low hb Patient is a 85-year-old male with a known history of coronary artery disease history of CABG, chronic CHF with diastolic dysfunction, probable fluid fibrillation on anticoagulation with Eliquis, history of rectal cancer with colostomy, obstructive sleep apnea on CPAP at home and recent admission with COPD exacerbation and CHF exacerbation and was discharged on 06/11/2020. Patient presents to ER from his primary care physician's office. Patient was seen at Dr. Thakur's office today morning as a follow-up appointment from recent hospital discharge. Patient was found to have hemoglobin of 5 in the clinic and was sent to the hospital for further work-up. Patient did have blood transfusion with 2 units of PRBC during his recent admission. Patient had EGD, colonoscopy which showed gastritis and no signs of active bleeding. Hemoglobin has been stable and was discharged to follow-up as an outpatient. Patient states that he continued to have exertional short of breath and pulse ox was 80% on oxygen via nasal cannula at 2 L. Due to her exertional short of breath and anemia with hemoglobin of 5 patient was sent to ER for evaluation. Of note patient was started on multivitamins and iron supplementation. Which he did take first dose yesterday morning. Since then patient's daughter states that he has been having dark stools. As per her his daughter, she noticed there is some bright low blood bleeding from the edge of the colostomy bag. No fever no chills. No cough or sputum reduction. No chest pain. No hematemesis. Cj castro continues to have leg swelling. Laboratory data in the ER showed hemoglobin of 7.6 and hematocrit 26.1 Platelets 241 RDW 20.6 Sodium 140, potassium 4.6, BUN 39 and creatinine 1.81 Troponin 0 0.056, 0.055 and 0.055 Albumin 3.0 FOBT positive Chest x-ray showed correlate for congestive heart failure with possible effusions. EKG showed sinus rhythm with first-degree AV block Review of Systems Constitutional: Patient denies any fever or chills . No generalized weakness or weight loss. Abdomen: Patient denied nausea vomiting and diarrhea and abdominal pain. Cardiovascular: Patient denies any chest pain or short of breath no palpitations. Respiratory: patient denied any cough is from production. exersional shortness of breath Neurologic: Patient denied any numbness or tingling headache. Musculoskeletal: Patient denies any complaints of joint swelling or deformity. Skin: Negative Psychiatric: Negative Endocrine: No heat or cold intolerance. No recent weight gain. Genitourinary: No dysuria or hematuria. All other 14 point ROS negative except the above Past Medical History Past Medical History: Coronary Artery Disease (CAD), Cancer, Heart Failure, COPD, Diabetes Mellitus, GERD/Reflux, GI Bleed, Hyperlipidemia, Hypertension, Pneumonia, Renal Disease, Respiratory Disorder, Sleep Apnea/CPAP/BIPAP, Thyroid Disorder Additional Past Medical History / Comment(s): CHF History of Any Multi-Drug Resistant Organisms: None Reported Past Surgical History: Bowel Resection, Cholecystectomy, Coronary Bypass/CABG, Heart Catheterization, Heart Catheterization With Stent Additional Past Surgical History / Comment(s): rectal cancer surgery-removed 2004 or 2005. Ostomy. Cataract surgery Past Anesthesia/Blood Transfusion Reactions: Postoperative Nausea & Vomiting ( PONV) Additional Past Anesthesia/Blood Transfusion Reaction / Comment(s): Pt has received blood in past without reaction. Date of Last Stent Placement:: 1995? Past Psychological History: No Psychological Hx Reported Additional Psychological History / Comment(s): Pt resides alone. Daughter and son have been with him every day at home since he was last discharged on 06/11. He has a walker that he uses occasionally. He has a bipap machine and oxygen and a glucometer. He drives. Smoking Status: Never smoker Past Alcohol Use History: None Reported, Occasional Additional Past Alcohol Use History / Comment(s): Pt started smoking in 1960 and quit about 1990. He was a heavy smoker. Past Drug Use History: None Reported - Past Family History Mother Additional Family Medical History / Comment(s): in her 90s Father Additional Family Medical History / Comment(s): of stomach cancer in the 1970s Medications and Allergies Home Medications Medication Instructions Recorded Confirmed Type Budesonide [Pulmicort Flexhaler] 1 puff INHALATION RT-BID 07/13/16 06/15/20 History Cholecalciferol [Vitamin D3 (25 1,000 unit PO QAM 07/13/16 06/15/20 History Mcg = 1000 Iu)] Montelukast [Singulair] 10 mg PO HS 07/13/16 06/15/20 History Atorvastatin Calcium [Lipitor] 80 mg PO HS 06/01/20 06/15/20 History Famotidine 20 mg PO BID 06/01/20 06/15/20 History Furosemide [Lasix] 40 mg PO DAILY 06/01/20 06/15/20 History Levothyroxine Sodium [Synthroid] 50 mcg PO DAILY 06/01/20 06/15/20 History Darbepoetin Tony [Aranesp] 40 mcg SQ Q7D syringe 06/11/20 06/15/20 Rx Albuterol Nebulized [Ventolin 2.5 mg INHALATION RT-Q4H PRN 06/15/20 06/15/20 History Nebulized] Carvedilol [Coreg] 1.563 mg PO BID-W/MEALS 06/15/20 06/15/20 History Cyanocobalamin (Vitamin B-12) 1,000 mcg PO DAILY 06/15/20 06/15/20 History [Vitamin B-12] Ferrous Sulfate [Feosol] 325 mg PO DAILY 06/15/20 06/15/20 History Insulin Glargine,Hum.rec.anlog 62 - 65 unit SQ HS 06/15/20 06/15/20 History [Lantus Solostar] Insulin Lispro [humaLOG Kwikpen] See Protocol SQ PC-TID 06/15/20 06/15/20 History Multivitamins, Thera [Multivitamin 1 tab PO DAILY 06/15/20 06/15/20 History (formulary)] Vit C/E/Zn/Coppr/Lutein/Zeaxan 1 cap PO BID 06/15/20 06/15/20 History [Preservision Areds 2 Softgel] Allergies Allergy/AdvReac Type Severity Reaction Status Date / Time lisinopril Allergy Unknown Verified 06/15/20 13:23 lorazepam [From Ativan] AdvReac Confusion Verified 06/15/20 13:23 Physical Exam Vitals: Vital Signs Temp Pulse Pulse Resp BP BP Pulse Ox 06/15/20 16:03 22 06/15/20 16:00 86 18 154/63 100 06/15/20 15:32 86 18 154/63 100 06/15/20 15:00 97.9 F 93 18 136/61 93 L 06/15/20 14:19 84 18 136/61 95 06/15/20 13:48 84 18 125/64 99 06/15/20 12:16 86 18 134/61 100 06/15/20 11:51 98.3 F 87 16 154/87 96 Intake and Output 06/15/20 06/15/20 06/15/20 06:59 14:59 22:59 Output Total 200 Balance -200 Output: Urine 200 Other: Voiding Method Toilet Urinal # Voids 1 Weight 127.006 kg 127.006 kg PHYSICAL EXAMINATION: Patient is lying in the bed comfortably, no acute distress, awake alert and oriented.. HEENT: Normocephalic. Neck is supple. Pupils reactive. Nostrils clear. Oral cavity is moist. Ears reveal no drainage. Neck reveals no JVD, carotid bruits, or thyromegaly. CHEST EXAMINATION: Trachea is central. Symmetrical expansion. Bibasilar diminished air entry and minimal crackles at the base. No wheezing. CARDIAC: Normal S1, S2 with no gallops. No murmurs ABDOMEN: Soft. Bowel sounds normal. No organomegaly. No abdominal bruits. Extremities: trace edema. No clubbing or cyanosis Neurologically awake, alert, oriented x3 with well-coordinated movements. No focal deficits noted Skin: No rash or skin lesions. Psychiatric: Coperative. Nonsuicidal Musculoskeletal: No joint swelling or deformity. Normal range of motion. Results CBC & Chem 7: 06/15/20 18:36 06/15/20 12:41 Labs: Abnormal Lab Results - Last 24 Hours (Table) 06/15/20 06/15/20 06/15/20 Range/Units 12:41 12:41 12:41 RBC 2.75 L (4.30-5.90) m/uL Hgb 7.6 L (13.0-17.5) gm/dL Hct 26.1 L (39.0-53.0) % MCHC 29.0 L (31.0-37.0) g/dL RDW 20.6 H (11.5-15.5) % Neutrophils # 9.1 H (1.3-7.7) k/uL Lymphocytes # 0.7 L (1.0-4.8) k/uL Carbon Dioxide 38 H (22-30) mmol/L BUN 39 H (9-20) mg/dL Creatinine 1.81 H (0.66-1.25) mg/dL Glucose 149 H (74-99) mg/dL POC Glucose (mg/dL) (75-99) mg/dL Troponin I 0.056 H* (0.000-0.034) ng/mL Total Protein 5.4 L (6.3-8.2) g/dL Albumin 3.0 L (3.5-5.0) g/dL 06/15/20 Range/Units 16:40 RBC (4.30-5.90) m/uL Hgb (13.0-17.5) gm/dL Hct (39.0-53.0) % MCHC (31.0-37.0) g/dL RDW (11.5-15.5) % Neutrophils # (1.3-7.7) k/uL Lymphocytes # (1.0-4.8) k/uL Carbon Dioxide (22-30) mmol/L BUN (9-20) mg/dL Creatinine (0.66-1.25) mg/dL Glucose (74-99) mg/dL POC Glucose (mg/dL) 155 H (75-99) mg/dL Troponin I (0.000-0.034) ng/mL Total Protein (6.3-8.2) g/dL Albumin (3.5-5.0) g/dL Thrombosis Risk Factor Assmnt - DVT/VTE Prophylaxis DVT/VTE Prophylaxis: Mechanical Prophylaxis ordered - Choose All That Apply Each Factor Represents 1 point: Obesity (BMI >25), Swollen legs (current) Each Risk Factor Represents 3 Points: Age 75 years or older Other congenital or acquired thrombophilia - If yes, enter type in comment: No Thrombosis Risk Factor Assessment Total Risk Factor Score: 5 Thrombosis Risk Factor Assessment Level: High Risk Assessment and Plan Assessment: Acute on chronic CHF with diastolic dysfunction Acute on chronic hypoxic respiratory failure Acute on chronic anemia possible acute blood loss. Hemoglobin was 5 in the clinic but repeat was 7.6 which is at baseline during his last admission. FOBT positive which could be false positive. Anemia of chronic disease Elevated troponin level possible demand mismatch Chronic kidney disease stage III with baseline creatinine around 1.7 Paroxysmal atrial fibrillation currently on anticoagulation with Eliquis which is on hold History of rectal cancer status post surgery and colostomy bag placement. Chronic hypoxic respiratory failure secondary to COPD, obstructive sleep apnea and chronic CO2 retention Obstructive sleep apnea Diabetes type 2 insulin-dependent Coronary artery disease with history of CABG Hypothyroidism GERD Hypertension Hyperlipidemia Previous history of smoking DVT prophylaxis with SCDs Plan: Patient will be continued on Lasix 40 mg every 12 and monitor renal function. Monitor H&H. Repeat hemoglobin is at 7.6 which is his baseline. Continue with Protonix. GI was consulted. Patient had recent EGD showed mild gastritis. No active bleeding was noted. Cardiology was consulted due to elevated troponin level. Continue with oxygen therapy and BiPAP at night. Further recommendations based on glucose. Discussed plan of care with his daughter at bedside. Time with Patient: Greater than 30
--- NOTE | 2020-06-16 06:17 | XR ---
EXAMINATION TYPE: XR chest 1V portable DATE OF EXAM: 06/16/2020 COMPARISON: 06/15/2020 HISTORY: Short of breath TECHNIQUE: FINDINGS: There is mild pulmonary vascular congestion. There is blunting of the costophrenic angles. There are sternal wires. There are chest leads. There is some infiltrate and atelectasis at the lung bases. IMPRESSION: Congestive heart failure with mild pleural effusions and basilar pulmonary infiltrates no t significantly different than yesterday.
[2020-06-16] MEDS: LEVOTHYROXINE 50 MCG TAB PO SCH (06:35)
[2020-06-16] MEDS: carvediloL 3.125 MG TAB PO SCH ×2 (06:36→17:16)
[2020-06-16 06:38] LABS: Glucose,Whole Blood 124 mg/dL (75-99)
[2020-06-16] MEDS: FLUTICASONE 110 MCG INHALER INHALATION SCH ×2 (07:27→18:35)
[2020-06-16 07:42] LABS: ABG Base Excess 11.4 mmol/L; ABG HCO3 38 mmol/L (21-25); ABG Oxygen Saturation 81.5 % (94-97); ABG PH 7.28 (7.35-7.45); ABG TCO2 41 mmol/L (19-24); Allen Test Performed? Yes
[2020-06-16 07:44] LABS: Anisocytosis Moderate; Basophils % (A) 0 %; Eosinophils # (A) 0.1 k/uL (0-0.7); Eosinophils % (A) 2 %; HCT 26.6 % (39.0-53.0); HGB 7.5 gm/dL (13.0-17.5); Hypochromasia Marked; Lymphocytes # (A) 0.5 k/uL (1.0-4.8); Lymphocytes % (A) 6 %; MCH 26.8 pg (25.0-35.0); MCV 95.9 fL (80.0-100.0); Macrocytosis Slight; Mean Platelet Volume 7.5; Monocytes # (A) 0.3 k/uL (0-1.0); Monocytes % (A) 5 %; Neutrophils # (A) 6.2 k/uL (1.3-7.7); Neutrophils % (A) 85 %; Platelet Count 266 k/uL (150-450); Poikilocytosis Slight; RBC 2.78 m/uL (4.30-5.90); RDW 20.7 % (11.5-15.5); WBC 7.3 k/uL (3.8-10.6)
[2020-06-16 07:51] LABS: ABG PCO2 81 mmHg (35-45); ABG PO2 47 mmHg (83-108)
[2020-06-16 07:55] LABS: Calcium 8.6 mg/dL (8.4-10.2); Potassium 4.5 mmol/L (3.5-5.1)
[2020-06-16] MEDS: CYANOCOBALAMIN 500 MCG TAB PO SCH (08:00)
[2020-06-16] MEDS: CHOLECALCIFEROL 1,000 UNIT TAB PO SCH (08:00)
[2020-06-16] MEDS: PANTOPRAZOLE 40 MG/10 ML VIAL IVP SCH (08:00)
[2020-06-16] MEDS: FUROSEMIDE 10 MG/ML 4 ML VIAL IV SCH ×2 (08:00→20:03)
[2020-06-16] MEDS ORDERED: DARBEPOETIN ALFA 40 MCG/0.4 ML SYRINGE SQ SCH (09:00)
--- NOTE | 2020-06-16 11:10 | P.CRDCN ---
History of Present Illness Consult date: 06/16/20 Consult reason: congestive heart failure Chief complaint: Shortness of breath History of present illness: This is an 85-year-old gentleman with documented history of diabetes, hypertension, hyperlipidemia, coronary artery disease with prior bypass surgery, persistent atrial fibrillation, history of rectal CA with prior colostomy, COPD, who was recently in the hospital with respiratory failure requiring intubation and mechanical ventilation, blood cell and pneumonia/Stenotrophomonas maltophila pneumonia, diastolic heart failure. He was admitted on this occasion from his doctor's office. Patient was very short of breath, hemoglobin was drawn in the clinic and found to be in the range of 5. On this most recent admission patient was also noted at that time to have a very low hemoglobin he underwent an EGD and colonoscopy which revealed gastritis with no signs of active bleeding his hemoglobin remained stable and the patient was ultimately discharged home. Patient had been taking Eliquis twice a day because of his atrial fibrillation. Blood pressure here 108/50 with a heart rate in the 70s, respirations around 30s 100% BiPAP. White blood cell count 7.3, hemoglobin 7.5 this morning, platelet count 266. Blood gases were obtained, pH 7.2, pCO2 81, pO2 47 HCO3 38. Sodium 142, potassium 4.5, BUN 43, creatinine 1.7. Troponins 0.05, 0.05, 0.05. TSH 2.1 stool for occult blood positive. Past Medical History Past Medical History: Coronary Artery Disease (CAD), Cancer, Heart Failure, COPD, Diabetes Mellitus, GERD/Reflux, GI Bleed, Hyperlipidemia, Hypertension, Pneumonia, Renal Disease, Respiratory Disorder, Sleep Apnea/CPAP/BIPAP, Thyroid Disorder Additional Past Medical History / Comment(s): CHF History of Any Multi-Drug Resistant Organisms: None Reported Past Surgical History: Bowel Resection, Cholecystectomy, Coronary Bypass/CABG, Heart Catheterization, Heart Catheterization With Stent Additional Past Surgical History / Comment(s): rectal cancer surgery-removed 2004 or 2005. Ostomy. Cataract surgery Past Anesthesia/Blood Transfusion Reactions: Postoperative Nausea & Vomiting (PONV) Additional Past Anesthesia/Blood Transfusion Reaction / Comment(s): Pt has received blood in past without reaction. Date of Last Stent Placement:: 1995? Past Psychological History: No Psychological Hx Reported Additional Psychological History / Comment(s): Pt resides alone. Daughter and son have been with him every day at home since he was last discharged on 06/11. He has a walker that he uses occasionally. He has a bipap machine and oxygen and a glucometer. He drives. Smoking Status: Never smoker Past Alcohol Use History: None Reported, Occasional Additional Past Alcohol Use History / Comment(s): Pt started smoking in 1960 and quit about 1990. He was a heavy smoker. Past Drug Use History: None Reported - Past Family History Mother Additional Family Medical History / Comment(s): in her 90s Father Additional Family Medical History / Comment(s): of stomach cancer in the 1970s Medications and Allergies Home Medications Medication Instructions Recorded Confirmed Type Budesonide [Pulmicort Flexhaler] 1 puff INHALATION RT-BID 07/13/16 06/15/20 History Cholecalciferol [Vitamin D3 (25 1,000 unit PO QAM 07/13/16 06/15/20 History Mcg = 1000 Iu)] Montelukast [Singulair] 10 mg PO HS 07/13/16 06/15/20 History Atorvastatin Calcium [Lipitor] 80 mg PO HS 06/01/20 06/15/20 History Famotidine 20 mg PO BID 06/01/20 06/15/20 History Furosemide [Lasix] 40 mg PO DAILY 06/01/20 06/15/20 History Levothyroxine Sodium [Synthroid] 50 mcg PO DAILY 06/01/20 06/15/20 History Darbepoetin Tony [Aranesp] 40 mcg SQ Q7D syringe 06/11/20 06/15/20 Rx Albuterol Nebulized [Ventolin 2.5 mg INHALATION RT-Q4H PRN 06/15/20 06/15/20 History Nebulized] Carvedilol [Coreg] 1.563 mg PO BID-W/MEALS 06/15/20 06/15/20 History Cyanocobalamin (Vitamin B-12) 1,000 mcg PO DAILY 06/15/20 06/15/20 History [Vitamin B-12] Ferrous Sulfate [Feosol] 325 mg PO DAILY 06/15/20 06/15/20 History Insulin Glargine,Hum.rec.anlog 62 - 65 unit SQ HS 06/15/20 06/15/20 History [Lantus Solostar] Insulin Lispro [humaLOG Kwikpen] See Protocol SQ PC-TID 06/15/20 06/15/20 Hi story Multivitamins, Thera [Multivitamin 1 tab PO DAILY 06/15/20 06/15/20 History (formulary)] Vit C/E/Zn/Coppr/Lutein/Zeaxan 1 cap PO BID 06/15/20 06/15/20 History [Preservision Areds 2 Softgel] Allergies Allergy/AdvReac Type Severity Reaction Status Date / Time lisinopril Allergy Unknown Verified 06/15/20 13:23 lorazepam [From Ativan] AdvReac Confusion Verified 06/15/20 13:23 Physical Exam Vitals: Vital Signs Temp Pulse Pulse Resp BP BP Pulse Ox 06/16/20 07:45 97.1 F L 75 33 H 108/55 100 06/16/20 02:51 97.8 F 85 38 H 139/64 100 06/16/20 00:00 97.4 F L 105 H 30 H 128/60 98 06/15/20 20:00 97.3 F L 85 18 177/80 100 06/15/20 16:03 22 06/15/20 16:00 86 18 154/63 100 06/15/20 15:32 86 18 154/63 100 06/15/20 15:00 97.9 F 93 18 136/61 93 L 06/15/20 14:19 84 18 136/61 95 06/15/20 13:48 84 18 125/64 99 06/15/20 12:16 86 18 134/61 100 06/15/20 11:51 98.3 F 87 16 154/87 96 Intake and Output 06/15/20 06/16/20 06/16/20 22:59 06:59 14:59 Intake Total 0 Output Total 425 150 50 Balance -425 -150 -50 Intake: Oral 0 Output: Urine 425 150 50 Other: Voiding Method Toilet Urinal Urinal Urinal # Voids 1 Weight 127.006 kg 122 kg GENERAL EXAM: Alert, very pleasant, 85-year-old white male,on 100 % nonrebreather, anxious. HEAD: Normocephalic/atraumatic. EYES: Normal reaction of pupils, equal size. Conjunctiva pink, sclera white. NOSE: Clear with pink turbinates. THROAT: No erythema or exudates. NECK: No masses, no JVD, no thyroid enlargement, no adenopathy. CHEST: No chest wall deformity. Symmetrical expansion. LUNGS: Reveal rales bilaterally with diminished air entry to the bases . CVS: Irregular rate and rhythm, normal S1 and S2, systolic murmur is heard ABDOMEN: Soft, nontender. No hepatosplenomegaly, normal bowel sounds, no guarding or rigidity. EXTREMITIES: No clubbing, 1 + edema, no cyanosis, 2+ pulses and upper and lower extremities. MUSCULOSKELETAL: Muscle strength and tone normal. SPINE: No scoliosis or deformity SKIN: No rashes CENTRAL NERVOUS SYSTEM: Alert and oriented -3. No focal deficits, tone is normal in all 4 extremities. PSYCHIATRIC: Alert and oriented -3. Appropriate affect. Intact judgment and insight. Results 06/16/20 07:09 06/16/20 07:09 Cardiac Enzymes 06/15/20 06/15/20 06/15/20 Range/Units 12:41 12:41 15:36 AST 23 (17-59) U/L Troponin I 0.056 H* 0.055 H* (0.000-0.034) ng/mL 06/15/20 Range/Units 18:36 AST (17-59) U/L Troponin I 0.055 H* (0.000-0.034) ng/mL Coagulation 06/15/20 Range/Units 12:41 PT 10.5 (9.0-12.0) sec APTT 25.0 (22.0-30.0) sec CBC 06/15/20 06/15/20 06/16/20 Range/Units 12:41 18:36 07:09 WBC 10.6 8.7 7.3 (3.8-10.6) k/uL RBC 2.75 L 2.68 L 2.78 L (4.30-5.90) m/uL Hgb 7.6 L 7.3 L 7.5 L (13.0-17.5) gm/dL Hct 26.1 L 25.7 L 26.6 L (39.0-53.0) % Plt Count 251 242 266 (150-450) k/uL Comprehensive Metabolic Panel 06/15/20 06/16/20 Range/Units 12:41 07:09 Sodium 140 142 (137-145) mmol/L Potassium 4.6 4.5 (3.5-5.1) mmol/L Chloride 99 100 (98-107) mmol/L Carbon Dioxide 38 H 39 H (22-30) mmol/L BUN 39 H 43 H (9-20) mg/dL Creatinine 1.81 H 1.70 H (0.66-1.25) mg/dL Glucose 149 H 109 H (74-99) mg/dL Calcium 8.6 8.6 (8.4-10.2) mg/dL AST 23 (17-59) U/L ALT 34 (4-49) U/L Alkaline Phosphatase 103 (38-126) U/L Total Protein 5.4 L (6.3-8.2) g/dL Albumin 3.0 L (3.5-5.0) g/dL Current Medications Generic Name Dose Route Start Last Admin Trade Name Freq PRN Reason Stop Dose Admin Albuterol Sulfate 2.5 mg 06/15/20 16:57 Albuterol Nebulized 2.5 Mg/3 Ml INHALATION RT-Q4H PRN Shortness Of Breath Atorvastatin Calcium 80 mg 06/15/20 21:00 06/15/20 20:58 Atorvastatin 80 Mg Tab PO 80 mg HS RAMESH Administration Carvedilol 1.563 mg 06/15/20 17:30 06/16/20 06:36 Carvedilol 3.125 Mg Tab PO 1.563 mg BID-W/MEALS RAMESH Administration Cholecalciferol 1,000 unit 06/16/20 09:00 06/16/20 08:00 Cholecalciferol 1,000 Unit Tab PO 1,000 unit QAM RAMESH Administration Cyanocobalamin 1,000 mcg 06/16/20 09:00 06/16/20 08:00 Cyanocobalamin 500 Mcg Tab PO 1,000 mcg DAILY RAMESH Administration Darbepoetin Tony 40 mcg 06/16/20 09:00 Darbepoetin Tony 40 Mcg/0.4 Ml Syringe SQ Q7D RAMESH Fluticasone Propionate 1 puff 06/15/20 20:00 06/16/20 07:27 Fluticasone 110 Mcg Inhaler INHALATION 1 puff RT-BID RAMESH Administration Furosemide 40 mg 06/15/20 21:00 06/16/20 08:00 Furosemide 10 Mg/Ml 4 Ml Vial IV 40 mg Q12HR RAMESH Administration Insulin Detemir 62 unit 06/15/20 21:00 06/15/20 20:59 Insulin Detemir (Levemir) 100 Unit/Ml Syr SQ 62 unit HS RAMESH Administration Levothyroxine Sodium 50 mcg 06/16/20 06:30 06/16/20 06:35 Levothyroxine 50 Mcg Tab PO 50 mcg DAILY@0630 RAMESH Administration Melatonin 5 mg 06/15/20 21:00 06/15/20 20:59 Melatonin 5 Mg Tablet PO 5 mg HS RAMESH Administration Montelukast Sodium 10 mg 06/15/20 21:00 06/15/20 20:58 Montelukast 10 Mg Tab PO 10 mg HS RAMESH Administration Naloxone HCl 0.2 mg 06/15/20 14:01 Naloxone 0.4 Mg/Ml 1 Ml Vial IV Q2M PRN Opioid Reversal Pantoprazole Sodium 40 mg 06/15/20 17:00 06/16/20 08:00 Pantoprazole 40 Mg/10 Ml Vial IVP 40 mg DAILY RAMESH Administration Intake and Output 06/15/20 06/16/20 06/16/20 22:59 06:59 14:59 Intake Total 0 Output Total 425 150 50 Balance -425 -150 -50 Intake: Oral 0 Output: Urine 425 150 50 Other: Voiding Method Toilet Urinal Urinal Urinal # Voids 1 Weight 127.006 kg 122 kg 06/16/20 07:09 06/16/20 07:09 EKG Interpretations (text) EKG shows atrial flutter with controlled ventricular response Assessment and Plan Plan: Assessment and plan: 1 anemia, patient underwent an EGD this recent admission which revealed some gastritis with no active bleeding hemoglobin at the office in the 5 range, hemoglobin 7.5 2 CHF with diastolic dysfunction, ejection fraction by echo done earlier this month was 50-55% 3 moderate aortic stenosis 4 COPD with chronic hypoxic respiratory failure, FEV1 of 42% of predicted 5 acute kidney injury on top of chronic kidney disease 6 coronary artery disease with previous coronary stenting 7 diabetes mellitus 8 previous history of colostomy, for an underlying rectal cancer 9 recent GI bleeding post EGD and the patient was found to have mild gastritis otherwise normal appearing upper GI examination. 10 anemia of chronic disease 11 history of aortic valve replacement back in 2007 and previous history of coronary artery bypass surgery 12 obstructive sleep apnea, nontolerant to CPAP therapy and the patient has been utilizing oxygen at 2 L overnight 13 hypothyroidism 14 abnormal troponin, no significant rise and fall pattern, likely secondary to hypoxia and abnormal renal function 15 paroxysmal atrial fibrillation, typical atrial flutter, was on Eliquis 2-1/2 mg one tablet by mouth twice a day . Plan Patient just had an echo done a couple weeks ago, we will not repeat an echo this admission. We will continue the patient on his dose of IV Lasix, monitoring intake and output along with daily weights and daily lytes BUN and cr eatinine. The patient's Eliquis is currently on hold, we will speak with GI service regarding re-initiating Eliquis. Further recommendations to follow. DNP note has been reviewed, I agree with a documented findings and plan of care. Patient was seen and examined.
[2020-06-16 11:29] VITALS: BMI 37.5
[2020-06-16 11:39] LABS: Glucose,Whole Blood 111 mg/dL (75-99)
--- NOTE | 2020-06-16 14:33 | P.CNPUL ---
History of Present Illness Consult date: 06/16/20 Reason for consult: dyspnea Chief complaint: Shortness of breath History of present illness: 85-year-old white male patient with multiple medical problems, who was recently hospitalized from 06/01/2020-06/11/2020 related to acute exacerbation of COPD, decompensated heart failure with diastolic dysfunction, Klebsiella and stenotrophomonas pneumonia. Patient required intubation and mechanical ventilator support during last admission, with 3 days on the ventilator support. Patient was diuresed, treated with antibiotics, he was successfully weaned and extubated from mechanical ventilator, and was discharged home in stable condition with home care on 06/11/2020. During his previous state patient did require blood transfusion, and had a GI evaluation with the EGD with biopsy, which revealed mild gastritis, but no active bleeding. He has multiple medical problems including chronic CHF with diastolic dysfunction, moderately severe aortic stenosis, advanced COPD on home oxygen, chronic kidney disease, coronary artery disease with coronary stenting, diabetes mellitus, previous history of GI bleeding, chronic anemia, and obstructive sleep apnea unable to wear her CPAP. Patient presented to the emergency department on 06/15/2020 for evaluation of worsening shortness of breath, and hypoxic with pulse ox of 80% on his usual home dose of 2 L/m of oxygen. He was in to see his primary care provider, Dr. Farrar, and hemoglobin was checked and was noted to be in the fives. Patient was sent in to the emergency department for further evaluation and treatment. Of note patient is on Eliquis for chronic atrial fibrillation. He has a colostomy, and his daughter reports dark stools from the colostomy. No reports of hematemesis or hemoptysis, no hematuria. Denied any fever or chills, has a mild productive cough, no chest pain. No abdominal pain. His hemoglobin in the emergency department was 7.5, no leukocytosis, with blood cell count of 7.3. Sodium is 142, potassium is 4.5, chloride is 100, CO2 39, BUN is 43 creatinine is 1.7. Blood gas was obtained in view of worsening shortness of breath, pO2 was 47, pCO2 is 81, and pH is 7.28, this was done on FiO2 of 20%, and patient was subsequently placed on BiPAP support with pressures of 14/5 and FiO2 of 35%. Chest x-ray shows central vascularity and prominent interstitium consistent with congestive heart failure with possible pleural effusions. Patient has been afebrile, he is in atrial fibrillation with a controlled rate, hemodynamically patient has been stable, he is currently on BiPAP support, he is drowsy, but he wakes up and give some limited verbal answers. Appears to be in no acute distress. Started on IV diuretics, nebulized bronchodilators, his Eliquis was placed on hold. GI service consultation was requested and is pendi renetta at this time, he was started on PPI therapy. Review of Systems All systems: negative Constitutional: Reports weakness, Denies chills, Denies fever Eyes: denies blurred vision, denies pain Ears, nose, mouth and throat: Denies headache, Denies sore throat Cardiovascular: Reports dyspnea on exertion, Denies chest pain, Denies shortness of breath Respiratory: Reports dyspnea, Reports home oxygen, Denies cough Gastrointestinal: Denies abdominal pain, Denies diarrhea, Denies nausea, Denies vomiting Musculoskeletal: Denies myalgias Integumentary: Denies pruritus, Denies rash Neurological: Denies numbness, Denies weakness Psychiatric: Denies anxiety, Denies depression Endocrine: Denies fatigue, Denies weight change Past Medical History Past Medical History: Coronary Artery Disease (CAD), Cancer, Heart Failure, COPD, Diabetes Mellitus, GERD/Reflux, GI Bleed, Hyperlipidemia, Hypertension, Pneumonia, Renal Disease, Respiratory Disorder, Sleep Apnea/CPAP/BIPAP, Thyroid Disorder Additional Past Medical History / Comment(s): CHF History of Any Multi-Drug Resistant Organisms: None Reported Past Surgical History: Bowel Resection, Cholecystectomy, Coronary Bypass/CABG, Heart Catheterization, Heart Catheterization With Stent Additional Past Surgical History / Comment(s): rectal cancer surgery-removed 2004 or 2005. Ostomy. Cataract surgery Past Anesthesia/Blood Transfusion Reactions: Postoperative Nausea & Vomiting (PONV) Additional Past Anesthesia/Blood Transfusion Reaction / Comment(s): Pt has received blood in past without reaction. Date of Last Stent Placement:: 1995? Past Psychological History: No Psychological Hx Reported Additional Psychological History / Comment(s): Pt resides alone. Daughter and s on have been with him every day at home since he was last discharged on 06/11. He has a walker that he uses occasionally. He has a bipap machine and oxygen and a glucometer. He drives. Smoking Status: Never smoker Past Alcohol Use History: None Reported, Occasional Additional Past Alcohol Use History / Comment(s): Pt started smoking in 1960 and quit about 1990. He was a heavy smoker. Past Drug Use History: None Reported - Past Family History Mother Additional Family Medical History / Comment(s): in her 90s Father Additional Family Medical History / Comment(s): of stomach cancer in the 1970s Medications and Allergies Home Medications Medication Instructions Recorded Confirmed Type Budesonide [Pulmicort Flexhaler] 1 puff INHALATION RT-BID 07/13/16 06/15/20 History Cholecalciferol [Vitamin D3 (25 1,000 unit PO QAM 07/13/16 06/15/20 History Mcg = 1000 Iu)] Montelukast [Singulair] 10 mg PO HS 07/13/16 06/15/20 History Atorvastatin Calcium [Lipitor] 80 mg PO HS 06/01/20 06/15/20 History Famotidine 20 mg PO BID 06/01/20 06/15/20 History Furosemide [Lasix] 40 mg PO DAILY 06/01/20 06/15/20 History Levothyroxine Sodium [Synthroid] 50 mcg PO DAILY 06/01/20 06/15/20 History Darbepoetin Tony [Aranesp] 40 mcg SQ Q7D syringe 06/11/20 06/15/20 Rx Albuterol Nebulized [Ventolin 2.5 mg INHALATION RT-Q4H PRN 06/15/20 06/15/20 History Nebulized] Carvedilol [Coreg] 1.563 mg PO BID-W/MEALS 06/15/20 06/15/20 History Cyanocobalamin (Vitamin B-12) 1,000 mcg PO DAILY 06/15/20 06/15/20 History [Vitamin B-12] Ferrous Sulfate [Feosol] 325 mg PO DAILY 06/15/20 06/15/20 History Insulin Glargine,Hum.rec.anlog 62 - 65 unit SQ HS 06/15/20 06/15/20 History [Lantus Solostar] Insulin Lispro [humaLOG Kwikpen] See Protocol SQ PC-TID 06/15/20 06/15/20 History Multivitamins, Thera [Multivitamin 1 tab PO DAILY 06/15/20 06/15/20 History (formulary)] Vit C/E/Zn/Coppr/Lutein/Zeaxan 1 cap PO BID 06/15/20 06/15/20 History [Preservision Areds 2 Softgel] Allergies Allergy/AdvReac Type Severity Reaction Status Date / Time lisinopril Allergy Unknown Verified 06/15/20 13:23 lorazepam [From Ativan] AdvReac Confusion Verified 06/15/20 13:23 Physical Exam Vitals: Vital Signs Temp Pulse Pulse Resp BP BP Pulse Ox 06/16/20 11:52 97.7 F 66 25 H 117/64 97 06/16/20 07:45 97.1 F L 75 33 H 108/55 100 06/16/20 02:51 97.8 F 85 38 H 139/64 100 06/16/20 00:00 97.4 F L 105 H 30 H 128/60 98 06/15/20 20:00 97.3 F L 85 18 177/80 100 06/15/20 16:03 22 06/15/20 16:00 86 18 154/63 100 06/15/20 15:32 86 18 154/63 100 06/15/20 15:00 97.9 F 93 18 136/61 93 L 06/15/20 14:19 84 18 136/61 95 Intake and Output 06/15/20 06/16/20 06/16/20 22:59 06:59 14:59 Intake Total 100 Output Total 425 150 275 Balance -425 -150 -175 Intake: Oral 100 Output: Urine 425 150 275 Other: Voiding Method Toilet Urinal Urinal Urinal # Voids 1 1 Weight 127.006 kg 122 kg 122 kg GENERAL EXAM: Neurologic, but easily arousable to verbal stimuli, 85-year-old white male, currently on BiPAP support with pressures of 14/5, and FiO2 of 35% comfortable in no apparent distress. HEAD: Normocephalic/atraumatic. EYES: Normal reaction of pupils, equal size. Conjunctiva pink, sclera white. NOSE: Clear with pink turbinates. THROAT: No erythema or exudates. NECK: No masses, no JVD, no thyroid enlargement, no adenopathy. CHEST: No chest wall deformity. Symmetrical expansion. LUNGS: Equal air entry with no crackles, wheeze, rhonchi or dullness. CVS: Irregular rate and rhythm, normal S1 and S2, no gallops, no murmurs, no rubs ABDOMEN: Soft, nontender. No hepatosplenomegaly, normal bowel sounds, no guarding or rigidity. EXTREMITIES: No clubbing, 1+ lower extremity edema, no cyanosis, 2+ pulses and upper and lower extremities. MUSCULOSKELETAL: Muscle strength and tone normal. SPINE: No scoliosis or deformity SKIN: No rashes CENTRAL NERVOUS SYSTEM: Drowsy but arousable to verbal stimuli, No focal deficits, tone is normal in all 4 extremities. Results - Laboratory Findings CBC and BMP: 06/16/20 07:09 06/16/20 07:09 ABG ABG pH 7.28 (7.35-7.45) L 06/16/20 07:39 ABG pCO2 81 mmHg (35-45) H* 06/16/20 07:39 ABG pO2 47 mmHg (83-108) L* 06/16/20 07:39 ABG O2 Saturation 81.5 % (94-97) L 06/16/20 07:39 PT/INR, D-dimer PT 10.5 sec (9.0-12.0) 06/15/20 12:41 INR 1.0 (<1.2) 06/15/20 12:41 Abnormal lab findings: Abnormal Labs 06/15/20 06/15/20 06/15/20 12:41 12:41 12:41 RBC 2.75 L Hgb 7.6 L Hct 26.1 L MCHC 29.0 L RDW 20.6 H Neutrophils # 9.1 H Lymphocytes # 0.7 L ABG pH ABG pCO2 ABG pO2 ABG HCO3 ABG Total CO2 ABG O2 Saturation Carbon Dioxide 38 H BUN 39 H Creatinine 1.81 H Glucose 149 H POC Glucose (mg/dL) Troponin I 0.056 H* Total Protein 5.4 L Albumin 3.0 L 06/15/20 06/15/20 06/15/20 15:36 16:40 18:36 RBC 2.68 L Hgb 7.3 L Hct 25.7 L MCHC 28.3 L RDW 21.0 H Neutrophils # Lymphocytes # ABG pH ABG pCO2 ABG pO2 ABG HCO3 ABG Total CO2 ABG O2 Saturation Carbon Dioxide BUN Creatinine Glucose POC Glucose (mg/dL) 155 H Troponin I 0.055 H* Total Protein Albumin 0906/15/20 06/16/20 18:36 20:42 06:35 RBC Hgb Hct MCHC RDW Neutrophils # Lymphocytes # ABG pH ABG pCO2 ABG pO2 ABG HCO3 ABG Total CO2 ABG O2 Saturation Carbon Dioxide BUN Creatinine Glucose POC Glucose (mg/dL) 144 H 124 H Troponin I 0.055 H* Total Protein Albumin 06/16/20 06/16/20 06/16/20 07:09 07:09 07:39 RBC 2.78 L Hgb 7.5 L Hct 26.6 L MCHC 28.0 L RDW 20.7 H Neutrophils # Lymphocytes # 0.5 L ABG pH 7.28 L ABG pCO2 81 H* ABG pO2 47 L* ABG HCO3 38 H ABG Total CO2 41 H ABG O2 Saturation 81.5 L Carbon Dioxide 39 H BUN 43 H Creatinine 1.70 H Glucose 109 H POC Glucose (mg/dL) Troponin I Total Protein Albumin 06/16/20 11:38 RBC Hgb Hct MCHC RDW Neutrophils # Lymphocytes # ABG pH ABG pCO2 ABG pO2 ABG HCO3 ABG Total CO2 ABG O2 Saturation Carbon Dioxide BUN Creatinine Glucose POC Glucose (mg/dL) 111 H Troponin I Total Protein Albumin - Diagnostic Findings Chest x-ray: report reviewed, image reviewed Assessment and Plan Plan: Assessment: #1. Acute on chronic hypoxic and hypercapnic respiratory failure related to acute exacerbation of diastolic CHF #2. Acute on chronic dyspnea, multifactorial, related to chronic CHF, chronic COPD, and chronic anemia #3. Recent hospitalization for acute exacerbation of COPD, CHF, anemia, and Klebsiella and stenotrophomonas pneumonia, requiring intubation and mechanical support, patient was on the vent for 3 days from 06/01/2020 through on 06/04/2020, was successfully weaned and extubated. Patient was hospitalized from 06/01/2020 through on 06/11/2020 and was discharged home with home care #4. Chronic kidney disease #5. Chronic CHF, with diastolic dysfunction, and ejection fraction of 50-55%, and valvular heart disease including moderate to severe aortic stenosis #6. History of COPD with chronic hypoxic respiratory failure and FEV1 of 42% of predicted #7. Diabetes mellitus type 2 #8. History of anemia, the patient had endoscopic evaluation with EGD by Dr. Neves, and was found to have mild gastritis, but no evidence of active bleeding, Eliquis was resumed and is currently on hold again for possibility of GI blood loss anemia #9. History of colostomy for a history of rectal cancer #10. Coronary artery disease with previous coronary artery stenting, history of aortic valve replacement back in 2007 #11. Obstructive sleep apnea nontolerant to CPAP #12. History of hypothyroidism Plan: Continue IV diuretics, continue BiPAP support, place a Winslow catheter for accurate intake and output, daily weights, daily electrolytes and renal profile. Eliquis was placed on hold, GI service consultation was requested, patient is having some dark-colored output from his colostomy. Continue nebulized bronchodilators. Continue with PPI therapy, continue with serial H&H's. Patient is a full code, however he has multiple comorbidities, poor lung function, chronic CHF and chronic kidney disease. Recommend addressing CODE STATUS. Overall prognosis is extremely guarded in view of his medical debility and above-mentioned comorbidities I performed a history & physical examination of the patient and discussed their management with my nurse practitioner, Odalis Reyes. I reviewed the nurse jennifer floyd's note and agree with the documented findings and plan of care. Lung sounds are positive for diminished breath sounds. The findings and the impression was discussed with the patient. I attest to the documentation by the nurse practitioner. Time with Patient: Greater than 30
[2020-06-16 16:42] LABS: Glucose,Whole Blood 144 mg/dL (75-99)
[2020-06-16] MEDS ORDERED: DRY MOUTH SPRAY 44.3 SPRAY/44.3 ML SPRAY MUCOUS MEM PRN (18:57)
[2020-06-16] MEDS: ATORVASTATIN 80 MG TAB PO SCH (20:03)
[2020-06-16] MEDS: MONTELUKAST 10 MG TAB PO SCH (20:03)
[2020-06-16] MEDS: MELATONIN 5 MG TABLET PO SCH (20:03)
[2020-06-16] MEDS: INSULIN DETEMIR (LEVEMIR) 100 UNIT/ML SYR SQ SCH (20:04)
[2020-06-16 20:07] LABS: Glucose,Whole Blood 150 mg/dL (75-99)
--- NOTE | 2020-06-16 21:13 | P.CONS ---
History of Present Illness - Reason for Consult Consult date: 06/16/20 anemia Requesting physician: Cate Kurtz - Chief Complaint Shortness of breath - History of Present Illness 85-year-old male with multiple medical comorbidities including atrial fibrillation on anticoagulation therapy with Eliquis, history of rectal cancer status post resection with an ostomy formation, BILLY, COPD, chronic CHF with diastolic dysfunction, who presented back to the hospital due to shortness of breath and anemia. Recent hospitalization with similar complaints requiringrespiratory support with mechanical ventilation. The patient was following up in the outpatient setting with findings of anemia with a hemoglobin of 5. Hemoglobin currently stable at 7.5. Patient has been having some dark output from his ostomy after being restarted on anticoagulation therapy. Stool testing was positive for blood. On last admission patient underwent EGD with findings of mild gastritis with no active bleeding at that time. Currently the patient is being treated for his dyspnea with diuresis therapy as well asmanagement by the pulmonology service for treatment of his underlying COPD. No current complaints of abdominal pain. Review of Systems REVIEW OF SYSTEMS: CONSTITUTIONAL: Denies any fevers, chills, but he does report fatigue and weight gain in association with fluid overload. CARDIOVASCULAR: Denies any chest pain, palpitations high or low blood pressures RESPIRATORY: Denies any hemoptysis but the patient does report shortness of breath worse on insertion. GENITOURINARY: No dysuria or hematuria. MUSCULOSKELETAL: No weakness reported. SKIN: Denies any new rashes or lesions, jaundice or pallor. PSYCHIATRIC: Denies any depression or anxiety. NEUROLOGY: Denies headache, denies any new focal deficits. EARS/NOSE/THROAT: No recent hearing change, congestion, nasal discharge or sore throat. EYES: No pain in eyes, discharge or change in vision. GASTROINTESTINAL: As per HPI. Past Medical History Past Medical History: Coronary Artery Disease (CAD), Cancer, Heart Failure, COPD, Diabetes Mellitus, GERD/Reflux, GI Bleed, Hyperlipidemia, Hypertension, Pneumonia, Renal Disease, Respiratory Disorder, Sleep Apnea/CPAP/BIPAP, Thyroid Disorder Additional Past Medical History / Comment(s): CHF History of Any Multi-Drug Resistant Organisms: None Reported Past Surgical History: Bowel Resection, Cholecystectomy, Coronary Bypass/CABG, Heart Catheterization, Heart Catheterization With Stent Additional Past Surgical History / Comment(s): rectal cancer surgery-removed 2004 or 2005. Ostomy. Cataract surgery Past Anesthesia/Blood Transfusion Reactions: Postoperative Nausea & Vomiting (PONV) Additional Past Anesthesia/Blood Transfusion Reaction / Comm: Pt has received blood in past without reaction. Date of Last Stent Placement:: 1995? Past Psychological History: No Psychological Hx Reported Additional Psychological History / Comment(s): Pt resides alone. Daughter and son have been with him every day at home since he was last discharged on 06/11. He has a walker that he uses occasionally. He has a bipap machine and oxygen and a glucometer. He drives. Smoking Status: Never smoker Past Alcohol Use History: None Reported, Occasional Additional Past Alcohol Use History / Comment(s): Pt started smoking in 1960 and quit about 1990. He was a heavy smoker. Past Drug Use History: None Reported - Past Family History Mother Additional Family Medical History / Comment(s): in her 90s Father Additional Family Medical History / Comment(s): of stomach cancer in the 1970s Medications and Allergies Home Medications Medication Instructions Recorded Confirmed Type Budesonide [Pulmicort Flexhaler] 1 puff INHALATION RT-BID 07/13/16 06/15/20 History Cholecalciferol [Vitamin D3 (25 1,000 unit PO QAM 07/13/16 06/15/20 History Mcg = 1000 Iu)] Montelukast [Singulair] 10 mg PO HS 07/13/16 06/15/20 History Atorvastatin Calcium [Lipitor] 80 mg PO HS 06/01/20 06/15/20 History Famotidine 20 mg PO BID 06/01/20 06/15/20 History Furosemide [Lasix] 40 mg PO DAILY 06/01/20 06/15/20 History Levothyroxine Sodium [Synthroid] 50 mcg PO DAILY 06/01/20 06/15/20 History Darbepoetin Tony [Aranesp] 40 mcg SQ Q7D syringe 06/11/20 06/15/20 Rx Albuterol Nebulized [Ventolin 2.5 mg INHALATION RT-Q4H PRN 06/15/20 06/15/20 History Nebulized] Carvedilol [Coreg] 1.563 mg PO BID-W/MEALS 06/15/20 06/15/20 History Cyanocobalamin (Vitamin B-12) 1,000 mcg PO DAILY 06/15/20 06/15/20 History [Vitamin B-12] Ferrous Sulfate [Feosol] 325 mg PO DAILY 06/15/20 06/15/20 History Insulin Glargine,Hum.rec.anlog 62 - 65 unit SQ HS 06/15/20 06/15/20 History [Lantus Solostar] Insulin Lispro [humaLOG Kwikpen] See Protocol SQ PC-TID 06/15/20 06/15/20 His tory Multivitamins, Thera [Multivitamin 1 tab PO DAILY 06/15/20 06/15/20 History (formulary)] Vit C/E/Zn/Coppr/Lutein/Zeaxan 1 cap PO BID 06/15/20 06/15/20 History [Preservision Areds 2 Softgel] Allergies Allergy/AdvReac Type Severity Reaction Status Date / Time lisinopril Allergy Unknown Verified 06/15/20 13:23 lorazepam [From Ativan] AdvReac Confusion Verified 06/15/20 13:23 Physical Exam Vitals: Vital Signs Temp Pulse Pulse Resp BP BP Pulse Ox 06/16/20 11:52 97.7 F 66 25 H 117/64 97 06/16/20 07:45 97.1 F L 75 33 H 108/55 100 06/16/20 02:51 97.8 F 85 38 H 139/64 100 06/16/20 00:00 97.4 F L 105 H 30 H 128/60 98 06/15/20 20:00 97.3 F L 85 18 177/80 100 06/15/20 16:03 22 06/15/20 16:00 86 18 154/63 100 06/15/20 15:32 86 18 154/63 100 06/15/20 15:00 97.9 F 93 18 136/61 93 L 06/15/20 14:19 84 18 136/61 95 Intake and Output 06/15/20 06/16/20 06/16/20 22:59 06:59 14:59 Intake Total 100 Output Total 425 150 275 Balance -425 -150 -175 Intake: Oral 100 Output: Urine 425 150 275 Other: Voiding Method Toilet Urinal Urinal Urinal # Voids 1 1 Weight 127.006 kg 122 kg 122 kg On physical examination, patient appears comfortable in no apparent distress. HEAD: Normocephalic, atraumatic. EYES: No scleral icterus. No conjunctival injection. MOUTH: No lesions, tongue midline. NECK: Trachea midline, no gross abnormalities. CHEST: decreased air entry in all lung alaniz. HEART: S1-S2 appreciated. ABDOMEN: Soft, obese, nontender with ostomy intact with some dark stool noted. Bowel sounds are positive. No organomegaly. No guarding or rigidity. EXTREMITIES: bilateral 2+ pedal edema. SKIN: No rashes, no jaundice. NEUROLOGIC: Alert and oriented to person and places. Results CBC & Chem 7: 06/16/20 07:09 06/16/20 07:09 Labs: Abnormal Lab Results - Last 24 Hours (Table) 06/15/20 06/15/20 06/15/20 Range/Units 15:36 16:40 18:36 RBC 2.68 L (4.30-5.90) m/uL Hgb 7.3 L (13.0-17.5) gm/dL Hct 25.7 L (39.0-53.0) % MCHC 28.3 L (31.0-37.0) g/dL RDW 21.0 H (11.5-15.5) % Lymphocytes # (1.0-4.8) k/uL ABG pH (7.35-7.45) ABG pCO2 (35-45) mmHg ABG pO2 (83-108) mmHg ABG HCO3 (21-25) mmol/L ABG Total CO2 (19-24) mmol/L ABG O2 Saturation (94-97) % Carbon Dioxide (22-30) mmol/L BUN (9-20) mg/dL Creatinine (0.66-1.25) mg/dL Glucose (74-99) mg/dL POC Glucose (mg/dL) 155 H (75-99) mg/dL Troponin I 0.055 H* (0.000-0.034) ng/mL 06/15/20 06/15/20 06/16/20 Range/Units 18:36 20:42 06:35 RBC (4.30-5.90) m/uL Hgb (13.0-17.5) gm/dL Hct (39.0-53.0) % MCHC (31.0-37.0) g/dL RDW (11.5-15.5) % Lymphocytes # (1.0-4.8) k/uL ABG pH (7.35-7.45) ABG pCO2 (35-45) mmHg ABG pO2 (83-108) mmHg ABG HCO3 (21-25) mmol/L ABG Total CO2 (19-24) mmol/L ABG O2 Saturation (94-97) % Carbon Dioxide (22-30) mmol/L BUN (9-20) mg/dL Creatinine (0.66-1.25) mg/dL Glucose (74-99) mg/dL POC Glucose (mg/dL) 144 H 124 H (75-99) mg/dL Troponin I 0.055 H* (0.000-0.034) ng/mL 06/16/20 06/16/20 06/16/20 Range/Units 07:09 07:09 07:39 RBC 2.78 L (4.30-5.90) m/uL Hgb 7.5 L (13.0-17.5) gm/dL Hct 26.6 L (39.0-53.0) % MCHC 28.0 L (31.0-37.0) g/dL RDW 20.7 H (11.5-15.5) % Lymphocytes # 0.5 L (1.0-4.8) k/uL ABG pH 7.28 L (7.35-7.45) ABG pCO2 81 H* (35-45) mmHg ABG pO2 47 L* (83-108) mmHg ABG HCO3 38 H (21-25) mmol/L ABG Total CO2 41 H (19-24) mmol/L ABG O2 Saturation 81.5 L (94-97) % Carbon Dioxide 39 H (22-30) mmol/L BUN 43 H (9-20) mg/dL Creatinine 1.70 H (0.66-1.25) mg/dL Glucose 109 H (74-99) mg/dL POC Glucose (mg/dL) (75-99) mg/dL Troponin I (0.000-0.034) ng/mL 06/16/20 Range/Units 11:38 RBC (4.30-5.90) m/uL Hgb (13.0-17.5) gm/dL Hct (39.0-53.0) % MCHC (31.0-37.0) g/dL RDW (11.5-15.5) % Lymphocytes # (1.0-4.8) k/uL ABG pH (7.35-7.45) ABG pCO2 (35-45) mmHg ABG pO2 (83-108) mmHg ABG HCO3 (21-25) mmol/L ABG Total CO2 (19-24) mmol/L ABG O2 Saturation (94-97) % Carbon Dioxide (22-30) mmol/L BUN (9-20) mg/dL Creatinine (0.66-1.25) mg/dL Glucose (74-99) mg/dL POC Glucose (mg/dL) 111 H (75-99) mg/dL Troponin I (0.000-0.034) ng/mL Chest x-ray: report reviewed (congestive heart failure with bilateral pleural effusion) Assessment and Plan (1) Symptomatic anemia Narrative/Plan: 85-year-old male with multiple medical comorbidities presenting for shortness of breath and anemia. Patient recently hospitalized with similar complaints treated for exacerbation of CHF and underlying COPD. Currently being seen by the cardiology and pulmonology service. No reports of bright red blood from ostomy, nausea, vomiting or coffee-ground emesis. He has been noted to have some dark output from his ostomy. Hemoglobin currently stable with a normocytic hypochromic anemia depressed approximately 1 g from recent admission. At that time EGD on 06/03/2020 show mild gastritis with no bleeding. Anemia likely multifactorial and secondary to chronic disease, cannot rule out a component of small bowel bleed or other GI bleed given dark output from ostomy and stool which is positive for occult blood, currently given respiratory status is not a candidate for endoscopic evaluation. Current Visit: Yes Status: Acute Code(s): D64.9 - ANEMIA, UNSPECIFIED SNOMED Code(s): 030205210 (2) Fecal occult blood test positive Current Visit: Yes Status: Acute Code(s): R19.5 - OTHER FECAL ABNORMALITIES SNOMED Code(s): 60075677 Plan: supportive care Okay for diet as tolerated Continue monitor stool output Continue to monitor hemoglobin and hematocrit and transfuse as needed Continue Protonix therapy Continue management of underlying CHF exacerbation and COPD with the cardiology and pulmonology service is following Continue to hold anticoagulation therapy Given patient's respiratory status not a candidate for endoscopic evaluation at this time, we'll continue to monitor and reevaluate based on labs and clinical course Thank you for allowing us to participate in the care of the patient
[2020-06-16] MEDS ORDERED: ALPRAZolam 0.5 MG TAB PO PRN (22:17)
[2020-06-16] MEDS: ALBUTEROL NEBULIZED 2.5 MG/3 ML INHALATION PRN (23:46)
[2020-06-17 06:06] LABS: Glucose,Whole Blood 46 mg/dL (75-99)
[2020-06-17] MEDS: carvediloL 3.125 MG TAB PO SCH (06:06)
[2020-06-17] MEDS: LEVOTHYROXINE 50 MCG TAB PO SCH (06:06)
[2020-06-17 06:17] LABS: Glucose,Whole Blood 45 mg/dL (75-99)
[2020-06-17 06:33] LABS: Glucose,Whole Blood 45 mg/dL (75-99)
[2020-06-17] MEDS ORDERED: DEXTROSE 50% SYRINGE 50 ML IVP ONE (06:33)
[2020-06-17 06:49] LABS: Glucose,Whole Blood 180 mg/dL (75-99)
[2020-06-17] MEDS: FLUTICASONE 110 MCG INHALER INHALATION SCH (07:39)
[2020-06-17] MEDS: ALBUTEROL NEBULIZED 2.5 MG/3 ML INHALATION PRN ×3 (07:39→15:20)
[2020-06-17 07:43] LABS: Calcium 8.4 mg/dL (8.4-10.2); Potassium 3.7 mmol/L (3.5-5.1)
[2020-06-17] MEDS: FUROSEMIDE 10 MG/ML 4 ML VIAL IV SCH ×2 (08:23→13:45)
[2020-06-17] MEDS: PANTOPRAZOLE 40 MG/10 ML VIAL IVP SCH (08:23)
[2020-06-17] MEDS: CHOLECALCIFEROL 1,000 UNIT TAB PO SCH (08:28)
[2020-06-17] MEDS: CYANOCOBALAMIN 500 MCG TAB PO SCH (08:28)
[2020-06-17 08:47] LABS: Anisocytosis Moderate; HCT 24.6 % (39.0-53.0); Hypochromasia Marked; MCH 26.9 pg (25.0-35.0); MCV 96.2 fL (80.0-100.0); Macrocytosis Slight; Mean Platelet Volume 7.8; Platelet Count 247 k/uL (150-450); Poikilocytosis Slight; RBC 2.56 m/uL (4.30-5.90); RDW 20.9 % (11.5-15.5); WBC 8.8 k/uL (3.8-10.6)
[2020-06-17 08:52] LABS: HGB 6.9 gm/dL (13.0-17.5)
--- NOTE | 2020-06-17 10:34 | P.PN ---
Subjective Progress Note Date: 06/17/20 CHIEF COMPLAINT: CHF HISTORY OF PRESENT ILLNESS: Patient examined at the bedside. Daughter present. Patient is currently on bipap. He reports shortness of breath that is unchanged from yesterday. He remains on IV Lasix 40 mg IV every 12 hours. Creatinine is stable at 1.77 today. Fluid balance over the last 24 hours is -1 L. Hemoglobin today 6.9. PHYSICAL EXAM: VITAL SIGNS: Reviewed. GENERAL: Well-developed in no acute distress. NECK: Supple. No JVD or thyromegaly LUNGS: Respirations even and unlabored. Lungs diminished with rales bilaterally. HEART: Irregular rate and rhythm. S1 and S2 heard. EXTREMITIES: Normal range of motion. No clubbing or cyanosis. Peripheral pulses intact. 1+ bilateral lower extremity edema ASSESSMENT: Acute exacerbation of chronic diastolic heart failure, EF 50-55% Anemia, s/p recent EGD revealing gastritis Acute on chronic hypoxic and hypercapnic respiratory failure Chronic obstructive pulmonary disease Acute on chronic kidney disease Coronary artery disease with previous PCI Paroxysmal atrial fibrillation Abnormal troponin, no significant rise and fall pattern, likely secondary to hypoxia and abnormal renal function PLAN: Continue IV lasix Monitor kidney function Daily weight Accurate I&O Patient to receive RBC transfusion today per GI service Continue to hold Eliquis secondary to anemia Patient with one isolated high BP reading this morning. Reviewing trend over the last 24 hours patient has not been hypertensive. Will continue to monitor blood pressure. If he remains hypertensive we will make modifications to medication regimen. Further recommendations pending Nurse practitioner note has been reviewed by physician. Signing provider agrees with the documented findings, assessment, and plan of care. Objective - Vital Signs Vital signs: Vital Signs Temp 97.9 F 06/17/20 03:36 Pulse 72 06/17/20 07:52 Resp 26 H 06/17/20 03:36 BP 137/63 06/17/20 03:36 Pulse Ox 99 06/17/20 03:36 Intake & Output 06/16/20 06/17/20 06/17/20 18:59 06:59 18:59 Intake Total 150 120 Output Total 275 900 Balance -125 -900 120 Weight 122 kg 108.8 kg Intake: Oral 150 120 Output: Urine 275 900 Uretheral ([place]low) 300 Other: Voiding Method Indwelling Catheter Indwelling Catheter # Voids 1 # Bowel Movements 1 - Labs CBC & Chem 7: 06/17/20 06:50 06/17/20 06:50 Labs: Abnormal Lab Results - Last 24 Hours (Table) 06/15/20 06/16/20 06/16/20 Range/Units 12:41 11:38 16:38 RBC (4.30-5.90) m/uL Hgb (13.0-17.5) gm/dL Hct (39.0-53.0) % MCHC (31.0-37.0) g/dL RDW (11.5-15.5) % Carbon Dioxide (22-30) mmol/L BUN (9-20) mg/dL Creatinine (0.66-1.25) mg/dL Glucose (74-99) mg/dL POC Glucose (mg/dL) 111 H 144 H (75-99) mg/dL Crossmatch See Detail 06/16/20 06/17/20 06/17/20 Range/Units 20:06 05:59 06:15 RBC (4.30-5.90) m/uL Hgb (13.0-17.5) gm/dL Hct (39.0-53.0) % MCHC (31.0-37.0) g/dL RDW (11.5-15.5) % Carbon Dioxide (22-30) mmol/L BUN (9-20) mg/dL Creatinine (0.66-1.25) mg/dL Glucose (74-99) mg/dL POC Glucose (mg/dL) 150 H 46 L 45 L (75-99) mg/dL Crossmatch 06/17/20 06/17/20 06/17/20 Range/Units 06:31 06:47 06:50 RBC (4.30-5.90) m/uL Hgb (13.0-17.5) gm/dL Hct (39.0-53.0) % MCHC (31.0-37.0) g/dL RDW (11.5-15.5) % Carbon Dioxide 39 H (22-30) mmol/L BUN 43 H (9-20) mg/dL Creatinine 1.77 H (0.66-1.25) mg/dL Glucose 133 H (74-99) mg/dL POC Glucose (mg/dL) 45 L 180 H (75-99) mg/dL Crossmatch 06/17/20 Range/Units 06:50 RBC 2.56 L (4.30-5.90) m/uL Hgb 6.9 L* (13.0-17.5) gm/dL Hct 24.6 L (39.0-53.0) % MCHC 28.0 L (31.0-37.0) g/dL RDW 20.9 H (11.5-15.5) % Carbon Dioxide (22-30) mmol/L BUN (9-20) mg/dL Creatinine (0.66-1.25) mg/dL Glucose (74-99) mg/dL POC Glucose (mg/dL) (75-99) mg/dL Crossmatch
--- NOTE | 2020-06-17 11:55 | P.PN ---
Subjective Progress Note Date: 06/17/20 Principal diagnosis: Anemia Patient seen and examined at the bedside. Patient's daughter is at the bedside as well. Patient has BiPAP on him. He is denying any abdominal pain, nausea, or vomiting. His colostomy has dark brown stool. Today's hemoglobin 6.9. Objective - Vital Signs Vital signs: Vital Signs Temp 97.9 F 06/17/20 03:36 Pulse 76 06/17/20 11:29 Resp 26 H 06/17/20 03:36 BP 137/63 06/17/20 03:36 Pulse Ox 99 06/17/20 03:36 Intake & Output 06/16/20 06/17/20 06/17/20 18:59 06:59 18:59 Intake Total 150 120 Output Total 275 900 Balance -125 -900 120 Weight 122 kg 108.8 kg Intake: Oral 150 120 Output: Urine 275 900 Uretheral ([place]) 300 Other: Voiding Method Indwelling Catheter Indwelling Catheter # Voids 1 # Bowel Movements 1 - Exam General appearance: The patient is alert, oriented, in no acute distress. Currently has BiPAP on. HET: Head is normocephalic and atraumatic. Conjunctiva pink, sclera anicteric. Neck: Supple without lymphadenopathy. Trachea midline. Heart: S1 S2. Regular rate and rhythm. Lungs: No crackles or wheezes are heard. Abdomen: Soft, obese, nontender, nondistended with bowel sounds. Extremities: Normal skin color and turgor. Bilateral pedal edema. Neurological: No focal deficits. Alert and oriented 3. - Labs CBC & Chem 7: 06/17/20 06:50 06/17/20 06:50 Labs: Abnormal Lab Results - Last 24 Hours (Table) 06/15/20 06/16/20 06/16/20 Range/Units 12:41 16:38 20:06 RBC (4.30-5.90) m/uL Hgb (13.0-17.5) gm/dL Hct (39.0-53.0) % MCHC (31.0-37.0) g/dL RDW (11.5-15.5) % Carbon Dioxide (22-30) mmol/L BUN (9-20) mg/dL Creatinine (0.66-1.25) mg/dL Glucose (74-99) mg/dL POC Glucose (mg/dL) 144 H 150 H (75-99) mg/dL Crossmatch See Detail 06/17/20 06/17/20 06/17/20 Range/Units 05:59 06:15 06:31 RBC (4.30-5.90) m/uL Hgb (13.0-17.5) gm/dL Hct (39.0-53.0) % MCHC (31.0-37.0) g/dL RDW (11.5-15.5) % Carbon Dioxide (22-30) mmol/L BUN (9-20) mg/dL Creatinine (0.66-1.25) mg/dL Glucose (74-99) mg/dL POC Glucose (mg/dL) 46 L 45 L 45 L (75-99) mg/dL Crossmatch 06/17/20 06/17/20 06/17/20 Range/Units 06:47 06:50 06:50 RBC 2.56 L (4.30-5.90) m/uL Hgb 6.9 L* (13.0-17.5) gm/dL Hct 24.6 L (39.0-53.0) % MCHC 28.0 L (31.0-37.0) g/dL RDW 20.9 H (11.5-15.5) % Carbon Dioxide 39 H (22-30) mmol/L BUN 43 H (9-20) mg/dL Creatinine 1.77 H (0.66-1.25) mg/dL Glucose 133 H (74-99) mg/dL POC Glucose (mg/dL) 180 H (75-99) mg/dL Crossmatch Assessment and Plan (1) Symptomatic anemia Narrative/Plan: 85-year-old male with multiple medical comorbidities presenting for shortness of breath and anemia. Patient recently hospitalized with similar complaints treated for exacerbation of CHF and underlying COPD. Currently being seen by the cardiology and pulmonology service. No reports of bright red blood from ostomy, nausea, vomiting or coffee-ground emesis. He has been noted to have some dark output from his ostomy. Hemoglobin currently stable with a normocytic hypochromic anemia depressed approximately 1 g from recent admission. At that time EGD on 06/03/2020 show mild gastritis with no bleeding. Anemia likely multifactorial and secondary to chronic disease, cannot rule out a component of small bowel bleed or other GI bleed given dark output from ostomy and stool which is positive for occult blood, currently given respiratory status is not a candidate for endoscopic evaluation. Current Visit: Yes Status: Acute Code(s): D64.9 - ANEMIA, UNSPECIFIED SNOMED Code(s): 583080424 (2) Fecal occult blood test positive Current Visit: Yes Status: Acute Code(s): R19.5 - OTHER FECAL ABNORMALITIES SNOMED Code(s): 50509578 Plan: supportive care Okay for diet as tolerated Continue monitor stool output Continue to monitor hemoglobin and hematocrit and transfuse as needed Continue Protonix therapy Continue management of underlying CHF exacerbation and COPD with the cardiology and pulmonology service is following Continue to hold anticoagulation therapy Given patient's respiratory status not a candidate for endoscopic evaluation at this time, we'll continue to monitor and reevaluate based on labs and clinical course Transfuse 1 unit of PRBC ordered Patient and family have decided on Hospice, will be discharged home with Hospice care Thank you for allowing us to participate in the care of the patient
[2020-06-17] MEDS ORDERED: FUROSEMIDE 10 MG/ML 2 ML VIAL IV ONE (12:00)
[2020-06-17 12:05] LABS: Glucose,Whole Blood 203 mg/dL (75-99)
--- NOTE | 2020-06-17 12:25 | P.PN ---
Subjective Progress Note Date: 06/16/20 Principal diagnosis: Acute on chronic CHF with diastolic dysfunction Patient is a 85-year-old male with a known history of coronary artery disease history of CABG, chronic CHF with diastolic dysfunction, probable fluid fibrillation on anticoagulation with Eliquis, history of rectal cancer with colostomy, obstructive sleep apnea on CPAP at home and recent admission with COPD exacerbation and CHF exacerbation and was discharged on 06/11/2020. Patient presents to ER from his primary care physician's office. Patient was seen at Dr. Thakur's office today morning as a follow-up appointment from recent hospital discharge. Patient was found to have hemoglobin of 5 in the clinic and was sent to the hospital for further work-up. Patient did have blood transfusion with 2 units of PRBC during his recent admission. Patient had EGD, colonoscopy which showed gastritis and no signs of active bleeding. Hemoglobin has been stable and was discharged to follow-up as an outpatient. Patient states that he continued to have exertional short of breath and pulse ox was 80% on oxygen via nasal cannula at 2 L. Due to her exertional short of breath and anemia with hemoglobin of 5 patient was sent to ER for evaluation. Of note patient was started on multivitamins and iron supplementation. Which he did take first dose yesterday morning. Since then patient's daughter states renea t he has been having dark stools. As per her his daughter, she noticed there is some bright low blood bleeding from the edge of the colostomy bag. No fever no chills. No cough or sputum reduction. No chest pain. No hematemesis. Patient continues to have leg swelling. Laboratory data in the ER showed hemoglobin of 7.6 and hematocrit 26.1 Platelets 241 RDW 20.6 Sodium 140, potassium 4.6, BUN 39 and creatinine 1.81 Troponin 0 0.056, 0.055 and 0.055 Albumin 3.0 FOBT positive Chest x-ray showed correlate for congestive heart failure with possible effusions. EKG showed sinus rhythm with first-degree AV block 06/16/2020 Patient is currently on BiPAP. Awake and alert. ABGs were ordered. Denied any complaints of chest pain. Patient still having bilateral lower activity swelling and bibasilar diminished air entry. Patient is being continued on IV Lasix. Pulmonary and audiology has seen the patient. Hemoglobin is 7.5 today. Colostomy back does not have any dark-colored stool. Patient has been afebrile. No cough or sputum production. Could not provide complete history. Laboratory data showed BUN 43 and creatinine 1.7. current medications reviewed. Objective - Vital Signs Vital signs: Vital Signs Temp 97.7 F 06/16/20 11:52 Pulse 66 06/16/20 11:52 Resp 25 H 06/16/20 11:52 BP 117/64 06/16/20 11:52 Pulse Ox 97 06/16/20 11:52 Intake & Output 06/15/20 06/16/20 06/16/20 18:59 06:59 18:59 Intake Total 100 Output Total 250 325 275 Balance -250 -325 -175 Weight 127.006 kg 122 kg 122 kg Intake: Oral 100 Output: Urine 250 325 275 Other: Voiding Method Toilet Urinal Urinal Urinal # Voids 1 1 1 - Exam PHYSICAL EXAMINATION: Patient is lying in the bed comfortably, no acute distress, awake alert and oriented. Patient lethargic and weak. HEENT: Normocephalic. Neck is supple. Pupils reactive. Nostrils clear. Oral cavity is moist. Ears reveal no drainage. Neck reveals no JVD, carotid bruits, or thyromegaly. CHEST EXAMINATION: Trachea is central. Symmetrical expansion. Bibasilar diminished air entry and crackles at the base. No wheezing. CARDIAC: Normal S1, S2 with no gallops. No murmurs ABDOMEN: Soft. Bowel sounds normal. No organomegaly. No abdominal bruits. Extremities: trace edema. No clubbing or cyanosis Neurologically awake, alert, oriented x2-3 with well-coordinated movements. No focal deficits noted Skin: No rash or skin lesions. Psychiatric: Coperative. Could not be assessed completely. Musculoskeletal: No joint swelling or deformity. Normal range of motion. - Labs CBC & Chem 7: 06/17/20 06:50 06/17/20 06:50 Labs: Abnormal Lab Results - Last 24 Hours (Table) 06/15/20 06/15/20 06/15/20 Range/Units 15:36 16:40 18:36 RBC 2.68 L (4.30-5.90) m/uL Hgb 7.3 L (13.0-17.5) gm/dL Hct 25.7 L (39.0-53.0) % MCHC 28.3 L (31.0-37.0) g/dL RDW 21.0 H (11.5-15.5) % Lymphocytes # (1.0-4.8) k/uL ABG pH (7.35-7.45) ABG pCO2 (35-45) mmHg ABG pO2 (83-108) mmHg ABG HCO3 (21-25) mmol/L ABG Total CO2 (19-24) mmol/L ABG O2 Saturation (94-97) % Carbon Dioxide (22-30) mmol/L BUN (9-20) mg/dL Creatinine (0.66-1.25) mg/dL Glucose (74-99) mg/dL POC Glucose (mg/dL) 155 H (75-99) mg/dL Troponin I 0.055 H* (0.000-0.034) ng/mL 06/15/20 06/15/20 06/16/20 Range/Units 18:36 20:42 06:35 RBC (4.30-5.90) m/uL Hgb (13.0-17.5) gm/dL Hct (39.0-53.0) % MCHC (31.0-37.0) g/dL RDW (11.5-15.5) % Lymphocytes # (1.0-4.8) k/uL ABG pH (7.35-7.45) ABG pCO2 (35-45) mmHg ABG pO2 (83-108) mmHg ABG HCO3 (21-25) mmol/L ABG Total CO2 (19-24) mmol/L ABG O2 Saturation (94-97) % Carbon Dioxide (22-30) mmol/L BUN (9-20) mg/dL Creatinine (0.66-1.25) mg/dL Glucose (74-99) mg/dL POC Glucose (mg/dL) 144 H 124 H (75-99) mg/dL Troponin I 0.055 H* (0.000-0.034) ng/mL 06/16/20 06/16/20 06/16/20 Range/Units 07:09 07:09 07:39 RBC 2.78 L (4.30-5.90) m/uL Hgb 7.5 L (13.0-17.5) gm/dL Hct 26.6 L (39.0-53.0) % MCHC 28.0 L (31.0-37.0) g/dL RDW 20.7 H (11.5-15.5) % Lymphocytes # 0.5 L (1.0-4.8) k/uL ABG pH 7.28 L (7.35-7.45) ABG pCO2 81 H* (35-45) mmHg ABG pO2 47 L* (83-108) mmHg ABG HCO3 38 H (21-25) mmol/L ABG Total CO2 41 H (19-24) mmol/L ABG O2 Saturation 81.5 L (94-97) % Carbon Dioxide 39 H (22-30) mmol/L BUN 43 H (9-20) mg/dL Creatinine 1.70 H (0.66-1.25) mg/dL Glucose 109 H (74-99) mg/dL POC Glucose (mg/dL) (75-99) mg/dL Troponin I (0.000-0.034) ng/mL 06/16/20 Range/Units 11:38 RBC (4.30-5.90) m/uL Hgb (13.0-17.5) gm/dL Hct (39.0-53.0) % MCHC (31.0-37.0) g/dL RDW (11.5-15.5) % Lymphocytes # (1.0-4.8) k/uL ABG pH (7.35-7.45) ABG pCO2 (35-45) mmHg ABG pO2 (83-108) mmHg ABG HCO3 (21-25) mmol/L ABG Total CO2 (19-24) mmol/L ABG O2 Saturation (94-97) % Carbon Dioxide (22-30) mmol/L BUN (9-20) mg/dL Creatinine (0.66-1.25) mg/dL Glucose (74-99) mg/dL POC Glucose (mg/dL) 111 H (75-99) mg/dL Troponin I (0.000-0.034) ng/mL Assessment and Plan Assessment: Acute on chronic CHF with diastolic dysfunction Acute on chronic hypoxic respiratory failure currently requiring BiPAP. Acute on chronic anemia possible acute blood loss. Hemoglobin was 5 in the clinic but repeat was 7.6 which is at baseline during his last admission. FOBT positive which could be false positive. Anemia of chronic disease Elevated troponin level possible demand mismatch Chronic kidney disease stage III with baseline creatinine around 1.7 Paroxysmal atrial fibrillation currently on anticoagulation with Eliquis which is on hold History of rectal cancer status post surgery and colostomy bag placement. Chronic hypoxic respiratory failure secondary to COPD, obstructive sleep apnea and chronic CO2 retention Obstructive sleep apnea Diabetes type 2 insulin-dependent Coronary artery disease with history of CABG Hypothyroidism GERD Hypertension Hyperlipidemia Previous history of smoking DVT prophylaxis with SCDs Plan: Patient will be continued on Lasix 40 mg every 12 and monitor renal function. Monitor H&H. Repeat hemoglobin is at 7.6--7.5 which is his baseline. Continue with Protonix. GI was consulted. Patient had recent EGD showed mild gastritis. No active bleeding was noted. Cardiology and pulmonary is following. Continue with oxygen therapy and BiPAP at night. Further recommendations based on glucose. Discussed plan of care with his daughter at bedside. Time with Patient: Greater than 30
--- NOTE | 2020-06-17 12:29 | P.PN ---
Subjective Progress Note Date: 06/17/20 Principal diagnosis: Dyspnea, acute on chronic hypoxic and hypercapnic restaurant failure, CHF exacerbation, anemia 85-year-old white male patient with multiple medical problems, who was recently hospitalized from 06/01/2020-06/11/2020 related to acute exacerbation of COPD, decompensated heart failure with diastolic dysfunction, Klebsiella and stenotrophomonas pneumonia. Patient required intubation and mechanical ventilator support during last admission, with 3 days on the ventilator support. Patient was diuresed, treated with antibiotics, he was successfully weaned and extubated from mechanical ventilator, and was discharged home in stable condition with home care on 06/11/2020. During his previous state patient did require blood transfusion, and had a GI evaluation with the EGD with biopsy, which revealed mild gastritis, but no active bleeding. He has multiple medical problems including chronic CHF with diastolic dysfunction, moderately severe aortic stenosis, advanced COPD on home oxygen, chronic kidney disease, coronary artery disease with coronary stenting, diabetes mellitus, previous history of GI bleeding, chronic anemia, and obstructive sleep apnea unable to wear her CPAP. Patient presented to the emergency department on 06/15/2020 for evaluation of worsening shortness of breath, and hypoxic with pulse ox of 80% on his usual home dose of 2 L/m of oxygen. He was in to see his primary care provider, Dr. Farrar, and hemoglobin was checked and was noted to be in the fives. Patient was sent in to the emergency department for further evaluation and treatment. Of note patient is on Eliquis for chronic atrial fibrillation. He has a colostomy, and his daughter reports dark stools from the colostomy. No reports of hematemesis or hemoptysis, no hematuria. Denied any fever or chills, has a mild productive cough, no chest pain. No abdominal pain. His hemoglobin in the emergency department was 7.5, no leukocytosis, with blood cell count of 7.3. Sodium is 142, potassium is 4.5, chloride is 100, CO2 39, BUN is 43 creatinine is 1.7. Blood gas was obtained in view of worsening shortness of breath, pO2 was 47, pCO2 is 81, and pH is 7.28, this was done on FiO2 of 20%, and patient was subsequently placed on BiPAP support with pressures of 14/5 and FiO2 of 35%. Chest x-ray shows central vascularity and prominent interstitium consistent with congestive heart failure with possible pleural effusions. Patient has been afebrile, he is in atrial fibrillation with a controlled rate, hemodynamically patient has been stable, he is currently on BiPAP support, he is drowsy, but he wakes up and give some limited verbal answers. Appears to be in no acute distress. Started on IV diuretics, nebulized bronchodilators, his Eliquis was placed on hold. GI service consultation was requested and is pending at this time, he was started on PPI therapy. On 06/17/2020 patient seen in follow-up on selective care unit. Remains on BiPAP support, pressures of 14.5, and 35%, he was given a break from it, he is currently on 2 L of oxygen, he is weak and fatigued, a bit drowsy but arousable, he is answering simple questions with yes or no responses. His daughter is at the bedside, she was updated on patient's condition, patient remains on IV diuretics, steroids, breathing treatments, he is in -1000 fluid balance over the last 24 hours. Hemodynamically patient has remained stable, patient remains in chronic atrial fibrillation, Eliquis remains on hold with a concern for anemia, and possibility of GI bleeding, today's hemoglobin is 6.9, later count is 247, GI service is following, CO2 39, the rest of electrolytes were within normal limits, B1 is 43 creatinine is 1.7. Patient denies any chest pain, denies any abdominal pain nausea or vomiting, his colostomy continues to have dark brown stool. No hypotension, no tachycardia, A. fib is controlled. We discussed the patient's condition with his daughter, and she stated that patient's CODE STATUS needs to be changed to DO NOT RESUSCITATE, and she is asking if the patient should go home with palliative care. She stated that there was a family meeting prior to patient's hospitalization, patient follows of [facility], and the patient and family collectively decided that he is not to be intubated and placed on mechanical ventilator again, and they were discussing palliative care before patient's admission. At this time we offered to continue supportive care, and if patient does not respond continues to deteriorate palliative care/hospice can certainly be initiated. Objective - Vital Signs Vital signs: Vital Signs Temp 97.0 F L 06/17/20 08:00 Pulse 76 06/17/20 11:29 Resp 32 H 06/17/20 08:00 BP 164/113 06/17/20 08:00 Pulse Ox 99 06/17/20 03:36 Intake & Output 06/16/20 06/17/20 06/17/20 18:59 06:59 18:59 Intake Total 150 120 Output Total 275 900 Balance -125 -900 120 Weight 122 kg 108.8 kg Intake: Oral 150 120 Blood Product 0 Rc As-1 Unit 0 [id number] Output: Urine 275 900 Uretheral (Winslow) 300 Other: Voiding Method Indwelling Catheter Indwelling Catheter # Voids 1 # Bowel Movements 1 - Exam GENERAL EXAM: Drowsy, but easily arousable to verbal stimuli, 85-year-old white male, currently on BiPAP support with pressures of 14/5, and FiO2 of 30% comfortable in no apparent distress. HEAD: Normocephalic/atraumatic. EYES: Normal reaction of pupils, equal size. Conjunctiva pink, sclera white. NOSE: Clear with pink turbinates. THROAT: No erythema or exudates. NECK: No masses, no JVD, no thyroid enlargement, no adenopathy. CHEST: No chest wall deformity. Symmetrical expansion. LUNGS: Equal air entry with no crackles, wheeze, rhonchi or dullness. CVS: Irregular rate and rhythm, normal S1 and S2, no gallops, no murmurs, no rubs ABDOMEN: Soft, nontender. No hepatosplenomegaly, normal bowel sounds, no guarding or rigidity. EXTREMITIES: No clubbing, 1+ lower extremity edema, no cyanosis, 2+ pulses and upper and lower extremities. MUSCULOSKELETAL: Muscle strength and tone normal. SPINE: No scoliosis or deformity SKIN: No rashes CENTRAL NERVOUS SYSTEM: Drowsy but arousable to verbal stimuli, No focal deficits, tone is normal in all 4 extremities. - Labs CBC & Chem 7: 06/17/20 06:50 06/17/20 06:50 Labs: Abnormal Lab Results - Last 24 Hours (Table) 06/15/20 06/16/20 06/16/20 Range/Units 12:41 16:38 20:06 RBC (4.30-5.90) m/uL Hgb (13.0-17.5) gm/dL Hct (39.0-53.0) % MCHC (31.0-37.0) g/dL RDW (11.5-15.5) % Carbon Dioxide (22-30) mmol/L BUN (9-20) mg/dL Creatinine (0.66-1.25) mg/dL Glucose (74-99) mg/dL POC Glucose (mg/dL) 144 H 150 H (75-99) mg/dL Crossmatch See Detail 06/17/20 06/17/20 06/17/20 Range/Units 05:59 06:15 06:31 RBC (4.30-5.90) m/uL Hgb (13.0-17.5) gm/dL Hct (39.0-53.0) % MCHC (31.0-37.0) g/dL RDW (11.5-15.5) % Carbon Dioxide (22-30) mmol/L BUN (9-20) mg/dL Creatinine (0.66-1.25) mg/dL Glucose (74-99) mg/dL POC Glucose (mg/dL) 46 L 45 L 45 L (75-99) mg/dL Crossmatch 06/17/20 06/17/20 06/17/20 Range/Units 06:47 06:50 06:50 RBC 2.56 L (4.30-5.90) m/uL Hgb 6.9 L* (13.0-17.5) gm/dL Hct 24.6 L (39.0-53.0) % MCHC 28.0 L (31.0-37.0) g/dL RDW 20.9 H (11.5-15.5) % Carbon Dioxide 39 H (22-30) mmol/L BUN 43 H (9-20) mg/dL Creatinine 1.77 H (0.66-1.25) mg/dL Glucose 133 H (74-99) mg/dL POC Glucose (mg/dL) 180 H (75-99) mg/dL Crossmatch 06/17/20 Range/Units 11:41 RBC (4.30-5.90) m/uL Hgb (13.0-17.5) gm/dL Hct (39.0-53.0) % MCHC (31.0-37.0) g/dL RDW (11.5-15.5) % Carbon Dioxide (22-30) mmol/L BUN (9-20) mg/dL Creatinine (0.66-1.25) mg/dL Glucose (74-99) mg/dL POC Glucose (mg/dL) 203 H (75-99) mg/dL Crossmatch Assessment and Plan Plan: Assessment: #1. Acute on chronic hypoxic and hypercapnic respiratory failure related to acute exacerbation of diastolic CHF #2. Acute on chronic dyspnea, multifactorial, related to chronic CHF, chronic COPD, and chronic anemia #3. Recent hospitalization for acute exacerbation of COPD, CHF, anemia, and Klebsiella and stenotrophomonas pneumonia, requiring intubation and mechanical support, patient was on the vent for 3 days from 06/01/2020 through on 06/04/2020, was successfully weaned and extubated. Patient was hospitalized from 06/01/2020 through on 06/11/2020 and was discharged home with home care #4. Chronic kidney disease #5. Chronic CHF, with diastolic dysfunction, and ejection fraction of 50-55%, and valvular heart disease including moderate to severe aortic stenosis #6. History of COPD with chronic hypoxic respiratory failure and FEV1 of 42% of predicted #7. Diabetes mellitus type 2 #8. History of anemia, the patient had endoscopic evaluation with EGD by Dr. Neves, and was found to have mild gastritis, but no evidence of active bleeding, Eliquis was resumed and is currently on hold again for possibility of GI blood loss anemia #9. History of colostomy for a history of rectal cancer #10. Coronary artery disease with previous coronary artery stenting, history of aortic valve replacement back in 2007 #11. Obstructive sleep apnea nontolerant to CPAP #12. History of hypothyroidism Plan: Continue supportive care, continue IV Lasix, BiPAP support, nebulized bronchodilators, steroids. Discussed CODE STATUS with patient's family, and apparently the patient and the family were considering palliative care prior to patient's admission, the degree that patient should be DO NOT RESUSCITATE, he does not wish intubation and placement on mechanical ventilator, and they are ev en considering hospice. At this time we offered to continue supportive care, and in the event patient does not improve or continues to deteriorate, hospice consult can be placed I performed a history & physical examination of the patient and discussed their management with my nurse practitioner, Odalis Reyes. I reviewed the nurse practitioner's note and agree with the documented findings and plan of care. Lung sounds are positive for diminished breath sounds. The findings and the impression was discussed with the patient. I attest to the documentation by the nurse practitioner. Time with Patient: Less than 30
[2020-06-17] MEDS ORDERED: MORPHINE SULFATE 2 MG/ML SYRINGE IVP STA (13:59)
[2020-06-17 14:01] VITALS: TEMP 98
--- NOTE | 2020-06-17 14:22 | CDI ---
Documentation Clarification Form Date: 06/17/2020 CDS: Lesia Dacosta RN, CCDS Admit Date: 06/15/2020 Patient Name: Primitivo Hammonds ATTENTION: The Clinical Documentation Specialists (CDI) and [facility] Coding Staff appreciate your assistance in clarifying documentation. Please respond to the clarification below the line at the bottom and electronically sign. The CDI & [facility] Coding staff will review the response and follow-up if needed. Please note: Queries are made part of the Legal Health Record. If you have any questions, please contact the author of this message via ITS. Dr. Carson; Abnormal troponin, no significant rise and fall pattern, likely secondary to hypoxia and abnormal renal function. Cardiology Consult 06/16/20 Patient History/Risk Factors: 85-year-old male was sent to the ED from PCP for exertional shortness of breath and low oxygen levels 80% while sitting on porch normally wears 2L nasal cannula. Medical History: Chronic respiratory failure; HTN; Heart Failure; DM; COPD and CAD. Clinical Indicators: Admitted with Acute on chronic CHF; Acute on Chronic hypoxic Respiratory Failure; Acute on chronic anemia; 06/15 11:51 VSS: B/P: 154/87; HR: 87; Temp 98.3 F; RR: 16; Spo2 96% 3L nasal cannula 06/16 02:51 VSS: B/P: 139/64; HR 85; Temp: 97.8 F; RR: 38; Spo2 100% BiPAP FiO2 35 06/15 Troponin: 0.55; 0.055; 06/15 Creatinine 1.81; BUN 39 Per H& P 06/15 Elevated troponin level possible demand mismatch 06/15 EKG Results: Sinus rhythm with 1st degree AV block. Treatment: BiPAP and ICU admission. In your professional opinion, can you please clarify the clinical significance of the Troponins? Type 2 VA secondary to demand ischemia in the setting of Respiratory Failure and Acute Kidney Injury Type 2 VA secondary to demand ischemia in the setting of (please specify) __Hypoxemia & Anemia Type 2 VA Ruled Out Unable to determine Other Condition, please specify (Last Revision: September 2019) MTDD
[2020-06-17 15:24] VITALS: PULSE 76
[2020-06-17 15:32] VITALS: BP 124/68; RESP 18
[2020-06-17] MEDS ORDERED: INSULIN DETEMIR (LEVEMIR) 100 UNIT/ML SYR SQ SCH (21:00)
--- NOTE | 2020-07-02 12:20 | P.DS ---
Providers Date of admission: 06/15/20 14:01 Expected date of discharge: 06/17/20 Attending physician: Cate Kurtz Consults: 06/15/20 14:02 Consult Physician Urgent Consulting Provider: [facility] Consult Reason/Comments: aechf Do you want consulting provider notified?: Yes Consult Physician Urgent Consulting Provider: Misael Vargas Consult Reason/Comments: fecal occult positive Do you want consulting provider notified?: Yes 06/15/20 23:46 Consult Physician Routine Consulting Provider: Monica Pizarro Consult Reason/Comments: Respiratory Failure Do you want consulting provider notified?: Yes, Notify in am [facility]: Discharge diagnosis Acute on chronic CHF with diastolic dysfunction Acute on chronic hypoxic respiratory failure currently requiring BiPAP. Acute on chronic anemia possible acute blood loss. Hemoglobin was 5 in the clinic but repeat was 7.6 which is at baseline during his last admission. FOBT positive which could be false positive. Anemia of chronic disease Elevated troponin level possible demand mismatch Chronic kidney disease stage III with baseline creatinine around 1.7 Paroxysmal atrial fibrillation currently on anticoagulation with Eliquis which is on hold History of rectal cancer status post surgery and colostomy bag placement. Chronic hypoxic respiratory failure secondary to COPD, obstructive sleep apnea and chronic CO2 retention Obstructive sleep apnea Diabetes type 2 insulin-dependent Coronary artery disease with history of CABG Hypothyroidism GERD Hypertension Hyperlipidemia Previous history of smoking DVT prophylaxis with SCDs Hospital course Patient is a 85-year-old male with a known history of coronary artery disease history of CABG, chronic CHF with diastolic dysfunction, probable fluid fibrillation on anticoagulation with Eliquis, history of rectal cancer with colostomy, obstructive sleep apnea on CPAP at home and recent admission with COPD exacerbation and CHF exacerbation and was discharged on 06/11/2020. Patient presents to ER from his primary care physician's office. Patient was seen at Dr. Thakur's office today morning as a follow-up appointment from recent hospital discharge. Patient was found to have hemoglobin of 5 in the clinic and was sent to the hospital for further work-up. Patient did have blood transfusion with 2 units of PRBC during his recent admission. Patient had EGD, colonoscopy which showed gastritis and no signs of active bleeding. Hemoglobin has been stable and was discharged to follow-up as an outpatient. Patient states that he continued to have exertional short of breath and pulse ox was 80% on oxygen via nasal cannula at 2 L. Due to her exertional short of breath and anemia with hemoglobin of 5 patient was sent to ER for evaluation. Of note patient was started on multivitamins and iron supplementation. Which he did take first dose yesterday morning. Since then patient's daughter states renea t he has been having dark stools. As per her his daughter, she noticed there is some bright low blood bleeding from the edge of the colostomy bag. No fever no chills. No cough or sputum reduction. No chest pain. No hematemesis. Patient continues to have leg swelling. Laboratory data in the ER showed hemoglobin of 7.6 and hematocrit 26.1 Platelets 241 RDW 20.6 Sodium 140, potassium 4.6, BUN 39 and creatinine 1.81 Troponin 0 0.056, 0.055 and 0.055 Albumin 3.0 FOBT positive Chest x-ray showed correlate for congestive heart failure with possible effusions. EKG showed sinus rhythm with first-degree AV block 06/16/2020 Patient is currently on BiPAP. Awake and alert. ABGs were ordered. Denied any complaints of chest pain. Patient still having bilateral lower activity swelling and bibasilar diminished air entry. Patient is being continued on IV Lasix. Pulmonary and audiology has seen the patient. Hemoglobin is 7.5 today. Colostomy back does not have any dark-colored stool. Patient has been afebrile. No cough or sputum production. Could not provide complete history. Laboratory data showed BUN 43 and creatinine 1.7. 06/17/2020 Patient is currently lying in the bed wearing oxygen via nasal cannula. Patient was on BiPAP. Arrives is drowsy but arousable. Answering simple questions. Patient is being continued on IV diuretics, steroids and breathing treatments. Otherwise patient remained stable chronic atrial fibrillation and anticoagulation in the form of Eliquis. Hemoglobin is 6.9 today. Platelet count is 247.GI is following and no plan for endoscopy. Patient recently had endoscopy. Otherwise patient denied any complaints of chest pain. Shortness of breath is at baseline. Colostomy has dark brown stool. Due to multiple issues and ongoing shortness of breath CODE STATUS was discussed with his daughter and currently changed to not resuscitate. Patient's family is planning to go with palliative care at this time. Social work was consulted and patient will be discharged home with palliative care at home. PHYSICAL EXAMINATION: Patient is lying in the bed comfortably, no acute distress, awake alert and oriented. Patient lethargic and weak. HEENT: Normocephalic. Neck is supple. Pupils reactive. Nostrils clear. Oral cavity is moist. Ears reveal no drainage. Neck reveals no JVD, carotid bruits, or thyromegaly. CHEST EXAMINATION: Trachea is central. Symmetrical expansion. Bibasilar diminished air entry and crackles at the base. No wheezing. CARDIAC: Normal S1, S2 with no gallops. No murmurs ABDOMEN: Soft. Bowel sounds normal. No organomegaly. No abdominal bruits. Extremities: trace edema. No clubbing or cyanosis Neurologically awake, alert, oriented x2-3 with well-coordinated movements. No focal deficits noted Skin: No rash or skin lesions. Psychiatric: Coperative. Could not be assessed completely. Musculoskeletal: No joint swelling or deformity. Normal range of motion. Vital Signs Temp 97.0 F L 06/17/20 08:00 Pulse 76 06/17/20 11:29 Resp 32 H 06/17/20 08:00 BP 164/113 06/17/20 08:00 Pulse Ox 99 06/17/20 03:36 Intake & Output 06/16/20 06/17/20 06/17/20 18:59 06:59 18:59 Intake Total 150 120 Output Total 275 900 Balance -125 -900 120 Weight 122 kg 108.8 kg Intake: Oral 150 120 Blood Product 0 Rc As-1 Unit 0 [id number] Output: Urine 275 900 Uretheral (Winslow) 300 Other: Voiding Method Indwelling Catheter Indwelling Catheter # Voids 1 # Bowel Movements 1 Time taken greater than 35 minutes in patient. Part of which more than 50% was spent on counseling and coordination of care Patient Condition at Discharge: Serious Plan - Discharge Summary Discharge Rx Participant: Yes New Discharge Prescriptions: Continue Cholecalciferol [Vitamin D3 (25 Mcg = 1000 Iu)] 1,000 unit PO QAM Budesonide [Pulmicort Flexhaler] 1 puff INHALATION RT-BID Montelukast [Singulair] 10 mg PO HS Levothyroxine Sodium [Synthroid] 50 mcg PO DAILY Famotidine 20 mg PO BID Atorvastatin Calcium [Lipitor] 80 mg PO HS Darbepoetin Tony [Aranesp] 40 mcg SQ Q7D syringe Albuterol Nebulized [Ventolin Nebulized] 2.5 mg INHALATION RT-Q4H PRN PRN Reason: Shortness Of Breath Carvedilol [Coreg] 1.563 mg PO BID-W/MEALS Multivitamins, Thera [Multivitamin (formulary)] 1 tab PO DAILY Ferrous Sulfate [Iron (65 MG Elemental)] 325 mg PO DAILY Vit C/E/Zn/Coppr/Lutein/Zeaxan [Preservision Areds 2 Softgel] 1 cap PO BID Insulin Glargine,Hum.rec.anlog [Lantus Solostar] 62 - 65 unit SQ HS Insulin Lispro [humaLOG Kwikpen] See Protocol SQ PC-TID Cyanocobalamin (Vitamin B-12) [Vitamin B-12] 1,000 mcg PO DAILY Changed Furosemide [Lasix] 40 mg PO BID #0 Discharge Medication List Budesonide [Pulmicort Flexhaler] 1 puff INHALATION RT-BID 07/13/16 [History] Cholecalciferol [Vitamin D3 (25 Mcg = 1000 Iu)] 1,000 unit PO QAM 07/13/16 [History] Montelukast [Singulair] 10 mg PO HS 07/13/16 [History] Atorvastatin Calcium [Lipitor] 80 mg PO HS 06/01/20 [History] Famotidine 20 mg PO BID 06/01/20 [History] Levothyroxine Sodium [Synthroid] 50 mcg PO DAILY 06/01/20 [History] Darbepoetin Tony [Aranesp] 40 mcg SQ Q7D syringe 06/11/20 [Rx] Albuterol Nebulized [Ventolin Nebulized] 2.5 mg INHALATION RT-Q4H PRN 06/15/20 [History] Carvedilol [Coreg] 1.563 mg PO BID-W/MEALS 06/15/20 [History] Cyanocobalamin (Vitamin B-12) [Vitamin B-12] 1,000 mcg PO DAILY 06/15/20 [History] Ferrous Sulfate [Iron (65 MG Elemental)] 325 mg PO DAILY 06/15/20 [History] Insulin Glargine,Hum.rec.anlog [Lantus Solostar] 62 - 65 unit SQ HS 06/15/20 [History] Insulin Lispro [humaLOG Kwikpen] See Protocol SQ PC-TID 06/15/20 [History] Multivitamins, Thera [Multivitamin (formulary)] 1 tab PO DAILY 06/15/20 [History] Vit C/E/Zn/Coppr/Lutein/Zeaxan [Preservision Areds 2 Softgel] 1 cap PO BID 06/15/20 [History] Furosemide [Lasix] 40 mg PO BID #0 06/17/20 [Rx] Follow up Appointment(s)/Referral(s): Graeme Alonso DO [Primary Care Provider] - 1-2 days Patient Instructions/Handouts: Hospice Care (GEN) Discharge Disposition: HOME WITH HOSPICE
== END 2020-06-17 16:43 | disposition hospice, home (50) | DRG 280 ==
LOC: EC 11:44 → 3SCARD 14:01
PROVIDERS: ADMIT Internal Medicine; ATTEND Internal Medicine
PROC: 5A09357 Assistance with Respiratory Ventilation, Less than 24 Consecutive Hours, Continuous Positive Airway Pressure (ICD-10-PCS; principal; 2020-06-16)
PROC: 30233N1 Transfusion of Nonautologous Red Blood Cells into Peripheral Vein, Percutaneous Approach (ICD-10-PCS; 2020-06-17)
DX: I13.0 Hypertensive heart and chronic kidney disease with heart failure and stage 1 through stage 4 chronic kidney disease, or unspecified chronic kidney disease (principal); I50.33 Acute on chronic diastolic (congestive) heart failure; I21.A1 Myocardial infarction type 2; J96.21 Acute and chronic respiratory failure with hypoxia; J96.22 Acute and chronic respiratory failure with hypercapnia; D62 Acute posthemorrhagic anemia; E87.2 Acidosis; I48.19 Other persistent atrial fibrillation; N17.9 Acute kidney failure, unspecified; I48.3 Typical atrial flutter; D50.9 Iron deficiency anemia, unspecified; D63.8 Anemia in other chronic diseases classified elsewhere; E03.9 Hypothyroidism, unspecified; E11.22 Type 2 diabetes mellitus with diabetic chronic kidney disease; E78.5 Hyperlipidemia, unspecified; G47.33 Obstructive sleep apnea (adult) (pediatric); I25.10 Atherosclerotic heart disease of native coronary artery without angina pectoris; I35.0 Nonrheumatic aortic (valve) stenosis; I44.0 Atrioventricular block, first degree; J44.9 Chronic obstructive pulmonary disease, unspecified; Z66 Do not resuscitate; K21.9 Gastro-esophageal reflux disease without esophagitis; Z51.5 Encounter for palliative care; N18.3 Chronic kidney disease, stage 3 (moderate); Z79.01 Long term (current) use of anticoagulants; Z79.4 Long term (current) use of insulin; Z60.2 Problems related to living alone; Z90.49 Acquired absence of other specified parts of digestive tract; Z85.048 Personal history of other malignant neoplasm of rectum, rectosigmoid junction, and anus; Z93.3 Colostomy status; Z95.2 Presence of prosthetic heart valve; Z79.890 Hormone replacement therapy; Z79.899 Other long term (current) drug therapy; Z80.0 Family history of malignant neoplasm of digestive organs; Z87.891 Personal history of nicotine dependence; Z95.1 Presence of aortocoronary bypass graft; Z95.5 Presence of coronary angioplasty implant and graft; Z99.81 Dependence on supplemental oxygen; Z98.49 Cataract extraction status, unspecified eye; R19.5 Other fecal abnormalities; Z87.01 Personal history of pneumonia (recurrent); Z79.51 Long term (current) use of inhaled steroids; Z87.19 Personal history of other diseases of the digestive system
CPT/HCPCS: 36415; 36600; 71045; 71046; 80048; 80053; 82272; 82805; 83605; 83735; 83880; 84443; 84484; 85025; 85027; 85610; 85730; 86850; 86900; 86901; 86920; 93005; 94640; 94660; 94760; 96374; 99284